=== PATIENT | male | born 1955 | race Caucasian/White ===

== ENCOUNTER 2023-07-15 10:56 | Outpatient (AMB) | payer MEDICARE, SELFPAY ==
--- NOTE | 2023-07-15 11:28 | MHC.OFFVIS ---
Intake Vital Signs 07/15/23 11:29 Height 5 ft 11 in Weight 215 lb BMI 30.0 Blood Pressure Location Lt brachial Position Sitting Respiration 14 Pulse 82 Pulse Source Pulse Oximeter Pulse Oximetry (%) 95 Oxygen Delivery Method Room Air Intake Visit Reasons: sacrococcygeal disorder Allergies lisinopril Adverse Reaction (Severe, Verified 07/15/23 11:31) Unknown NSAIDS (Non-Steroidal Anti-Inflamma Adverse Reaction (Severe, Verified 07/15/23 11:31) duodenal ulcer flu vaccine Adverse Reaction (Severe, Uncoded 07/15/23 11:31) david kidd Medication List - Last Reconciled 07/15/23 by Adia Deluna LPN amlodipine 10 mg PO DAILY cholecalciferol (vitamin D3) 50 mcg PO DAILY furosemide 20 mg PO DAILY gabapentin 300 mg PO BID magnesium 500 mg PO DAILY pantoprazole 40 mg PO DAILY ropinirole 2 mg PO BID tamsulosin 0.4 mg PO BEDTIME vitamin B complex (B Complex-Vitamin B12 tablet) 1 tab PO DAILY HPI sacrococcygeal disorder HPI Details 67-year-old male who presents today to the office for an evaluation of low back and leg pain. He had an L3?[address] Farooq and then spinal fusion by Dr. Mishra in 2020. He reports low back pain radiating down to bilateral legs and feet that started about 10 years ago. His history is notable for L3-L4 spinal stenosis. He states that his pain radiates down to his thighs. He denies any pain in his buttock region. He denies any pain in his neck. He reports pain with transitions such as getting up from sitting, getting in or out of the car, turning over in bed, and getting up out of bed. He had a bilateral sacroiliac joint injection on 03/21, which did not provide any relief. He has undergone lumbar medial branch blocks, facet injections at L4-5 and L5-S1, epidural steroid injections, and lumbar medial branch RFA at [facility], none of which provided any relief. He states that he has gained 50 lbs. since the surgery. He has tried morphine, tramadol, and gabapentin in the past with minimal benefits. He states that morphine makes him ?groggy? and has not provided much relief. He is currently on gabapentin 300 mg b.i.d. He is diagnosed with primary progressive MS for which he is not taking any treatment. He reports swelling in his ankles. He is ambulating with the help of a walker, or ?cruising the furniture? inside the house. He reports weakness in his bilateral leg (R>L), which worsened post-surgery. He reports pain with standing or walking for short distances, which improved with sitting. [facility] Medical History (Updated 07/23/23 @ 08:17 by Bandar Azevedo MD) Dyslipidemia Chronic pain syndrome Neurogenic bladder History of progressive weakness Bilateral leg weakness Primary hypertension SOB (shortness of breath) Review of Systems Const All systems reviewed & are unremarkable except as noted in HPI and below Physical Exam Vital Signs: Last Vital Signs Pulse 82 07/15/23 11:29 Resp 14 07/15/23 11:29 Pulse Ox 95 07/15/23 11:29 Oxygen Delivery Method Room Air 07/15/23 11:29 BMI result Body Mass Index 30.0 General: Appears afebrile. Alert and oriented. Mood and affect appropriate. Follows and participates in conversation appropriately. Respiratory effort is unlabored. Able to transition from sit to stand unassisted. Ambulates with bilaterally normal heel strike and toe off. 1+ pitting edema on exam up to the mid zavala. Results Reviewed Results Reviewed: 04/06/23: MR PELVIS WITHOUT CONTRAST. MRI scan : There is a schmorl's node with modic changes at the inferior end plate off the L2 vertebral body. Assessment & Plan Assessment & Plan (1) Post laminectomy syndrome: Code(s): M96.1 - Postlaminectomy syndrome, not elsewhere classified (2) Spinal stenosis, lumbar region with neurogenic claudication: Code(s): M48.062 - Spinal stenosis, lumbar region with neurogenic claudication Plan Discussed MILD procedure at L4-5 to decompress the L4-5 space followed by potentially spinal cord stimulation for post-laminectomy related pain. Will place a referral for psychology clearance for SCS trial. The patient will receive a call from [facility] for the psychology assessment. In the meanwhile we will plan on scheduling for minimally invasive lumbar decompression at L4-5. For the time being, a script of tramadol 50 mg was provided to the patient for pain management to last until the aforementioned therapies are instituted. It is advised to avoid taking tramadol with morphine. The patient can continue taking gabapentin 300 mg as directed. Scribed for Dr. Azevedo by Darwin Waters, medical transcription editor, on 07/15/2023. I, Dr. Azevedo, have personally reviewed and agree with the information entered by the scribe. Medications: New tramadol 50 mg PO BEDTIME 60 tabs 0RF Coding Level of Care Code New Pt Level 4 (60714) Diagnoses Post laminectomy syndrome M96.1 Spinal stenosis, lumbar region with neurogenic claudication M48.062
[2023-07-15 11:29] VITALS: PULSE 82; RESP 14; O2SAT 95
== END 2023-07-15 12:29 | disposition home or self-care (01) ==
PROVIDERS: PCP Pediatrics; Visit Provider Internal Medicine
DX: M96.1 Postlaminectomy syndrome, not elsewhere classified (principal); M48.062 Spinal stenosis, lumbar region with neurogenic claudication
CPT/HCPCS: 99204

== ENCOUNTER → 2023-07-15 10:56 | Outpatient (BNVA) | payer MEDICARE, SELFPAY | PROVIDERS: Visit Provider Internal Medicine ==

== ENCOUNTER → 2023-07-22 12:45 | Outpatient (REF) | payer MEDICARE, SELFPAY ==
--- NOTE | 2023-07-22 12:54 | CA_ITS ---
Transthoracic Echocardiogram Patient (Last, First, Middle): Junior Mathew, Gender: Male Date of : 1955 Age: 67 Procedure Date: 07/22/2023 Procedure Type: Transthoracic Echocardiogram Location: [place] Height: 180.34 cm Weight: 99.79 kg BSA: 2.20 m2 Heart Rate: 84 bpm BP: 144 / 84 mmHg Transit Manager: SB Referring MD: Tim Gipson MD Tongue And Quarter Stitcher: Lawson Fan MD Symptoms: I10 HTN SOB R06.02 Study Quality: Fair ECG Rhythm: Sinus Conclusions: - 1. Normal LV ejection fraction of 60-65% 2. Trivial aortic regurgitation 3. Mildly dilated ascending aorta at 4 cm 4. Normal RV systolic pressure 5. No gross pericardial effusion Findings Left Ventricle Normal left ventricular size, thickness, and systolic function. The visually estimated ejection fraction is between 60-65%. Spectral Doppler is indicative of a normal filling pattern. Right Ventricle Mildly increased right ventricular cavity size. There is normal right ventricular systolic function. Atria The left atrium is normal in size. Interatrial shunt cannot be excluded. The right atrium was not well visualized. Aortic Valve There is mild calcification of the aortic valve. There is no aortic valve stenosis. There is trace (trivial) aortic valve regurgitation. Mitral Valve There is mild anterior and posterior mitral leaflet thickening. There is mild mitral annular calcification. There is trace mitral valve regurgitation. There is no mitral valve stenosis. Pulmonic Valve The pulmonic valve was not well visualized. Tricuspid Valve Likely normal tricuspid valve structure and function. There is trace tricuspid valve regurgitation. The right ventricular systolic pressure is normal. The right ventricular systolic pressure is 24 mmHg. Normal right atrial pressure. There is no evidence of pulmonary hypertension. Great Vessels The pulmonary artery was not well visualized. There is mild dilatation of the ascending aorta measuring 4.00 cm. Venous The inferior vena cava is normal in size and collapses greater than 50% with inspiration. Pericardium/Pleural There is no evidence of pericardial effusion. Prior Study Comparison No prior study available for comparison. Measurements 2D Linear Measurements IVSd: 1.05 0.6-0.9/0.6-1.0 cm LVIDd: 5.10 3.9-5.3/4.2-5.9 cm LVIDd Index: 2.32 2.4-3.2/2.2-3.1 cm/m2 LVIDs: 3.09 2.0-3.6 cm LA Diam: 4.30 2.7-3.8/3.0-4.0 cm LAIDs Index: 1.95 1.5-2.3 cm/m2 LVOT Diam: 2.20 3.0+(-)1.3 cm Mitral Valve MV Pk E: 0.78 MV PK A: 0.72 MV Decel Time: 155.00 E/A: 1.10 E'Lateral: 10.10 E'Medial: 7.07 E/E' Med: 11.00 E/E' Lat: 7.70 PHT: 45.00 MVA PHT: 4.89 Decel [place]: 5.03 Aortic Valve AoV Pk Sandor: 1.35 AoV Pk Grad: 7.00 ISSA: 3.22 LVOT LVOT Pk Sandor: 1.08 LVOT Mn Sandor: 0.72 LVOT VTI: 0.22 LVOT Pk Grad: 5.00 LVOT Mn Grad: 2.00 LVOT Diam: 2.20 LVOT Area: 3.80 Diastolic Function MV Pk E: 0.78 MV Pk A: 0.72 E/A: 1.10 E'Medial: 7.07 E/E' Med: 11.00 E' Laterial: 10.10 E/E' Lat: 7.70 Right Ventricle TAPSE (mm): 18.30 TVS' Sandor: 16.70 Tricuspid Valve TR Pk Sandor: 2.30 TR Pk Grad: 21.00 RA Press: 3.00 RVSP: 24.00 Great Vessels Aorta Sinus of Valsalva: 4.20 2.0-3.5 cm Ao Asc: 4.00 2.1-3.4 cm Pulmonary Valve PV Pk Sandor: 1.11 Peak PV Grad: 5.00 Updated in Other Vendor System with Status of Final Lawson Fan MD electronically signed on 07/22/2023 2:47:00 PM with status of Final
== END ==
LOC: HO.CARD 12:45
PROVIDERS: PCP Pediatrics; Visit Provider Pediatrics
DX: R06.02 Shortness of breath (principal); I10 Essential (primary) hypertension
CPT/HCPCS: 93306

== ENCOUNTER → 2023-07-22 12:54 | Outpatient (BNV) | payer MEDICARE, SELFPAY | PROVIDERS: PCP Pediatrics; Visit Provider Internal Medicine Cardiovascular Disease | DX: I34.81 Nonrheumatic mitral (valve) annulus calcification (principal); I35.8 Other nonrheumatic aortic valve disorders | CPT/HCPCS: 93306 ==

== ENCOUNTER 2023-10-02 10:59 | Day surgery (SDC) | payer MEDICARE, SELFPAY ==
--- NOTE | ~2023-10-02 | FL_ITS ---
EXAMINATION: XR FLUOROSCOPY WITH IMAGES CLINICAL INFORMATION: L4-L5 minimally invasive lumbar decompression. COMPARISON: None available. TECHNIQUE: Fluoroscopy Supervised By: Dr. Bandar Azevedo. Fluoroscopy Time: 6.2 minutes. Cumulative Dose: 86.0 mGy. DAP: 3.48 Gycm2. Images: 5. FINDINGS: Images demonstrate surgical instruments projecting over the lower lumbar spine FL/FL guidance in OR IMPRESSION: Fluoroscopy guidance for lumbar spine surgery.
[2023-10-02 11:34] VITALS: BMI 30.7
[2023-10-02 11:45] VITALS: BP 139/78; PULSE 93; RESP 16; TEMP 36.3; O2SAT 94
--- NOTE | 2023-10-02 12:15 | HO.ANESPROP2 ---
Documented by User: Libia Kern NP 10/01/23 10:00 HPI - Anesthesia Eval Consult details Narrative: 67yo M for L4-L5 Minimally Invasive Lumbar Decompression (Mild) PMFSH Active Problems Active Problems: All Active Problems (Updated 09/27/23 @ 10:36 by Tanesha Stapleton RN) Spinal stenosis, lumbar region with neurogenic claudication (Acute) Post laminectomy syndrome (Acute) Past Medical History Medical History (Updated 09/27/23 @ 10:36 by Tanesha Stapleton RN) Multiple sclerosis Spinal stenosis GERD (gastroesophageal reflux disease) Dyslipidemia Chronic pain syndrome Neurogenic bladder History of progressive weakness Bilateral leg weakness Primary hypertension SOB (shortness of breath) Surgical History Surgical History (Updated 09/27/23 @ 10:36 by Tanesha Stapleton RN) Hx of lumbar discectomy Social History Social History Patient Tobacco Use Status: Former Tobacco user Quit Date: 15 years ago Use of substances other than those prescribed or required for medical reasons: No Are you DNR?: Yes Advance Directives: No Advance Directives Information Provided: Yes Meds Allergies Allergy/AdvReac Type Severity Reaction Status Date / Time lisinopril AdvReac Severe Unknown Verified 07/15/23 11:31 NSAIDS (Non-Steroidal AdvReac Severe duodenal Verified 07/15/23 11:31 Anti-Inflamma ulcer flu vaccine AdvReac Severe guillane Uncoded 07/15/23 11:31 barre Home Medications Medication Instructions Recorded Confirmed Last Taken Type amlodipine 10 mg tablet 10 mg PO DAILY 07/15/23 09/27/23 10/02/23 06:00 History cholecalciferol (vitamin D3) 50 50 mcg PO DAILY 07/15/23 09/27/23 Unknown History mcg (2,000 unit) capsule furosemide 20 mg tablet 20 mg PO DAILY 07/15/23 09/27/23 10/02/23 06:00 History gabapentin 300 mg capsule 300 mg PO BID 07/15/23 09/27/23 Unknown History magnesium 250 mg tablet 500 mg PO DAILY 07/15/23 09/27/23 Unknown History pantoprazole 40 mg tablet,delayed 40 mg PO QPM 07/15/23 09/27/23 Unknown History release ropinirole 2 mg tablet 2 mg PO BID 07/15/23 09/27/23 Unknown History tamsulosin 0.4 mg capsule 0.4 mg PO BEDTIME 07/15/23 09/27/23 Unknown History vitamin B complex (B 1 tab PO DAILY 07/15/23 09/27/23 Unknown History Complex-Vitamin B12 tablet) Exam Height,Weight and Vital Signs: Height 5 ft 11 in Weight 97.522 kg Narrative Narrative: ECHO 06/2023 Conclusions: - 1. Normal LV ejection fraction of 60-65% 2. Trivial aortic regurgitation 3. Mildly dilated ascending aorta at 4 cm 4. Normal RV systolic pressure 5. No gross pericardial effusion Assessment and Plan Assessment Anesthesia Assessment: Chart Reviewed Documented by User: Iraida Her DO 10/02/23 12:18 PMFSH Past Medical History Medical History (Updated 09/27/23 @ 10:36 by Tanesha Stapleton RN) Multiple sclerosis Spinal stenosis GERD (gastroesophageal reflux disease) Dyslipidemia Chronic pain syndrome Neurogenic bladder History of progressive weakness Bilateral leg weakness Primary hypertension SOB (shortness of breath) Functional capacity: uses cane/walker Family History Family history of problems with anesthesia: No Surgical History Surgical History (Updated 09/27/23 @ 10:36 by Tanesha Stapleton RN) Hx of lumbar discectomy History of Problems with Anesthesia: No Social History Social History Patient Tobacco Use Status: Former Tobacco user Quit Date: 15 years ago Use of substances other than those prescribed or required for medical reasons: No Are you DNR?: Yes Advance Directives: No Advance Directives Information Provided: Yes Meds Allergies Allergy/AdvReac Type Severity Reaction Status Date / Time lisinopril AdvReac Severe Unknown Verified 07/15/23 11:31 NSAIDS (Non-Steroidal AdvReac Severe duodenal Verified 07/15/23 11:31 Anti-Inflamma ulcer flu vaccine AdvReac Severe guillane Uncoded 07/15/23 11:31 barre Home Medications Medication Instructions Recorded Confirmed Last Taken Type amlodipine 10 mg tablet 10 mg PO DAILY 07/15/23 09/27/23 10/02/23 06:00 History cholecalciferol (vitamin D3) 50 50 mcg PO DAILY 07/15/23 09/27/23 Unknown History mcg (2,000 unit) capsule furosemide 20 mg tablet 20 mg PO DAILY 07/15/23 09/27/23 10/02/23 06:00 History gabapentin 300 mg capsule 300 mg PO BID 07/15/23 09/27/23 Unknown History magnesium 250 mg tablet 500 mg PO DAILY 07/15/23 09/27/23 Unknown History pantoprazole 40 mg tablet,delayed 40 mg PO QPM 07/15/23 09/27/23 Unknown History release ropinirole 2 mg tablet 2 mg PO BID 07/15/23 09/27/23 Unknown History tamsulosin 0.4 mg capsule 0.4 mg PO BEDTIME 07/15/23 09/27/23 Unknown History vitamin B complex (B 1 tab PO DAILY 07/15/23 09/27/23 Unknown History Complex-Vitamin B12 tablet) Exam Exam Date and Time: October 02, 2023 1210 Height,Weight and Vital Signs: Height 5 ft 11 in Weight 97.522 kg Height 5 ft 11 in Weight 99.972 kg Vital Signs Temperature 97.4 F 10/02/23 11:45 Pulse Rate 93 10/02/23 11:45 Respiratory Rate 16 10/02/23 11:45 Blood Pressure 139/78 10/02/23 11:45 Pulse Oximetry 94 10/02/23 11:45 Oxygen Delivery Method Room Air 10/02/23 11:45 Temperature 97.4 F 10/02/23 11:45 Pulse Rate 93 10/02/23 11:45 Respiratory Rate 16 10/02/23 11:45 Blood Pressure 139/78 10/02/23 11:45 Pulse Oximetry 94 10/02/23 11:45 Oxygen Delivery Method Room Air 10/02/23 11:45 Airway Mallampati Class: II TM Dist: >3cm Neck ROM: Full Loose/Missing/Broken Teeth: No Heart: S1S2 Lungs: CTAB Assessment and Plan Assessment Anesthesia Assessment: Anesthesia Plan Discussed and Chart Reviewed Final Anesthetic Review Family History of Problems with Anesthesia: No History of Problems with Anesthesia: No NPO: Yes ASA Class: III Final Preanesthetic Review: No Changes in Pt Med Stat, Meds/Allgs Chart Reviewed, Consent Obtained/Reviewed, Anes Risks/Benef Reviewed and DNR Form (If Appl.) (DNR reversed for case and in PACU. Reversal form signed) Patient Risk: Intermediate Procedure Risk: Low Anesthetic Plan Anesthetic Plan: MAC: and Agree w/ Assess. and Plan Disposition: Standard PACU
[2023-10-02 14:15] VITALS: BP 123/78; PULSE 96; RESP 18; TEMP 36.2; O2SAT 96
[2023-10-02 14:28] VITALS: BP 126/78; PULSE 88; RESP 18; TEMP 36.1; O2SAT 96
--- NOTE | 2023-10-02 15:15 | MHC.SHP ---
Pre-Procedural Eval Section A Date of Service: 10/02/23 The patient is an INPATIENT: No Changes since office visit: Yes Patient answered all questions The History & Physical has been completed within 30 days and I have reviewed it.: No Section B Chief Complaint: Spinal stenosis, lumbar region with neurogenic cla Relevant Family History (Specify if Yes): No Relevant Social History: None Present Medications: see Short Stay Collaborative assessment Medical History: No relevant PMH History of Previous Operations: No relevant previous surgery Allergies: Allergies Allergy/AdvReac Type Severity Reaction Status Date / Time lisinopril AdvReac Severe Unknown Verified 07/15/23 11:31 NSAIDS (Non-Steroidal AdvReac Severe duodenal Verified 07/15/23 11:31 Anti-Inflamma ulcer flu vaccine AdvReac Severe guillane Uncoded 07/15/23 11:31 barre Review of Systems Sugical H&P ROS: Negative: Constitution, Cardiovascular and Respiratory Exam Surgical H&P Exam: Normal: HEENT, Normal: Heart and Normal: Lungs Plan Diagnosis/Plan: Unchanged I have reviewed the history and physical and performed a pertinent physical examination on my patient. No changes have occurred unless specified. Time Spent With Patient Time: Total time managing care of this patient today ____ minutes.
--- NOTE | 2023-10-02 15:15 | PM.OP ---
Brief Operative Note Date of Service: 10/02/23 Pre-op diagnosis: Lumbar spinal stenosis with neurogenic claudication Post-op diagnosis: same Procedure: Minimally invasive percutaneous lumbar decompression, L4-5 Surgeon: Bandar Azevedo MD Anesthesia: MAC Was an Induction Coordination Engineer used for this Procedure?: No Estimated blood loss (mL): 3 Pathology: none sent Condition: stable Disposition: PACU
--- NOTE | 2023-10-02 15:16 | W.PM.OPN ---
Operative Note Operative Note Date of Service: 10/02/23 Narrative: Minimally Invasive Lumbar Decompression, Bilateral, L-4/5 After informed consent, patient was brought to the operating room. The patient was placed in the prone position in the fluoroscopy suite with blankets (bolster) under the hips to assist with reversing lordosis of the spine. Following IV sedation and antibiotic administration, the patient was prepped and draped in my usual standard fashion. Time-out was performed to confirm site and level of intervention. Ample amounts of local anesthetic were used to anesthetize the skin and deep facial planes after topographical landmarks were identified. Procedural safety barriers were established by utilizing a contralateral oblique (KEYLA) view to visualize the ventral interlaminar line (VILL). Instruments remained posterior to the VILL during the percutaneous lumbar decompression procedure. A small midline incision was made with a sharp scalpel blade, and a trocar with portal was inserted percutaneously under fluoroscopic guidance to contact the lamina indicated. The trocar and portal were tugged to the right side to approach the right interlaminar space first. A bone-sculpting rongeur was inserted to remove adequate amounts of lamina (laminotomy) from the superior surface of the inferior operative lamina site and from the inferior aspect of the lamina above it. The laminotomy created a passage for the tissue sculpting instrument used in debulking the ligamentum flavum. The ligamentum flavum was debulked until diminished returns. A similar procedure was performed on the contralateral side. There were no complications or difficulties noted with these procedures. Upon completion of the procedure, instruments were removed, hemostasis was achieved by direct pressure, and wound closure was performed with dermabond and steristrips. The patient tolerated the procedure well. Upon transferring the patient to the recovery room, the patient?s vital signs remained stable and without any neurologic deficits. The patient was discharged with instructions to rest, continue with ice, and to demonstrate progressive mobility. The patient was given a follow-up exam time and date along with instructions and contact information for any questions or concerns. The patient is to be followed up in the office for further evaluation and treatment, as deemed appropriate and necessary, and for any concerns regarding the procedure.
== END 2023-10-02 15:07 | disposition home or self-care (01) ==
PROVIDERS: PCP Pediatrics; Visit Provider Internal Medicine
PROC: (CPT 0275T; principal; 2023-10-02 12:30)
DX: M48.062 Spinal stenosis, lumbar region with neurogenic claudication (principal); Z00.6 Encounter for examination for normal comparison and control in clinical research program; M96.1 Postlaminectomy syndrome, not elsewhere classified; G89.4 Chronic pain syndrome; M51.46 Schmorl's nodes, lumbar region; G35 Multiple sclerosis; R53.1 Weakness; I10 Essential (primary) hypertension; E78.5 Hyperlipidemia, unspecified; N31.9 Neuromuscular dysfunction of bladder, unspecified; R06.02 Shortness of breath; R26.2 Difficulty in walking, not elsewhere classified; Z99.89 Dependence on other enabling machines and devices; Z79.899 Other long term (current) drug therapy; Z88.8 Allergy status to other drugs, medicaments and biological substances; Z88.7 Allergy status to serum and vaccine; Z98.890 Other specified postprocedural states; Z98.1 Arthrodesis status
CPT/HCPCS: 0275T; 87640; 87641; C1889; J0131; J0690; J1100; J2250; J2704; J2795; J3010

== ENCOUNTER → 2023-10-02 10:59 | Outpatient (BNV) | payer MEDICARE, SELFPAY | PROVIDERS: PCP Pediatrics; Visit Provider Internal Medicine | DX: M48.062 Spinal stenosis, lumbar region with neurogenic claudication (principal) | CPT/HCPCS: 0275T ==

== ENCOUNTER 2023-10-14 11:00 | Outpatient (AMB) | payer MEDICARE, SELFPAY ==
[2023-10-14 11:08] VITALS: BP 139/73; PULSE 96; RESP 12; O2SAT 95; BMI 30.7
--- NOTE | 2023-10-14 11:08 | A.OFFVIS_ITS ---
Intake Vital Signs 10/14/23 11:08 Height 5 ft 11 in Weight 220 lb BMI 30.7 BP 139/73 Blood Pressure Location Lt brachial Position Sitting Respiration 12 Pulse 96 Pulse Source Pulse Oximeter Pulse Oximetry (%) 95 Oxygen Delivery Method Room Air Intake Visit Reasons: S/p L4-L5 MILD 10/02/23 Allergies lisinopril Adverse Reaction (Severe, Verified 10/14/23 11:09) Unknown NSAIDS (Non-Steroidal Anti-Inflamma Adverse Reaction (Severe, Verified 10/14/23 11:09) duodenal ulcer flu vaccine Adverse Reaction (Severe, Uncoded 10/14/23 11:09) david kidd Medication List - Last Reconciled 10/14/23 by Adia Deluna LPN amlodipine 10 mg PO DAILY cholecalciferol (vitamin D3) 50 mcg PO DAILY furosemide 20 mg PO DAILY gabapentin 300 mg PO BID magnesium 500 mg PO DAILY pantoprazole 40 mg PO QPM ropinirole 2 mg PO BID tamsulosin 0.4 mg PO BEDTIME tramadol 50 mg PO BEDTIME vitamin B complex (B Complex-Vitamin B12 tablet) 1 tab PO DAILY HPI S/p L4-L5 MILD 10/02/23 HPI Details 67-year-old male who presents today to t he office for a status post L4- L5 MILD. The patient reports 80-90% relief following the procedure. He has very mild pain in his back. He has been doing gentle weight-lifting exercises. He reports swelling in his legs that has been increasing and progressively worsening. It has also been causing some discomfort in his legs.. He had a cardio workup with his PCP, which was reportedly normal. He is using compression stockings with minimal benefit. He had an echocardiogram in the past, which was also reportedly WNL. He wakes up 2-3 times at night for voiding. He is currently on amlodipine and Lasix. Past Procedure: 10/02/23: Minimally Invasive Lumbar Deco mpression, Bilateral, L-4/5: 80-90% relief. [facility] Medical History (Updated 10/14/23 @ 11:28 by Bandar Azevedo MD) Multiple sclerosis Spinal stenosis GERD (gastroesophageal reflux disease) Dyslipidemia Chronic pain syndrome Neurogenic bladder History of progressive weakness Bilateral leg weakness Primary hypertension SOB (shortness of breath) Surgical History (Updated 09/27/23 @ 10:36 by Tanesha Stapleton RN) Hx of lumbar discectomy Social History Patient Tobacco Use Status: Former Tobacco user Quit Date: 15 years ago Review of Systems Const All systems reviewed & are unremarkable except as noted in HPI and below Physical Exam Vital Signs: Last Vital Signs Pulse 96 10/14/23 11:08 Resp 12 10/14/23 11:08 BP 139/73 10/14/23 11:08 Pulse Ox 95 10/14/23 11:08 Oxygen Delivery Method Room Air 10/14/23 11:08 BMI result Body Mass Index 30.7 General: Appears afebrile. Alert and oriented. Mood and affect appropriate. Follows and participates in conversation appropriately. Respiratory effort is unlabored. Able to transition from sit to stand unassisted. Ambulates with bilaterally normal heel strike and toe off. 1+ pitting edema up to the shins bilaterally. Results Reviewed Results Reviewed: No imaging is available for review. Assessment & Plan Assessment & Plan (1) Lower extremity edema: Code(s): R60.0 - Localized edema Plan The patient has significant ongoing pain relief from the MILD procedure. The patient will continue to perform gentle weight lifting exercises; however, advised to avoid strenuous exercises and heavy weights above the head. I ordered an US of the bilateral lower extremities to assess for venous reflux to explain the edema in his leg. I provided contact details to schedule the US. I recommended following up with his primary care physician for further cardiac workup and optimization of antihypertensive and diuretic regimen to help decrease the lower extremity swelling. Patient would like to hold off on further interventions for his lower back at this time given the lack of pain. We will consider spinal cord stimulation in the future if and when his pain symptoms returned. Scribed for Dr. Azevedo by Darwin Waters, medical lab technologist, on 10/14/2023. I, Dr. Azevedo, have personally reviewed and agree with the information entered by the scribe. Orders: Orders US venous duplex LE BI 10/14/23 R60.0 - Localized edema Coding Level of Care Code Est Pt Level 4 (17206) Diagnoses Lower extremity edema R60.0
== END 2023-10-14 12:46 | disposition home or self-care (01) ==
PROVIDERS: PCP Pediatrics; Visit Provider Internal Medicine
DX: R60.0 Localized edema (principal)
CPT/HCPCS: 99024

== ENCOUNTER → 2023-10-14 11:00 | Outpatient (BNVA) | payer MEDICARE, SELFPAY | PROVIDERS: PCP Pediatrics; Visit Provider Internal Medicine | DX: R60.0 Localized edema (principal) | CPT/HCPCS: 99212 ==

== ENCOUNTER 2023-12-20 10:46 | Outpatient (AMB) | payer MEDICARE, SELFPAY ==
[2023-12-20 10:50] VITALS: BP 138/93; PULSE 94; RESP 12; O2SAT 95; BMI 30.7
--- NOTE | 2023-12-20 10:50 | A.OFFVIS_ITS ---
Intake Vital Signs 12/20/23 10:50 Height 5 ft 11 in Weight 220 lb BMI 30.7 BP 138/93 H Blood Pressure Location Lt brachial Position Sitting Respiration 12 Pulse 94 Pulse Source Pulse Oximeter Pulse Oximetry (%) 95 Oxygen Delivery Method Room Air Intake Visit Reasons: Consult Allergies lisinopril Adverse Reaction (Severe, Verified 12/20/23 10:52) Unknown NSAIDS (Non-Steroidal Anti-Inflamma Adverse Reaction (Severe, Verified 12/20/23 10:52) duodenal ulcer flu vaccine Adverse Reaction (Severe, Uncoded 12/20/23 10:52) [email or web address] Medication List - Last Reconciled 12/20/23 by Adia Deluna LPN amlodipine 10 mg PO DAILY cholecalciferol (vitamin D3) 50 mcg PO DAILY furosemide 20 mg PO DAILY gabapentin 300 mg PO BID magnesium 500 mg PO DAILY pantoprazole 40 mg PO QPM ropinirole 2 mg PO BID tamsulosin 0.4 mg PO BEDTIME tramadol 50 mg PO BEDTIME vitamin B complex (B Complex-Vitamin B12 tablet) 1 tab PO DAILY HPI Consult HPI Details 68-year-old male who presents today to t he office for a consult. The patient reports no significant relief following the procedure. He states that his pain did not improve and started worsening even more. He reports having an ?electrical sensation radiating down to his right leg, which is a new symptom. He reports a mild burning sensation and swelling in his feet. He states that his foot pain is stable. He reports weakness in his leg and being unable to lift his leg, which started 2-3 weeks ago. He was able to ride a bicycle at home but is not able to do so due to weakness. He visited a new MS specialist, who evaluated and recommended an MRI scan and a visit to Dr. Olea, a back surgeon, for further evaluation. His last MRI scan of the spine was on 10/31/22. He will follow up with Imelda on 12/24/23. Past Procedure: 10/02/23: Minimally Invasive Lumbar Deco mpression, Bilateral, L-4/5: 80-90% relief. [facility] Medical History (Updated 10/14/23 @ 11:28 by Bandar Azevedo MD) Multiple sclerosis Spinal stenosis GERD (gastroesophageal reflux disease) Dyslipidemia Chronic pain syndrome Neurogenic bladder History of progressive weakness Bilateral leg weakness Primary hypertension SOB (shortness of breath) Surgical History (Updated 09/27/23 @ 10:36 by Tanesha Stapleton RN) Hx of lumbar discectomy Social History Patient Tobacco Use Status: Former Tobacco user Quit Date: 15 years ago Review of Systems Const All systems reviewed & are unremarkable except as noted in HPI and below Physical Exam Vital Signs: Last Vital Signs Pulse 94 12/20/23 10:50 Resp 12 12/20/23 10:50 BP 138/93 H 12/20/23 10:50 Pulse Ox 95 12/20/23 10:50 Oxygen Delivery Method Room Air 12/20/23 10:50 BMI result Body Mass Index 30.7 General: Appears afebrile. Alert and oriented. Mood and affect appropriate. Follows and participates in conversation appropriately. Respiratory effort is unlabored. Able to transition from sit to stand unassisted. Ambulates with bilaterally normal heel strike and toe off. Subjective quadricep difficulty while trying to flex the hip in a sitting position. Able to flex hips without problems in a standing position. Results Reviewed Results Reviewed: No imaging is available for review. Assessment & Plan Assessment & Plan (1) Post laminectomy syndrome: Code(s): M96.1 - Postlaminectomy syndrome, not elsewhere classified (2) Spinal stenosis, lumbar region with neurogenic claudication: Code(s): M48.062 - Spinal stenosis, lumbar region with neurogenic claudication Plan Discussed cortisone injection vs. temporary nerve stimulator as possible treatment options for persistent back pain. I ordered an MRI scan of the lumbar spine without contrast for further evaluation of progressive weakness in lower extremities or the past about 3 weeks. It will be scheduled at [facility] since his last imaging was done there as well. Once we have reviewed the MRI, we can consider a L3-4 and L4-5 TFESI and see if that is helpful in relieving his right back pain symptoms. Scribed for Dr. Azevedo by Drawin Waters, medical review coordinator, on 12/20/2023. I, Dr. Azevedo, have personally reviewed and agree with the information entered by the scribe. Coding Level of Care Code Est Pt Level 4 (00573) Diagnoses Post laminectomy syndrome M96.1 Spinal stenosis, lumbar region with neurogenic claudication M48.062
== END 2023-12-20 11:40 | disposition home or self-care (01) ==
PROVIDERS: PCP Pediatrics; Visit Provider Internal Medicine
DX: M96.1 Postlaminectomy syndrome, not elsewhere classified (principal); M48.062 Spinal stenosis, lumbar region with neurogenic claudication
CPT/HCPCS: 99214

== ENCOUNTER → 2023-12-20 10:46 | Outpatient (BNVA) | payer MEDICARE, SELFPAY | PROVIDERS: PCP Pediatrics; Visit Provider Internal Medicine | DX: M96.1 Postlaminectomy syndrome, not elsewhere classified (principal); M48.062 Spinal stenosis, lumbar region with neurogenic claudication | CPT/HCPCS: 99212 ==

== ENCOUNTER 2024-02-05 10:53 | Outpatient (AMB) | payer MEDICARE, SELFPAY ==
[2024-02-05 11:00] VITALS: BP 158/77; PULSE 89; RESP 14; O2SAT 96; BMI 30.5
--- NOTE | 2024-02-05 11:00 | A.OFFVIS_ITS ---
Vital Signs 3 02/05/24 11:00 Height 5 ft 11 in Weight 219 lb BMI 30.5 BP 158/77 H Blood Pressure Location Lt brachial Position Sitting Respiration 14 Pulse 89 Pulse Source Pulse Oximeter Pulse Oximetry (%) 96 Oxygen Delivery Method Room Air Intake Visit Reasons: MRI FOLLOW UP Allergies lisinopril Adverse Reaction (Severe, Verified 02/05/24 11:01) Unknown NSAIDS (Non-Steroidal Anti-Inflamma Adverse Reaction (Severe, Verified 02/05/24 11:01) duodenal ulcer flu vaccine Adverse Reaction (Severe, Uncoded 02/05/24 11:01) guillane barre Medication List - Last Reconciled 02/05/24 by Adia Deluna LPN amlodipine 10 mg PO DAILY cholecalciferol (vitamin D3) 50 mcg PO DAILY furosemide 20 mg PO DAILY gabapentin 300 mg PO BID magnesium 500 mg PO DAILY pantoprazole 40 mg PO QPM ropinirole 2 mg PO BID tamsulosin 0.4 mg PO BEDTIME tramadol 50 mg PO BEDTIME vitamin B complex (B Complex-Vitamin B12 tablet) 1 tab PO DAILY HPI HPI MRI FOLLOW UP: Details: 68-year-old male who presents today for MRI follow up. His MRI is mostly unchanged compared to the prior. There is no evidence of any ongoing central or foraminal stenoses that might explain his lower extremity weakness; he has previously been seen by Neurology and worked up for multiple sclerosis and was cleared from that standpoint as well. He has had multiple EMG studies all of which were unremarkable. At this time we do not really have a good explanation for why he continues to have significant lower extremity tremors, weakness associated with paresthesias and pain. He is desperate for relief and is interested in proceeding with a spinal cord stimulation trial. He also requests a supply of pain medication until he can undergo the trial and implant for the SCS device. He has previously been cleared from a behavioral standpoint. Past Procedure: 10/02/23: Minimally Invasive Lumbar Decompression, Bilateral, L-4/5: 80-90% relief. [facility] Medical History (Updated 10/14/23 @ 11:28 by Bandar Azevedo MD) Multiple sclerosis Spinal stenosis GERD (gastroesophageal reflux disease) Dyslipidemia Chronic pain syndrome Neurogenic bladder History of progressive weakness Bilateral leg weakness Primary hypertension SOB (shortness of breath) Surgical History (Updated 09/27/23 @ 10:36 by Tanesha Stapleton RN) Hx of lumbar discectomy Social History Patient Tobacco Use Status: Former Tobacco user Quit Date: 15 years ago Review of Systems Const All systems reviewed & are unremarkable except as noted in HPI and below Physical Exam Vital Signs: Last Vital Signs Pulse 89 02/05/24 11:00 Resp 14 02/05/24 11:00 BP 158/77 H 02/05/24 11:00 Pulse Ox 96 02/05/24 11:00 Oxygen Delivery Method Room Air 02/05/24 11:00 BMI result Body Mass Index 30.5 General: Appears afebrile. Alert and oriented. Mood and affect appropriate. Follows and participates in conversation appropriately. Respiratory effort is unlabored. Able to transition from sit to stand unassisted. Ambulates with the help of a walker Results Reviewed Results Reviewed: Assessment & Plan Assessment & Plan (1) Post laminectomy syndrome: Code(s): M96.1 - Postlaminectomy syndrome, not elsewhere classified Category: Medical Plan I had a long discussion with the patient and his regarding his options including temporary medial branch nerve stimulation if he wanted to avoid a permanent implant. I also discussed intrathecal therapy as a potential option. At this time I think he would most benefit from spinal cord stimulation given the mostly neuropathic nature of his symptoms including tremors, paresthesia and pain in lower extremities. In the absence of other explanations I am inclined to think that his symptoms are secondary to post-laminectomy syndrome. Patient would like to proceed with spinal cord stimulation trial. He was tentative booked for February 18 for SCS trial with a Medtronic device. I provided him with a 1 time script of tramadol 50mg 60 tablets to be taken as needed until a more permanent solution is in place. Justification for interventional therapy: * Patient with average pain > 6/10 * Patient has exhausted conservative therapy including physical therapy, oral medications, multiple injections as well as lumbar fusion surgery. Scribed for Dr. Azevedo by Geoff Low, medical billing coordinator, on 02/05/2024. I, Dr. Azevedo, have personally reviewed and agree with the information entered by the scribe. Medications: Refilled 2 tramadol 50 mg PO BEDTIME 60 tabs 0RF Coding Level of Care Code Est Pt Level 4 (91702) Diagnoses Post laminectomy syndrome M96.1
== END 2024-02-05 12:58 | disposition home or self-care (01) ==
PROVIDERS: PCP Pediatrics; Visit Provider Internal Medicine
DX: M96.1 Postlaminectomy syndrome, not elsewhere classified (principal)
CPT/HCPCS: 99214

== ENCOUNTER → 2024-02-05 10:53 | Outpatient (BNVA) | payer MEDICARE, SELFPAY | PROVIDERS: PCP Pediatrics; Visit Provider Internal Medicine | DX: M96.1 Postlaminectomy syndrome, not elsewhere classified (principal) | CPT/HCPCS: 99212 ==

== ENCOUNTER 2024-02-19 10:50 | Day surgery (SDC) | payer MEDICARE, SELFPAY ==
--- NOTE | 2024-02-18 09:28 | P.CONAN_ITS ---
Documented by User: Libia Kern NP 02/18/24 11:50 HPI - Anesthesia Eval Consult details Narrative: 68yo M for Spinal Cord Stimulation Trial Request for labs, EKG, PCP office visit note sent 02/18/24 at [facility] Active Problems Active Problems: All Active Problems Lower extremity edema (Acute) Spinal stenosis, lumbar region with neurogenic claudication (Acute) Post laminectomy syndrome (Acute) Past Medical History Medical History Multiple sclerosis Spinal stenosis GERD (gastroesophageal reflux disease) Dyslipidemia Chronic pain syndrome Neurogenic bladder History of progressive weakness Bilateral leg weakness Primary hypertension SOB (shortness of breath) Family History Family history of problems with anesthesia: No Surgical History Surgical History Hx of lumbar discectomy History of Problems with Anesthesia: No Social History Social History Patient Tobacco Use Status: Former Tobacco user Quit Date: 15 years Meds Allergies Allergy/AdvReac Type Severity Reaction Status Date / Time lisinopril AdvReac Severe Unknown Verified 02/05/24 11:01 NSAIDS (Non-Steroidal AdvReac Severe duodenal Verified 02/05/24 11:01 Anti-Inflamma ulcer flu vaccine AdvReac Severe guillane Uncoded 02/05/24 11:01 barre Home Medications ?Medication ?Instructions ?Recorded ?Confirmed ?Last Taken ?Type amlodipine 10 mg tablet 10 mg PO DAILY 07/15/23 02/05/24 10/02/23 06:00 History cholecalciferol (vitamin D3) 50 50 mcg PO DAILY 07/15/23 02/05/24 Unknown History mcg (2,000 unit) capsule furosemide 20 mg tablet 20 mg PO DAILY 07/15/23 02/05/24 10/02/23 06:00 History gabapentin 300 mg capsule 300 mg PO BID 07/15/23 02/05/24 Unknown History magnesium 250 mg tablet 500 mg PO DAILY 07/15/23 02/05/24 Unknown History pantoprazole 40 mg tablet,delayed 40 mg PO QPM 07/15/23 02/05/24 Unknown History release ropinirole 2 mg tablet 2 mg PO BID 07/15/23 02/05/24 Unknown History tamsulosin 0.4 mg capsule 0.4 mg PO BEDTIME 07/15/23 02/05/24 Unknown History vitamin B complex (B 1 tab PO DAILY 07/15/23 02/05/24 Unknown History Complex-Vitamin B12 tablet) Exam Pertinent Lab Results Pertinent Lab Results: CBC and BMP 10/2023 from outside facility WNL Narrative Narrative: ECHO 2022 Conclusions: - 1. Normal LV ejection fraction of 60-65% 2. Trivial aortic regurgitation 3. Mildly dilated ascending aorta at 4 cm 4. Normal RV systolic pressure 5. No gross pericardial effusion Assessment and Plan Assessment Anesthesia Assessment: Chart Reviewed Final Anesthetic Review Family History of Problems with Anesthesia: No History of Problems with Anesthesia: No Documented by User: Hannah Ta MD 02/19/24 13:14 PMF Active Problems Active Problems: All Active Problems Lower extremity edema (Acute) Spinal stenosis, lumbar region with neurogenic claudication (Acute) Post laminectomy syndrome (Acute) H/o feet edema Multiple Sclerosis in remission Past Medical History Medical History Multiple sclerosis Spinal stenosis GERD (gastroesophageal reflux disease) Dyslipidemia Chronic pain syndrome Neurogenic bladder History of progressive weakness Bilateral leg weakness Primary hypertension SOB (shortness of breath) Family History Family history of problems with anesthesia: No Surgical History Surgical History Hx of lumbar discectomy History of Problems with Anesthesia: No Social History Social History Patient Tobacco Use Status: Former Tobacco user Quit Date: 15 years Meds Allergies Allergy/AdvReac Type Severity Reaction Status Date / Time lisinopril AdvReac Severe Unknown Verified 02/05/24 11:01 NSAIDS (Non-Steroidal AdvReac Severe duodenal Verified 02/05/24 11:01 Anti-Inflamma ulcer flu vaccine AdvReac Severe guillane Uncoded 02/05/24 11:01 barre Home Medications ?Medication ?Instructions ?Recorded ?Confirmed ?Last Taken ?Type amlodipine 10 mg tablet 10 mg PO DAILY 07/15/23 02/05/24 10/02/23 06:00 History cholecalciferol (vitamin D3) 50 50 mcg PO DAILY 07/15/23 02/05/24 Unknown History mcg (2,000 unit) capsule furosemide 20 mg tablet 20 mg PO DAILY 07/15/23 02/05/24 10/02/23 06:00 History gabapentin 300 mg capsule 300 mg PO BID 07/15/23 02/05/24 Unknown History magnesium 250 mg tablet 500 mg PO DAILY 07/15/23 02/05/24 Unknown History pantoprazole 40 mg tablet,delayed 40 mg PO QPM 07/15/23 02/05/24 Unknown History release ropinirole 2 mg tablet 2 mg PO BID 07/15/23 02/05/24 Unknown History tamsulosin 0.4 mg capsule 0.4 mg PO BEDTIME 07/15/23 02/05/24 Unknown History vitamin B complex (B 1 tab PO DAILY 07/15/23 02/05/24 Unknown History Complex-Vitamin B12 tablet) Exam Height,Weight and Vital Signs: Height 5 ft 11 in Weight 90.265 kg Vital Signs Temp Pulse Resp BP Pulse Ox O2 Del Method 02/19/24 11:50 97.6 F 96 18 167/99 H 98 Room Air Airway Mallampati Class: II TM Dist: >3cm Neck ROM: Full Loose/Missing/Broken Teeth: No (Denies broken, loose, missing teeth) Heart: RRR Lungs: CTAB Assessment and Plan Assessment Anesthesia Assessment: Anesthesia Plan Discussed and Chart Reviewed Final Anesthetic Review Family History of Problems with Anesthesia: No History of Problems with Anesthesia: No NPO: Yes ASA Class: III Final Preanesthetic Review: No Changes in Pt Med Stat, Meds/Allgs Chart Reviewed, Consent Obtained/Reviewed and Anes Risks/Benef Reviewed Patient Risk: Intermediate Procedure Risk: Low Assessment/Block/Sedation in SS: Assess/Block/Sedation-SS Anesthetic Plan Anesthetic Plan: MAC: Disposition: Standard PACU
--- NOTE | ~2024-02-19 | FL_ITS ---
EXAMINATION: XR FLUOROSCOPY WITH IMAGES CLINICAL INFORMATION: Spinal cord stimulator trial. COMPARISON: None available. TECHNIQUE: Fluoroscopy Supervised By: Dr. Bandar Azevedo. Fluoroscopy Time: 3 minutes 55 seconds. Cumulative Dose: 64.8 mGy. DAP: 6.495 Gy-cm2. Images: 2. FINDINGS: Intraoperative fluoroscopy and spot films were performed during a procedure in the OR. 2 spinal cord stimulator leads are seen in the mid thoracic spine likely at the T7 region although I cannot be absolutely certain of this because of coning. Please see Dr. Bandar Azevedo' report for complete details. FL/FL guidance in OR IMPRESSION: Intraoperative fluoroscopy and spot films were obtained. Please see Dr. Bandar Azevedo' report for complete details.
--- NOTE | ~2024-02-19 | XR_ITS ---
EXAMINATION: XR THORACIC SPINE CLINICAL INFORMATION: Postlaminectomy syndrome. COMPARISON: Fluoroscopy images of 02/19/2024 and 10/02/2023. TECHNIQUE: Single view of the thoracic spine. FINDINGS: Dextroscoliosis of the thoracic spine. Multilevel degenerative changes in the thoracic spine. Spinal cord stimulator wires overlie the [id number] lumbar spine with tips at the approximate level of T7-T8. XR/XR thoracic spine 1V IMPRESSION: Spinal cord stimulator wires overlie the [id number] lumbar spine with tips at the approximate level of T7-T8.
[2024-02-19 11:50] VITALS: BP 167/99; PULSE 96; RESP 18; TEMP 36.4; O2SAT 98; BMI 27.8
[2024-02-19] MEDS: Lactated Ringers 1,000 ML 100 ML IVCONT (12:12)
--- NOTE | 2024-02-19 12:51 | P.OP_ITS ---
Operative Note Operative Note Date of Service: 02/19/24 Narrative: Percutaneous Spinal Cord Stimulator Trial, Lumbar After obtaining written consent, pre-procedure blood pressure and heart rate were recorded and are in the nursing record for review. A peripheral IV was started. Antibiotics, cefazolin 2 gram, were given intraoperatively. The patient was placed in a prone position.? The patient was sedated by the anesthesiologist. The thoracolumbar area was widely prepped with ChloraPrep, allowed to dry and draped in sterile fashion. Fluoroscopy was used to identify the target interlaminar spaces and appropriate needle insertion sites. The skin and subcutaneous tissue was anesthetized with 0.5% lidocaine. Two separate 14 gauge Epimed epidural needles were then advanced from this point in a paramedian approach to the epidural space opening at T12/L1 interspace, where loss of resistance was found using air. No paresthesias were elicited with needle placement. No CSF or heme was present upon needle placement. A guide wire was then used to confirm placement into the epidural space at each level under live fluoroscopy. The 1x8 stimulator lead wire was then threaded to the mid T7 in the right parasagittal position and top of T8 in the left parasagittal position u nder live fluoroscopy. The leads advanced midline.? The needles were then completely removed under live fluoroscopy. The stimulator wires were then secured with 2-0 silk sutures securing the anchors, steristrips, gauze and tegaderm for skin dressing. The patient tolerated the procedure well and no complications were encountered. Following the procedure the patient's vital signs were stable. The patient was discharged home in good condition after being given discharge instructions. Time Out: Immediately prior to the procedure, the following was verbally confirmed that there is a signed consent form and that the correct patient, planned procedure, site and side are consistent with documentation and that necessary equipment and/or blood products are available prior to the start of the case. Complications: none EBL: <5 cc
--- NOTE | 2024-02-19 12:51 | P.BOP_ITS ---
Brief Operative Note Date of Service: 02/26/24 Pre-op diagnosis: Lumbar post-laminectomy syndrome Post-op diagnosis: same Procedure: Lumbar spinal cord stimulation trial Implants: Medtronic SCS trial leads Surgeon: Bandar Azevedo MD Anesthesia: MAC Was an Tool Profiling Machine Set Up Operator used for this Procedure?: No Estimated blood loss (mL): 5 Pathology: none sent Condition: stable Disposition: PACU
--- NOTE | 2024-02-19 12:51 | MHC.SHP ---
Pre-Procedural Eval Section A - 24 Hr Update-Section A only Date of Service: 02/19/24 The patient is an INPATIENT: No Changes since office visit: Yes Patient answered all questions The patient has been examined within 24 hours of the surgical procedure. The History & Physical has been completed within 30 days and I have reviewed it.: Yes Section B - Complete if H&P > 30 days Chief Complaint: Postlaminectomy syndrome, not elsewhere classified Relevant Family History (Specify if Yes): No Relevant Social History: None Present Medications: see Short Stay Collaborative assessment Medical History: No relevant PMH History of Previous Operations: No relevant previous surgery Allergies: Allergies Allergy/AdvReac Type Severity Reaction Status Date / Time lisinopril AdvReac Severe Unknown Verified 02/05/24 11:01 NSAIDS (Non-Steroidal AdvReac Severe duodenal Verified 02/05/24 11:01 Anti-Inflamma ulcer flu vaccine AdvReac Severe guillane Uncoded 02/05/24 11:01 barre Review of Systems Sugical H&P ROS: Negative: Constitution, Cardiovascular and Respiratory Exam Surgical H&P Exam: Normal: HEENT, Normal: Heart and Normal: Lungs Plan Diagnosis/Plan: Unchanged I have reviewed the history and physical and performed a pertinent physical examination on my patient. No changes have occurred unless specified. Time Spent With Patient Time: Total time managing care of this patient today ____ minutes.
[2024-02-19 13:47] LABS: MRSA Nasal PCR NEGATIVE (Negative); SA Nasal PCR NEGATIVE (Negative)
[2024-02-19 14:55] VITALS: BP 149/94; PULSE 83; RESP 18; TEMP 36.2; O2SAT 94
[2024-02-19 15:10] VITALS: BP 161/94; PULSE 87; RESP 14; O2SAT 95
[2024-02-19 15:25] VITALS: BP 159/89; PULSE 85; RESP 16; TEMP 36.4; O2SAT 96
== END 2024-02-19 15:56 | disposition home or self-care (01) ==
PROVIDERS: Registered Nurse Emergency; PCP Pediatrics; Visit Provider Internal Medicine
PROC: (CPT 63650; principal; 2024-02-19 13:00)
DX: M96.1 Postlaminectomy syndrome, not elsewhere classified (principal); M48.062 Spinal stenosis, lumbar region with neurogenic claudication; G35 Multiple sclerosis; G89.4 Chronic pain syndrome; K21.9 Gastro-esophageal reflux disease without esophagitis; I10 Essential (primary) hypertension; E78.5 Hyperlipidemia, unspecified; R06.02 Shortness of breath; Z87.891 Personal history of nicotine dependence; Z79.899 Other long term (current) drug therapy
CPT/HCPCS: 63650; 72020; 87640; 87641; C1889; C1897; J0690; J2250; J2704; J3010

== ENCOUNTER → 2024-02-19 10:50 | Outpatient (BNV) | payer MEDICARE, SELFPAY | PROVIDERS: PCP Pediatrics; Visit Provider Internal Medicine | DX: M96.1 Postlaminectomy syndrome, not elsewhere classified (principal) | CPT/HCPCS: 63650 ==

== ENCOUNTER 2024-02-20 10:49 | Outpatient (AMB) | payer MEDICARE, SELFPAY ==
[2024-02-20 11:07] VITALS: BP 164/98; PULSE 84; RESP 20; O2SAT 97; BMI 30.7
--- NOTE | 2024-02-20 11:07 | A.OFFVIS_ITS ---
Vital Signs 02/20/24 11:07 Height 5 ft 11 in Weight 220 lb BMI 30.7 BP 164/98 H Blood Pressure Location Lt brachial Position Sitting Respiration 20 Pulse 84 Pulse Source Pulse Oximeter Pulse Oximetry (%) 97 Oxygen Delivery Method Room Air Intake Visit Reasons: follow up Allergies lisinopril Adverse Reaction (Severe, Verified 02/05/24 11:01) Unknown NSAIDS (Non-Steroidal Anti-Inflamma Adverse Reaction (Severe, Verified 02/05/24 11:01) duodenal ulcer flu vaccine Adverse Reaction (Severe, Uncoded 02/05/24 11:01) guillane barre HPI HPI follow up: Details: Patient presenting on postoperative day 1 following trial lead placement for spinal cord stimulation. Overnight he experienced progressively worsening low back pain that peaked around midnight. The pain was described as axial low back pain, much worse than his usual baseline. At the time he placed a call to our answering service after which I spoke with the patient and his last night. At the time he had described lower extremity weakness, worse than his baseline, so I had counseled him regarding watching for red flag signs of cauda equina syndrome and had asked them to see us in the office this morning. Upon presentation today, he describes axial low back pain which is exacerbated by any kind of motion. It appears to be slightly worse than his usual baseline. However it has improved since what he experienced last night after taking 1 tablet of tramadol. He also complains of lower extremity weakness but is now able to stand which he was not yesterday. He still has difficulty walking on his feeling like his legs are shaky. He usually walks with the help of a walker. He states that his walking at this time is more unsteady than his baseline. Denies sensation changes in the lower extremity. Denies saddle anesthesia. Denies loss of bowel or bladder control. [facility] Medical History Multiple sclerosis Spinal stenosis GERD (gastroesophageal reflux disease) Dyslipidemia Chronic pain syndrome Neurogenic bladder History of progressive weakness Bilateral leg weakness Primary hypertension SOB (shortness of breath) Surgical History Hx of lumbar discectomy Social History Patient Tobacco Use Status: Former Tobacco user Quit Date: 15 years Physical Exam Vital Signs: Last Vital Signs Pulse 84 02/20/24 11:07 Resp 20 02/20/24 11:07 BP 164/98 H 02/20/24 11:07 Pulse Ox 97 02/20/24 11:07 Oxygen Delivery Method Room Air 02/20/24 11:07 BMI result Body Mass Index 30.7 On exam today: Appears afebrile. Alert and oriented. Mood and affect appropriate. Follows and participates in conversation appropriately. Respiratory effort is unlabored. Able to transition from sit to stand using arm rests to support himself. Hip flexors are subjectively weak, more than his usual baseline. Foot extension and flexion is preserved, 5/5, consistent with his baseline. Dressing overlying the lead insertion site was noted to be slightly bloody. The bloody dressing was removed and replaced. No evidence of ongoing oozing from the lead insertion sites, which are clean dry and intact. Results Reviewed Results Reviewed: Plain film of the thoracic spine shows the leads in place with slight caudad movement for both leads in the supine position compared to the prone position, as documented in the last plain film from yesterday's procedure. Assessment & Plan Assessment & Plan (1) Post laminectomy syndrome: Code(s): M96.1 - Postlaminectomy syndrome, not elsewhere classified Category: Medical Plan 68-year-old male with post-laminectomy syndrome with 1 day of worsening low back pain and question of lower extremity weakness after trial lead placement. I had counseled the patient and his regarding my concern for possible spinal epidural hematoma last night, and I reiterated my concerns today. I had initially planned to send him for urgent imaging of the thoracolumbar spine, however based on a relatively reassuring exam and stable lower extremity strength over the last 24 hours, we decided to defer this until tomorrow and further monitor his lower extremity strength status before proceeding with imaging studies. His spinal cord stimulation device was reprogrammed with the help of a construction sales representative from [employer]. We decided to proceed with a trial of HD programming at the T9-10 disc space. We will wait 24 hours to see if this program has a meaningful affect towards relief of his axial low back pain. X-rays and dressing site were reassuring. Once again I educated the patient regarding watching for red flag signs of cauda equina syndrome and to go to the ER and call me if he notices any change in his sensation, bowel or bladder control, worsening lower extremity weakness or saddle anesthesia. I provided them with my cell phone number. Patient expressed understanding. More than 40 minutes were spent in counseling, data collection and analysis, planning and documentation of this visit. Orders: Orders XR lumbar spine 1V Today M96.1 - Postlaminectomy syndrome, not elsewhere classified XR lumbar spine 1V Today M96.1 - Postlaminectomy syndrome, not elsewhere classified XR thoracic spine 1V Today M96.1 - Postlaminectomy syndrome, not elsewhere classified Coding Level of Care Code Est Pt Level 5 (01950) Diagnoses Post laminectomy syndrome M96.1
== END 2024-02-20 12:40 | disposition home or self-care (01) ==
LOC: HO.PMCPRC 10:49
PROVIDERS: PCP Pediatrics; Visit Provider Internal Medicine
DX: M96.1 Postlaminectomy syndrome, not elsewhere classified (principal)
CPT/HCPCS: 99024

== ENCOUNTER → 2024-02-20 10:49 | Outpatient (BNVA) | payer MEDICARE, SELFPAY | PROVIDERS: PCP Pediatrics; Visit Provider Internal Medicine | DX: M96.1 Postlaminectomy syndrome, not elsewhere classified (principal) | CPT/HCPCS: 99212 ==

== ENCOUNTER 2024-02-26 10:50 | Outpatient (AMB) | payer MEDICARE, SELFPAY ==
[2024-02-26 11:06] VITALS: BP 167/79; PULSE 81; RESP 18; O2SAT 96; BMI 30.7
--- NOTE | 2024-02-26 11:06 | MHC.OFFVIS ---
Vital Signs 02/26/24 11:06 Height 5 ft 11 in Weight 220 lb BMI 30.7 BP 167/79 H Blood Pressure Location Lt brachial Position Sitting Respiration 18 Pulse 81 Pulse Source Pulse Oximeter Pulse Oximetry (%) 96 Oxygen Delivery Method Room Air Intake Visit Reasons: S/p Medtronic SCS Trial 02/19/24 Allergies lisinopril Adverse Reaction (Severe, Verified 02/26/24 11:16) Unknown NSAIDS (Non-Steroidal Anti-Inflamma Adverse Reaction (Severe, Verified 02/26/24 11:16) duodenal ulcer flu vaccine Adverse Reaction (Severe, Uncoded 02/05/24 11:01) david CLAIRE Comments Details: Junior presents back to the office today, accompanied by his , for follow up 1 week s/p trial of medtronic SCS. Pain today is 5/10. He reports prior to placement pain averaged 9/10. He was evaluated the day after lead placement where he reported weakness in his legs. Device was reprogrammed; since then the weakness has improved and he reports increased mobility and function of BLE. He has not taken Tramadol since SCS lead placement, prior to the trial he had been taking 1-2 tabs daily. Prior: Patient presenting on postoperative day 1 following trial lead placement for spinal cord stimulation. Overnight he experienced progressively worsening low back pain that peaked around midnight. The pain was described as axial low back pain, much worse than his usual baseline. At the time he placed a call to our answering service after which I spoke with the patient and his last night. At the time he had described lower extremity weakness, worse than his baseline, so I had counseled him regarding watching for red flag signs of cauda equina syndrome and had asked them to see us in the office this morning. Upon presentation today, he describes axial low back pain which is exacerbated by any kind of motion. It appears to be slightly worse than his usual baseline. However it has improved since what he experienced last night after taking 1 tablet of tramadol. He also complains of lower extremity weakness but is now able to stand which he was not yesterday. He still has difficulty walking on his feeling like his legs are shaky. He usually walks with the help of a walker. He states that his walking at this time is more unsteady than his baseline. Denies sensation changes in the lower extremity. Denies saddle anesthesia. Denies loss of bowel or bladder control. [facility] Medical History Multiple sclerosis Spinal stenosis GERD (gastroesophageal reflux disease) Dyslipidemia Chronic pain syndrome Neurogenic bladder History of progressive weakness Bilateral leg weakness Primary hypertension SOB (shortness of breath) Surgical History Hx of lumbar discectomy Social History Patient Tobacco Use Status: Former Tobacco user Quit Date: 15 years Review of Systems Const All systems reviewed & are unremarkable except as noted in HPI and below Physical Exam Vital Signs: Last Vital Signs Pulse 81 02/26/24 11:06 Resp 18 02/26/24 11:06 BP 167/79 H 02/26/24 11:06 Pulse Ox 96 02/26/24 11:06 Oxygen Delivery Method Room Air 02/26/24 11:06 BMI result Body Mass Index 30.7 General: awake, alert, oriented. Answers questions appropriately. Fully engaged in examination. Skin: warm, dry, intact HEENT: Normocephalic. Hearing intact. Cardiac: External chest normal in appearance. Respiratory: No cough, audible wheezing or stridor. Abdomen: without gross distension. MS: No obvious swelling or deformities. Able to transition from sit to stand using chair arms for assistance. Neurological: Oriented to person, place, time and situation. Thought process intact. Ambulates with use of rollator walker Psychiatric: Appropriate mood and affect. Good judgment and insight. Medtronic SCS Trial lead removal: Dressing was taken down, area was cleansed with chloraprep, insertion site was visualized and without redness/irritation/drainage or bleeding. Sutures removed and both leads withdrawn without resistance; leads examined and noted to be without concern, tips intact. Area cleansed again, bacitracin dressing was applied, area covered with tegaderm. Assessment & Plan Assessment & Plan (1) Post laminectomy syndrome: Code(s): M96.1 - Postlaminectomy syndrome, not elsewhere classified Category: Medical Plan Junior is a very pleasant 68-year-old male who presented to the office today for follow-up, one-week status post Medtronic SCS trial Patient reports approximately 50% pain relief in the last 1 week. He does endorse improvement in function and mobility, he has improvement in his bilateral lower extremity strength during the trial. He has not taken any tramadol in the last one-week. Patient will call the office to update how he feels now that the leads have been removed. He feels that it was giving him more relief than he realized, so will up the the office if this is the case. SCS leads removed as per above He is not ready to proceed with SCS implant at this time. He would like to proceed with intrathecal drug delivery trial with Dilaudid. We discussed at length intrathecal pain pump trial and implant. Pre and post op restrictions and expectations. As well as the refill process and timeline. We will schedule for fluoroscopy guided intrathecal drug delivery device trial with Dilaudid under local anesthesia. All questions and concerns were answered, patient and agree with the plan. Coding Level of Care Code Est Pt Level 3 (41851) Diagnoses Post laminectomy syndrome M96.1
== END 2024-02-26 11:51 | disposition home or self-care (01) ==
PROVIDERS: PCP Pediatrics; Visit Provider Registered Nurse Emergency
DX: M96.1 Postlaminectomy syndrome, not elsewhere classified (principal)
CPT/HCPCS: 99024

== ENCOUNTER → 2024-02-26 10:50 | Outpatient (BNVA) | payer MEDICARE, SELFPAY | PROVIDERS: PCP Pediatrics; Visit Provider Registered Nurse Emergency | DX: M96.1 Postlaminectomy syndrome, not elsewhere classified (principal) | CPT/HCPCS: 99212 ==

== ENCOUNTER 2024-03-12 06:14 | Outpatient (REF) | payer MEDICARE, SELFPAY ==
--- NOTE | ~2024-03-12 | FL_ITS ---
EXAMINATION: XR FLUOROSCOPY WITH IMAGES CLINICAL INFORMATION: Postlaminectomy syndrome. COMPARISON: None available. TECHNIQUE: Fluoroscopy Supervised By: Dr. Azevedo. Fluoroscopy Time: 0.0 min. Cumulative Dose: 1.19 mGy. DAP: 0.0128 Gycm2. Images: 1. FINDINGS: Intraoperative fluoroscopy and spot films were performed during a procedure in the OR. A single needle is seen projecting over the lower lumbar spine at the level just above the posterior fixation hardware. Precise levels can not be ascertained secondary to marked coning of the images with lack of appropriate landmarks. Please correlate with Dr. Azevedo' report for complete details. FL/FL guidance in treatment room IMPRESSION: Intraoperative fluoroscopy and spot films were obtained. Please see Dr. Azevedo' report for complete details.
== END 2024-03-12 06:15 | disposition home or self-care (01) ==
LOC: CF 06:14
PROVIDERS: Visit Provider Internal Medicine
DX: M96.1 Postlaminectomy syndrome, not elsewhere classified (principal)
CPT/HCPCS: 62323; J3010

== ENCOUNTER 2024-03-12 10:41 | Outpatient (AMB) | payer MEDICARE, SELFPAY ==
--- NOTE | 2024-03-12 11:08 | A.OFFVIS_ITS ---
Vital Signs 03/12/24 13:01 03/12/24 13:01 Height 5 ft 11 in Weight 220 lb BMI 30.7 BP 150/80 H 134/78 Blood Pressure Location Lt brachial Lt brachial Position Sitting Sitting Respiration 18 16 Pulse 90 79 Pulse Source Pulse Oximeter Pulse Oximeter Pulse Oximetry (%) 97 98 Oxygen Delivery Method Room Air Room Air Comment Pre-Op Post-Op Intake Visit Reasons: ITDD trial w/ fentanyl Allergies lisinopril Adverse Reaction (Severe, Verified 02/26/24 11:16) Unknown NSAIDS (Non-Steroidal Anti-Inflamma Adverse Reaction (Severe, Verified 02/26/24 11:16) duodenal ulcer flu vaccine Adverse Reaction (Severe, Uncoded 02/05/24 11:01) guillane barre HPI HPI ITDD trial w/ fentanyl: Details: Patient presents for scheduled procedure. Denies any recent cough, cold, infection, fever or other significant changes in medical history since last office visit. [facility] Medical History Multiple sclerosis Spinal stenosis GERD (gastroesophageal reflux disease) Dyslipidemia Chronic pain syndrome Neurogenic bladder History of progressive weakness Bilateral leg weakness Primary hypertension SOB (shortness of breath) Surgical History Hx of lumbar discectomy Social History Patient Tobacco Use Status: Former Tobacco user Office Procedures Details: Intrathecal Drug Delivery Trial - L-12/01 After obtaining written consent, pre-procedure blood pressure and heart rate were stable and recorded in the nursing record. The patient was placed in the prone position. The lumbar area was widely prepped with chloraprep and draped in sterile fashion. Fluoroscopic guidance was used to identify the desired interlaminar space and for needle placement. Subcutaneous 0.5% lidocaine was used to anesthetize the skin overlying the target. A 22-gauge Maureen needle was advanced to the intrathecal space under fluoroscopic AP and contralateral oblique views. CSF flow was confirmed with positive clear aspiration. Next 1.4 ml containing 70 mcg fentanyl was administered intrathecally with no pain elicited on injection. The needle was removed, skin cleansed and a sterile bandage was applied. The patient tolerated the procedure well and no complications were encountered. Following the procedure the patient's vital signs were stable. He was monitored in recovery for 1 hour. The patient was discharged home in good condition with post-procedural instructions. Time Out: Immediately prior to the procedure, the following was verbally confirmed that there is a signed consent form and that the correct patient, planned procedure, site and side are consistent with documentation and that necessary equipment and/or blood products are available prior to the start of the case. Complications: none EBL: <1 cc 01346 - Trial Procedure code (CPT) selection complete Assessment & Plan Assessment & Plan (1) Post laminectomy syndrome: Code(s): M96.1 - Postlaminectomy syndrome, not elsewhere classified Category: Medical Plan Patient is status post ITDD trial with fentanyl. Patient tolerated procedure well and was discharged home in stable condition with discharge instructions. All questions were answered. We will follow-up via telephone or in clinic to assess response to therapy. A follow-up appointment was made during today's visit. Orders: Orders FL guidance in treatment room Today M96.1 - Postlaminectomy syndrome, not elsewhere classified Coding Level of Care Code Procedure Only Diagnoses Post laminectomy syndrome M96.1 CPT Codes Intraethecal Drug Delivery System - CPT: 73066 - Trial ([id number])
[2024-03-12 13:01] VITALS: BP 134/78; BP 150/80; PULSE 79; PULSE 90; RESP 16; RESP 18; O2SAT 97; O2SAT 98; BMI 30.7
== END 2024-03-12 12:43 | disposition home or self-care (01) ==
LOC: HO.PMCPRC 10:41
PROVIDERS: PCP Pediatrics; Visit Provider Internal Medicine
DX: M96.1 Postlaminectomy syndrome, not elsewhere classified (principal)
CPT/HCPCS: 62323

== ENCOUNTER 2024-03-18 11:19 | Outpatient (AMB) | payer MEDICARE, SELFPAY ==
--- NOTE | 2024-03-18 11:18 | MHC.OFFVIS ---
Intake Visit Reasons: s/p ITDD trial Allergies lisinopril Adverse Reaction (Severe, Verified 02/26/24 11:16) Unknown NSAIDS (Non-Steroidal Anti-Inflamma Adverse Reaction (Severe, Verified 02/26/24 11:16) duodenal ulcer flu vaccine Adverse Reaction (Severe, Uncoded 02/05/24 11:01) guillane barre HPI HPI s/p ITDD trial: Details: 68-year-old male who presents for the telehealth visit for status post intrathecal drug delivery trial. The patient reports 50% relief following the procedure for 24 hours. He had weakness in his leg. He has difficulty lifting or moving his legs. The pain symptoms were worse during the trial of the pain pump compared to the trial of the spinal cord stimulator. He is interested in proceeding with the spinal cord stimulator instead of the pain pump. He discussed the risks, benefits, and side effects of spinal cord stimulators and pain pumps. Past Procedures: 03/12/24: Intrathecal Drug Delivery Trial - L-3/4: % relief. 02/19/24:Percutaneous Spinal Cord Stimulator Trial, Lumbar: % relief. 10/02/23: Minimally Invasive Lumbar Decompression, Bilateral, L-4/5: 80-90% relief. PFSH Medical History Multiple sclerosis Spinal stenosis GERD (gastroesophageal reflux disease) Dyslipidemia Chronic pain syndrome Neurogenic bladder History of progressive weakness Bilateral leg weakness Primary hypertension SOB (shortness of breath) Surgical History Hx of lumbar discectomy Social History Patient Tobacco Use Status: Former Tobacco user Review of Systems Const All systems reviewed & are unremarkable except as noted in HPI and below Telehealth Telehealth Telehealth Platform: [facility] Location of provider rendering services: practice address Location of patient: address on file Patient Identification confirmed using: Name, : Yes Telehealth method: video Patient verbally consented to treatment: Yes Patient verbally consented to billing insurance company: Yes Patient informed of any privacy concerns related to visit: Yes Minutes spent on Phone/Video with Pt.: 13 Results Reviewed Results Reviewed: No imaging is available for review Assessment & Plan Assessment & Plan (1) Post laminectomy syndrome: Code(s): M96.1 - Postlaminectomy syndrome, not elsewhere classified Category: Medical Plan 1. Given the patient's superior response to the SCS trial, he is interested in implant of SCS Medtronic system 2. Answered all questions about post surgery care and he is on board with the plan We will schedule for an implant of SCS Medtronic system. Discussed the risks and benefits of the procedure with the patient in detail. All questions were answered. The patient is on board with the plan. Justification for interventional therapy: ? Patient with average pain > 6/10 ? Patient has exhausted conservative therapy ? Patient unable to tolerate physical therapy due to pain Scribed for Dr. Azevedo by Geoff Low, neuropsychology medical consultant, on 03/18/2024. I, Dr. Azeevdo, have personally reviewed and agree with the information entered by the scribe. Coding Level of Care Code Tele Est Pt Level 3 (23502) Diagnoses Post laminectomy syndrome M96.1
== END 2024-03-18 11:20 | disposition home or self-care (01) ==
LOC: HO.PMC 11:19
PROVIDERS: PCP Pediatrics; Visit Provider Internal Medicine
DX: M96.1 Postlaminectomy syndrome, not elsewhere classified (principal)
CPT/HCPCS: 99213

== ENCOUNTER → 2024-03-18 11:19 | Outpatient (BNVA) | payer MEDICARE, SELFPAY | PROVIDERS: PCP Pediatrics; Visit Provider Internal Medicine ==

== ENCOUNTER 2024-06-17 09:41 | Outpatient (AMB) | payer MEDICARE, SELFPAY ==
--- NOTE | 2024-06-17 09:49 | MHC.OFFVIS ---
Vital Signs 06/17/24 09:50 Height 5 ft 11 in BP 177/82 H Blood Pressure Location Rt brachial Position Sitting Respiration 15 Pulse 71 Pulse Source Pulse Oximeter Pulse Oximetry (%) 95 Oxygen Delivery Method Room Air Intake Visit Reasons: Discuss SCS Implant Procedure Allergies lisinopril Adverse Reaction (Severe, Verified 07/06/24 09:59) Anaphylaxis NSAIDS (Non-Steroidal Anti-Inflamma Adverse Reaction (Severe, Verified 07/06/24 09:59) perforated duodenal ulcer flu vaccine Adverse Reaction (Severe, Uncoded 07/06/24 09:59) temporary guillane barre symptoms Medication List - Last Reconciled 06/17/24 by Adia Deluna LPN amlodipine 10 mg PO DAILY cholecalciferol (vitamin D3) 50 mcg PO DAILY furosemide 20 mg PO DAILY gabapentin 300 mg PO BID magnesium 500 mg PO DAILY naloxone 4 mg/actuation 4 mg intranasal Q3M PRN pantoprazole 40 mg PO QPM ropinirole 2 mg PO BID ropinirole ER mg PO tamsulosin 0.4 mg PO BEDTIME tramadol 50 mg PO DAILY tramadol 50 mg PO BID vitamin B complex (B Complex-Vitamin B12 tablet) 1 tab PO DAILY HPI HPI Discuss SCS Implant Procedure: Details: 68-year-old male who presents today to discuss SCS implant procedure. He continues to have weakness in his leg associated with difficulty lifting or moving his legs. He noticed that his pain was worse during the trial of the pain pump compared to the trial of the spinal cord stimulator. He is staying away from strenuous physical activities. He has been doing instructed exercise at home everyday. He is taking Tramadol for pain. Patient's requested a new pain medication. Past Procedures: 03/12/24: Intrathecal Drug Delivery Trial - L-3/4: No relief. 02/19/24: Percutaneous Spinal Cord Stimulator Trial, Lumbar: >50% relief. 10/02/23: Minimally Invasive Lumbar Decompression, Bilateral, L-4/5: 80-90% relief. COUNTS INCLUDE 234 BEDS AT THE [facility] Medical History (Updated 06/23/24 @ 08:23 by Ivonne Sarah RN) Spinal stenosis Multiple sclerosis Spinal stenosis GERD (gastroesophageal reflux disease) Dyslipidemia Chronic pain syndrome Neurogenic bladder History of progressive weakness Bilateral leg weakness Primary hypertension SOB (shortness of breath) Surgical History (Updated 06/23/24 @ 08:27 by Ivonne Sarah RN) Hx of colonoscopy History of lumbar surgery (10/02/23) History of surgery (02/19/24) Hx of lumbar discectomy Social History (Updated 06/23/24 @ 08:19 by Ivonne Sarah RN) Household Members: Spouse Housing: House Are you a primary child care associate teacher to a significant other at home: No Do you presently have visiting nurse or other home services: No 75 years or older and lives alone: No Patient Tobacco Use Status: Former Tobacco user Tobacco use type: Cigarette Physical Exam Vital Signs: Last Vital Signs Pulse 71 06/17/24 09:50 Resp 15 06/17/24 09:50 BP 177/82 H 06/17/24 09:50 Pulse Ox 95 06/17/24 09:50 Oxygen Delivery Method Room Air 06/17/24 09:50 General: Appears afebrile. Alert and oriented. Mood and affect appropriate. Follows and participates in conversation appropriately. Respiratory effort is unlabored. Able to transition from sit to stand unassisted. Ambulates with bilaterally normal heel strike and toe off. Assessment & Plan Assessment & Plan (1) Spinal stenosis, lumbar region with neurogenic claudication: Code(s): M48.062 - Spinal stenosis, lumbar region with neurogenic claudication Category: Medical (2) Post laminectomy syndrome: Code(s): M96.1 - Postlaminectomy syndrome, not elsewhere classified Category: Medical Plan Discussed risks and benefits and details of post operative care following SCS implant procedure scheduled for next week. Patient will follow up for the scheduled procedure as per planned. Advised to avoid lifting anything more than 20 lbs for next 3 months. Avoid bending or stretching. Recommended to do PT after 3 months. Discussed the risks and benefits of the procedure with the patient in detail. All questions were answered. The patient is on board with the plan. Scribed for Dr. Azevedo by [place] medical coding auditor, on 06/17/2024. I, Dr. Azevedo, have personally reviewed and agree with the information entered by the scribe. Coding Level of Care Code Est Pt Level 3 (39951) Diagnoses Spinal stenosis, lumbar region with neurogenic claudication M48.062 Post laminectomy syndrome M96.1
[2024-06-17 09:50] VITALS: BP 177/82; PULSE 71; RESP 15; O2SAT 95
== END 2024-06-17 10:23 | disposition home or self-care (01) ==
PROVIDERS: PCP Pediatrics; Visit Provider Internal Medicine
DX: M48.062 Spinal stenosis, lumbar region with neurogenic claudication (principal); M96.1 Postlaminectomy syndrome, not elsewhere classified
CPT/HCPCS: 99213

== ENCOUNTER → 2024-06-17 09:41 | Outpatient (BNVA) | payer MEDICARE, SELFPAY | PROVIDERS: PCP Pediatrics; Visit Provider Internal Medicine | DX: M48.062 Spinal stenosis, lumbar region with neurogenic claudication (principal); M96.1 Postlaminectomy syndrome, not elsewhere classified; Z79.891 Long term (current) use of opiate analgesic | CPT/HCPCS: 99212 ==

== ENCOUNTER 2024-06-24 10:50 | Day surgery (SDC) | payer MEDICARE, SELFPAY ==
[2024-06-23 08:23] VITALS: BMI 29.3
[2024-06-24] VITALS (7 sets, daily range): BP systolic 124–167; BP diastolic 72–99; PULSE 81–90; RESP 16–19; TEMP 36.2–36.7; O2SAT 94–98; BMI 29.7
--- OUTSIDE RECORDS SUMMARY | 2024-06-24 10:53 | XMS_ITS | Continuity of Care Document ---
Author Organization [facility] Address [address] [place] [address] [address], [address] [place] [address]- Care Team Providers Care Perforator Name Role Phone Julian FRANCO, Shemar Tadeo Primary Care Physician [phone] [place] [facility] [place] 05/19/21 [facility] [address] [place] [address] Drive, [address] [place], [place] [address] Allergies, Adverse Reactions, Alerts Substance Reaction Severity Status lisinopril 1 possible anaphylaxis episode Active flu vaccines 2 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 Refills 0, Maintenance, BILATERALCUSTOM AFO FOR BILATERAL LOWER EXTREMITY WEAKNESS, 04/26/21 16:43:00 EDT, Supply Start Date: 04/26/21 Status: Ordered Controlled Substance Agreement Controlled Substance Agreement, See Instructions, # 1 units, Refills 0, Tot. 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 Start Date: 03/07/21 Status: Ordered Gabapentin = 300 mg, By Mouth, 3 times a day, 0 Refills, Maintenance, 03/06/21 11:06:00 EDT, Partial fill uponpatient request if the prescription is for a schedule II opioid drug. Start Date: 03/06/21 Status: Ordered Glucosamine = 750 mg, By Mouth, 2 times a day, 0 Refills, Maintenance, 03/06/21 11:06:00 EDT, Partial fill uponpatient request if the prescription is for a schedule II opioid drug. Start Date: 03/06/21 Status: Ordered magnesium oxide 400 mg oral tablet 1 tablet = 400 mg, By Mouth, Daily in AM, 0 Refills, Maintenance, 04/13/16 10:22:57 EDT Start Date: 04/13/16 Status: Ordered Medrol Dosepak 4 mg oral tablet 1 pack/packet, By Mouth, Once, # 21 tablet, 0 Refills, Soft Stop, 03/28/21 16:37:00 EDT, Tablet, [facility] #[id number], Partial fill upon patient request if the prescription is for a schedule II opioid drug., 180.3, cm, 03/10/21 4:25:00 EDT, Hei... Start Date: 03/28/21 Status: Ordered Pantoprazole = 40 mg, By Mouth, 2 times a day, 0 Refills, Maintenance, 03/06/21 11:06:00 EDT Start Date: 03/06/21 Status: Ordered Ropinirole = 2 mg, By Mouth, 2 times a day, 0 Refills, Maintenance, 03/06/21 11:06:00 EDT, Partial fill upon patient request if the prescription is for a schedule II opioid drug. Start Date: 03/06/21 Status: Ordered Tamsulosin 0.4 mg, By Mouth, Daily at bedtime, Refills 0, Maintenance, 03/06/21 11:06:00 EDT, Partial fill upon patient request if the prescription is for a schedule II opioid drug. Start Date: 03/06/21 Status: Ordered tiZANidine 4 mg oral tablet 2 mg, 0.5, tablet, By Mouth, 3 times a day, # 45 tablet, Refills 0, Tot. Refills 0, Maintenance, 03/10/21 9:47:00 EDT, Print Requisition, Partial fill upon patient request if the prescription is for a schedule II opioid drug. Start Date: 03/10/21 Status: Ordered Vitamin B12 = 2,500 mcg, Daily in AM, 0 Refills, Maintenance, 03/07/21 15:39:00 EDT, Partial fill upon patient request if the prescription is for a schedule II opioid drug. Start Date: 03/07/21 Status: Ordered Vitamin D3 2000 intl units oral capsule 1 capsule = 2,000 International_Units, By Mouth, Daily in AM, # 60 capsule, 0 Refills, Maintenance,03/07/21 15:40:00 EDT, Capsule, Partial fill upon patient request if the prescription is for a schedule II opioid drug. Start Date: 03/07/21 Status: Ordered Problem List Condition Effective Dates Status Health Status Inform ant Cervical spondylosis(Confirmed) Active Limitation due to disability(Confirmed) 1, 2 Active Electronic cigarette use(Confirmed) Active History of arthritis(Confirmed) 3 Active History of surgery(Confirmed) 4 Active Use of opiates for therapeut ic purposes(Confirmed) Active HTN (hypertension)(Confirmed) Active Low back pain(Confirmed) Active Multiple sclerosis(Confirmed) 5 Active Neck pain(Confirmed) Active Lack of adequate sleep(Confirmed) Active Mid back pain(Confirmed) Active 1updated Oswestry Disability Index: 46% ( severe disability ) on 07/23/17; updated [place] Back Pain Scale: 50 on 07/23/17 2initial Oswestry Disability Index: 40% ( moderate disability ) on 07/19/16; initial [place] Back Pain Scale:48 on ; initial [place]: 3 on 07/19/16 3By patient report, involving left knee 4Tonsillectomy age 4 years 5Multifocal cervical and thoracic cord signal abnormalities by MR imaging 2013 Social History Social History Type Response Smoking Status Former smoker; Type: Cigarettes; Other: quit 2011; entered on: 04/13/16 Sex
--- OUTSIDE RECORDS SUMMARY | 2024-06-24 10:53 | XMS_ITS | Continuity of Care Document ---
Author Organization [facility] Address [address] [place] [address] [address], [address] [place] [address]- Care Team Providers Care Copper Miner Name Role Phone Shemar Jordan MD Primary Care Physician Encounter [facility] [place] [id number] Date(s): 04/05/21 - 04/12/21 [facility] [address] [place] [address] Drive, [address] [place], [place] [address] Attending Physician: Maulik Sánchez MD Referring Physician: Shemar Jordan MD Allergies, Adverse Reactions, Alerts Substance Reaction Severity Status lisinopril 1 possible anaphylaxis episode Active flu vaccines 2 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), 07/19/16 13:03:58, [...] Refills, Soft Stop, 03/28/21 16:37:00 EDT, Tablet, [facility] #[id number], Partial fill upon patient request if the [...] ( severe disability ) on 07/23/17; updated [place] Back Pain Scale: 50 on 07/23/17 2initial Oswestry Disability Index: 40% ( moderate disability ) on 07/19/16; initial [place] Back Pain Scale:48 on ; initial [place]: 3 on 07/19/16 3By patient report, involving left knee 4Tonsillectomy age 4 years 5Multifocal cervical and thoracic cord signal abnormalities by MR imaging 2013 Vital Signs Most recent to oldest [Reference Range]: 1 Height 180.3 cm (04/05/21 2:35 PM) Weight 79.5 kg (04/05/21 2:35 PM) Body Mass Index [18.5-24.99] 24.46 (04/05/21 2:35 PM) Social History Social History Type Response Smoking Status Former smoker; Type: Cigarettes; Other: quit 2011; entered on: 04/13/16 Sex
--- OUTSIDE RECORDS SUMMARY | 2024-06-24 10:53 | XMS_ITS | Continuity of Care Document ---
Author Organization [facility] Address [address] [place] [address] [address], [address] [place] [address]- Care Team Providers Care Medicine Teacher Name Role Phone Julian FRANCO, Shemar Tadeo Primary Care Physician [place] [facility] [place]21 - 05/05/21 [facility] [address] [place] [address] Drive, [address] [place], [place] [address] Attending Physician: Admtr, Ar8 Admitting Physician: Admtr, Preston8 Referring Physician: Admtr, Ar8 Allergies, Adverse Reactions, Alerts Substance Reaction Severity Status lisinopril 1 possible anaphylaxis episode Active NSAIDs Bleeding duodenal ulcer Acti ve flu vaccines 2 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 1 question Lisinopril or a food allergy [...] 0, Maintenance, Signed On: 07/19/2016 Pharmacy I: franky Santiago 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), 07/19/16 13:03:58, [...] Refills, Soft Stop, 03/28/21 16:37:00 EDT, Tablet, [facility] #[id number], Partial fill upon patient request if the [...] ( severe disability ) on 07/23/17; updated [place] Back Pain Scale: 50 on 07/23/17 2initial Oswestry Disability Index: 40% ( moderate disability ) on 07/19/16; initial [place] Back Pain Scale:48 on ; initial [place]: 3 on 07/19/16 3By patient report, involving left knee 4Tonsillectomy age 4 years 5Multifocal cervical and thoracic cord signal abnormalities by MR imaging 2013 Social History Social History Type Response Smoking Status Former smoker; Type: Cigarettes; Other: quit 2011; entered on: 04/13/16 Sex
--- OUTSIDE RECORDS SUMMARY | 2024-06-24 10:53 | XMS_ITS | Continuity of Care Document ---
Author Organization [facility] Address [address] [place] [address]- Care Team Providers Care Capper Machine Operator Name Role Phone Tim Gipson MD Primary Care Physician [id number] Date(s): 03/02/21 - 03/02/[address] [address]- Discharge Disposition: A-D/C Home Attending Physician: Etta Colorado MD Admitting Physician: Etta Colorado MD Referring Physician: Not on Staff, Referring MD Allergies, Adverse Reactions, Alerts Substance Reaction Severity Status flu vaccines Paralysis of lower limb Persistent Modera te Active NSAIDs Bleeding duodenal ulcer Acti ve Medications Advil 200 mg oral tablet 1 tablet = 200 mg, By Mouth, Every 6 hours, 0 Refills, Maintenance, 10/23/17 8:44:31 Start Date: 10/23/17 Status: Ordered chlorthalidone 25 mg oral tablet 25 mg, 1, tablet, By Mouth, Daily, Refills 0, Maintenance, 04/13/16 10:20:16 Start Date: 04/13/16 Status: Ordered Controlled Substance Agreement Controlled Substance Agreement, See Instructions, # 1 units, Refills 0, Tot. 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), 07/19/16 13:03:58, Compound Start Date: 07/19/16 Status: Ordered doxazosin 2 mg oral tablet 2 mg, 1, tablet, By Mouth, Daily, Refills 0, Maintenance, 04/13/16 10:20:55 Start Date: 7/15/16 Status: Ordered Fish Oil 1000 mg oral capsule 1 capsule = 1,000 mg, By Mouth, 3 times a day, 0 Refills, Maintenance, 04/13/16 10:21:52 Start Date: 04/13/16 Status: Ordered lisinopril 20 mg oral tablet 20 mg, 1, tablet, By Mouth, Daily, Refills 0, Maintenance, 04/13/16 10:20:37 Start Date: 04/13/16 Status: Ordered magnesium oxide 400 mg oral tablet 1 tablet = 400 mg, By Mouth, Daily, 0 Refills, Maintenance, 04/13/16 10:22:57 Start Date: 04/13/16 Status: Ordered morphine 15 mg oral tablet, immediate release 0.5 to 1 tablet, By Mouth, Every 4 hours, PRN pain, max of 6 tabs/daypartial fill alllowed on request, # 168 tablet, 0 Refills, Maintenance, 12/16/17 7:46:40 Start Date: 12/16/17 Status: Ordered Oxybutynin PRN as needed for urinary discomfort, 0 Refills, Maintenance, 04/13/16 10:21:08 Start Date: 04/13/16 Status: Ordered turmeric By Mouth, Daily, 0 Refills, Maintenance, 08/28/17 7:37:43 Start Date: 08/28/17 Status: Ordered Vitamin D3 5000 intl units oral capsule 1 capsule = 5,000 International_Units, By Mouth, Daily, 0 Refills, Maintenance, 04/13/16 10:22:40 Start Date: 04/13/16 Status: Ordered Problem List Condition Effective Dates [...] initial [place] Back Pain Scale:48 on 07/19.; initial [place]: 3 on 07/19/16 3By patient report, involving left knee 4Tonsillectomy age 4 years 5Multifocal cervical and thoracic cord signal abnormalities by MR imaging 2013 Vital Signs Most recent to oldest [Reference Range]: 1 2 3 Height 170 cm (03/02/21 4:57 PM) 170 cm (03/02/21 3:20 PM) 170 cm (03/02/21 12:50 PM) Weight 88.0 kg (03/02/21 4:57 PM) 88.0 kg (03/02/21 3:20 PM) 88.0 kg (03/02/21 12:50 PM) Oxygen Saturation [94-100 %] 98 % (03/02/21 4:57 PM) 97 % (03/02/21 3:20 PM) 100 % (03/02/21 12:50 PM) Pulse Rate [55-90 bpm] 84 bpm (03/02/21 4:57 PM) 77 bpm (03/02/21 3:20 PM) 73 bpm (03/02/21 12:50 PM) Body Mass Index [18.5-24.99] 30.45 *>HHI* (03/02/21 4:57 PM) 30.45 *>HHI* (03/02/21 3:20 PM) 30.45 *>HHI* (03/02/21 12:50 PM) Blood Pressure [90-138/55-84 mm Hg] 159/82mm Hg *H* (03/02/21 4:57 PM) 159/82mm Hg *H* (03/02/21 3:20 PM) 163/79mm Hg *H* (03/02/21 12:50 PM) Respiratory Rate [16-30 br/min] 16 br/min (03/02/21 4:57 PM) 15 br/min *L* (03/02/21 3:20 PM) 18 br/min (03/02/21 12:50 PM) Temperature [96.8-100.4 DegF] 98.4 DegF (03/02/21 4:57 PM) 97.7 DegF (03/02/21 3:20 PM) 98.1 DegF (03/02/21 12:50 PM) Liters per Minute 0 L/min (03/02/21 11:51 AM) Mode of Delivery (Oxygen) Room air (03/02/21 4:57 PM) Room air (03/02/21 3:20 PM) Room air (03/02/21 12:50 PM) Blood pressure sites Arm, left (03/02/21 4:57 PM) Arm, left (03/02/21 3:20 PM) Arm, left (03/02/21 12:50 PM) Temperature Route Oral (03/02/21 4:57 PM) Oral (03/02/21 3:20 PM) Oral (03/02/21 12:50 PM) Dry Weight 88.0 kg (03/02/21 4:57 PM) 88.0 kg (03/02/21 3:20 PM) 88.0 kg (03/02/21 12:50 PM) Weight Obtained Via Standing scale (03/02/21 11:53 AM) Social History Social History Type Response Smoking Status Former smoker; Type: Cigarettes; Other: quit 2011; entered on: 04/13/16 Sex
--- OUTSIDE RECORDS SUMMARY | 2024-06-24 10:53 | XMS_ITS | Continuity of Care Document ---
Author Organization [facility] Address [address] [place] [address] [address], [address] [place] [address]- Care Team Providers Care Sr Account Executive Name Role Phone Julian FRANCO, Shemar W Primary Care Physician Encounter [facility] [place] Date(s): 05/17/21 - 06/21/21 [facility] [address] [place] [address] Drive, [address] [place], [place] [address] Attending Physician: Maulik Sánchez MD Allergies, Adverse Reactions, Alerts Substance Reaction [...] 0, Maintenance, Signed On: 07/19/2016 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), 07/19/16 13:03:58, [...] Refills, Soft Stop, 03/28/21 16:37:00 EDT, Tablet, [facility] #[id number], Partial fill upon patient request if the [...] ( severe disability ) on 07/23/17; updated [place] Back Pain Scale: 50 on 07/23/17 2initial Oswestry Disability Index: 40% ( moderate disability ) on 07/19/16; initial [place] Back Pain Scale:48 on 07/19.; initial [place]: 3 on 07/19/16 3By patient report, involving left knee 4Tonsillectomy age 4 years 5Multifocal cervical and thoracic cord signal abnormalities by MR imaging 2013 Social History Social History Type Response Smoking Status Former smoker; Type: Cigarettes; Other: quit 2011; entered on: 04/13/16 Sex
--- OUTSIDE RECORDS SUMMARY | 2024-06-24 10:53 | XMS_ITS | Continuity of Care Document ---
Author Organization [facility] Address [address] [place] [address] [address], [address] [place] [address]- Care Team Providers Care Hand Buffer Name Role Phone Julian FRANCO, Shemar Tadeo Primary Care Physician [phone] [place] [facility] [place](s): 05/22/21 - 06/21/21 [facility] [address] [place] [address] Drive, [address] [place], [place] [address] Attending Physician: Admtr, Ar8 Admitting Physician: Admtr, Ar8 Referring Physician: Admtr, Ar8 Allergies, Adverse Reactions, [...] Refills, Soft Stop, 03/28/21 16:37:00 EDT, Tablet, [facility][id number], Partial fill upon patient request if the [...] 07/19/16; initial [place] Back Pain Scale:48 on ; initial [place]: 3 on 07/19/16 3By patient report, involving left knee 4Tonsillectomy age 4 years 5Multifocal cervical and thoracic cord signal abnormalities by MR imaging 2013 Social History Social History Type Response Smoking Status Former smoker; Type: Cigarettes; Other: quit 2011; entered on: 04/13/16 Sex
--- OUTSIDE RECORDS SUMMARY | 2024-06-24 10:53 | XMS_ITS | Continuity of Care Document ---
Author Organization [facility] Address [address] [place] [address] [address], [address] [place] [address]- Care Team Providers Care Tooling Engineering Tech Name Role Phone Julian FRANCO, Shemar Tadeo Primary Care Physician [place] [facility] [place](s): 04/25/21 - 05/25/21 [facility] [address] [place] [address] Drive, [address] [place], [place] [address] Allergies, Adverse Reactions, Alerts Substance [...] Signed On: 07/19/2016 Pharmacy I: Deidra Chowdhury [place] 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 Start Date: 03/28/21 Status: Ordered Medrol Dosepak 4 mg oral tablet 1 pack/packet, By Mouth, Daily, for 6 days, as directed on package labeling, # 21 tablet, 0 Refills, Acute 05/28/21 9:50:00 EDT, 05/22/21 9:50:00 EDT, Tablet, [facility] #[id number], Partial fill upon patient request if the prescription is for a... Start Date: 05/22/21 Stop Date: 05/28/21 Status: Ordered Pantoprazole = 40 mg, By [...] ( severe disability ) on 07/23/17; updated [place] Back Pain Scale: 50 on 07/23/17 2initial Oswestry Disability Index: 40% ( moderate disability ) on 07/19/16; initial [place] Back Pain Scale:48 on ; initial [place]: 3 on 07/19/16 3By patient report, involving left knee 4Tonsillectomy age 4 years 5Multifocal cervical and thoracic cord signal abnormalities by MR imaging 2013 Social History Social History Type Response Smoking Status Former smoker; Type: Cigarettes; Other: quit 2011; entered on: 04/13/16 Sex
--- OUTSIDE RECORDS SUMMARY | 2024-06-24 10:53 | XMS_ITS | Continuity of Care Document ---
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
--- OUTSIDE RECORDS SUMMARY | 2024-06-24 10:53 | XMS_ITS | Continuity of Care Document ---
Author Organization [facility] Address [address] [place] [address] [address], [address] [place] [address]- Care Team Providers Care Color Control Operator Name Role Phone Julian FRANCO, Shemar W Primary Care Physician [place] [facility] [place](s): 04/10/24 - 06/05/24 [facility] [address] [place] [address] Drive [address] [place], [place] [address] Attending Physician: Maulik Sánchez MD Referring Physician: Tim Gipson MD Allergies, Adverse Reactions, Alerts Substance Reaction [...] Refills, Soft Stop, 03/28/21 16:37:00 EDT, Tablet, [facility] #[id number], Partial fill upon patient request if the [...] Date: 03/07/21 Status: Ordered Problem List Condition Confirmation Course Effective Dates Status Health St atus Informant Cervical spondylosis Confirmed Active Limitation due to disability 1, 2 Confirmed Active Electronic cigarette use Confirmed Active History of arthritis 3 Confirmed Active History of surgery 4 Confirmed Active Use of opiates for therapeutic purposes Confirmed Active HTN (hypertension) Confirmed Active Low back pain Confirmed Active Multiple sclerosis 5 Confirmed Active Neck pain Confirmed Active Lack of adequate sleep Confirmed Active Mid back pain Confirmed Active 1updated Oswestry Disability Index: 46% ( severe disability ) on 07/23/17; updated [place] Back Pain Scale: 50 on 07/23/17 2initial Oswestry Disability Index: 40% ( moderate disability ) on 07/19/16; initial [place] Back Pain Scale:48 on ; initial [place]: 3 on 07/19/16 3By patient report, involving left knee 4Tonsillectomy age 4 years 5Multifocal cervical and thoracic cord signal abnormalities by MR imaging 2013 Social History Social History Type Response Smoking Status Former smoker; Type: Cigarettes; Other: quit 2011; entered on: 04/13/16 Sex Patient Care team information Care Team Personnel Name: Veronica Wiseman Position: S Outreach Member Role: Lifetime Consulting Physician Name: Taras Mariano MD Position: Reference Physician Member Role: Lifetime Consulting Physician Address: Address: [address] [place] [address] Name: Niecy Solis RN Position: [facility] RN Member Role: Primary Care Nurse Name: Shemar Jordan MD Position: Reference Physician Member Role: PCP Address: Address: [address] [place], [place] [address] [address]- Care Team Related Persons Name: KAMINI LINARES Address: home [address] [place] [address]
--- OUTSIDE RECORDS SUMMARY | 2024-06-24 10:53 | XMS_ITS | Continuity of Care Document ---
Author Organization [facility] Address [address] [place] [address] [address], [address] [place] [address]- Care Team Providers Care Combustion Engineer Name Role Phone Julian FRANCO, Shemar Taedo Primary Care Physician [place] [facility] [place]s): 05/06/24 - 06/05/24 [facility] [address] [place] [address] Drive [address] [place], [place] [address] Attending Physician: Admtr, Preston8 Admitting Physician: Admtr, Ar8 Referring Physician: Admtr, [...] Refills, Soft Stop, 03/28/21 16:37:00 EDT, Tablet, [facility] #[id number], Partial fill upon patient request if the [...] ( severe disability ) on 07/23/17; updated [place] Back Pain Scale: 50 on 07/23/17 2initial Oswestry Disability Index: 40% ( moderate disability ) on 07/19/16; initial [place] Back Pain Scale:48 on 07/19.; initial [place]: 3 on 07/19/16 3By patient report, involving left knee 4Tonsillectomy age 4 years 5Multifocal cervical and thoracic cord signal abnormalities by MR imaging 2013 Social History Social History Type Response Smoking Status Former smoker; Type: Cigarettes; Other: quit 2011; entered on: 04/13/16 Sex Patient Care team information Care Team Personnel Name: Veronica Wiseman Position: [facility] Outreach Member Role: Lifetime Consulting Physician Name: Taras Mariano MD Position: Reference Physician Member Role: Lifetime Consulting Physician Address: Address: [address] [place] [address] Name: Will STONE, Niecy Position: [facility] RN Member Role: Primary Care Nurse Name: Julian FRANCO , Shemar Tadeo Position: Reference Physician Member Role: PCP Address: Address: [address] [place] [address]- Care Team Related Persons Name: KAMINI LINARES Address: home [address] [place] [address]
--- OUTSIDE RECORDS SUMMARY | 2024-06-24 10:53 | XMS_ITS | Continuity of Care Document ---
Author Organization [facility] Address [address] [place] [address] [address], [address] [place] [address]- Care Team Providers Care Car Seat Maker Name Role Phone Jluian FRANCO, Shemar Tadeo Primary Care Physician [phone] [place] [facility]): [place]24 [facility] [address] [place] [address] Drive [address] [place], [place] [address] Allergies, Adverse Reactions, Alerts Substance Reaction [...] Signed On: 07/19/2016 Pharmacy I: Deidra Chowdhury [place] 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), 07/19/16 13:03:58, [...] Refills, Soft Stop, 03/28/21 16:37:00 EDT, Tablet, [facility][id number], Partial fill upon patient request if the [...] ( severe disability ) on 07/23/17; updated [place] Back Pain Scale: 50 on 07/23/17 2initial Oswestry Disability Index: 40% ( moderate disability ) on 07/19/16; initial [place] Back Pain Scale:48 on ; initial [place]: 3 on 07/19/16 3By patient report, involving [...] Member Role: Lifetime Consulting Physician Address: Address: [address] [place] [address]- Name: Niecy Solis RN Position: [facility] RN Member Role: Primary Care Nurse Name: Shemar Jordan MD Position: Reference Physician Member Role: PCP Address: Address: [address] [place] [id number] Care Team Related Persons Name: KAMINI LINARES Address: home [address] [place] [address]
--- OUTSIDE RECORDS SUMMARY | 2024-06-24 10:53 | XMS_ITS | Continuity of Care Document ---
Author Organization [facility] Address [address] [place] [address] Phone Care Team Providers Care Industrial Safety Engineer Name Role Phone MD Rayray Lockett Attending Provider [phone] MD Tim Gipson Primary Care Provider Chief Complaint and Reason for Visit Chief Complaint SPINAL STENOSIS Social History Smoking Status Unknown if ever smoked Additional Data Assigned Sex Male Insurance Providers Guarantor MAULIK LINARES Address [address] [facility] [address] Contact Info. Home Phone: Payer Policy Id Coverage Id Subscriber's Name Subscriber Id Effective Date Expiration Date BCBS Out of State Medicare [id number] MAULIK VIJAY [id number] Encounters Encounter Location(s) Arrival/Admit Date Discharge/Depart Date Provider(s) Departed Clinical [facility] [place] May 08, 2023 2:39pm May 08, 2023 2:40pm Rayray Lockett MD
--- OUTSIDE RECORDS SUMMARY | 2024-06-24 10:53 | XMS_ITS | Continuity of Care Document ---
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 Refills 0,Acute 03/17/21 9:47:00 EDT, Pain , Moderate, 03/10/21 9:47:00 EDT, Print Requisition, Partial fill upon patient request if the prescription is for a sc... Start Date: 03/10/21 Stop Date: 03/17/21 Status: Ordered Pantoprazole = 40 mg, By [...] ( severe disability ) on 07/23/17; updated [place] Back Pain Scale: 50 on 07/23/17 2initial Oswestry Disability Index: 40% ( moderate disability ) on 07/19/16; initial [place] Back Pain Scale:48 on ; initial [place]: 3 on 07/19/16 3By patient report, involving left knee 4Tonsillectomy age 4 years 5Multifocal cervical and thoracic cord signal abnormalities by MR imaging 2013 Vital Signs Most recent to oldest [Reference Range]: 1 Height 180.3 cm (03/06/21 11:02 AM) Weight 81.7 kg (03/06/21 11:02 AM) Body Mass Index [18.5-24.99] 25.13 *H* (03/06/21 11:02 AM) Social History Social History Type Response Smoking Status Former smoker; Type: Cigarettes; Other: quit 2011; entered on: 04/13/16 Sex
--- OUTSIDE RECORDS SUMMARY | 2024-06-24 10:53 | XMS_ITS | Continuity of Care Document ---
Author Organization [facility] Address [address] [place] [address] [address], [address] [place] [address]- Care Team Providers Care Tool Dresser Name Role Phone Julian FRANCO, Shemar Tdaeo Primary Care Physician [place] [facility] [place] [place]): [place] 04/19/21 [facility] [address] [place] [address] Drive, [address] [place], [place] [address] Allergies, Adverse Reactions, Alerts Substance Reaction Severity [...] Signed On: 07/19/2016 Pharmacy I: Deidra Chowdhury [place] 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), 07/19/16 13:03:58, [...] Refills, Soft Stop, 03/28/21 16:37:00 EDT, Tablet, [facility] #[id number], Partial fill upon patient request if the [...] ( severe disability ) on 07/23/17; updated [place] Back Pain Scale: 50 on 07/23/17 2initial Oswestry Disability Index: 40% ( moderate disability ) on 07/19/16; initial [place] Back Pain Scale:48 on ; initial [place]: 3 on 07/19/16 3By patient report, involving left knee 4Tonsillectomy age 4 years 5Multifocal cervical and thoracic cord signal abnormalities by MR imaging 2013 Social History Social History Type Response Smoking Status Former smoker; Type: Cigarettes; Other: quit 2011; entered on: 04/13/16 Sex
--- OUTSIDE RECORDS SUMMARY | 2024-06-24 10:53 | XMS_ITS | Continuity of Care Document ---
Author Organization [facility] Address [address] [place] [address]- Care Team Providers Care Chucking Machine Set Up Operator Name Role Phone Julian FRANCO, Shemar Tadeo Primary Care Physician [phone] Encounter [facility] [place] Date(s): 03/06/21 - 04/05/21 [facility] [address] [place] [address] Allergies, Adverse Reactions, Alerts Substance Reaction Severity [...] Signed On: 07/19/2016 Pharmacy I: Deidra Chowdhury [place] 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
--- OUTSIDE RECORDS SUMMARY | 2024-06-24 10:53 | XMS_ITS | Continuity of Care Document ---
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
--- OUTSIDE RECORDS SUMMARY | 2024-06-24 10:53 | XMS_ITS | Continuity of Care Document ---
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 Refills 0,Acute 03/17/21 9:47:00 EDT, Pain , Moderate, 03/10/21 9:47:00 EDT, Print Requisition, Partial fill upon patient request if the prescription is for a sc... Start Date: 03/10/21 Stop Date: 03/17/21 Status: Ordered oxyCODONE 5 mg oral tablet 10 mg, Tablet, By Mouth, Every 6 hours, PRN for Pain , Moderate, Routine, 03/09/21 13:32:00 EDT Start Date: 03/09/21 Stop Date: 03/10/21 Status: Discontinued Pantoprazole = 40 mg, By Mouth, 2 [...] Territories Back Pain Scale:48 on ; initial [place]: 3 on 07/19/16 3By patient report, involving left knee 4Tonsillectomy age 4 years 5Multifocal cervical and thoracic cord signal abnormalities by MR imaging 2014 Results Radiology Reports * Exam Date Time Procedure Performing Provider Status 03/09/21 1:56 PM C-Arm < 1 Hour Paul Rojas; Auth (Verified) Notes: (C-Arm < 1 Hour) Reason For Exam: Lumbar Matrix RESULT: C-Arm < 1 Hour Lumbar Spine 2 or 3 Views, C-Arm < 1 Hour INDICATION: Reason: Lumbar matrix; Special Instructions: TT-18 mins, FT-11secs COMPARISONS: None TECHNIQUE: Fluoroscopy support was provided. There was no radiologist in attendance. Fluoroscopy time: 11.1 seconds Technologist time: 18 minutes Exposure: 7.31 mGy FINDINGS: Fluoroscopy support was provided. There was no radiologist in attendance. IMPRESSION: See above. WSN: [id number] Ordering Physician: Maulik Sánchez Dictated By: You Rangel MD Dictated Date/Time: 03/09/21 2:40 pm Reviewed By: You Rangel MD Signed By: You Rangel MD Signed Date/Time: 03/09/21 2:40 pm Transcribed By: ALEJANDRA Transcribed Date/Time: 03/09/21 2:39 pm * Exam Date Time Procedure Performing Provider Status 03/09/21 1:56 PM Lumbar Spine 2 or 3 Views Tomi Rojas tthew; Auth (Verified) Notes: (Lumbar Spine 2 or 3 Views) Reason For Exam: Lumbar matrix RESULT: Lumbar Spine 2 or 3 Views Lumbar Spine 2 or 3 Views, C-Arm < 1 Hour INDICATION: Reason: Lumbar matrix; Special Instructions: TT-18 mins, FT-11secs COMPARISONS: None TECHNIQUE: Fluoroscopy support was provided. There was no radiologist in attendance. Fluoroscopy time: 11.1 seconds Technologist time: 18 minutes Exposure: 7.31 mGy FINDINGS: Fluoroscopy support was provided. There was no radiologist in attendance. IMPRESSION: See above. WSN: [id number] Ordering Physician: Maulik Sánchez Dictated By: You Rangel MD Dictated Date/Time: 03/09/21 2:40 pm Reviewed By: You Rangel MD Signed By: You Rangel MD Signed Date/Time: 03/09/21 2:40 pm Transcribed By: ALEJANDRA Transcribed Date/Time: 03/09/21 2:39 pm Vital Signs Most recent to oldest [Reference Range]: 1 2 3 Height 180.3 cm (03/10/21 4:25 AM) 180.3 cm (03/09/21 11:18 PM) 180.3 cm (03/09/21 8:10 PM) Weight 80.0 kg (03/09/21 11:14 AM) 81.8 kg (03/07/21 3:33 PM) Oxygen Saturation [94-100 %] 99 % (03/10/21 6:00 AM) 98 % (03/10/21 4:25 AM) 97 % (03/09/21 11:18 PM) Pulse Rate [55-90 bpm] 84 bpm (03/10/21 6:00 AM) 98 bpm *H* (03/10/21 4:25 AM) 76 bpm (03/09/21 11:18 PM) Body Mass Index [18.5-24.99] 24.61 (03/09/21 11:14 AM) 25.16 *H* (03/07/21 3:33 PM) Blood Pressure [90-138/55-84 mm Hg] 147/82mm Hg *H* (03/10/21 6:00 AM) 165/91mm Hg *H* (03/10/21 4:25 AM) 149/85mm Hg *H* (03/09/21 11:18 PM) Respiratory Rate [16-30 br/min] 16 br/min (03/10/21 8:31 AM) 16 br/min (03/10/21 8:31 AM) 17 br/min (03/10/21 6:00 AM) Temperature [96.8-100.4 DegF] 98.0 DegF (03/10/21 6:00 AM) 98.2 DegF (03/10/21 4:25 AM) 98.1 DegF (03/09/21 11:18 PM) Liters per Minute 6 L/min (03/09/21 1:30 PM) Mode of Delivery (Oxygen) Room air (03/10/21 6:00 AM) Room air (03/10/21 4:25 AM) Room air (03/09/21 11:18 PM) Blood pressure sites Arm, right (03/10/21 6:00 AM) Arm, right (03/10/21 4:25 AM) Arm, right (03/09/21 11:18 PM) Temperature Route Oral (03/10/21 6:00 AM) Oral (03/10/21 4:25 AM) Oral (03/09/21 11:18 PM) Dry Weight 80.0 kg (03/09/21 11:14 AM) 81.8 kg (03/07/21 3:33 PM) Weight Obtained Via Standing scale (03/09/21 11:14 AM) Patient/family stated (03/07/21 3:33 PM) Dry Weight Obtained Via Standing scale (03/09/21 11:14 AM) Patient/family stated (03/07/21 3:33 PM) Social History Social History Type Response Smoking Status Former smoker; Type: Cigarettes; Other: quit 2011; entered on: 04/13/16 Sex
--- OUTSIDE RECORDS SUMMARY | 2024-06-24 10:53 | XMS_ITS | Continuity of Care Document ---
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), 07/19/16 13:03:58, [...] Refills, Soft Stop, 03/28/21 16:37:00 EDT, Tablet, [facility] #[id number], Partial fill upon patient request if the [...] ( severe disability ) on 07/23/17; updated [place] Back Pain Scale: 50 on 07/23/17 2initial Oswestry Disability Index: 40% ( moderate disability ) on 07/19/16; initial [place] Back Pain Scale:48 on ; initial [place]: 3 on 07/19/16 3By patient report, involving [...] Member Role: Lifetime Consulting Physician Address: Address: [address] [place] [address] Name: Niecy Solis RN Position: [facility] RN Member Role: Primary Care Nurse Name: Shemar Jordan MD Position: Reference Physician Member Role: PCP Address: Address: [address] [place] [id number] Care Team Related Persons Name: KAMINI LINARES Address: home [address] [place] [address]
[2024-06-24] MEDS: Lactated Ringers 1,000 ML 100 ML IVCONT (12:37)
--- NOTE | 2024-06-24 12:42 | MHC.SHP ---
Pre-Procedural Eval Section A - 24 Hr Update-Section A only Date of Service: 06/24/24 The patient is an INPATIENT: No Changes since office visit: Yes Patient answered all questions The patient has been examined within 24 hours of the surgical procedure. The History & Physical has been completed within 30 days and I have reviewed it.: No Section B - Complete if H&P > 30 days Chief Complaint: Postlaminectomy syndrome, not elsewhere classified Relevant Family History (Specify if Yes): No Relevant Social History: None Present Medications: see Short Stay Collaborative assessment Medical History: No relevant PMH History of Previous Operations: Relevant previous surgery/procedure and date(s) (spine surgery) Allergies: Allergies Allergy/AdvReac Type Severity Reaction Status Date / Time lisinopril AdvReac Severe Anaphylaxis Verified 06/22/24 16:26 NSAIDS (Non-Steroidal AdvReac Severe perforated Verified 06/22/24 16:26 Anti-Inflamma duodenal ulcer flu vaccine AdvReac Severe temporary Uncoded 06/23/24 08:18 guillane barre symptoms Review of Systems Sugical H&P ROS: Negative: Constitution, Cardiovascular and Respiratory Exam Surgical H&P Exam: Normal: HEENT, Normal: Heart and Normal: Lungs Plan Diagnosis/Plan: Unchanged I have reviewed the history and physical and performed a pertinent physical examination on my patient. No changes have occurred unless specified. Time Spent With Patient Time: Total time managing care of this patient today ____ minutes.
[2024-06-24 13:05] LABS: MRSA Nasal PCR NEGATIVE (Negative); SA Nasal PCR NEGATIVE (Negative)
--- NOTE | 2024-06-24 14:00 | HO.ANESPROP2 ---
Documented by User: Libia Kern NP 06/23/24 11:55 HPI - Anesthesia Eval Consult details Narrative: 68yo M for Spinal Cord Stimulation Implant s/p trial 01/2024 with [employer] [facility] Active Problems Active Problems: All Active Problems Lower extremity edema (Acute) Spinal stenosis, lumbar region with neurogenic claudication (Acute) Post laminectomy syndrome (Acute) Past Medical History Medical History (Updated 06/23/24 @ 08:23 by Ivonne Sarah RN) Spinal stenosis Multiple sclerosis Spinal stenosis GERD (gastroesophageal reflux disease) Dyslipidemia Chronic pain syndrome Neurogenic bladder History of progressive weakness Bilateral leg weakness Primary hypertension SOB (shortness of breath) Family History Family history of problems with anesthesia: No Surgical History Surgical History (Updated 06/23/24 @ 08:27 by Ivonne Sarah RN) Hx of colonoscopy History of lumbar surgery (10/02/23) History of surgery (02/19/24) Hx of lumbar discectomy History of Problems with Anesthesia: No Social History Social History (Updated 06/23/24 @ 08:19 by Ivonne Sarah RN) Household Members: Spouse Housing: House Are you a primary child care associate to a significant other at home: No Do you presently have visiting nurse or other home services: No Patient Tobacco Use Status: Former Tobacco user Tobacco use type: Cigarette Smoked in Last 30 Days: No Use of substances other than those prescribed or required for medical reasons: No Have you been hit, kicked, punched, or otherwise hurt by someone within the past year? If so, by whom?: No Are you DNR?: No Advance Directives: No Advance Directives Information Provided: Yes Advance Directives on File: No (will bring dos) Recently lost weight without trying: No Nutrition Risks: No Nutritional Risk Poor oral hygiene: No Meds Allergies Allergy/AdvReac Type Severity Reaction Status Date / Time lisinopril AdvReac Severe Anaphylaxis Verified 06/22/24 16:26 NSAIDS (Non-Steroidal AdvReac Severe perforated Verified 06/22/24 16:26 Anti-Inflamma duodenal ulcer flu vaccine AdvReac Severe temporary Uncoded 06/23/24 08:18 guillane barre symptoms Home Medications ?Medication ?Instructions ?Recorded ?Confirmed ?Last Taken ?Type furosemide 20 mg tablet 20 mg PO DAILY 07/15/23 06/23/24 10/02/23 06:00 History gabapentin 300 mg capsule 300 mg PO BID 07/15/23 06/23/24 Unknown History magnesium 250 mg tablet 500 mg PO DAILY 07/15/23 06/23/24 Unknown History pantoprazole 40 mg tablet,delayed 40 mg PO QPM 07/15/23 06/23/24 Unknown History release ropinirole 2 mg tablet 2 mg PO BID 07/15/23 06/23/24 Unknown History cyanocobalamin (vitamin B-12) 2,500 mcg sublingual DAILY 06/23/24 06/23/24 Unknown History 2,500 mcg sublingual tablet (Vitamin B-12) ergocalciferol (vitamin D2) 1,250 1,250 mcg PO QWEEK 06/23/24 06/23/24 Unknown History mcg (50,000 unit) capsule (Vitamin D2) thiamine HCl (vitamin B1) 250 mg 250 mg PO DAILY 06/23/24 06/23/24 Unknown History tablet (Vitamin B-1) Exam Height,Weight and Vital Signs: Height 5 ft 11 in Weight 95.254 kg Pertinent Lab Results Pertinent Lab Results: CBC and BMP 10/2023 from outside facility WNL Narrative Narrative: ECHO 2022 Conclusions: - 1. Normal LV ejection fraction of 60-65% 2. Trivial aortic regurgitation 3. Mildly dilated ascending aorta at 4 cm 4. Normal RV systolic pressure 5. No gross pericardial effusion Assessment and Plan Assessment Anesthesia Assessment: Chart Reviewed Final Anesthetic Review Family History of Problems with Anesthesia: No History of Problems with Anesthesia: No Documented by User: Iraida Her DO 06/24/24 14:45 [facility] Past Medical History Medical History (Updated 06/23/24 @ 08:23 by Ivonne Sarah, CHASE) Spinal stenosis Multiple sclerosis Spinal stenosis GERD (gastroesophageal reflux disease) Dyslipidemia Chronic pain syndrome Neurogenic bladder History of progressive weakness Bilateral leg weakness Primary hypertension SOB (shortness of breath) Family History Family history of problems with anesthesia: No Surgical History Surgical History (Updated 06/23/24 @ 08:27 by Ivonne Sarah RN) Hx of colonoscopy History of lumbar surgery (10/02/23) History of surgery (02/19/24) Hx of lumbar discectomy History of Problems with Anesthesia: No Social History Social History (Updated 06/23/24 @ 08:19 by Ivonne Sarah RN) Household Members: Spouse Housing: House Are you a primary child care associate to a significant other at home: No Do you presently have visiting nurse or other home services: No Patient Tobacco Use Status: Former Tobacco user Tobacco use type: Cigarette Smoked in Last 30 Days: No Use of substances other than those prescribed or required for medical reasons: No Have you been hit, kicked, punched, or otherwise hurt by someone within the past year? If so, by whom?: No Are you DNR?: No Advance Directives: No Advance Directives Information Provided: Yes Advance Directives on File: No (will bring dos) Recently lost weight without trying: No Nutrition Risks: No Nutritional Risk Poor oral hygiene: No Meds Allergies Allergy/AdvReac Type Severity Reaction Status Date / Time lisinopril AdvReac Severe Anaphylaxis Verified 06/22/24 16:26 NSAIDS (Non-Steroidal AdvReac Severe perforated Verified 06/22/24 16:26 Anti-Inflamma duodenal ulcer flu vaccine AdvReac Severe temporary Uncoded 06/23/24 08:18 guillane barre symptoms Home Medications ?Medication ?Instructions ?Recorded ?Confirmed ?Last Taken ?Type furosemide 20 mg tablet 20 mg PO DAILY 07/15/23 06/23/24 10/02/23 06:00 History gabapentin 300 mg capsule 300 mg PO BID 07/15/23 06/23/24 Unknown History magnesium 250 mg tablet 500 mg PO DAILY 07/15/23 06/23/24 Unknown History pantoprazole 40 mg tablet,delayed 40 mg PO QPM 07/15/23 06/23/24 Unknown History release ropinirole 2 mg tablet 2 mg PO BID 07/15/23 06/23/24 Unknown History cyanocobalamin (vitamin B-12) 2,500 mcg sublingual DAILY 06/23/24 06/23/24 Unknown History 2,500 mcg sublingual tablet (Vitamin B-12) ergocalciferol (vitamin D2) 1,250 1,250 mcg PO QWEEK 06/23/24 06/23/24 Unknown History mcg (50,000 unit) capsule (Vitamin D2) thiamine HCl (vitamin B1) 250 mg 250 mg PO DAILY 06/23/24 06/23/24 Unknown History tablet (Vitamin B-1) Exam Exam Date and Time: 06/24/24 1400 Height,Weight and Vital Signs: Height 5 ft 11 in Weight 95.254 kg Vital Signs Temperature 98.1 F 06/24/24 11:46 Pulse Rate 84 06/24/24 11:46 Respiratory Rate 16 06/24/24 11:46 Blood Pressure 167/99 H 06/24/24 11:46 Pulse Oximetry 96 06/24/24 11:46 Oxygen Delivery Method Room Air 06/24/24 11:46 Temperature 98.1 F 06/24/24 11:46 Pulse Rate 84 06/24/24 11:46 Respiratory Rate 16 06/24/24 11:46 Blood Pressure 167/99 H 06/24/24 11:46 Pulse Oximetry 96 06/24/24 11:46 Oxygen Delivery Method Room Air 06/24/24 11:46 Airway Mallampati Class: II TM Dist: >3cm Neck ROM: Limited Loose/Missing/Broken Teeth: No (patient denies any loose or broken teeth) Heart: S1S2 Lungs: CTAB Assessment and Plan Assessment Anesthesia Assessment: Anesthesia Plan Discussed and Chart Reviewed Final Anesthetic Review Family History of Problems with Anesthesia: No History of Problems with Anesthesia: No NPO: Yes ASA Class: III Final Preanesthetic Review: No Changes in Pt Med Stat, Meds/Allgs Chart Reviewed, Consent Obtained/Reviewed and Anes Risks/Benef Reviewed Patient Risk: Intermediate Procedure Risk: Low Anesthetic Plan Anesthetic Plan: GA and Agree w/ Assess. and Plan Disposition: Standard PACU
--- NOTE | 2024-06-24 17:08 | PM.OP ---
Brief Operative Note Date of Service: 06/24/24 Pre-op diagnosis: Lumbar post-laminectomy syndrome Post-op diagnosis: same Procedure: Lumbar spinal cord stimulation implant Implants: [employer] Intellis SCS system Surgeon: Bandar Azevedo MD Anesthesia: MAC Was an Screw Supervisor used for this Procedure?: No Estimated blood loss (mL): 25 Pathology: none sent Condition: stable Disposition: PACU
--- NOTE | 2024-07-09 13:02 | P.OP_ITS ---
Operative Note Operative Note Date of Service: 06/24/24 Narrative: Lumbar SCS Implant After proper identification, the patient was brought to the operating room. After prone positioning, patient was induced with anesthesia. Care was taken during positioning to protect and pad all pressure points. Cefazolin 2gm was given as preoperative antibiotic prophylaxis. The back was prepped and draped in the usual sterile fashion using Chloroprep. The fluoroscope unit was sterilely draped and brought into field, the vertebral target was localized with fluoroscopy after the skin was anesthetized with 0.25% bupivicaine with 1:200,000 epinephrine and 1% lidocaine using a 25-gauge needle. A 6 cm incision was then made in the midline back with a 15 blade between the L1 and L2 spinous processes. Electrocautery was used to dissect down to the prevertebral fascia. Two 14-gauge introducer Tuohy needles were advanced using AP and contralateral oblique fluoroscopy views to the target interspace on either side of the inferior spinous process. Upon loss of resistance, a flexible stylet was advanced and verified to be in the epidural space.? The left electrode was then threaded up to the middle of T8 vertebral body. The right electrode was threaded to the middle of T8 vertebral body. With the needles covering the leads, we placed 2 sets of Tycron sutures per electrode for the anchor stitches. We then backed out the needle under live fluoroscopy, verifying that the electrodes were in the correct position and we then used the locking anchors to secure the electrodes down to the prevertebral fascia, tying them down with the Tycron sutures. At this point, a pocket for the generator was made in the right iliac fossa. With the skin and subcutaneous tissues anesthetized with 0.25% bupivicaine with 1:200,000 epinephrine and 1% lidocaine, a horizontal 2-inch incision was made using a 15 blade and combination of sharp dissection, blunt dissection and electrocautery was used. A pocket was created about half an inch below the skin. The pocket was then irrigated with normal saline containing vancomycin. Hemostasis was attained with electrocautery. We then tunneled the electrodes from the back into the pocket using the tunneling device. The electrodes were then connected to the generator. A single Tycron suture was thrown across the floor of the pocket and through the medial anchor hold of the generator. After interrogation with impedance check the generator was placed into the subcutaneous pocket and the anchoring suture tied. Care was taken not to get fluid in the generator connector block. The excess lead was closed beneath the generator creating a loop of strain relief as well. The neurostimulator generator was placed parallel to the skin at a depth of half an inch along for successful telemetry and impedence. The pocket was reirrigated and closed with t he generator name facing out. Final electronic analysis was performed to ensure proper functioning. Positioning of the leads were rechecked and confirmed with fluoroscopy and images saved. Both incisions were closed with a deep layer of 2-0 Vicryl sutures, the deep dermal layer with 3-0 Vicryl sutures, simple interrupted. We then secured the incision with Dermabond, steristrips, telfa and tegaderm over both incisions. The patient tolerated the procedure well. The patient was then flipped back into the supine position, woken up and brought to the PACU in stable condition. Complications: None EBL: 25 mL
== END 2024-06-24 18:28 | disposition home or self-care (01) ==
PROVIDERS: Registered Nurse Emergency; PCP Pediatrics; Visit Provider Internal Medicine
PROC: (CPT 63685; principal; 2024-06-24 12:30)
DX: M96.1 Postlaminectomy syndrome, not elsewhere classified (principal); M48.062 Spinal stenosis, lumbar region with neurogenic claudication; R60.0 Localized edema; G35 Multiple sclerosis; G89.4 Chronic pain syndrome; I10 Essential (primary) hypertension; N31.9 Neuromuscular dysfunction of bladder, unspecified; R53.1 Weakness; Z79.899 Other long term (current) drug therapy; Z99.89 Dependence on other enabling machines and devices; Z88.6 Allergy status to analgesic agent; Z88.7 Allergy status to serum and vaccine; Z88.8 Allergy status to other drugs, medicaments and biological substances; Z98.890 Other specified postprocedural states; Z87.891 Personal history of nicotine dependence
CPT/HCPCS: 63685; 63650 ×2; 87640; 87641; C1778; C1820; J0690; J1100; J2371; J2405; J2704; J3010; J3370

== ENCOUNTER → 2024-06-24 10:50 | Outpatient (BNV) | payer MEDICARE, SELFPAY | PROVIDERS: PCP Pediatrics; Visit Provider Internal Medicine | DX: M96.1 Postlaminectomy syndrome, not elsewhere classified (principal) | CPT/HCPCS: 63650; 63685 ==

== ENCOUNTER 2024-07-01 09:45 | Outpatient (AMB) | payer MEDICARE, SELFPAY ==
--- NOTE | 2024-07-01 09:54 | MHC.OFFVIS ---
Vital Signs 07/01/24 09:55 Height 5 ft 11 in Weight 210 lb BMI 29.3 BP 164/83 H Blood Pressure Location Lt brachial Position Sitting Respiration 15 Pulse 88 Pulse Source Pulse Oximeter Pulse Oximetry (%) 94 Oxygen Delivery Method Room Air Intake Visit Reasons: S/p [employer] SCS Implant 06/24/24 Allergies lisinopril Adverse Reaction (Severe, Verified 07/06/24 09:59) Anaphylaxis NSAIDS (Non-Steroidal Anti-Inflamma Adverse Reaction (Severe, Verified 07/06/24 09:59) perforated duodenal ulcer flu vaccine Adverse Reaction (Severe, Uncoded 07/06/24 09:59) temporary guillane barre symptoms Medication List - Last Reconciled 07/01/24 by Adia Deluna LPN cyanocobalamin (vitamin B-12) (Vitamin B-12) 2,500 mcg sublingual DAILY ergocalciferol (vitamin D2) (Vitamin D2) 1,250 mcg PO QWEEK furosemide 20 mg PO DAILY gabapentin 300 mg PO BID magnesium 500 mg PO DAILY oxycodone-acetaminophen 5-325 mg 1 tab PO TID PRN pantoprazole 40 mg PO QPM ropinirole 2 mg PO BID thiamine HCl (vitamin B1) (Vitamin B-1) 250 mg PO DAILY tramadol 50 mg PO BID HPI HPI S/p [employer] SCS Implant 06/24/24: Details: 68-year-old male who presents today for evaluation of s/p [employer]tr[employer] SCS implant. The patient reports 70% relief following the procedure. He reports [employer] people is seeing him on Saturday. He was started on paresthesia based program for his legs and they did not do anything for his back. He reports he still continues to have back pain. He states he has not been sleeping in his bed as he has hard time getting out of the bed. He has been sleeping in the recliner. He does walk around a bit, but he is not exercising currently. He states he does not feel his legs at times until he moves his legs. He feels sensation while lifting his legs. He reports pain is mostly in the left leg but improving. Past Procedures: 06/24/24: [employer] SCS implant: Good initial paresthesia based relief 03/12/24: Intrathecal Drug Delivery Trial - L-3/4: % relief. 02/19/24:Percutaneous Spinal Cord Stimulator Trial, Lumbar: % relief. 10/02/23: Minimally Invasive Lumbar Decompression, Bilateral, L-4/5: 80-90% relief. [facility] Medical History (Updated 06/23/24 @ 08:23 by Ivonne Sarah RN) Spinal stenosis Multiple sclerosis Spinal stenosis GERD (gastroesophageal reflux disease) Dyslipidemia Chronic pain syndrome Neurogenic bladder History of progressive weakness Bilateral leg weakness Primary hypertension SOB (shortness of breath) Surgical History (Updated 06/23/24 @ 08:27 by Ivonne Sarah RN) Hx of colonoscopy History of lumbar surgery (10/02/23) History of surgery (02/19/24) Hx of lumbar discectomy Social History (Updated 06/23/24 @ 08:19 by Ivonne Sarah RN) Household Members: Spouse Housing: House Are you a primary healthcare insurance sales agent to a significant other at home: No Do you presently have visiting nurse or other home services: No 75 years or older and lives alone: No Patient Tobacco Use Status: Former Tobacco user Tobacco use type: Cigarette Physical Exam Vital Signs: Last Vital Signs Pulse 88 07/01/24 09:55 Resp 15 07/01/24 09:55 BP 164/83 H 07/01/24 09:55 Pulse Ox 94 07/01/24 09:55 Oxygen Delivery Method Room Air 07/01/24 09:55 BMI result Body Mass Index 29.3 General: Appears afebrile. Alert and oriented. Mood and affect appropriate. Follows and participates in conversation appropriately. Respiratory effort is unlabored. Able to transition from sit to stand unassisted. Ambulates with bilaterally normal heel strike and toe off. On exam incision sites were clean, dry, and intact. The dressings were removed. There is no tenderness to palpation around the incision. Mild bruising in the sacral region noted. Non tender on palpation. Assessment & Plan Assessment & Plan (1) Post laminectomy syndrome: Code(s): M96.1 - Postlaminectomy syndrome, not elsewhere classified Category: Medical Plan Dressings were removed in the office today. Patient is cleared to shower starting tomorrow. The device was reprogrammed today along with the risk control field representative from [employer]. Turned on DTM Program to see if he might get more coverage for his axial low back pain. He has good coverage for his lower extremity symptoms with tonic stimulation. He will return to clinic on [place] for final wound check and further reprogramming as needed. Scribed for Dr. Azevedo by Paola, medical transcription supervisor, on 07/01/2024. I, Dr. Azevedo, have personally reviewed and agree with the information entered by the scribe. Coding Level of Care Code Est Pt Level 3 (31316) Diagnoses Post laminectomy syndrome M96.1
[2024-07-01 09:55] VITALS: BP 164/83; PULSE 88; RESP 15; O2SAT 94; BMI 29.3
== END 2024-07-01 10:32 | disposition home or self-care (01) ==
PROVIDERS: PCP Pediatrics; Visit Provider Internal Medicine
DX: M96.1 Postlaminectomy syndrome, not elsewhere classified (principal)
CPT/HCPCS: 99024

== ENCOUNTER → 2024-07-01 09:45 | Outpatient (BNVA) | payer MEDICARE, SELFPAY | PROVIDERS: PCP Pediatrics; Visit Provider Internal Medicine | DX: M96.1 Postlaminectomy syndrome, not elsewhere classified (principal); Z96.82 Presence of neurostimulator | CPT/HCPCS: 99212 ==

== ENCOUNTER 2024-07-06 09:43 | Outpatient (AMB) | payer MEDICARE, SELFPAY ==
[2024-07-06 09:57] VITALS: BP 130/72; PULSE 80; RESP 15; O2SAT 95; BMI 29.3
--- NOTE | 2024-07-06 09:57 | A.OFFVIS_ITS ---
Vital Signs 07/06/24 09:57 Height 5 ft 11 in Weight 210 lb BMI 29.3 BP 130/72 Blood Pressure Location Lt brachial Position Sitting Respiration 15 Pulse 80 Pulse Source Pulse Oximeter Pulse Oximetry (%) 95 Oxygen Delivery Method Room Air Intake Visit Reasons: S/p [employer] SCS Implant 06/24/24 (2nd Visit) Allergies lisinopril Adverse Reaction (Severe, Verified 07/06/24 09:59) Anaphylaxis NSAIDS (Non-Steroidal Anti-Inflamma Adverse Reaction (Severe, Verified 07/06/24 09:59) perforated duodenal ulcer flu vaccine Adverse Reaction (Severe, Uncoded 07/06/24 09:59) temporary guillane barre symptoms Medication List - Last Reconciled 07/06/24 by Adia Deluna LPN cyanocobalamin (vitamin B-12) (Vitamin B-12) 2,500 mcg sublingual DAILY ergocalciferol (vitamin D2) (Vitamin D2) 1,250 mcg PO QWEEK furosemide 20 mg PO DAILY gabapentin 300 mg PO BID magnesium 500 mg PO DAILY oxycodone-acetaminophen 5-325 mg 1 tab PO TID PRN pantoprazole 40 mg PO QPM ropinirole 2 mg PO BID thiamine HCl (vitamin B1) (Vitamin B-1) 250 mg PO DAILY tramadol 50 mg PO BID HPI HPI S/p [employer] SCS Implant 06/24/24 (2nd Visit): Details: 68-year-old male who presents today to the office for status post [employer] spinal cord stimulator implant. The patient reports >60% relief following the procedure. He reports significant relief after reprogramming. He states that the device automatically adjusts the frequency. He has some difficulty sleeping with the device on. He noticed increased paresthesia sensations in his lower back at night from the device. He is currently on a 60% device setting with appropriate paresthesia sensations. He started showering and driving. Past Procedures: 06/24/24: [employer] SCS implant: 03/12/24: Intrathecal Drug Delivery Trial - L-3/4: % relief. 02/19/24: Percutaneous Spinal Cord Stimulator Trial, Lumbar: % relief. 10/02/23: Minimally Invasive Lumbar Decompression, Bilateral, L-4/5: 80-90% relief. [facility] Medical History (Updated 06/23/24 @ 08:23 by Ivonne Sarah RN) Spinal stenosis Multiple sclerosis Spinal stenosis GERD (gastroesophageal reflux disease) Dyslipidemia Chronic pain syndrome Neurogenic bladder History of progressive weakness Bilateral leg weakness Primary hypertension SOB (shortness of breath) Surgical History (Updated 06/23/24 @ 08:27 by Ivonne Sarah, [facility]) Hx of colonoscopy History of lumbar surgery (10/02/23) History of surgery (02/19/24) Hx of lumbar discectomy Social History (Updated 06/23/24 @ 08:19 by Ivonne Sarah RN) Household Members: Spouse Housing: House Are you a primary respiratory care practitioner to a significant other at home: No Do you presently have visiting nurse or other home services: No 75 years or older and lives alone: No Patient Tobacco Use Status: Former Tobacco user Tobacco use type: Cigarette Review of Systems Const All systems reviewed & are unremarkable except as noted in HPI and below Physical Exam Vital Signs: Last Vital Signs Pulse 80 07/06/24 09:57 Resp 15 07/06/24 09:57 BP 130/72 07/06/24 09:57 Pulse Ox 95 07/06/24 09:57 Oxygen Delivery Method Room Air 07/06/24 09:57 BMI result Body Mass Index 29.3 General: Appears afebrile. Alert and oriented. Mood and affect appropriate. Follows and participates in conversation appropriately. Respiratory effort is unlabored. Able to transition from sit to stand unassisted. Ambulates with bilaterally normal heel strike and toe off. Incision sites are clean dry and intact. Results Reviewed Results Reviewed: No imaging is available for review. Assessment & Plan Assessment & Plan (1) Post laminectomy syndrome: Code(s): M96.1 - Postlaminectomy syndrome, not elsewhere classified Category: Medical Plan Discussed different potential programming options available, including low-dose, HD and DTM. He has 2 to early postop to turn on adaptive stimulation at this time. He will come back in four to six weeks for consideration of potential reprogramming and optimization with adaptive stimulation. Scribed for Dr. Azevedo by Darwin Waters, medical staff credentialing coordinator, on 07/06/2024. I, Dr. Azevedo, have personally reviewed and agree with the information entered by the scribe. Coding Level of Care Code Est Pt Level 3 (72623) Diagnoses Post laminectomy syndrome M96.1
== END 2024-07-06 10:52 | disposition home or self-care (01) ==
PROVIDERS: PCP Pediatrics; Visit Provider Internal Medicine
DX: M96.1 Postlaminectomy syndrome, not elsewhere classified (principal)
CPT/HCPCS: 99213

== ENCOUNTER → 2024-07-06 09:43 | Outpatient (BNVA) | payer MEDICARE, SELFPAY | PROVIDERS: PCP Pediatrics; Visit Provider Internal Medicine | DX: M96.1 Postlaminectomy syndrome, not elsewhere classified (principal); Z96.82 Presence of neurostimulator | CPT/HCPCS: 99212 ==

== ENCOUNTER 2024-08-03 11:24 | Outpatient (AMB) | payer MEDICARE, SELFPAY ==
--- NOTE | 2024-08-03 11:25 | MHC.OFFVIS ---
Vital Signs 08/03/24 11:29 Height 5 ft 11 in Weight 210 lb BMI 29.3 BP 160/90 H Blood Pressure Location Rt brachial Position Sitting Respiration 15 Pulse 86 Pulse Source Pulse Oximeter Pulse Oximetry (%) 96 Oxygen Delivery Method Room Air Intake Visit Reasons: f/u with [employer] rep Allergies lisinopril Adverse Reaction (Severe, Verified 08/03/24 11:30) Anaphylaxis NSAIDS (Non-Steroidal Anti-Inflamma Adverse Reaction (Severe, Verified 08/03/24 11:30) perforated duodenal ulcer flu vaccine Adverse Reaction (Severe, Uncoded 08/03/24 11:30) temporary guillane barre symptoms Medication List - Last Reconciled 08/03/24 by Adia Deluna LPN cyanocobalamin (vitamin B-12) (Vitamin B-12) 2,500 mcg sublingual DAILY ergocalciferol (vitamin D2) (Vitamin D2) 1,250 mcg PO QWEEK furosemide 20 mg PO DAILY gabapentin 300 mg PO BID magnesium 500 mg PO DAILY oxycodone-acetaminophen 5-325 mg 1 tab PO TID PRN pantoprazole 40 mg PO QPM ropinirole 2 mg PO BID thiamine HCl (vitamin B1) (Vitamin B-1) 250 mg PO DAILY tramadol 50 mg PO BID HPI HPI f/u with [employer] rep: Details: 68-year-old male who presents today to the office for a follow up with [employer] delivery representative. He has been using the device overnight but continues to report pain in the morning when he wakes up. He still has some pain around the battery pocket region. He is not turning off the device at night. He has difficulty walking due to device so he sometimes turns it off. He states that his pain in the back starts worsening once his device is turned off. He has been doing gentle exercises at home. He denies any strenuous activities. He states that he has to charge the device twice a day. He is not wearing the support belt at home. He inquired about lifting weights, moving big tree upstairs, and doing sit ups exercises. He is concerned about gaining weight and wants to lose some weight with home exercises. He has no history of DM. Past Procedures: 06/24/24: [employer] SCS implant: 40-50% relief. 03/12/24: Intrathecal Drug Delivery Trial - L-3/: % relief. 02/19/24: Percutaneous Spinal Cord Stimulator Trial, Lumbar: % relief. 10/02/23: Minimally Invasive Lumbar Decompression, Bilateral, L-4/5: 80-90% relief. [facility] Medical History (Updated 08/18/24 @ 14:22 by Bandar Azevedo MD) Spinal stenosis Multiple sclerosis Spinal stenosis GERD (gastroesophageal reflux disease) Dyslipidemia Chronic pain syndrome Neurogenic bladder History of progressive weakness Bilateral leg weakness Primary hypertension SOB (shortness of breath) Surgical History (Updated 06/23/24 @ 08:27 by Ivonne Sarah RN) Hx of colonoscopy History of lumbar surgery (10/02/23) History of surgery (02/19/24) Hx of lumbar discectomy Social History (Updated 06/23/24 @ 08:19 by Ivonne Sarah, [facility]) Household Members: Spouse Housing: House Are you a primary career services coordinator to a significant other at home: No Do you presently have visiting nurse or other home services: No 75 years or older and lives alone: No Patient Tobacco Use Status: Former Tobacco user Tobacco use type: Cigarette Review of Systems Const All systems reviewed & are unremarkable except as noted in HPI and below Physical Exam Vital Signs: Last Vital Signs Pulse 86 08/03/24 11:29 Resp 15 08/03/24 11:29 BP 160/90 H 08/03/24 11:29 Pulse Ox 96 08/03/24 11:29 Oxygen Delivery Method Room Air 08/03/24 11:29 BMI result Body Mass Index 29.3 General: Appears afebrile. Alert and oriented. Mood and affect appropriate. Follows and participates in conversation appropriately. Respiratory effort is unlabored. Able to transition from sit to stand unassisted. Ambulates with bilaterally normal heel strike and toe off. Results Reviewed Results Reviewed: No imaging is available for review. Assessment & Plan Assessment & Plan (1) Spinal stenosis, lumbar region with neurogenic claudication: Code(s): M48.062 - Spinal stenosis, lumbar region with neurogenic claudication Category: Medical (2) Post laminectomy syndrome: Comment: Status post [employer] SCS implant Code(s): M96.1 - Postlaminectomy syndrome, not elsewhere classified Category: Medical Plan The device was reprogrammed with a focus on reducing his charge burden, as he was requiring to charge up to twice a day. He will try all the new programs and will follow up as needed for further reprogramming. Scribed for Dr. Azevedo by Darwin Waters, medical laboratory technical officer, on 08/03/2024. I, Dr. Azevedo, have personally reviewed and agree with the information entered by the scribe. Coding Level of Care Code Est Pt Level 3 (81807) Diagnoses Spinal stenosis, lumbar region with neurogenic claudication M48.062 Post laminectomy syndrome M96.1
[2024-08-03 11:29] VITALS: BP 160/90; PULSE 86; RESP 15; O2SAT 96; BMI 29.3
== END 2024-08-03 11:47 | disposition home or self-care (01) ==
LOC: HO.PMC 11:24
PROVIDERS: PCP Pediatrics; Visit Provider Internal Medicine
DX: M48.062 Spinal stenosis, lumbar region with neurogenic claudication (principal); M96.1 Postlaminectomy syndrome, not elsewhere classified
CPT/HCPCS: 99213

== ENCOUNTER → 2024-08-03 11:24 | Outpatient (BNVA) | payer MEDICARE, SELFPAY | PROVIDERS: PCP Pediatrics; Visit Provider Internal Medicine | DX: M48.062 Spinal stenosis, lumbar region with neurogenic claudication (principal); M96.1 Postlaminectomy syndrome, not elsewhere classified | CPT/HCPCS: 99212 ==

== ENCOUNTER → 2025-01-06 12:53 | Outpatient (BNVA) | payer MEDICARE, SELFPAY | PROVIDERS: PCP Pediatrics; Visit Provider Internal Medicine ==

== ENCOUNTER 2025-04-23 11:19 | Outpatient (AMB) | payer MEDICARE, SELFPAY ==
[2025-04-23 11:22] VITALS: BP 140/77; PULSE 88; RESP 16; O2SAT 93; BMI 29.3
--- NOTE | 2025-04-23 11:22 | A.OFFVIS_ITS ---
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 The ankle pain began approximately one month ago and has progressively worsened, leading to an inability to bear weight and frequent falls. The pain is described as severe and burning, exacerbated by standing and relieved by lying down. Previous evaluations, including x-rays, have not identified any structural abnormalities. The patient has a history of flat feet, which may contribute to the pain, and has been advised to pursue physical therapy. Orthotic inserts have been used without significant relief. The patient also has a history of Multiple Sclerosis, which is currently considered dormant, and chronic back pain managed with a spinal cord stimulator. The spinal cord stimulator has provided partial relief for back pain but has not alleviated the ankle pain. The patient has tried various medications, including duloxetine and gabapentin, with limited success. Pain Description - Onset: Approximately one month ago - Quality: Severe, burning pain - Location: Bilateral ankles - Exacerbating factors: Standing, weight-bearing - Relieving factors: Lying down - Interference: Inability to bear weight, frequent falls Physical Exam - Appears afebrile. - Alert and oriented. - Mood and affect appropriate. - Follows and participates in conversation appropriately. - Respiratory effort is unlabored. - Antalgic gait; using walker. Results - X-rays: No structural abnormalities in the feet Pain Management - Affect: Pain significantly impacts daily activities and mobility - Analgesia: Current medications include gabapentin and oxycodone, with limited relief - Adverse Effects: No significant side effects reported from current medications - Activities of Daily Living: Pain limits ability to stand and walk, leading to frequent falls - Aberrant Drug Related Behaviors: No evidence of medication misuse PFSH Medical History (Updated 08/18/24 @ 14:22 by Bandar Azevedo MD) Spinal stenosis Multiple sclerosis Spinal stenosis GERD (gastroesophageal reflux disease) Dyslipidemia Chronic pain syndrome Neurogenic bladder History of progressive weakness Bilateral leg weakness Primary hypertension SOB (shortness of breath) Surgical History (Updated 06/23/24 @ 08:27 by Ivonne Sarah, [facility]) Hx of colonoscopy History of lumbar surgery (10/02/23) History of surgery (02/19/24) Hx of lumbar discectomy Social History (Updated 06/23/24 @ 08:19 by Ivonne Sarah RN) Household Members: Spouse Housing: House Are you a primary foster care case manager to a significant other at home: No Do you presently have visiting nurse or other home services: No 75 years or older and lives alone: No Patient Tobacco Use Status: Former Tobacco user Tobacco use type: Cigarette Physical Exam Vital Signs: Last Vital Signs Pulse 88 04/23/25 11:22 Resp 16 04/23/25 11:22 BP 140/77 H 04/23/25 11:22 Pulse Ox 93 04/23/25 11:22 Oxygen Delivery Method Room Air 04/23/25 11:22 BMI result Body Mass Index 29.3 Assessment & Plan Assessment & Plan (1) Post laminectomy syndrome: Comment: Status post [employer] SCS implant Code(s): M96.1 - Postlaminectomy syndrome, not elsewhere classified Category: Medical Plan Plan - Schedule a meeting with [employer] to adjust the spinal cord stimulator settings to potentially cover the ankle pain. - Continue physical therapy for flat feet to improve stability and potentially reduce pain. - Prescribe gabapentin 600 mg three times daily to manage neuropathic pain. - Obtain an x-ray of the back to check for any lead migration or displacement of the spinal cord stimulator. - Consider alternative pain management strategies if current interventions do not provide adequate relief. Patient was informed and verbally consented to the use of an ambient scribe for clinic note documentation during this visit. Discussion Notes During the visit, I discussed with the patient the potential causes of his bilateral ankle pain, including the possibility of neuropathy and the role of flat feet. We reviewed the current pain management strategies, including the use of gabapentin and oxycodone, and the limitations of these medications. I recommended a meeting with [employer] to explore adjustments to the spinal cord stimulator settings and suggested obtaining an x-ray to rule out lead migration. Patient Instructions - Continue taking gabapentin as prescribed, three times daily. - Attend scheduled physical therapy sessions to address flat feet. - Follow up with [employer] for spinal cord stimulator adjustments. - Obtain an x-ray of the back as ordered to check for any issues with the spinal cord stimulator. - Contact the clinic if pain worsens or if there are any new symptoms. Medications: New gabapentin 600 mg (2 x 300 mg) PO TID 180 caps 2RF Coding Level of Care Code Est Pt Level 4 (98323) Diagnoses Post laminectomy syndrome M96.1
--- OUTSIDE RECORDS SUMMARY | 2025-04-23 11:22 | XMS_ITS | Encounter Summary ---
Author Organization [facility] Address [address] [place] [address] Care Team Providers Care Nutrition Helper Name Role Phone Tim Gipson Primary Care Provider Encounter Details Date Type Department Care Team (Late st Contact Info) Description 05/31/2022 Orders Only [facility] [address] [place] [id number] Provider, MD [place] [address] [place] [id number] Social History Tobacco Use Types Packs/Day Years Used Date Smoking Tobacco: Former Smokeless Tobacco: Never Comments:: Alcohol Use Standard Drinks/Week Comments Not Currently 0 (1 standard drink = 0.6 oz pur e alcohol) Sex and Gender Information Value Date Recorded Sex Assigned at Male 11/07/2021 1:57 PM EST Legal Sex Male 11:26 AM EDT Gender Identity Male 04/15/2018 9:49 AM EDT Sexual Orientation Straight 11/07/2021 1: 57 PM EST documented as of this encounter Plan of Treatment Not on file documented as of this encounter Procedures * Due to [place] [employer] law, this organization might not be sharing negative HIV tests. Procedure Name Priority Date/Time Associated Diagnosis Comments AMB EXTERNAL MRI BRAIN, OUTS LAW RESULT Routine 05/31/2022 AMB EXTERNAL MRI C-SPINE, OU TSIDE RESULT Routine 05/31/2022 AMB EXTERNAL MRI L-SPINE, OU TSIDE RESULT Routine 05/31/2022 NEURODIAGNOSTIC - SCANNED Routine 05/31/2022 documented in this encounter Results * Due to [place] [employer] law, this organization might not be sharing negative HIV tests. * NEURODIAGNOSTIC - SCANNED (05/31/2022) us Unknown Provider MD SCANNED PROCEDURES Final Res ult * MRI C-Spine, Outside Result (05/31/2022) Anatomical Region Laterality Modality Other us Unknown Provider MD AMB EXTERNAL RESULT PROCEDUR ES Final Result * MRI Brain, Outside Result (05/31/2022) Anatomical Region Laterality Modality Other us Unknown Provider MD AMB EXTERNAL RESULT PROCEDUR ES Final Result * MRI L-Spine, Outside Result (05/31/2022) Anatomical Region Laterality Modality Other us Unknown Provider AMB EXTERNAL RESULT PROCEDUR ES Final Result documented in this encounter Visit Diagnoses Not on filedocumented in this encounter Care Teams Nutrition Helper Relationship Specialty Start Date End Date Tim Gipson [address] [address] PCP - General Family Medicine 10/14/18 documented as of this encounter
--- OUTSIDE RECORDS SUMMARY | 2025-04-23 11:22 | XMS_ITS | Clinical Summary ---
Author Organization [facility] Address [address] [place] [address] Care Team Providers Care Nut Roaster Helper Name Role Phone Tim Gipson MD Primary Care Provider [phone] Allergies Active Allergy Reactions Criticality Noted Date Comments Lisinopril Anaphylaxis High 04/15/2018 Possible reaction to lisinopril per patient Possible reaction to lisinopril per patient Possible reaction to lisinopril per patient Nsaids 03/05/2022 Other reaction(s): Peptic Ulcer Disease Medications Medication Sig Dispensed Refills Start Date End Date Status cyanocobalamin 500 MCG tablet Take 5 tablets (2,500 mcg total) by mouth. 0 Active Cholecalciferol 50 MCG (2000 UT) TABS Take 2,000 Units by mouth. 0 01/18/2020 Active furosemide (LASIX) 40 MG tablet 0 11/15/2023 Active gabapentin (NEURONTIN) 300 MG capsule Take 1 capsule (300 mg total) by mouth. 0 04/23/2022 Active rOPINIRole (REQUIP) 2 MG tablet Take 1 tablet (2 mg total) by mouth. 0 Active pantoprazole (PROTONIX) 40 MG tablet Take 1 tablet (40 mg total) by mouth daily. 0 09/22/2021 Active MAGNESIUM PO 400 mg. 0 Active thiamine (VITAMIN B-1) 100 MG tablet Take 1 tablet (100 mg total) by mouth. 0 Active traMADol (ULTRAM) 50 MG tablet Take 50 mg by mouth 2 (two) times a day. 0 04/01/2024 Active ergocalciferol (VITAMIN D2) capsule 98296 units Take 1 capsule (50,000 Units total) by mouth once a week. 12 capsule 0 05/05/2024 Active DULoxetine (CYMBALTA) DR capsule 20 mg 0 06/03/2024 Active losartan (COZAAR) tablet 25 mg 0 06/03/2024 Active Active Problems Problem Noted Date Diagnosed Date MS (multiple sclerosis) 04/29/2024 Social History Tobacco Use Types Packs/Day Years Used Date Smoking Tobacco: Never Assessed Sex and Gender Information Value Date Recorded Sex Assigned at Male 12/12/2023 10:19 AM EDT Gender Identity Not on file Sexual Orientation Not on file Job Start Date Occupation Industry Not on file Not on file Not on file Last Filed Vital Signs Vital Sign Reading Time Taken Comments Blood Pressure 177/94 06/15/2024 11:40 AM EDT Pulse 82 06/15/2024 11:40 AM EDT Temperature 36.1 C (97 F) 06/15/2024 11:40 AM EDT Respiratory Rate 18 05/11/2024 1:40 PM EDT Oxygen Saturation 95% 06/15/2024 11: 40 AM EDT Inhaled Oxygen Concentration - - Weight 95.6 kg (210 lb 12.8 oz) 024 11:40 AM EDT Height 180.3 cm (5' 11 ) 06/15/2024 11: 40 AM EDT Body Mass Index 29.4 06/15/2024 11:40 AM EDT Plan of Treatment Health Maintenance Due Date Last Done Comments Depression Screening 1966 BMI Counseling 1972 Preventative Health Evaluation 1972 Colon Cancer Screening (Colonoscopy) 12/20/1999 Shingrix-Zoster Vaccine (1 o f 2) 2004 Fall Risk Assessment 12/20/2019 Pneumococcal Vaccine (2 of 2 - PCV) 05/18/2021 05/18/2020 DTap / Tdap / Td (2 - Td or Tdap) 10/16/2023 10/16/2013 COVID-19 Vaccine (4 - 2023-2 5 season) 2024 08/01/2021, 01/11/2021, 12/15/2020 Influenza Vaccine (#1) 2025 RSV Adult > 60+ Yrs or (1 - 1-dose 75+ series) 2029 Hepatitis C Screening Completed 04/10/2021 Hepatitis B Vaccines Aged Out No long er eligible based on patient's age to complete this topic RSV Ped < 20 months Aged Out No longe r eligible based on patient's age to complete this topic Care Teams Nut Roaster Helper Relationship Specialty Start Date End Date Tim Gipson MD [address] [place] [address] PCP - General Certified Personal Finance Counselor 05/29/21
--- OUTSIDE RECORDS SUMMARY | 2025-04-23 11:22 | XMS_ITS ---
Author Name [facility] Organization Unknown History of Medication Use Medication Directions Dispensed Refills Start Date End Date Stat us ergocalciferol (VITAMIN D2) capsule 30269 units Take 1 capsule (50,000 Units total) by mouth once a week. 05/05/2024 active furosemide (LASIX) 40 MG tablet 11/15/2023 active Cholecalciferol 50 MCG (2000 UT) TABS Take 2,000 Units by mouth. 01/18/2020 active cyanocobalamin 500 MCG tablet Take 5 tablets (2,500 mcg total) by mouth. active thiamine (VITAMIN B-1) 100 MG tablet Take 1 tablet (100 mg total) by mouth. active Allergies Allergen Reaction Severity Comment Documented Date Source Statu s NSAIDS Other reaction( s): Peptic Ulcer Disease 03/05/2022 [facility] active LISINOPRIL ANAPHYLAXIS Possible reacti on to lisinopril per patient 04/15/2018 [facility] active Problems Problem Status Onset Date Problem Type Date of Resoluti on Source MS (multiple sclerosis) active 2024-04-29 [facility]Act [facility]
--- OUTSIDE RECORDS SUMMARY | 2025-04-23 11:23 | XMS_ITS | Clinical Summary ---
Author Organization 175 [facility] Address [address] [place] [address] Phone Care Team Providers Care Furnace Tender Name Role Phone Tim Gipson MD Primary Care Provider [phone] Allergies Active Allergy Reactions Criticality Noted Date Comments Flu Virus Vaccine Tv 2014- (18 Yr And Up),Recomb 12/24/2023 Lisinopril Anaphylaxis High 04/15/2018 Possible reaction to lisinopril per patient Possible reaction to lisinopril per patient Possible reaction to lisinopril per patient Nsaids (Non-Steroidal Anti-Inflammatory Drug) 03/05/2022 Other reaction(s): Peptic Ulcer Disease Medications cholecalciferol (VITAMIN D-3) 50 mcg (2,000 unit) tablet Take 2,000 Units by mouth. 01/18/2020 Active cyanocobalamin (VITAMIN B-12) 500 mcg tablet Take 5 tablets (2,500 mcg total) by mouth. Active rOPINIRole (REQUIP) 2 mg tablet Take 1 tablet (2 mg total) by mouth. Active gabapentin (NEURONTIN) 300 mg capsule Take 1 capsule (300 mg total) by mouth. 04/23/2022 Active furosemide (LASIX) 40 mg tablet 11/15/2023 Active MAGNESIUM ORAL 400 mg. Activ e losartan (COZAAR) 25 mg tablet Active pantoprazole (PROTONIX) 40 mg EC tablet Take 1 tablet (40 mg total) by mouth 1 (one) time each day. Do not crush, chew, or split. Active DULoxetine (CYMBALTA) [address] capsule Take 2 capsules (40 mg total) by mouth 1 (one) time each day for 7 days, THEN 3 capsules (60 mg total) 1 (one) time each day. Do not crush or chew.. 194 each 02/10/2025 Active Active Problems Problem Noted Date Diagnosed Date Multiple sclerosis ([facility] V24, [facility] V28) Encounters Date Type Department Care Team Description 03/17/2025 12:41 PM EDT - 03/17/2025 11:59 PM EDT Hospital Encounter [facility] Ultrasound [address] [place] [address] Pre-syncope Discharge Disposition: Home or Self Care 03/09/2025 Telephone [facility] [address] [address] Xenia Guillaume [place] 03/05/2025 Lab [facility] Neurodiagnostic [address] [place] [phone] Joesph Garcia MD Syncope and collapse 03/04/2025 Lab [facility] Neurodiagnostic [address] [place] [phone] Joesph Garcia MD Syncope and collapse 03/03/2025 Telephone [facility] [address] [phone] Xenia Guillaume [place] 03/03/2025 Lab [facility] Neurodiagnostic [address] [place] [phone] Joesph Garcia MD Syncope and collapse 03/02/2025 Lab [facility] Neurodiagnostic [address] [place] [phone] Joesph Garcia MD Syncope and collapse 02/10/2025 10:30 AM EDT Office Visit [address] [address] Joesph Garcia MD Pre-syncope (Primary Dx); Multiple sclerosis ([facility] V24, [facility] V28); Gait abnormality from Last 3 Months Immunizations Name Administration Dates Next Due Pfizer SARS-CoV-2 COVID-19, mRNA, LNP-S, preservative free 08/01/2021,01/11/2021,12/15/2020 Pneumococcal polysaccharide 23 valent (Pneumovax 23) 2yo and older 05/18/2020 Tdap Tetanus diptheria acell ular pertussis (Boostrix; Adacel) 7yo and older 10/16/2013 Surgical History Surgery Date Site/Laterality Comments BACK SURGERY PROCEDURE:BACK SURGERY OTHER SURGICAL HISTORY PROCEDURE:ulcer drain Medical History Medical History Date Comments Hypertension DX:Hypertension Social History Tobacco Use Types Packs/Day Years Used Date Smoking Tobacco: Never Assessed Sex and Gender Information Value Date Recorded Sex Assigned at Not on file Legal Sex Male 10:31 PM EST Gender Identity Not on file Sexual Orientation Not on file Obstetrics History Last Filed Vital Signs Vital Sign Reading Time Taken Comments Blood Pressure 144/74 02/10/2025 10:36 AM EDT Pulse 79 02/10/2025 10:36 AM EDT Temperature 36.4 C (97.5 F) 11/02/2024 2:06 PM EST Respiratory Rate - - Oxygen Saturation 95% 02/10/2025 10:36 AM EDT Inhaled Oxygen Concentration - - Weight 99.8 kg (220 lb) 02/10/2025 10:36 AM EDT Height 180.3 cm (5' 11 ) 02/10/2025 10:36 AM EDT Body Mass Index 30.68 02/10/2025 10:36 AM EDT Plan of Treatment Upcoming Encounters Date Type Department Care Team (Late st Contact Info) Description 05/12/2025 1:30 PM EDT Office Visit [facility] [address] [phone] Joesph Garcia MD [address] [phone] 05/24/2025 10:00 AM EDT Appointment [facility] Neurodiagnostic [address] [place] [address] 05/25/2025 10:00 AM EDT Appointment [facility] Neurodiagnostic [address] [place] [address] 05/26/2025 11:00 AM EDT Appointment [facility] Neurodiagnostic [address] [place] [address] 05/27/2025 11:00 AM EDT Appointment [facility] Neurodiagnostic [address] [place] [address] Health Maintenance Due Date Last Done Comments Zoster Vaccines (1 of 2) 2004 Pneumococcal Vaccine: 50+ Years (2 of 2 - PCV) 05/18/2021 05/18/2020 Abdominal Aortic Aneurysm (AAA) Screen 09/02/2022 Colorectal Cancer Screening: Colonoscopy 09/02/2022 Falls Risk Assessment 09/02/2022 Medicare Annual Wellness Visit 09/02/2022 Social Influencers of Health Screening 09/02/2022 DTaP,Tdap,and Td Vaccines (2 - Td or Tdap) 10/16/2023 10/16/2013 COVID-19 Vaccine ( season) 2024 08/01/2021, 01/11/2021, 12/15/2020 Depression Screening 09/30/2024 Influenza Vaccine (#1) 2025 Hypertension/CHF/CAD Annual BMP Blood Test 11/23/2025 11/23/2024, 04/03/2024, 08/08/2023, Additional history exists Cholesterol Screening (Lipid Panel) 05/27/2028 05/27/2023, 05/27/2023 RSV Immunization Adult Patients (1 - 1-dose 75+ series) 2029 Hepatitis C Screening Completed 04/10/2021 , 04/10/2021, 04/10/2017 HIB Vaccines Aged Out No longer eligi ble based on patient's age to complete this topic HPV Vaccines Aged Out No longer eligi ble based on patient's age to complete this topic Hepatitis A Vaccines Aged Out No long er eligible based on patient's age to complete this topic Hepatitis B Vaccines Aged Out No long er eligible based on patient's age to complete this topic IPV Vaccines Aged Out No longer eligi ble based on patient's age to complete this topic MMR Vaccines Aged Out No longer eligi ble based on patient's age to complete this topic Meningococcal ACWY Vaccine Aged Out N o longer eligible based on patient's age to complete this topic Meningococcal B Vaccine Aged Out No l onger eligible based on patient's age to complete this topic RSV Immunization Patients Under 20 months Aged Out No longer eligible based on patient's age to complete this topic Varicella Vaccines Aged Out No longer eligible based on patient's age to complete this topic Procedures Procedure Name Priority Date/Time Associated Diagnosis Comments VAS US DUPLEX CAROTID BILATERAL Routine 03/17/2025 1:24 PM EDT Pre-syncope ANNUAL BMP BLOOD TEST Routine 04/03/2024 LIPID PANEL Routine 05/27/2023 HEPATITIS C SCREENING Routine 04/10/2021 from Last 3 Months or Most Recently Relevant to Health Maintenance Results * Vascular US duplex carotid bilateral (03/17/2025 1:24 PM EDT) Anatomical Region Laterality Modality Vascular, Abdomen Ultrasound 03/17/2025 4:04 PM EDT Impressions 03/17/2025 4:07 PM EDT No stenosis in the proximal internal carotid arteries. Mildly elevated velocity in the left mid internal carotid artery. -------- FINAL REPORT -------- Dictated By: Rosy Mckeon Dictated Date: 03/17/2025 16:04 ET Assigned Physician: Rosy Mckeon Reviewed and Electronically Signed By: Rosy Mckeon Signed Date: 03/17/2025 16:07 ET Workstation ID: [id number] Transcribed By: Self Edit Transcribed Date: 03/17/2025 16:04 ET Narrative 03/17/2025 4:07 PM EDT PROCEDURE: Carotid ultrasound. HISTORY: Syncope/fainting. TECHNIQUE: Grayscale, color Doppler, and spectral Doppler ultrasound evaluation of the carotid and vertebral arteries in the neck. COMPARISON: FINDINGS: Grayscale ultrasound evaluation of the carotid arteries demonstrates no significant atherosclerotic plaque. Spectral Doppler evaluation demonstrates mildly elevated velocity in the left mid internal carotid artery measuring 162.4 cm/s. Antegrade flow with normal spectral Doppler tracings in both vertebral arteries. Procedure Note Rosy Mckeon MD - 03/17/2025 PROCEDURE: Carotid ultrasound. HISTORY: Syncope/fainting. TECHNIQUE: Grayscale, color Doppler, and spectral Doppler ultrasoundevaluation of the carotid and vertebral arteries in the neck. COMPARISON: FINDINGS: Grayscale ultrasound evaluation of the carotid arteries demonstrates nosignificant atherosclerotic plaque. Spectral Doppler evaluationdemonstrates mildly elevated velocity in the left mid internal carotidartery measuring 162.4 cm/s. Antegrade flow with normal spectral Doppler tracings in both vertebralarteries. IMPRESSION: No stenosis in the proximal internal carotid arteries. Mildly elevatedvelocity in the left mid internal carotid artery. -------- FINAL REPORT -------- Dictated By: Rosy Mckeon Dictated Date: 03/17/2025 16:04 ET Assigned Physician: Rosy Mckeon Reviewed and Electronically Signed By: Rosy Mckeon Signed Date: 03/17/2025 16:07 ET Workstation ID: [id number] Transcribed By: Self Edit Transcribed Date: 03/17/2025 16:04 ET Joesph Garcia MD CV VASCULAR PROCEDURES F inal Result * Annual BMP Blood Test (04/03/2024) [facility] Annual BMP Blood Test abstracted [facility] Provider HEALTH MAINTENANCE Final Result * Lipid panel (05/27/2023) [facility] Triglycerides 0 mg/dL Comment:no interpretation, a bstracted Cholesterol 0 mg/dL Comment:no interpretation, a bstracted HDL 0 mg/dL Comment:no interpretation, a bstracted LDL Cholesterol 0 mg/dL Comment:no interpretation, a bstracted Blood Venous blood specimen / Unknown Historical Provider LAB BLOOD ORDERABLES Christa l Result * Hepatitis C Screening (04/10/2021) [facility] Hepatitis C Screening abstracted us Historical Provider HEALTH MAINTENANCE Final Result from Last 3 Months or Most Recently Relevant to Health Maintenance Insurance BLUE [employer]OSS - [place] MEDICARE ADVANTAGE Advance Directives Documents on File Type Date Recorded 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 Health Care Decision (hx) 06/17/2021 AD HANNAH DIRECTIVE Health Care Decision (hx) 06/17/2021 AD HANNAH DIRECTIVE Health Care Decision (hx) 06/17/2021 AD HANNAH DIRECTIVE Health Care Decision (hx) 06/17/2021 AD HANNAH DIRECTIVE Health Care Decision (hx) 06/17/2021 AD HANNAH DIRECTIVE Health Care Decision (hx) 06/17/2021 AD HANNAH DIRECTIVE Health Care Decision (hx) 06/17/2021 AD HANNAH DIRECTIVE Health Care Decision (hx) 06/17/2021 AD HANNAH DIRECTIVE Health Care Decision (hx) 06/17/2021 AD HANNAH DIRECTIVE Health Care Decision (hx) 06/17/2021 AD HANNAH DIRECTIVE Health Care Decision (hx) 06/17/2021 AD HANNAH DIRECTIVE Health Care Decision (hx) 06/17/2021 AD HANNAH DIRECTIVE Health Care Decision (hx) 06/17/2021 AD HANNAH DIRECTIVE Health Care Decision (hx) 06/15/2021 AD HANNAH DIRECTIVE Health Care Decision (hx) 06/15/2021 AD HANNAH DIRECTIVE Health Care Decision (hx) 06/15/2021 AD HANNAH DIRECTIVE Health Care Decision (hx) 06/15/2021 AD HANNAH DIRECTIVE Health Care Decision (hx) 06/15/2021 AD HANNAH DIRECTIVE Health Care Decision (hx) 06/15/2021 AD HANNAH DIRECTIVE Health Care Decision (hx) 06/15/2021 AD HANNAH DIRECTIVE Health Care Decision (hx) 06/15/2021 AD HANNAH DIRECTIVE Health Care Decision (hx) 06/15/2021 AD HANNAH DIRECTIVE Health Care Decision (hx) 06/15/2021 AD HANNAH DIRECTIVE Health Care Decision (hx) 06/15/2021 AD HANNAH DIRECTIVE Health Care Decision (hx) 06/15/2021 AD HANNAH DIRECTIVE Health Care Decision (hx) 06/15/2021 AD HANNAH DIRECTIVE Care Teams Furnace Tender Relationship Specialty Start Date End Date Tim Gipson MD [address] [place] [address] PCP - General Internal Medicine 07/16/22
== END 2025-04-23 12:32 | disposition home or self-care (01) ==
LOC: HO.PMC 11:19
PROVIDERS: PCP Pediatrics; Visit Provider Internal Medicine
DX: M96.1 Postlaminectomy syndrome, not elsewhere classified (principal)
CPT/HCPCS: 99214

== ENCOUNTER 2025-04-23 11:19 | Outpatient (REF) | payer MEDICARE, SELFPAY ==
--- NOTE | ~2025-04-23 | XR_ITS ---
EXAMINATION: XR THORACIC SPINE CLINICAL INFORMATION: M96.1 - Postlaminectomy syndrome, not elsewhere classified COMPARISON: February 20, 2024. TECHNIQUE: AP lateral and swimmer's projection. FINDINGS: Mild multilevel endplate sclerosis and small marginal osteophyte formation. S-shaped curvature of the thoracic spine with a levoconvex morphology pattern. 2 Electrode nerve stimulator in the posterior central spinal canal and in at T7-8 level. XR/XR thoracic spine 3V IMPRESSION: Multilevel spondylosis and levoconvex scoliosis. Electronically signed by: Papito Thao MD 04/23/2025 12:48 PM EDT
== END 2025-04-23 11:20 | disposition home or self-care (01) ==
LOC: HO.XRAY 11:19
PROVIDERS: PCP Pediatrics; Visit Provider Internal Medicine
DX: M96.1 Postlaminectomy syndrome, not elsewhere classified (principal); G89.29 Other chronic pain; M54.9 Dorsalgia, unspecified; M25.571 Pain in right ankle and joints of right foot; M25.572 Pain in left ankle and joints of left foot
CPT/HCPCS: 72072; 99212

== ENCOUNTER → 2025-04-23 12:29 | Outpatient (BNV) | payer MEDICARE, SELFPAY | PROVIDERS: PCP Pediatrics; Visit Provider Radiology Diagnostic Radiology | DX: M47.814 Spondylosis without myelopathy or radiculopathy, thoracic region (principal) | CPT/HCPCS: 72072 ==

== ENCOUNTER 2025-05-24 11:09 | Outpatient (AMB) | payer MEDICARE, SELFPAY ==
--- NOTE | 2025-05-24 11:10 | A.OFFVIS_ITS ---
Intake Visit Reasons: Follow up/ Increased pain Allergies lisinopril Adverse Reaction (Severe, Verified 04/30/25 11:03) Anaphylaxis NSAIDS (Non-Steroidal Anti-Inflamma Adverse Reaction (Severe, Verified 04/30/25 11:03) perforated duodenal ulcer flu vaccine Adverse Reaction (Severe, Uncoded 08/03/24 11:30) temporary guillane barre symptoms HPI HPI Follow up/ Increased pain: Details: History of Present Illness The patient is a 69-year-old male presenting with bilateral lower extremity weakness and ankle pain. The patient reports experiencing heaviness in his feet, described as dragging them along, which has been a new symptom. He has a history of lumbar spine surgery and currently uses a spinal cord stimulator, which continues to provide good pain relief for his back pain. Despite the relief from the spinal cord stimulator, the patient finds the ankle weakness and pain to be quite bothersome. The stimulator is in good position, as confirmed by a recent x-ray, and there is no significant change in its function. Pain Description - Onset: New symptom of heaviness in feet, described as dragging them along - Quality: Heaviness and weakness in the ankles - Location: Bilateral lower extremities, primarily ankles - Exacerbating factors: Not explicitly discussed - Relieving factors: Spinal cord stimulator provides relief for back pain but not for ankle symptoms Results - MRI from December 2023 reviewed, but specific findings not detailed - X-ray confirms spinal cord stimulator is in good position Pain Management - Affect: Ankle weakness and pain are bothersome despite spinal cord stimulator relief for back pain - Analgesia: Spinal cord stimulator provides good pain relief for back pain - Adverse Effects: None reported - Activities of Daily Living: Ankle weakness and pain interfere with mobility - Aberrant Drug Related Behaviors: None reported [facility] Medical History (Updated 05/24/25 @ 11:17 by Bandar Azevedo MD) Spinal stenosis Multiple sclerosis Spinal stenosis GERD (gastroesophageal reflux disease) Dyslipidemia Chronic pain syndrome Neurogenic bladder History of progressive weakness Bilateral leg weakness Primary hypertension SOB (shortness of breath) Surgical History (Updated 06/23/24 @ 08:27 by Ivonne Sarah RN) Hx of colonoscopy History of lumbar surgery (10/02/23) History of surgery (02/19/24) Hx of lumbar discectomy Social History (Updated 06/23/24 @ 08:19 by Ivonne Sarah RN) Household Members: Spouse Housing: House Are you a primary healthcare social worker to a significant other at home: No Do you presently have visiting nurse or other home services: No 75 years or older and lives alone: No Patient Tobacco Use Status: Former Tobacco user Tobacco use type: Cigarette Telehealth Telehealth Telehealth Platform: Doximity Location of provider rendering services: practice address Location of patient: address on file Patient Identification confirmed using: Name, : Yes Telehealth method: video Patient verbally consented to treatment: Yes Patient verbally consented to billing insurance company: Yes Patient informed of any privacy concerns related to visit: Yes Minutes spent on Phone/Video with Pt.: 20 Assessment & Plan Assessment & Plan (1) Post laminectomy syndrome: Comment: Status post [employer]tr[employer] SCS implant Code(s): M96.1 - Postlaminectomy syndrome, not elsewhere classified Category: Medical (2) Bilateral leg weakness: Code(s): R29.898 - Other symptoms and signs involving the musculoskeletal system Category: Medical Plan Plan - Order MRI of the lumbar spine with and without contrast to evaluate new symptoms of LE weakness/pain - Consider referral to spine surgery if MRI reveals new surgical targets - Continue monitoring spinal cord stimulator function Patient was informed and verbally consented to the use of an ambient scribe for clinic note documentation during this visit. Discussion Notes I discussed with the patient the plan to obtain an MRI of the lumbar spine with and without contrast to investigate the new onset of bilateral lower extremity weakness and ankle pain. If the MRI reveals any surgical targets, a referral to spine surgery will be considered. We also reviewed the function of the spinal cord stimulator, which continues to provide good pain relief for back pain. Patient Instructions - Schedule and complete the MRI of the lumbar spine as ordered. - Follow up with the clinic to discuss MRI results and potential next steps. - Continue using the spinal cord stimulator as directed. Orders: Orders MR lumbar spine wo/w con 05/24/25 M96.1 - Postlaminectomy syndrome, not elsewhere classified, R29.898 - Other symptoms and signs involving the musculoskeletal system Medications: Refilled oxycodone Partial Fill upon patient request. 5 mg PO DAILY PRN 30 tabs 0RF pain Coding Level of Care Code Tele Est Pt Level 4 (95560) Diagnoses Post laminectomy syndrome M96.1 Bilateral leg weakness R29.898
--- OUTSIDE RECORDS SUMMARY | 2025-05-24 12:31 | XMS_ITS | Clinical Summary ---
Author Organization [facility] Address [address] [place] [address] Care Team Providers Care Felt Hooker Name Role Phone Tim Gipson Primary Care Provider [phone] Allergies Active Allergy Reactions Criticality Noted Date Comments Flu Vac 2020 [id number](Pf) Paralysis 03/05/2022 Flu Vacc Qs 2015- (18 Yr Up) Movement, abnormal High 08/06/2022 Influenza Virus Vaccine Ts 8224-4267 (5 Yr And Up) Other (see comments) High 11/06/2018 Temporary paralysis Lisinopril Anaphylaxis High 04/15/2018 Possible reaction to lisinopril per patient Nsaids (Non-Steroidal Anti-Inflammatory Drug) Peptic Ulcer Disease 03/05/2022 Medications cholecalciferol , vitamin D3, 5,000 unit capsule Vitamin D3 5000 UNIT Oral Capsule Refills: 0 Active Active cyanocobalamin (VITAMIN B12) 500 mcg tablet Take 500 mcg by mouth. Active magnesium 200 mg tablet 400 mg. Active EPINEPHrine (EPIPEN) 0.3 mg/0.3 mL injection syringe INJECT 0.3ML INTO THE MUSCLE ONCE IF NEEDED FOR ANAPHYLAXIS [address] (PROTONIX) 40 mg tablet 1 Active amLODIPine (NORVASC) 2.5 mg tablet Take 5 mg by mouth once a day. Active rOPINIRole (REQUIP) 2 mg tablet Take 2 mg by mouth nightly. Active furosemide (LASIX) 20 mg tablet Take 20 mg by mouth. 2 Active baclofen (LIORESAL) 10 mg tablet TAKE 1 TABLET THREE TIMES A DAY 270 tablet 3 2 Active gabapentin (NEURONTIN) 300 mg capsuleIndicati ons:Multiple sclerosis (HCC) Take 1-2 capsules (300-600 mg total) by mouth 3 times a day as needed (nerve pain). 180 capsule 3 Active tamsulosin (FLOMAX) 0.4 mg capsule Take 0.4 mg by mouth daily. 3 Active Active Problems Problem Noted Date Diagnosed Date Lumbosacral radiculopathy 06/23/2022 Cramps, muscle, general 11/29/2020 Spasticity 11/29/2020 Restless legs 11/29/2020 Gait difficulty 02/09/2020 Chronic pain 10/14/2018 Neurogenic bladder 10/09/2017 Chronic fatigue 10/09/2017 Current non-smoker 03/28/2016 Multiple sclerosis 07/07/2014 Social History Tobacco Use Types Packs/Day Years Used Date Smoking Tobacco: Former Smokeless Tobacco: Never Tobacco Cessation:Counseling Given: Not Answered Comments:: Alcohol Use Standard Drinks/Week Comments Not Currently 0 (1 standard drink = 0.6 oz pur e alcohol) Sex and Gender Information Value Date Recorded Sex Assigned at Male 11/07/2021 1:57 PM EST Legal Sex Male 11:26 AM EDT Gender Identity Male 04/15/2018 9:49 AM EDT Sexual Orientation Straight 11/07/2021 1: 57 PM EST Last Filed Vital Signs Vital Sign Reading Time Taken Comments Blood Pressure 156/86 04/23/2023 10:50 AM EDT Pulse 96 04/23/2023 10:50 AM EDT Temperature 36.3 C (97.4 F) 04/23/2023 10:12 AM EDT Respiratory Rate 19 03/27/2023 2:23 PM EDT Oxygen Saturation 96% 04/23/2023 10:50 AM EDT Inhaled Oxygen Concentration - - Weight 91.6 kg (202 lb) 05/31/2022 7:51 AM EDT Height 180.3 cm (5' 11 ) 10/14/2018 10:05 AM EST Body Mass Index 28.17 10/14/2018 10:05 AM EST Plan of Treatment Health Maintenance Due Date Last Done Comments Cologuard 1954 Colon Cancer Screening 1955 Colonoscopy 1954 FOBT / Fit Test 1954 Sigmoidoscopy 1954 Zoster Vaccines (1 of 2) 2004 Pneumococcal Vaccine: 50+ Years (2 of 2 - PCV) 05/18/2021 05/18/2020 DTaP,Tdap,and Td Vaccines (2 - Td or Tdap) 10/16/2023 10/16/2013 COVID-19 Vaccine (4 - 2023-2 5 season) 2024 08/01/2021, 01/11/2021, 12/15/2020 CT Lung Cancer Screening (Baseline) 08/08/2024 08/08/2023 Alcohol/Substance Use Screening 09/30/2024 Depression Screening and Follow-Up 09/30/2024 Health Care Proxy Review 09/30/2024 Social Drivers of Health Annual Screening 09/30/2024 Influenza Vaccine (#1) 2025 RSV Vaccine (60+ years old and patients) (1 - 1-dose 75+ series) 2029 Hepatitis C Screening Completed 04/10/2017 CT Lung Cancer Screening (12 months, previous LungRADS 1 or 2) Discontinued 08/08/2023 Hepatitis B Vaccines Aged Out No long er eligible based on patient's age to complete this topic Procedures * Due to [employer] law, this organization might not be sharing negative HIV tests. Procedure Name Priority Date/Time Associated Diagnosis Comments HEPATITIS PANEL, ACUTE Routine 04/10/2017 11:10 AM EDT from Last 3 Months or Most Recently Relevant to Health Maintenance Results * Due to [facility] law, this organization might not be sharing negative HIV tests. * Hepatitis Panel, Acute (04/10/2017 11:10 AM EDT) Hepatitis A IgM NON-REACTI VE NON-REACT [facility] Hepatitis B Surface Antigen NON-REACTI VE NON-REACT [facility] Hepatitis B Core Antibody NON-REACTI VE NON-REACT [facility] Hepatitis C Antibody NON-REACTI VE NON-REACT [facility] Signal To Cut-Off 0.01 <1.00 [facility] 04/10/2017 11:1 0 AM EDT 04/10/2017 12:20 PM EDT us Lucrecia Thomas MD LAB BLOOD ORDERABLES Final Re sult SHERLY MCCARTY [address] [facility] [address], [place] [address], [place] [phone] from Last 3 Months or Most Recently Relevant to Health Maintenance Insurance [employer] M[employer] REPL[employer] PPO Care Teams Felt Hooker Relationship Specialty Start Date End Date Tim Gipson [address] [facility] [facility] [address] [place], [place] [id number] PCP - General Family Medicine 10/14/18
--- OUTSIDE RECORDS SUMMARY | 2025-05-24 12:31 | XMS_ITS | Encounter Summary ---
Author Organization [facility] Address [address] [facility] [address] [place] [id number] Phone Care Team Providers Care Warehouse Driver Name Role Phone Jeromy Crowley MD Unavailable Yasmin Cardenas MD Unavailable [phone] Tim Gipson MD Primary Care Provider Encounter Details Date Type Department Care Team (Late st Contact Info) Description 09/01/2021 Procedure Pass [facility], [address] [address] Social History Tobacco Use Types Packs/Day Years Used Date Smoking Tobacco: Former Cigarettes 979 2008 Smokeless Tobacco: Current Alcohol Use Standard Drinks/Week Comments No 0 (1 standard drink = 0.6 oz pur e alcohol) Child or Family Care Answer Date Record ed Do you have problems with on e of the following making it difficult for you to work, study, or receive health care? No 03/17/2021 Education Answer Date Recorded Are you interested in help w ith more adult education (for example, completing high school, GED, job training, learning the Samoan language, technical skills, or developing parenting skills)? No 03/17/2021 Food Answer Date Recorded Within the past 6 months we worried whether our food would run out before we got money to buy more. Never True 03/17/2021 Within the past 6 months the food we bought just didn't last and we didn't have enough money to get more. Never True Residential Stability Answer Date Recor ded What is your housing situation today? I have mariaelena matias 03/17/2021 How many times have you move d in the past 12 months? Zero (I did not move) 03/17/2021 Paying for Meds Answer Date Recorded Do you have trouble paying for medicines? No 03/17/2021 Paying Utility Bills Answer Date Record ed Do you have trouble paying your heating or elect ricity bill? No 03/17/2021 Transportation Answer Date Recorded Has the lack of transportati on kept you from medical appointments or from getting medications? No 03/17/2021 Unemployment Answer Date Recorded Are you currently unemployed or working on a part-time or temporary basis, and looking for work? No 03/17/2021 Sex and Gender Information Value Date Recorded Sex Assigned at Male 11/16/2017 11:38 AM EST Legal Sex Male 7:15 PM EST Gender Identity Male 11/16/2017 11:38 AM EST Sexual Orientation Straight 11/16/2017 11 :38 AM EST documented as of this encounter Last Filed Vital Signs Vital Sign Reading Time Taken Comments Blood Pressure - - Pulse - - Temperature - - Respiratory Rate - - Oxygen Saturation - - Inhaled Oxygen Concentration - - Weight 81.6 kg (180 lb) 09/04/2021 11:08 AM EST Height 180.3 cm (5' 11 ) 09/04/2021 11:08 AM EST Body Mass Index 25.1 09/04/2021 11:08 AM EST documented in this encounter Plan of Treatment Upcoming Encounters Date Type Department Care Team (Late st Contact Info) Description 06/02/2025 11:15 AM EDT Office Visit [address] [address] Yasmin Cardenas MD [address] [place] [address] [facility] [place] [address] [email or web address], PT [address] [place] [address] 06/09/2025 10:30 AM EDT Office Visit [address] [address] Yasmin Cardenas MD [address] [facility] [place], [place] [id number] [email or web address] Rivera, PT [address] [place] [address] 06/09/2025 1:00 PM EDT Office Visit [address] [address] Tim Gipson MD [address] [place] [address], [address] [place] [address] 06/16/2025 11:15 AM EDT Office Visit [address] [address] Yasmin Cardenas MD 4 [facility] [place], [place] [id number] [email or web address] Rivera, PT [address] [place] [address] 06/23/2025 10:30 AM EDT Office Visit [address] [address] Yasmin Cardenas MD [address] [facility] [place], [place] [id number] [email or web address] Alexandria Rivera, PT [address] [place] [address] 06/30/2025 11:15 AM EDT Office Visit [address] [id number] Yasmin Cardenas MD [address] [facility], [place], [place] [id number] [email or web address], PT [address] [place], [place] [id number] 07/07/2025 10:30 AM EDT Office Visit [address] [id number] Yasmin Cardenas MD 4 [facility], [place], [place] [id number] [email or web address] Alexandria Rivera, PT [address] [place], [place] [id number] [email or web address] 07/14/2025 11:15 AM EDT Office Visit [address] [phone] Yasmin Cardenas MD 4 [facility], [place], [place] [id number] [email or web address] Alexandria Rivera, PT [address] [place], [place] [phone] documented as of this encounter Visit Diagnoses Not on filedocumented in this encounter Additional Health Concerns Assessment Noted Time PHQ-2 Depression Total Score: 1 05/16/20 21 8:45 AM EDT documented as of this encounter Care Teams Warehouse Driver Relationship Specialty Start Date End Date Tim Gipson MD [address] [place] [address], [address] [place] [address] PCP - General Internal Medicine 09/30/18 Jeromy Crowley MD [address] [place] [address] Historical LMR Provider 07/20/17 Yasmin Cardenas MD [address] [place] [address] [facility], [place] [address] [email or web address] Historical LMR Provider 07/20/17 documented as of this encounter Additional Source Comments The information contained in this document represents components of the legal health record. It is not the complete legal health record.[facility]
--- OUTSIDE RECORDS SUMMARY | 2025-05-24 12:31 | XMS_ITS | Clinical Summary ---
Author Organization [address] [facility] Address [address] [place] [address] Phone Care Team Providers Care Modeling Manager Name Role Phone Tim Gipson MD Primary Care Provider [phone] Allergies Active Allergy Reactions Criticality Noted Date [...] unit) tablet Take 2,000 Units by mouth. 0 Active cyanocobalamin (VITAMIN B-12) 500 mcg tablet Take 5 tablets (2,500 mcg total) by mouth. Active rOPINIRole (REQUIP) 2 mg tablet Take 1 tablet (2 mg total) by mouth. Active gabapentin (NEURONTIN) 300 mg capsule Take 1 capsule (300 mg total) by mouth if needed. 2 Active furosemide (LASIX) 40 mg tablet 4 Active MAGNESIUM ORAL 400 mg. Activ e losartan (COZAAR) 25 mg tablet Active pantoprazole (PROTONIX) 40 mg EC tablet Take 1 tablet (40 mg total) by mouth 1 (one) time each day. Do not crush, chew, or split. Active lamoTRIgine (LaMICtal) 25 mg tablet Take 1 tablet (25 mg total) by mouth at bedtime for 7 days, THEN 1 tablet (25 mg total) 2 (two) times a day for 7 days, THEN 2 tablets (50 mg total) 2 (two) times a day. 288.4 each 5 06/25/20 25 Active dalfampridine 10 mg tablet extended release 12 hrIndications:M ultiple sclerosis ([facility] V24, [facility] V28),Gait abnormality Take 10 mg by mouth 2 (two) times a day. 60 tablet 3 Active capsaicin (ZOSTRIX) 0.025 % cream Apply topically 2 (two) times a day. 60 g 5 05/12/20 Active DULoxetine (CYMBALTA) [address] capsule Take 2 capsules (40 mg total) by mouth 1 (one) time each day for 7 days, THEN 3 capsules (60 mg total) 1 (one) time each day. Do not crush or chew.. 194 each 5 05/12/20 25 Discontinu ed(Therapy completed) Active Problems Problem Noted Date Diagnosed Date Multiple sclerosis ([facility] V24, [facility] V28) Encounters Date Type Department Care Team Description 05/12/2025 1:30 PM EDT Office Visit [facility] [address] [phone] Joesph Garcia MD Multiple sclerosis ([facility] V24, [facility] V28) (Primary Dx); Gait abnormality; Pain in joint involving ankle and foot, unspecified laterality 03/17/2025 12:41 PM EDT - 03/17/2025 11:59 PM EDT Hospital Encounter [facility] Ultrasound [address] [place] [phone] Pre-syncope Discharge Disposition: Home or Self Care 03/09/2025 Telephone [facility] [address] [phone] Xenia Guillaume [place] 03/05/2025 Lab [facility] Neurodiagnostic [address] [place] [phone] Joesph Garcia MD Syncope and collapse 03/04/2025 [facility] Neurodiagnostic [address] [place] [phone] Joesph Garcia MD Syncope and collapse 03/03/2025 [facility] [address] [phone] Xenia Guillaume [place] 03/03/2025 Lab [facility] Neurodiagnostic [address] [place] [phone] Joesph Garcia MD Syncope and collapse 03/02/2025 [facility] Neurodiagnostic [address] [place] [phone] Joesph Garcia MD Syncope and collapse from Last 3 Months Immunizations Name Administration [...] Sign Reading Time Taken Comments Blood Pressure 142/71 05/12/2025 1:26 PM EDT Pulse 76 05/12/2025 1:26 PM EDT Temperature 36.4 C (97.5 F) 11/02/2024 2:06 PM EST Respiratory Rate - - Oxygen Saturation 97% 05/12/2025 1:26 PM EDT Inhaled Oxygen Concentration - - Weight 99.8 kg (220 lb) 05/12/2025 1:26 PM EDT Height 180.3 cm (5' 11 ) 05/12/2025 1:26 PM EDT Body Mass Index 30.68 05/12/2025 1:26 PM EDT Plan of Treatment Upcoming Encounters Date Type Department Care Team (Late st Contact Info) Description 09/01/2025 1:00 PM EST Office Visit [facility] [address] [place] [phone] Claudia Nelson PA [address] [place] [address] Health Maintenance Due Date Last Done Comments Zoster Vaccines (1 of 2) 2004 Pneumococcal Vaccine: 50+ Years (2 of 2 - PCV) 05/18/2021 05/18/2020 Abdominal Aortic Aneurysm (AAA) Screen 09/02/2022 Colorectal Cancer Screening: Colonoscopy 09/02/2022 Falls Risk Assessment 09/02/2022 Medicare Annual Wellness Visit 09/02/2022 Social Influencers of Health Screening 09/02/2022 DTaP,Tdap,and Td Vaccines (2 - Td or Tdap) 10/16/2023 10/16/2013 COVID-19 Vaccine ( - season) 2024 08/01/2021, 01/11/2021, 12/15/2020 Depression Screening [...] Signed Date: 03/17/2025 16:07 ET Workstation ID: [id number] Transcribed By: Self Edit Transcribed Date: 03/17/2025 [...] Signed Date: 03/17/2025 16:07 ET Workstation ID: [id number] Transcribed By: Self Edit Transcribed Date: 03/17/2025 16:04 ET Joesph Garcia MD CV VASCULAR PROCEDURES F inal Result * Annual BMP Blood Test (04/03/2024) Pathologist [facility] Annual [facility] Blood Test abstracted Historical Provider HEALTH MAINTENANCE Final Result * Lipid panel (05/27/2023) Pathologist [facility] Triglycerides 0 mg/dL Comment:no interpretation, a bstracted Cholesterol 0 mg/dL Comment:no interpretation, a bstracted HDL 0 mg/dL Comment:no interpretation, a bstracted LDL Cholesterol 0 mg/dL Comment:no interpretation, a bstracted Blood Venous blood specimen / Unknown Historical Provider LAB BLOOD ORDERABLES Christa l Result * Hepatitis C Screening (04/10/2021) Hepatitis C Screening abstracted us Historical Provider HEALTH MAINTENANCE Final Result from Last 3 Months or Most Recently Relevant to Health Maintenance Insurance BLUE [employer]OSS - [place] MEDICARE ADVANTAGE Advance Directives Documents on File Type Date Recorded Patient Hammer Adjuster Expl anation Health Care Decision (hx) 06/17/2021 [...] (hx) 06/15/2021 AD HANNAH DIRECTIVE Care Teams Modeling Manager Relationship Specialty Start Date End Date Tim Gipson MD [address] [place] [address] PCP - General Internal Medicine 07/16/22
--- OUTSIDE RECORDS SUMMARY | 2025-05-24 12:31 | XMS_ITS | Clinical Summary ---
Author Organization [facility] Address [address] [place] [address] Care Team Providers Care [employer] Manager Name Role Phone Tim Gipson MD Primary Care Provider [phone] Allergies Active Allergy Reactions Criticality Noted Date [...] 0 04/01/2024 Active ergocalciferol (VITAMIN D2) capsule 04599 units Take 1 capsule (50,000 Units total) [...] age to complete this topic Care Teams [employer] Manager Relationship Specialty Start Date End Date Tim Gipson MD [address] [place] [address] PCP - General Sports Information Director 05/29/21
== END 2025-05-24 11:10 | disposition home or self-care (01) ==
LOC: HO.PMC 11:09
PROVIDERS: PCP Pediatrics; Visit Provider Internal Medicine
DX: M96.1 Postlaminectomy syndrome, not elsewhere classified (principal); R29.898 Other symptoms and signs involving the musculoskeletal system
CPT/HCPCS: 99214

== ENCOUNTER → 2025-06-17 10:59 | Outpatient (BNV) | payer MEDICARE, SELFPAY | PROVIDERS: Visit Provider Radiology Diagnostic Radiology | DX: M48.061 Spinal stenosis, lumbar region without neurogenic claudication (principal); Z98.1 Arthrodesis status | CPT/HCPCS: 72158 ==

== ENCOUNTER 2025-06-17 11:03 | Outpatient (REF) | payer MEDICARE, SELFPAY ==
--- OUTSIDE RECORDS SUMMARY | 2025-06-16 11:15 | XMS_ITS | Encounter Summary ---
Author Organization [facility] Address [address] [place] [address] Phone Care Team Providers Care Search Lead Name Role Phone Tim Gipson MD Primary Care Provider [phone] Reason for Visit * Physical Therapy (Elective) - Authorized Specialty Diagnoses / Procedures Referred By Delaney jmaes Referred To Contact Physical Therapy Diagnoses Right ankle pain Yasmin Cardenas MD 4 [facility] [place], [place] [address] Phone: tel: fax: [email or web address] [address] [address] Phone: tel: fax: Referral ID Status Reason Start Date Expiration Date V isits Requested Visits Authorized [id number] Authorized 05/11/2025 05/11/2026 12 12 Encounter Details Date Type Department Care Team (Latest Contact Info) Description 06/16/2025 11:15 AM EDT Office Visit [address] [address] Yasmin Cardenas MD 4 [facility], [place] [address] [email or web address] Alexandria Gracia, PT [address] [place] [address] [email or web address] Bilateral ankle joint pain (Primary [...] of this encounter Progress Notes * Amara Graciaecca, PT - 06/16/2025 11:15 AM EDT Physical [...] Objective Measures: updated Pt wearing slip on [employer] boat sneaker style which has more cushioning [...] - 5 hold HEP updated: Access Code: [email or web address] URL: [email or web address] Date: 06/16/2025 Prepared by: Alexandria ROJAS RE-ED: deferred THERAPEUTIC ACTIVITIES: Trials with FWW (not rollator) 20 ft x8 With bilat thigh compression short adjustable: pelvic belt with hip straps to facilitate hip abd and IR to neutral tension to produce a toe forward talocrural DF/PF gait (vs medial arch in extreme hip ER) each trial with his Paste Up Worker slide ons 1 trial of 20 ftx2 [...] ankle shelfing Pt provided information to arrange electronics production supervisor / shake backboard notcher to come to PT session Plan: Taping pronation control with hip facilitate abd/IR Therapeutic Exercise 56464 Strength Stability pelvis/core/hip control knee hyperext and ankle medial shelfing Manual Therapy 61545 Taping methods facilitate pronation control trial, Soft tissue mobilization Joint mobilization - talocrural Neuromuscular re-education 29807 Therapeutic Activities 88798 [x ] Bed mobility [x ] Transfers Self-care /home management / ADLs [address] Gait Training 94631 MHP / CP [non-billed] Orthotic evaluation 1st encounter Orthotic subsequent 03238 fit / training Alexandria Gracia, [place] [id number] documented in this encounter Plan of Treatment Upcoming Encounters Date Type Department Care Team (Late st Contact Info) Description 11/11/2024 Procedure Pass [facility], Ct Scan - [facility] [address] [place] [address] 06/23/2025 10:30 AM EDT Office Visit [facility] [address] [place] [address] Yasmin Cardenas MD 4 [facility] [place] [address] [email or web address] Alexandria Rivera, PT [address] [place], [place] [phone] 06/30/2025 11:15 AM EDT Office Visit [address] [phone] Yasmin Cardenas MD 4 [facility], [place], [place] [phone] [email or web address] Alexandria Rivera, PT [address] [place] [address] 07/07/2025 10:30 AM EDT Office Visit [address] [phone] Yasmin Cardenas MD 4 [facility], [place], [place] [phone] [email or web address] Alexandria Rivera, PT [address] [place], [place] [phone] 07/14/2025 11:15 AM EDT Office Visit [address] [phone] Yasmin Cardenas MD [address] [place] [address] [facility], [place], [place] [phone] [email or web address] Alexandria Rivera, PT [address] [place], [place] [phone] 10/13/2025 12:45 PM EST Appointment [facility], Ct Scan - [address] [address] Gerardo Tan MD [address] [place] [address] [phone] 06/15/2026 1:00 PM EDT Office Visit [facility] [address] [address] Tim Gipson MD 22 [facility], [address] [place] [address] [email or web address] documented as of this encounter Visit Diagnoses Diagnosis Bilateral ankle joint pain- Primary Gait instability Abnormality of gait documented in this encounter Additional Health Concerns Assessment Noted Time PHQ-9 Depression Total Score: 5 06/07/20 25 11:24 AM EDT PHQ-2 Depression Total Score: 2 06/07/20 25 11:24 AM EDT documented as of this encounter Care Teams Search Lead Relationship Specialty Start Date End Date Tim Gipson MD [address] [place] [address], [address] [place] [address] [email or web address] PCP - General Internal Medicine 09/30/18 documented as of this encounter Additional Source Comments The information contained in this document represents components of the legal health record. It is not the complete legal health record.[facility]
--- NOTE | ~2025-06-17 | MR_ITS ---
CLINICAL HISTORY: R29.898 - Other symptoms and signs involving the musculoskeletal system MR lumbar spine with and without gadolinium Comparison: None Findings: No spondylolisthesis. Mild dextrocurvature. Status post posterior metallic fusion at L3-L4. No evidence of hardware failure. No acute fracture or pathologic bone lesion. Cauda equina and conus medullaris within normal limits. L1-L2: Very mild posterior disc bulge. Mild facet osteoarthritis, lbozj-irdcmpn-ejrv-left. No significant central canal or neural foraminal narrowing. L2-L3: Moderate disc osteophyte complex. Moderate osteoarthritis of the left facet joint. Mild osteoarthritis of the right facet joint. Mild central canal narrowing. Moderate narrowing of the left neural foramen. No significant narrowing of the right neural foramen. L3-L4: Small disc osteophyte complex. Mild osteoarthritis of the left facet joint. No significant narrowing of the central canal or right neural foramen. Rvng-lc-vonhvgke narrowing of the left neural foramen. Evaluation of the left neural foramen mildly limited by artifact. L4-L5: Small right paracentral annular tear. Moderate broad-based disc bulge. Moderate facet osteoarthritis and ligamentum flavum hypertrophy. Moderate central canal stenosis. Mild stenosis of the left neural foramen. No significant stenosis of the right neural foramen. L5-S1: There is a tiny left paracentral annular tear and small posterior disc bulge. Mild thecal sac effacement. Moderate facet osteoarthritis. Moderate narrowing of the right neural foramen. Mild narrowing of the left neural foramen. Paraspinous musculature intact. There is a thoracic spine electrode, incompletely visualized, entering the central canal at T12-L1 and extending superiorly into the thoracic spine. IMPRESSION: 1. Status post L3-L4 posterior fusion without evidence of hardware failure. 2. Moderate central canal stenosis at L4-L5. 3. Moderate neural foraminal narrowing: right at L5-S1, left at L2-L3. 4. Thoracic spine electrode entering central canal at T12-L1, extending superiorly. This document has been electronically signed by: Karen Campuzano MD on 06/18/2025 13:07:27
--- OUTSIDE RECORDS SUMMARY | 2025-06-17 13:13 | XMS_ITS | Encounter Summary ---
Author Organization [facility] Address [facility] [address] [address] Phone Care Team Providers Care Direct Support Staff Member Name Role Phone Tim Gipson MD Primary Care Provider [phone] Reason for Referral * Outpatient Procedure - Closed Specialty Diagnoses / Procedures Referred By Contac t Referred To Contact Radiology Diagnoses Localized edema Procedures US Lower Extremity Veins Reflux Evaluation Duplex Complete (Bilateral) US Lower Extremity Veins Duplex Complete (Bilateral) Bandar Azevedo MD Phone: tel: Referral ID Status Reason Start Date Expiration Date Visits Re quested Visits Authorized [id number] Closed 10/18/2023 1 1 Encounter Details Date Type Department Care Team (Late st Contact Info) Description 10/22/2023 Ancillary Orders Virtual Department 30 [place] [address] Bandar Azevedo MD [address] [place] [address] Localized edema (Primary Dx) Social History Tobacco Use Types Packs/Day Years Used Date Smoking Tobacco: Former Cigarettes 30 979 - 2008 Smokeless Tobacco: Current Alcohol Use Standard [...] with a working camera? Not on file Sex and Gender Information Value Date Recorded Sex Assigned at Male 11/16/2017 11:38 AM EST Legal Sex Male 7:15 PM EST Gender Identity Male 11/16/2017 11:38 AM EST Sexual Orientation Straight 11/16/2017 11 :38 AM EST documented as of this encounter Plan of Treatment Upcoming Encounters Date Type Department Care Team (Late st Contact Info) Description 11/11/2024 Procedure Pass [facility], Ct Scan - [address] [address] 06/23/2025 10:30 AM EDT Office Visit [facility] [address] [place] [address] Yasmin Cardenas MD [address] [place] [address] [facility] [place], [place] [phone] [email or web address], PT [address] [place], [place] [phone] 06/30/2025 11:15 AM EDT Office Visit [address] [phone] Yasmin Cardenas MD 4 [facility], [place], [place] [phone] [email or web address], PT 10 [place] [address] 07/07/2025 10:30 AM EDT Office Visit [address] [address] Yasmin Cardenas MD 4 [facility], [place], [place] [id number] [email or web address] Rivera, PT [address] [place], [place] [id number] 07/14/2025 11:15 AM EDT Office Visit [address] [phone] Yasmin Cardenas MD 4 [facility], [place], [place] [phone] [email or web address], PT [address] [place], [place] [id number] 10/13/2025 12:45 PM EST Appointment [facility], Ct Scan - [facility] [address] [place] [address] Gerardo Tan MD [address] [place] [address] [email or web address] 06/15/2026 1:00 PM EDT Office Visit [facility] [address] [place] [address] Tim Gipson MD 22 [facility], [address] [place] [address] [email or web address] documented as of this encounter Results * US Lower Extremity Veins Reflux Evaluation Duplex Complete (Bilateral) (10/22/2023 11:55 AM EST) Anatomical Region Laterality Modality Ultrasound 10/22/2023 4:39 PM EST Impressions 10/22/2023 4:46 PM EST Patent and competent deep venous system bilaterally. Greater saphenous reflux at the level of the ankle and the right and from the mid thigh through the ankle on the left. Narrative 10/22/2023 4:46 PM EST History: Lower extremity pain and swelling. TECHNIQUE: Bilateral lower extremity venous duplex ultrasound performed assessing superficial and deep venous system with aim of confirming patency and competency of deep system and assessing superficial venous system. Comparison study: None. FINDINGS: Deep venous system: common femoral vein through popliteal vein is patent and competent. Normal color-flow signal, compressibility and augmentation. Visualized deep calf veins are patent and normally compressible. Right superficial venous system: Greater saphenous vein is patent and competent throughout the thigh and majority of the calf. Localized reflux identified at the level of the ankle. No superficial varicosities identified. Depth and diameter of greater saphenous vein on the right within the proximal mid and distal thigh, at the knee and within the proximal and mid calf are as follows: 10/5 mm, 11/4 mm, 4/4 mm, 3/4 mm, 3/5 mm and 3/4 mm. Left superficial venous system: Greater saphenous vein is patent at saphenofemoral junction and within the proximal thigh. Reflux identified from the level of the mid thigh through the knee in through the calf down to level of the ankle. Despite extensive reflux no varicosities demonstrated. Depth and diameter of greater saphenous vein on the left within the proximal mid and distal thigh, at the knee and within the proximal and mid calf are as follows: 10/4 mm, 4/4 mm, 4/4 mm, 3/4 mm, 4/3 mm and 5/4 mm. Procedure Note Rubén Wang MD - 10/22/2023 History: Lower extremity pain and swelling. TECHNIQUE: Bilateral lower extremity venous duplex ultrasound performedassessing superficial and deep venous system with aim of confirmingpatency and competency of deep system and assessing superficial venoussystem. Comparison study: None. FINDINGS: Deep venous system: common femoral vein through popliteal vein is patentand competent. Normal color-flow signal, compressibility and augmentation.Visualized deep calf veins are patent and normally compressible. Right superficial venous system: Greater saphenous vein is patent andcompetent throughout the thigh and majority of the calf. Localized refluxidentified at the level of the ankle. No superficial varicositiesidentified. Depth and diameter of greater saphenous vein on the rightwithin the proximal mid and distal thigh, at the knee and within theproximal and mid calf are as follows: 10/5 mm, 11/4 mm, 4/4 mm, 3/4 mm,3/5 mm and 3/4 mm. Left superficial venous system: Greater saphenous vein is patent atsaphenofemoral junction and within the proximal thigh. Reflux identifiedfrom the level of the mid thigh through the knee in through the calf downto level of the ankle. Despite extensive reflux no varicositiesdemonstrated. Depth and diameter of greater saphenous vein on the leftwithin the proximal mid and distal thigh, at the knee and within theproximal and mid calf are as follows: 10/4 mm, 4/4 mm, 4/4 mm, 3/4 mm, 4/3mm and 5/4 mm. IMPRESSION: Patent and competent deep venous system bilaterally. Greater saphenousreflux at the level of the ankle and the right and from the mid thighthrough the ankle on the left. us Bandar M Mohamud Azevedo MD CV US VASCULAR Final Re sult documented in this encounter Visit Diagnoses Diagnosis Localized edema Edema Localized edema- Primary Edema documented in this encounter Additional Health Concerns Assessment Noted Time PHQ-9 Depression Total Score: 9 05/23/20 8:58 AM EDT PHQ-2 Depression Total Score: 4 05/23/20 8:58 AM EDT documented as of this encounter Care Teams Direct Support Staff Member Relationship Specialty Start Date End Date Tim Gipson MD [address] [place] [address], [address] [place] [address] [email or web address] PCP - General Internal Medicine 09/30/18 documented as of this encounter Additional Source Comments The information contained in this document represents components of the legal health record. It is not the complete legal health record.[facility]
--- OUTSIDE RECORDS SUMMARY | 2025-06-17 13:13 | XMS_ITS | Encounter Summary ---
Author Organization [facility] Address [address] [place] [address] Phone Care Team Providers Care Sumo Wrestler Name Role Phone Jeromy Crowley MD Unavailable [phone] Yasimn Cardenas MD Unavailable [phone] Tim Gipson MD Primary Care Provider [phone] Reason for Referral * MRI/CAT Scan - Closed Specialty Diagnoses / Procedures Referred By Contac t Referred To Contact Radiology Diagnoses Spinal stenosis of lumbar region, unspecified whether neurogenic claudication present Procedures MRI Lumbar Spine CHG MRI, LUMBAR SPINE CHG MRI, LUMBAR SPINE CONTRAST CHG MRI, LUMBAR SPINE COMBO Danica Roman MD Phone: tel: fax: Referral ID Status Reason Start Date Expiration Date Visits Re quested Visits Authorized [id number] Closed 09/01/2021 10/30/2021 1 1 Encounter Details Date Type Department Care Team (Latest Contact Info) Description 09/01/2021 Transcribe Orders Virtual Department 30 [place] [address] Danica Roman MD 175 [place] [address] Spinal stenosis of lumbar region, unspecified whether neurogenic claudication present (Primary Dx) Social History Tobacco Use Types Packs/Day Years Used Date Smoking Tobacco: Former Cigarettes 1 30 1 9 - 2008 Smokeless Tobacco: Current Alcohol Use [...] high school, GED, job training, learning the Kazakh language, technical skills, or developing parenting skills)? [...] st Contact Info) Description 11/11/2024 Procedure Pass [facility], Ct Scan - [address] [address] 06/23/2025 10:30 AM EDT Office Visit [address] [address] Yasmin Cardenas MD 4 [facility], [place], [place] [phone] [email or web address], PT [address] [place], [place] [phone] 06/30/2025 11:15 AM EDT Office Visit [address] [address] Yasmin Cardenas MD 4 [facility], [place], [place] [phone] [email or web address], PT [address] [place] [address] 07/07/2025 10:30 AM EDT Office Visit [address] [phone] Yasmin Cardenas MD 4 [facility], [place], [place] [phone] [email or web address], PT [address] [place], [place] [phone] 07/14/2025 11:15 AM EDT Office Visit [address] [phone] Yasmin Cardenas MD 4 [facility], [place], [place] [phone] [email or web address], PT [address] [place] [address] 10/13/2025 12:45 PM EST Appointment [facility], Ct Scan - [facility] [address] [place] [address] Gerardo Tan MD [address] [place] [address] [email or web address] 06/15/2026 1:00 PM EDT Office Visit [facility] [address] [place] [address] Tim Gipson MD 22 [facility], [address] [place] [address] [email or web address] documented as of this encounter Results * MRI LUMBAR SPINE (NEURO) WITH AND WITHOUT CONTRAST (09/07/2021 3:14 PM EST) Anatomical Region Laterality Modality L-spine Magnetic Resonan ce 09/07/2021 4:10 PM EST Impressions 09/07/2021 4:23 PM EST 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 Interval post-operative changes at L3-4 with presumed post-operative enhancement. No new or progressive canal or foraminal stenosis or other source of the weakness identified. POS - [id number] Narrative 09/07/2021 4:23 PM EST HISTORY: Microdiscectomy February 2021. Fusion May 2021. Some relief of back pain. Bilateral leg weakness. COMPARISON: February 22 and May 16. January 29, 2012. TECHNIQUE: Exam performed on a 1.5 Norah high-field MRI scanner. Sagittal T1, T2 and STIR, axial T1 and T2 sequences were obtained, followed by post-gadolinium sagittal T1 and axial T1 sequences. FINDINGS: T11-12: Small area of abnormal cord signal centrally at T11 is better seen on sagittal sequences then axial sequences from thoracic spine of the same day and appears to be present on the prior study from 2013. It demonstrates no enhancement. No disc abnormalities of concern. No canal or foraminal stenosis. T12-L1: No findings of concern. L1-2: No findings of concern. L2-3: Degenerative disc disease with disc height loss similar to prior. Broad- based disc bulging and some right-sided uncovertebral prominence again noted but no significant canal or foraminal stenosis. L3-4: Intercurrent posterior interbody fusion. Some residual edema type signal within the posterior and left paraspinous musculature. Enhancement also present near the level of the intervertebral device. No fluid collections or bony destruction. No canal or foraminal stenosis. L4-5: Degenerative disc disease with disc bulging and central radial annular tear and. There is some prominence of the right-sided facet and ligamenta flava. This leads to some mild mass effect on the right L4 nerve root but this is unchanged in appearance. More minor narrowing on the left. No high-grade canal or foraminal stenosis. L5-S1: Trace disc bulging. No canal or foraminal stenosis. Small spur radial annular tear suggested centrally. No compression deformity or highly worrisome marrow signal changes. Studies not tailored for evaluation of regional soft tissues but no soft tissue findings of clear concern are detected in the [id number]. Procedure Note Ryan Gaines MD - 09/07/2021 HISTORY: Microdiscectomy February 2021. Fusion May 2021. Some relief ofback pain. Bilateral leg weakness. COMPARISON: February 22 and May 16. January 29, 2012. TECHNIQUE: Exam performed on a 1.5 Norah high-field MRI scanner. SagittalT1, T2 and STIR, axial T1 and T2 sequences were obtained, followed bypost-gadolinium sagittal T1 and axial T1 sequences. FINDINGS: T11-12: Small area of abnormal cord signal centrally at T11 is better seenon sagittal sequences then axial sequences from thoracic spine of the sameday and appears to be present on the prior study from 2013. Itdemonstrates no enhancement. No disc abnormalities of concern. No canal orforaminal stenosis. T12-L1: No findings of concern. L1-2: No findings of concern. L2-3: Degenerative disc disease with disc height loss similar to prior.Broad- based disc bulging and some right-sided uncovertebral prominenceagain noted but no significant canal or foraminal stenosis. L3-4: Intercurrent posterior interbody fusion. Some residual edema typesignal within the posterior and left paraspinous musculature. Enhancementalso present near the level of the intervertebral device. No fluidcollections or bony destruction. No canal or foraminal stenosis. L4-5: Degenerative disc disease with disc bulging and central radialannular tear and. There is some prominence of the right-sided facet andligamenta flava. This leads to some mild mass effect on the right L4 nerveroot but this is unchanged in appearance. More minor narrowing on theleft. No high-grade canal or foraminal stenosis. L5-S1: Trace disc bulging. No canal or foraminal stenosis. Small spurradial annular tear suggested centrally. No compression deformity or highly worrisome marrow signal changes. Studies not tailored for evaluation of regional soft tissues but no softtissue findings of clear concern are detected in the [id number]-qc-tipp. 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 Intervalpost-operative changes at L3-4 with presumed post-operative enhancement.No new or progressive canal or foraminal stenosis or other source of theweakness identified. POS - [id number] us Danica Roman MD IMG MR XSPECIALTY Final Resul t documented in this encounter Visit Diagnoses Diagnosis Spinal stenosis of lumbar region, unspecified whether neurogenic claudication present- Primary Spinal stenosis of lumbar region, unspecified whether neurogenic claudication present documented in this encounter Additional Health Concerns Assessment Noted Time PHQ-2 Depression Total Score: 1 05/16/20 21 8:45 AM EDT documented as of this encounter Care Teams Sumo Wrestler Relationship Specialty Start Date End Date Tim Gipson MD [address] [place] [address], [address] [place] [address] [email or web address] PCP - General Internal Medicine 09/30/18 Jeromy Crowley MD [address] [place] [address] Historical LMR Provider 07/20/17 Yasmin Cardenas MD [address] [place] [address] [facility], [facility] [address] [email or web address] Historical LMR Provider 07/20/17 documented as of this encounter Additional Source Comments The information contained in this document represents components of the legal health record. It is not the complete legal health record.[facility]
--- OUTSIDE RECORDS SUMMARY | 2025-06-17 13:13 | XMS_ITS | Encounter Summary ---
Author Organization [facility] Address [address] [employer] [facility] [address] [place] [address] Phone Care Team Providers Care Nut Grader Name Role Phone Tim Gipson MD Primary Care Provider [phone] Encounter Details Date Type Department Care Team ([facility] st Contact Info) Description 07/29/2023 Procedure Pass [facility], Ct Scan - [address] [address] Social History Tobacco Use Types Packs/Day Years [...] st Contact Info) Description 11/11/2024 Procedure Pass [facility], Ct Scan - [address] [address] 06/23/2025 10:30 AM EDT Office Visit [facility] [address] [place] [address] Yasmin Cardenas MD 4 [facility] [place] [place] [address] [email or web address], PT 10 [place] [address] 06/30/2025 11:15 AM EDT Office Visit [facility] [address] [place] [address] Yasmin Cardenas MD 4 [facility] [place] [address] [email or web address], PT 10 [place], [place] [phone] 07/07/2025 10:30 AM EDT Office Visit [address] [address] Yasmin Cardenas MD 4 [facility], [place] [address] [email or web address], PT 10 [place] [address] 07/14/2025 11:15 AM EDT Office Visit [address] [address] Yasmin Cardenas MD 4 [facility], [place] [address] [email or web address], PT 10 [place] [address] 10/13/2025 12:45 PM EST Appointment [facility], Ct Scan - [address] [address] Gerardo Tan MD [address] [place] [address] 06/15/2026 1:00 PM EDT Office Visit [facility] Medicine [address] [place] [address] Tim Gipson MD [address] [place] [address], [address] [place] [address] [email or web address] documented as of this encounter Visit Diagnoses Not on filedocumented in this encounter Additional Health Concerns Assessment Noted Time PHQ-9 Depression Total Score: 9 05/23/20 23 8:58 AM EDT PHQ-2 Depression Total Score: 4 05/23/20 23 8:58 AM EDT documented as of this encounter Care Teams Nut Grader Relationship Specialty Start Date End Date Tim Gipson MD [address] [place] [address], [address] [place] [address] [email or web address] PCP - General Internal Medicine 09/30/18 documented as of this encounter Additional Source Comments The information contained in this document represents components of the legal health record. It is not the complete legal health record.[facility]
--- OUTSIDE RECORDS SUMMARY | 2025-06-17 13:13 | XMS_ITS | Encounter Summary ---
Author Organization [facility] Address [address] [facility] [address] [place] [address] Phone Care Team Providers Care Customer Service Administrator Name Role Phone Jeromy Crowley MD Unavailable Yasmin Cardenas MD Unavailable [phone] Tim Gipson MD Primary Care Provider [phone] Encounter Details Date Type Department Care Team (Late st Contact Info) Description 09/01/2021 Procedure Pass [facility], [address] [address] Social History Tobacco Use Types Packs/Day Years [...] high school, GED, job training, learning the Malagasy language, technical skills, or developing parenting skills)? [...] st Contact Info) Description 11/11/2024 Procedure Pass [facility], Ct Scan - [address] [address] 06/23/2025 10:30 AM EDT Office Visit [facility] [address] [place] [address] Yasmin Cardenas MD [address] [place] [address] [facility] [place] [address] [email or web address] Rivera, PT 10 [place] [address] 06/30/2025 11:15 AM EDT Office Visit [address] [address] Yasmin Cardenas MD 4 [facility], [place], [place] [phone] [email or web address] Rivera, PT 10 [place] [address] 07/07/2025 10:30 AM EDT Office Visit [address] [address] Yasmin Cardenas MD 4 [facility] Orthoped[facility] Sports [facility], [place], [place] [phone] [email or web address] Rivera, PT 10 [place] [address] 07/14/2025 11:15 AM EDT Office Visit [address] [address] Yasmin Cardenas MD [address] [place] [address] Orthopedics & Sports [facility], [place], [place] [phone] [email or web address], PT 10 [place] [address] 10/13/2025 12:45 PM EST Appointment [facility], Ct Scan - [address] [address] Gerardo Tan MD [address] [place] [address] 06/15/2026 1:00 PM EDT Office Visit [facility] [address] [place] [address] Tim Gipson MD 22 [facility], [address] [place] [address] [email or web address] documented as of this encounter Visit Diagnoses Not on filedocumented in this encounter Additional Health Concerns Assessment Noted Time PHQ-2 Depression Total Score: 1 05/16/20 21 8:45 AM EDT documented as of this encounter Care Teams Customer Service Administrator Relationship Specialty Start Date End Date Tim Gipson MD [address] [place] [address], [address] [place] [address] [email or web address] PCP - General Internal Medicine 09/30/18 Jeromy Crowley MD [address] [place] [address] Historical LMR Provider 07/20/17 Yasmin Cardenas MD [address] [place] [address] [facility], [place] [address] [email or web address] Historical LMR Provider 07/20/17 documented as of this encounter Additional Source Comments The information contained in this document represents components of the legal health record. It is not the complete legal health record.[facility]
--- OUTSIDE RECORDS SUMMARY | 2025-06-17 13:13 | XMS_ITS | Encounter Summary ---
Author Organization [facility] Address [address] [place] [address] [address] [place] [address] Phone Care Team Providers Care Company Marker Name Role Phone Jeromy Crowley MD Unavailable Yasmin Cardenas MD Unavailable [phone] Tim Gipson MD Primary Care Provider [phone] Encounter Details Date Type Department Care Team (Late st Contact Info) Description 05/20/2021 Transcribe Orders [facility] Specimen Processing 30 [place] [address] Tim Gipson MD 22 [facility], [address] [place] [address] Social History Tobacco Use Types Packs/Day Years Used Date Smoking Tobacco: Former Cigarettes 979 - 2008 Smokeless Tobacco: Current Alcohol [...] high school, GED, job training, learning the Swedish language, technical skills, or developing parenting skills)? [...] st Contact Info) Description 11/11/2024 Procedure Pass [facility], Ct Scan - [address] [address] 06/23/2025 10:30 AM EDT Office Visit [facility] Rehabilitation Services [address] [place] [address] Yasmin Cardenas MD [address] [place] [address] [facility] [place] [place] [address] [email or web address], PT 10 [place] [address] 06/30/2025 11:15 AM EDT Office Visit [facility] Services [address] [place] [address] Yasmin Cardenas MD 4 [facility] [place], [place] [phone] [email or web address], PT 10 [place] [address] 07/07/2025 10:30 AM EDT Office Visit [address] [address] Yasmin Cardenas MD 4 [facility] [place], [place] [id number] [email or web address] Alexandria Rivera, PT 10 [place] [address] 07/14/2025 11:15 AM EDT Office Visit [address] [address] Yasmin Cardenas MD 4 [facility], [place], [place] [phone] [email or web address] Rivera, PT 10 [place] [address] 10/13/2025 12:45 PM EST Appointment [facility], Ct Scan - [address] [address] Gerardo Tan MD [address] [place] [address] 06/15/2026 1:00 PM EDT Office Visit [facility] Medical [facility] Hospital Medicine [address] [place] [address] [place] [address] Tim Gipson MD 22 [facility], [address] [place] [address] documented as of this encounter Visit Diagnoses Not on filedocumented in this encounter Additional Health Concerns Assessment Noted Time PHQ-2 Depression Total Score: 1 05/16/20 21 8:45 AM EDT documented as of this encounter Care Teams Company Marker Relationship Specialty Start Date End Date Tim Gipson MD [address] [place] [address], [address] [place] [address] PCP - General Internal Medicine 09/30/18 Jeromy Crowley MD [address] [place] [address] Historical LMR Provider 07/20/17 Yasmin Cardenas MD [address] [place] [address] [facility], [place] [address] Historical LMR Provider 07/20/17 documented as of this encounter Additional Source Comments The information contained in this document represents components of the legal health record. It is not the complete legal health record.[facility]
--- OUTSIDE RECORDS SUMMARY | 2025-06-17 13:14 | XMS_ITS | Encounter Summary ---
Author Organization [facility] Address [address] [place] [address] [address] [place] [address] Phone Care Team Providers Care Alpaca Farmer Name Role Phone Tim Gipson MD Primary Care Provider [phone] Encounter Details Date Type Department Care Team (Late st Contact Info) Description 08/06/2023 Transcribe Orders Virtual Department 30 [place] [address] Tim Gipson MD 22 [facility], [address] [place] [address] [email or web address] Social History Tobacco Use Types Packs/Day Years [...] st Contact Info) Description 11/11/2024 Procedure Pass [facility], Ct Scan - [address] [address] 06/23/2025 10:30 AM EDT Office Visit [facility] Rehabilitation Services [address] [place] [address] Yasmin Cardenas MD [address] [place] [address] [facility] [place] [address] [email or web address], PT 10 [place] [address] 06/30/2025 11:15 AM EDT Office Visit [facility] Rehabilitation Services [address] [place] [address] Yasmin Cardenas MD 4 [facility] [place], [place] [phone] [email or web address], PT 10 [place] [address] 07/07/2025 10:30 AM EDT Office Visit [address] [address] Yasmin Cardenas MD 4 [facility] [place], [place] [id number] [email or web address] Alexandria Rivera, PT 10 [place] [address] 07/14/2025 11:15 AM EDT Office Visit [address] [address] Yasmin Cardenas MD 4 [facility], [place], [place] [id number] [email or web address] Alexandria Rivera, PT 10 [place] [address] 10/13/2025 12:45 PM EST Appointment [facility], Ct Scan - [address] [address] Gerardo Tan MD [address] [place] [address] 06/15/2026 1:00 PM EDT Office Visit [facility] Medical [place] [address] [place] [address] Tim Gipson MD [address] [place] [address], [address] [place] [address] [email or web address] documented as of this encounter Visit Diagnoses Not on filedocumented in this encounter Additional Health Concerns Assessment Noted Time PHQ-9 Depression Total Score: 9 05/23/20 23 8:58 AM EDT PHQ-2 Depression Total Score: 4 05/23/20 23 8:58 AM EDT documented as of this encounter Care Teams Alpaca Farmer Relationship Specialty Start Date End Date Tim Gipson MD [address] [place] [address], [address] [place] [address] [email or web address] PCP - General Internal Medicine 09/30/18 documented as of this encounter Additional Source Comments The information contained in this document represents components of the legal health record. It is not the complete legal health record.[facility]
--- OUTSIDE RECORDS SUMMARY | 2025-06-17 13:14 | XMS_ITS | Encounter Summary ---
Author Organization [facility] Address [facility] [address] [address] Phone Care Team Providers Care Denitrator Name Role Phone Tim Gipson MD Primary Care Provider Encounter Details Date Type Department Care Team (Late st Contact Info) Description 12/05/2021 Transcribe Orders [facility] [address] [place] [address] Shlomo Ferguson MD [address] [place] [address] Social History Tobacco Use Types Packs/Day Years [...] high school, GED, job training, learning the Salvadorean language, technical skills, or developing parenting skills)? No 03/17/2021 Food Answer Date Recorded Within the past 6 months we worried whether our food would run out before we got money to buy more. Never True 03/17/2021 Within the past 6 months the food we bought just didn't last and we didn't have enough money to get more. Never True 06/18/202 1 Residential Stability Answer Date Recor ded What [...] st Contact Info) Description 11/11/2024 Procedure Pass [facility], Ct Scan - [address] [address] 06/23/2025 10:30 AM EDT Office Visit [facility] Rehabilitation Services [address] [place] [address] Yasmin Cardenas MD 4 [facility] [place] [address] [email or web address], PT 10 [place] [address] 06/30/2025 11:15 AM EDT Office Visit [facility] Services [address] [place] [address] Yasmin Cardenas MD 4 [facility], [place], [place] [phone] [email or web address] Alexandria Rivera, PT 10 [place], [place] [phone] 07/07/2025 10:30 AM EDT Office Visit [address] [address] Yasmin Cardenas MD 4 [facility] Orth[facility]ics & Sports [facility] [place], [place] [phone] [email or web address] Rivera, PT 10 [place], [place] [phone] 07/14/2025 11:15 AM EDT Office Visit [address] [address] Yasmin Cardenas MD 4 [facility] Sports [facility], [place], [place] [phone] [email or web address], PT 10 [place], [place] [phone] 10/13/2025 12:45 PM EST Appointment [facility], Ct Scan - [address] [address] Gerardo Tan MD [address] [place] [address] 06/15/2026 1:00 PM EDT Office Visit [facility] Group [facility] Medicine [address] [place] [address] [place] [address] Tim Gipson MD [address] [place] [address], [address] [place] [address] documented as of this encounter Visit Diagnoses Not on filedocumented in this encounter Additional Health Concerns Assessment Noted Time PHQ-2 Depression Total Score: 1 05/16/20 21 8:45 AM EDT documented as of this encounter Care Teams Denitrator Relationship Specialty Start Date End Date Tim Gipson MD [address] [place] [address], [address] [place] [phone] PCP - General Internal Medicine 09/30/18 documented as of this encounter Additional Source Comments The information contained in this document represents components of the legal health record. It is not the complete legal health record.[facility]
--- OUTSIDE RECORDS SUMMARY | 2025-06-17 13:15 | XMS_ITS | Encounter Summary ---
Author Organization [facility] Address [facility] [address] [address] Phone Care Team Providers Care Vice President Of Operations Name Role Phone Tim Gipson MD Primary Care Provider [phone] Encounter Details Date Type Department Care Team (Late st Contact Info) Description 12/05/2021 Transcribe Orders [facility] [address] [place] [address] Shlomo Ferguson MD [address] [place] [address] Social History Tobacco Use Types Packs/Day [...] high school, GED, job training, learning the Thai language, technical skills, or developing parenting skills)? [...] st Contact Info) Description 11/11/2024 Procedure Pass [facility], Ct Scan - [address] [address] 06/23/2025 10:30 AM EDT Office Visit [facility] Rehabilitation Services [address] [place] [address] Yasmin Cardenas MD 4 [facility] [place] [address] [email or web address], PT 10 [place] [address] 06/30/2025 11:15 AM EDT Office Visit [facility] Services [address] [place] [address] Yasmin Cardenas MD 4 [facility], [place], [place] [id number] [email or web address] Alexandria Rivera, PT 10 [place], [place] [phone] [email or web address] 07/07/2025 10:30 AM EDT Office Visit [address] [address] Yasmin Cardenas MD 4 [facility] Orthopedics & Sports [facility] [place], [place] [phone] [email or web address] Alexandria Rivera, PT 10 [place], [place] [phone] [email or web address] 07/14/2025 11:15 AM EDT Office Visit [address] [address] Yasmin Cardenas MD 4 [facility], [place], [place] [phone] [email or web address], PT 10 [place], [place] 1962[address] [email or web address] 10/13/2025 12:45 PM EST Appointment [facility], Ct Scan - [address] [address] Gerardo Tan MD [address] [place] [address] 06/15/2026 1:00 PM EDT Office Visit [facility] Medicine [address] [place] [address] [place] [address] Tim Gipson MD [address] [place] [address], [address] [place] [address] documented as of this encounter Visit Diagnoses Not on filedocumented in this encounter Additional Health Concerns Assessment Noted Time PHQ-2 Depression Total Score: 1 05/16/20 21 8:45 AM EDT documented as of this encounter Care Teams Vice President Of Operations Relationship Specialty Start Date End Date Tim Gipson MD [address] [place] [address], [address] [place] [phone] PCP - General Internal Medicine 09/30/18 documented as of this encounter Additional Source Comments The information contained in this document represents components of the legal health record. It is not the complete legal health record.[facility]
--- OUTSIDE RECORDS SUMMARY | 2025-06-17 13:15 | XMS_ITS | Clinical Summary ---
Author Organization [facility] Address [address] [place] [address] Care Team Providers Care Guard Lieutenant Name Role Phone Tim Gipson Primary Care Provider [phone] Allergies Active Allergy Reactions Criticality Noted Date Comments Flu Vac 2020 [id number](Pf) Paralysis 03/05/2022 Flu Vacc Qs 2015- (18 Yr Up) Movement, abnormal High 08/06/2022 Influenza Virus Vaccine Ts 6480-6145 (5 Yr And Up) Other (see comments) [...] (2 - Td or Tdap) 10/16/2023 10/16/2013 CT Lung Cancer Screening (Baseline) 08/08/2024 08/08/2023 Alcohol/Substance Use Screening 09/30/2024 Depression Screening and Follow-Up 09/30/2024 Health Care Proxy Review 09/30/2024 Social Drivers of Health Annual Screening 09/30/2024 COVID-19 Vaccine (4 - 2024-2 6 season) 2025 08/01/2021, 01/11/2021, 12/15/2020 Influenza Vaccine (#1) 2025 RSV Vaccine (60+ years old and patients) (1 - 1-dose 75+ series) 2029 Hepatitis C Screening Completed 04/10/2017 CT Lung Cancer Screening (12 months, previous LungRADS 1 or 2) Discontinued 08/08/2023 Hepatitis B Vaccines Aged Out No long er eligible based on patient's age to complete this topic Procedures * Due to [place] law, this organization might not be sharing negative HIV tests. Procedure Name Priority Date/Time Associated Diagnosis Comments HEPATITIS PANEL, ACUTE Routine 04/10/2017 11:10 AM EDT from Last 3 Months or Most Recently Relevant to Health Maintenance Results * Due to [facility] law, this organization might not be sharing negative HIV tests. * Hepatitis Panel, Acute (04/10/2017 11:10 AM EDT) Hepatitis A IgM NON-REACTI VE NON-REACT [facility] Hepatitis B Surface Antigen NON-REACTI VE NON-REACT [facility] Hepatitis B Core Antibody NON-REACTI VE NON-REACT [facility] Hepatitis C Antibody NON-REACTI VE NON-REACT [facility] Signal To Cut-Off 0.01 <1.00 [facility] 04/10/2017 11:1 0 AM EDT 04/10/2017 12:20 PM EDT us Lucrecia Thomas MD LAB BLOOD ORDERABLES Final Re sult SHERLY MCCARTY [address] [facility] 3rd Floor, [place] [address], [place] [phone] from Last 3 Months or Most Recently Relevant to Health Maintenance Insurance [employer] MCR REPLACE PPO Care Teams Guard Lieutenant Relationship Specialty Start Date End Date Tim Gipson 22 [facility] [address] [place], [place] [phone] PCP - General Family Medicine 10/14/18
--- OUTSIDE RECORDS SUMMARY | 2025-06-17 13:17 | XMS_ITS | Encounter Summary ---
Author Organization [facility] Address [facility] [address] [address] Phone Care Team Providers Care Business Objects Consultant Name Role Phone Jeromy Crowley MD Unavailable [phone] Yasmin Cardenas MD Unavailable [phone] Tim Gipson MD Primary Care Provider [phone] Encounter Details Date Type Department Care Team (Latest Contact Info) Description 05/16/2021 Transcribe Orders Virtual Department 30 [place] [address] Bowen Blake MD [address] [place] [address] [email or web address] Encounter for laboratory testing for COVID-19 virus (Primary Dx) Social History Tobacco Use Types Packs/Day Years Used Date Smoking Tobacco: Former Cigarettes 30 1 979 - 2008 Smokeless Tobacco: Current Alcohol [...] high school, GED, job training, learning the Swiss language, technical skills, or developing parenting skills)? [...] st Contact Info) Description 11/11/2024 Procedure Pass [facility], Ct Scan - [address] [address] 06/23/2025 10:30 AM EDT Office Visit [facility] Rehabilitation Services [address] [place] [address] Yasmin Cardenas MD [address] [place] [address] [facility] [place] [address] [email or web address], PT 10 [place] [address] 06/30/2025 11:15 AM EDT Office Visit [facility] Services [address] [place] [address] Yasmin Cardenas MD 4 [facility] [place], [place] [phone] [email or web address] Alexandria Rivera, PT 10 [place] [address] 07/07/2025 10:30 AM EDT Office Visit [address] [address] Yasmin Cardenas MD 4 [facility] [place], [place] [phone] [email or web address] Alexandria Rivera, PT 10 [place] [address] 07/14/2025 11:15 AM EDT Office Visit [address] [address] Yasmin Cardenas MD 4 [facility] [place], [place] [phone] [email or web address], PT 10 [place], [place] [phone] 10/13/2025 12:45 PM EST Appointment [facility], Ct Scan - [address] [address] Gerardo Tan MD [address] [place] [address] 06/15/2026 1:00 PM EDT Office Visit [facility] Medical [address] [address] Tim Gipson MD 22 [facility], [address] [place] [address] [email or web address] documented as of this encounter Results * COVID-19 PCR Order (05/16/2021 5:21 PM EDT) COVID-19 Comment [id number] [facility] COVID Testing Status Sent to [facility] Other 05/16/2021 5:21 PM EDT 05/16/2021 5:26 PM EDT us Bowen Blake MD BODY FLUIDS AND STOOLS ORDER JEAN-PAUL Edited Result - Final [facility] [address] [place] [address] documented in this encounter Visit Diagnoses Diagnosis Encounter for laboratory testing for COVID-19 virus- Primary documented in this encounter Additional Health Concerns Assessment Noted Time PHQ-2 Depression Total Score: 1 05/16/20 21 8:45 AM EDT documented as of this encounter Care Teams Business Objects Consultant Relationship Specialty Start Date End Date Tim Gipson MD [address] [place] [address], [address] [place] [address] [email or web address] PCP - General Internal Medicine 09/30/18 Jeromy Crowley MD [address] [place] [address] Historical LMR Provider 07/20/17 Yasmin Cardenas MD [address] [place] [address] [facility], [facility] [place] [address] [email or web address] Historical LMR Provider 07/20/17 documented as of this encounter Additional Source Comments The information contained in this document represents components of the legal health record. It is not the complete legal health record.[facility]
--- OUTSIDE RECORDS SUMMARY | 2025-06-17 13:17 | XMS_ITS | Clinical Summary ---
Author Organization [facility] Address [facility] [address] [address] Phone Care Team Providers Care Jowl Trimmer Name Role Phone Tim Gipson MD Primary Care Provider [phone] Allergies Active Allergy Reactions Criticality Noted Date Comments Influenza Virus Vaccine Ts [id number] (5 Yr And Up) Other (See Comments) High 11/06/2018 Temporary paralysis Influenza Virus Vaccines Other (See Comments) 10/14/2022 Other Reaction(s): Lower body paralysis Lisinopril Anaphylaxis High 04/15/2018 Possible reaction to lisinopril per patient Possible reaction to lisinopril per patient Possible reaction to lisinopril per patient Possible reaction to lisinopril per patient Nsaids (Non-Steroidal Anti-Inflammatory Drug) Ulcer,Unknown Medium 01/02/2021 Duodenal ulcer Medications magnesium 200 mg Tab 400 mg. Active cyanocobalamin, vitamin B-12, 500 MCG tablet Take 2,500 mcg by mouth daily. Active cholecalciferol (VITAMIN D3) 2,000 unit tablet Take 1 tablet (2,000 Units total) by mouth daily. 30 tablet 2 0 Active thiamine (VITAMIN B-1) 100 MG tablet Take 100 mg by mouth daily. Active pantoprazole (PROTONIX) 40 MG tablet Take 1 tablet (40 mg total) by mouth daily. 90 tablet 3 4 Active furosemide (LASIX) 20 MG tabletIndications :Primary hypertension,Depe ndent edema Take 1 tablet (20 mg total) by mouth daily. 4 Active losartan (COZAAR) 50 MG tabletIndications :Primary hypertension Take 1 tablet (50 mg total) by mouth daily. 90 tablet 1 5 Active sildenafiL (VIAGRA) 50 mg tablet Take 1 tablet (50 mg total) by mouth daily as needed (erectile dysfunction ). 30 tablet 1 5 Active gabapentin (NEURONTIN) 300 MG capsule Take 1 capsule (300 mg total) by mouth 2 (two) times a day as needed (pain). 180 capsule 5 Active rOPINIRole (REQUIP XL) 2 MG 24 hr tabletIndications :Restless legs syndrome Take 2 tablets (4 mg total) by mouth nightly at bedtime. 180 tablet 3 5 Active lamoTRIgine (LAMICTAL) 25 MG IMMEDIATE release tablet Take 25 mg by mouth daily. 5 06/25/20 25 Active rOPINIRole (REQUIP) 4 MG tablet Take 1 tablet (4 mg total) by mouth nightly at bedtime. 5 Active DULoxetine (CYMBALTA) 30 MG capsuleIndication s:Chronic pain syndrome,Depresse d mood Take 1 capsule (30 mg total) by mouth daily. 90 capsule 5 06/09/20 25 Discontinu ed(No longer taking) rOPINIRole (REQUIP) 2 MG tablet Take 2 tablets (4 mg total) by mouth nightly at bedtime. 180 tablet 3 5 06/09/20 25 Discontinu ed(Dose adjustment ) Hospital, Clinic, or Other Facility Administered Medication Ordered Dose Route Frequency Start Date End Date Status lidocaine (XYLOCAINE) 1% injection 0.5 mL 0.5 mL See Adm Inst See admin instructions 11/13/2022 Active Active Problems Problem Noted Date Diagnosed Date Encounter for screening for lung cancer 11/11/19 Assessment & Plan (11/11/2024 8:58 AM EST): Patient qualifies for LD Lung Cancer Screening - based on age (55-80), absence of active signs and symptoms of lung cancer, smoking pack year history (>30) and if a former smoker - number of years since quitting (<15) Shared decision making was completed which included - benefits and harms of screening, follow-up diagnostic testing, over-diagnosis, false positive rate, and total radiation exposure. Counseling on the importance of adherence to annual lung cancer LDCT screening, impact of co-morbidities and ability or willingness to undergo diagnosis and treatment was reviewed. Counseling on the importance of maintaining cigarette smoking abstinence if former smoker; or the importance of smoking cessation if current smoker and, if appropriate, furnishing of information about tobacco cessation interventions was done. S/P insertion of spinal cord stimulator 07/01/20 Overview (07/01/2024): [facility] [place] pain management 05/2024 Assessment & Plan (07/01/2024 11:45 AM EDT): One week post procedure, doing well. Dependent edema 07/01/2024 Depressed mood 04/16/2024 Assessment & Plan (11/24/2024 8:53 PM EST): Will titrate duloxetine to 30mg daily, reassess at follow up. Orders: DULoxetine (CYMBALTA) 30 MG capsule; Take 1 capsule (30 mg total) by mouth daily. Assessment & Plan (07/01/2024 5:15 PM EDT): Tolerating duloxetine, continue current dose. Reassess at follow-up in a month. May titrate the dose at that time if he has an adequate improvement. History of duodenal ulcer 04/15/2024 Assessment & Plan (11/24/2024 8:53 PM EST): History of ulcers, resolved off PPI. Last dietary clerk consultation ~3 years ago. - Continue pantoprazole as per dietary clerk's recommendation Assessment & Plan (04/16/2024 8:04 AM EDT): Continue PPI indefinitely. Avoid NSAIDs indefinitely. Avoid other triggers. Abnormal chest CT 09/17/2023 Overview (09/17/2023): 5 mm lingular nodule, 3 cm soft tissue density in the subcarinal space Assessment & Plan (10/30/2023 9:36 AM EST): Awaiting reschedule of his chest MRI to evaluate subcarinal soft tissue density. If felt to be adenopathy, would consider repeat surveillance with CT, PET/CT, or biopsy via EBUS, particularly if evidence of growth since it would be approximately 3 months since his initial study. Assessment & Plan (09/17/2023 3:50 PM EST): Elongated 2 x 3 cm soft tissue density in the subcarinal space of unclear etiology. Does not have the usual confirmation suggestive of lymphadenopathy. Radiologist raises the possibility of a loculated pericardial effusion as well. No priors for comparison. I suggested we start with a chest MRI to help delineate what type of tissue were dealing with. If it does appear to be significant adenopathy, would consider PET/CT. Solitary pulmonary nodule on lung CT 09/17/2023 Assessment & Plan (11/11/2024 8:57 AM EST): Tiny small pulmonary nodules of no concern. Subcarinal fullness likely lymphadenopathy that is decreased in size. No specific monitoring required though patient is interested in pursuing lung cancer screening program with low-dose CT scans as outlined below. Assessment & Plan (10/30/2023 9:37 AM EST): [id number] smoker, stopping 15 years ago with a 5 mm nodule. Given his increased risk, following for 2 years feels warranted. Await neck study May 2024. Assessment & Plan (09/17/2023 3:50 PM EST): 5 mm lingular nodule will need 1 year follow-up given patient's significant tobacco exposure history. Daytime somnolence 09/17/2023 Assessment & Plan (11/11/2024 8:57 AM EST): Ongoing daytime fatigue and excessive somnolence. Given 50 pound weight gain, multiple sclerosis, and symptoms, high risk for sleep disordered breathing. Due to comorbidities, states unable to do an in-lab sleep study at this time but we would be willing for home study. Will check with Dr. Garcia if he requires reevaluation and/or can be scheduled for home study first. Assessment & Plan (10/30/2023 9:37 AM EST): High suspicion for significant sleep apnea, awaiting in lab study. As I explained, if indeed he has moderate or severe sleep apnea, many of his symptoms could improve with treatment, including eating and weight loss. They plan on discussing with PCP more about other weight loss options. Assessment & Plan (09/17/2023 3:50 PM EST): Patient with 50 pound weight gain over the last 2 years with witnessed apneas and excess daytime somnolence. High risk for obstructive sleep apnea. Will consult Dr. Garcia for likely home sleep study. Shortness of breath 05/28/2023 Assessment & Plan (10/30/2023 9:36 AM EST): Exertional dyspnea of unclear etiology. No benefit with bronchodilators despite mild airflow obstruction on PFTs, likely related to his [id number] smoking history and mild COPD. I believe that his dyspnea is multifactorial but primarily likely due to deconditioning from weight gain and lower extremity/back discomfort. He is able to exercise on a stationary bike and lift weights for 30 minutes each without limitation nor dyspnea. At this point, I suggested a 6-month follow-up while further workup and management ensues. Assessment & Plan (09/17/2023 3:48 PM EST): Atypical shortness of breath for the last 6 to 12 months of unclear etiology. Interestingly he is able to exercise in the evening while sitting, where he finds most of his difficulty either standing or with walking. When bracing himself with a walker he is able to ambulate with minimal dyspnea. He does have mild to moderate airflow obstruction on PFTs suggestive of COPD but is unclear whether this is contributing. I believe his dyspnea is multifactorial and primarily based on difficulty due to his back pain, lower extremity weakness and possible neuropathy rather than primary cardiopulmonary process. Nevertheless, have given him a 2-week sample of Trelegy Ellipta and if he does find it to be beneficial he can call me and I would send a prescription for Anoro Ellipta. Assessment & Plan (05/28/2023 8:39 PM EDT): May be related to weight gain, elevated bp, rule out neuromuscular process. Recommend echo, nt-probnp, PFTs. Cervical spondylosis 08/22/2022 Lower leg edema 05/22/2022 Assessment & Plan (06/04/2024 12:55 PM EDT): No edema on diuretic. Continue current regimen. Assessment & Plan (09/17/2023 3:47 PM EST): Bilateral lower extremity brawny edema of unclear etiology. States does not resolve at night does not appear dependent and did not respond to Lasix. Could be due to somewhat awaking as he carries his weight in the middle. No signs of lymphedema. Will check repeat TSH with reflex and cortisol level. Recommended he contact his PCP to consider compression stockings. Neurological dysfunction 04/06/2022 Assessment & Plan (04/23/2022 8:10 AM EDT): recommend follow up with Dr. De La Torre on further evaluation. He has had extensive work-up until now, not clear if he would benefit from a muscle biopsy to determine if he may have myositis. It is apparent that from his scans and neurology consults that he does not have findings consistent with multiple sclerosis causing his symptoms. Defer further work-up to neurology. 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 I recommended switching to morphine IR 15 mg every 6 hours for pain instead. Bowel regimen advised. Trochanteric bursitis of left hip 02/13/2021 Iliotibial band syndrome of left side 02/13/2021 Hip abductor tendonitis, left 02/13/2021 Impairment of balance 02/13/2021 Bilateral leg weakness 02/13/2021 Assessment & Plan (06/04/2024 12:54 PM EDT): Weakness is primarily defined at the hip flexors. His quadriceps, biceps femoris, gastrocs and tib ant strong. He did not have the EMG findings suggestive of myopathy. Clinical picture is not consistent with radiculopathy or lumbar spinal stenosis. Assessment & Plan (05/28/2023 8:34 PM EDT): Unclear cause, prior workup did not reveal impingement, no post surgical complications, findings not consistent with MS. He was given a diagnosis of FND-functional neurologic disorder. The patient has a second another opinion planned with neurology at [facility]-which I encouraged him to keep, after completing labs requested. EMG was completed. He might do well to request a virtual visit for test result review with neurology. Assessment & Plan (01/23/2023 6:23 PM EDT): Junior is having difficulty with progressive lower extremity weakness, which is affecting his quality of life, gait. He is struggling along with a walker. He is resistant to the idea of a wheelchair. His thinks that it would be a good idea just for safety purposes in case he gets tired and goes down. Thus far, he has received medical advice from his MS neurologist Dr. Bateman, that his symptoms are not consistent with MS. There was mention made of a cord lesion at T9 on his most recent MRI that could be associated with a neurodegenerative disorder affecting his lower extremities. Junior is open to seeing Dr. eD La Torre again from the functional neurologic disorder clinic at [facility] [place]. He would also consider a second opinion at [facility] for further work-up. His concern is that his weakness is progressing and he has not responded to physical therapy. Assessment & Plan (05/22/2022 9:19 PM EDT): Progressive weakness in the lower extremities. 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 He has findings of MS on MRI of the spine at thoracic and cervical levels, though these do not appear changed, thus MS not thought to be cause of progressive weakness. He has seemingly lower motor signs in the lower extremities, which may be progressive in nature. It is not clear that these clinical findings have any correlation with lumbar spine surgeries. I advised patient to consult with neuromuscular specialist for consideration of degeneratve muscle disorder, which may be rare such as inclusion body myositis. Assessment & Plan (04/06/2022 3:38 PM EDT): History of left foot drop in 2008 and subsequent progression with difficulty walking and weakness as well as decreased muscle mass diagnosed with MS in 2007. An MRI in 2019 one of the lumbar spine demonstrated significant disc disease and he underwent L3-4 lumbar surgery in February 2021 which was unsuccessful and repeat surgery in May 2021 with dramatic improvement in weakness and pain. He did have a course of steroids in October of this year for worsening weakness, high-dose IV which was unsuccessful and the patient felt he became weaker at a faster rate after this. Has had endorsed a history of urinary and bowel incontinence since that time as well as retention and erectile dysfunction. 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 These findings were felt highly suggestive of functional neurologic disorder and he did not have myelopathic signs or imaging findings to suggest spinal vascular malformation. Presents today after abrupt several day worsening of leg weakness and symptoms of inner forearms tingling. He has also had recent falls. Patient denies diplopia, saddle anesthesia, numbness of the face, vision changes, difficulty swallowing or speaking, ptosis or dyspnea. Was on vacation last week and missed several PT sessions. [facility] [place] neurology was called and recommended MRI C-spine and T-spine, recommending we consulting them post scans. PT and OT. [facility] [place] did not recommend transfer He has had symptoms of a pulling sensation in the left calf, I will check an ultrasound to rule out DVT, also had cold-like symptoms last week and mild residual cough, check chest x-ray. TSH, cortisol, ESR Restless legs syndrome 11/29/2020 Assessment & Plan (01/03/2021 11:03 PM EDT): Recommend trial of ropinirole for management of restless legs. Reassess if not improving. Side effects discussed. We will need to monitor his blood pressure Assessment & Plan (12/28/2020 1:40 PM EDT): Patient with severe restless leg syndrome, - Ropinirole 2 mg twice daily, The patient also uses an additional as needed dose at around 10 PM if he has ongoing symptoms. -Continue gabapentin for symptom relief. -Recommend SSRI on discharge, will defer to his PCP for further management. Assessment & Plan (12/20/2020 8:55 AM EDT): Unfortunately not many parenteral options. --OOB -- to bring once of his topical medications from home --Ativan prn. Assessment & Plan (12/07/2020 10:17 AM EST): Ropinirole tolerated. Cramps, muscle, general 11/29/2020 Gait instability 02/09/2020 Assessment & Plan (06/10/2025 7:52 AM EDT): Significant pain and numbness in calves and feet, worsened over the past few months. - Continue using assistive devices like AFOs to maintain mobility - MRI of the lumbar spine scheduled for next week to investigate potential issues at L4-L5 - Physical therapist suggested a brace for stability Assessment & Plan (06/04/2024 12:56 PM EDT): Primary issue affecting his quality of life and his mobility. He states the pain is manageable. He did not have relief with tramadol at pain management. They discussed neurostimulator device implanted. Not sure this would improve his condition. Consider second opinion. Assessment & Plan (01/31/2021 9:25 PM EDT): Deconditioning from recent hospitalization in the setting of background history of MS. Recommend PT to help with his gait, in hopes that it may improve his tone. Family hx of colon cancer 11/06/2018 Assessment & Plan (11/06/2018 8:35 AM EST): Repeat due in 2020 Chronic pain 10/14/2018 Overview (08/26/2022): Multifactorial pain Assessment & Plan (06/10/2025 7:52 AM EDT): Chronic. Severe pain persisting for a couple of months. Tried spinal stimulator without success. - Set an alarm to take 2 pills of lamotrigine in the morning as prescribed - Discussed buprenorphine as a potential pain management option Assessment & Plan (12/21/2024 5:29 PM EDT): Continue duloxetine for pain. Assessment & Plan (11/24/2024 8:53 PM EST): Severe pain in feet, ankles, and back, likely arthritis. Hx of NSAID induced GIB with ulcer. - Advise Tylenol for pain - Follow-up with pain clinic for spinal cord stimulator adjustments - Increase Cymbalta from 20 mg to 30 mg for pain, gradually increase if tolerated Orders: DULoxetine (CYMBALTA) 30 MG capsule; Take 1 capsule (30 mg total) by mouth daily. Assessment & Plan (07/01/2024 11:49 AM EDT): Tolerating duloxetine, recently had spinal cord stimulator placed. Continue current dose of duloxetine, reassess in 4 weeks. Assessment & Plan (06/04/2024 12:57 PM EDT): Has not responded to opioids in the past. Recommend trial of duloxetine again. I do not think he has had an actual trial of the medication for a long enough period of time to determine it was ineffective. There is a significant mood component as well, this will hopefully help with his depression. Assessment & Plan (08/26/2022 12:01 PM EST): Patient has follow-up regarding his injection at [facility] for his back pain. If effective, the neck step would be to consider nerve ablation and went without this. He has does not want to be on opioids. He has taken them in the past chronically, with limited results. Assessment & Plan (04/23/2022 8:09 AM EDT): No longer taking opioids for pain, did not find them helpful. Recommend adding gabapentin in the morning, continue afternoon and evening doses. Assessment & Plan (01/31/2021 9:26 PM EDT): Doing well with MSIR 15 mg every 6 hours at this juncture. He states his pain is well controlled. Appreciate Dr. Mariano's input with regards to pain management for this patient. Mood seems to be brighter today compared to when I saw him in the immediate postop period after discharge. Assessment & Plan (01/03/2021 10:54 PM EDT): Discuss further with Dr. Mariano. Assessment & Plan (05/18/2020 8:40 AM EDT): Decreasing morphine dose, now only on short acting 45 mg per day Assessment & Plan (01/18/2020 10:08 AM EDT): Stable on current regimen, he had run out of his extended release morphine. He will resume his previous regimen. Assessment & Plan (12/04/2018 12:57 PM EST): Did well with long acting morphine overnight. He has been cutting back on MSIR, but still at 4 pills during day. [employer] reviewed. Recommended transitioning to MS Contin 50 mg at 9 AM and 9 PM, continuing MSIR as needed only for breakthrough pain during the day. Side effects discussed. Proper use discussed. He will make the change with his next prescription due. Refill is sent electronically to his pharmacy postdated for the . He will call the office with a status update after 2 weeks of starting on the new regimen. Assessment & Plan (11/09/2018 3:38 PM EST): Previously on tramadol which was effective but stopped for some reason. He has responded ot morphine but has breakthrough pain at night. I recommend trial of MS contin at night, continue short acting MS IR during day. Bowel regimen advised. [employer] reviewed. New patient prescriber agreement signed. New rx given. reasssess response to pain regimen in 4 weeks. HTN (hypertension) 11/20/2017 Assessment & Plan (06/10/2025 7:52 AM EDT): Blood pressure management: Stable. - Currently taking Lasix, monitored for taking it every other day Assessment & Plan (11/24/2024 8:53 PM EST): Inconsistent blood pressure readings: 132/70 today, 150 systolic at MS doctor's office, 140/80 this morning. Did not take furosemide 20 mg today but took other medications. On losartan 50 mg daily. - Continue losartan 50 mg - Continue furosemide. - Order lab tests to monitor kidney function Orders: losartan (COZAAR) 50 MG tablet; Take 1 tablet (50 mg total) by mouth daily. CBC and differential; Future Urinalysis with sediment; Future Comprehensive metabolic panel; Future Assessment & Plan (07/01/2024 11:45 AM EDT): Not at target, increase losartan to 50mg daily. Continue HCTZ. Assessment & Plan (06/04/2024 12:55 PM EDT): Elevated BP today, encouraged proper med adherence. Assessment & Plan (08/26/2022 12:02 PM EST): Blood pressures not quite at target, increase amlodipine. Follow-up with home readings in about a month. He has a wrist cuff at home, I have encouraged him to get a arm cuff that is automated for home use. Assessment & Plan (04/06/2022 3:36 PM EDT): Patient taking amlodipine Of note, patient states he has had lower extremity edema and is taking high-dose steroids in October,looking back at his [facility] chart, this has been chronic. I will check an echocardiogram, encourage elevation and compression Will start HCTZ in lieu of amlodipine to see if this helps Albumin and protein are within normal limits Assessment & Plan (03/19/2021 7:17 PM EDT): Blood pressures elevated postoperatively. Recommend starting amlodipine 5 mg daily. No significant peripheral edema. He will watch for the symptoms. He will also call the office should he develop acute onset of shortness of breath following start of amlodipine. Assessment & Plan (01/03/2021 10:55 PM EDT): Slightly elevated, will monitor. Assessment & Plan (12/26/2020 4:54 PM EDT): - chlorthalidone on hold -blood pressures acceptable, normotensive Assessment & Plan (12/20/2020 8:59 AM EDT): Blood pressure stable. Normally takes chlorthalidone, presently on hold. --IV hydralazine as needed Assessment & Plan (12/07/2020 10:18 AM EST): Previously elevated, recheck. Assessment & Plan (01/18/2020 10:09 AM EDT): Stable blood pressure on chlorthalidone. Continue current regimen. Assessment & Plan (12/04/2018 12:56 PM EST): Stable, continue current medication. Recheck labs in 3-6 months. Pure hypercholesterolemia 11/20/2017 Assessment & Plan (12/04/2018 12:56 PM EST): Check lipids with next blood draw. Neurogenic bladder 10/09/2017 Assessment & Plan (05/28/2023 8:32 PM EDT): He was taking tamsulosin, stopped, would like to retry it. If ineffective, will consider alternatives. Assessment & Plan (04/06/2022 3:34 PM EDT): Some symptoms of dysuria prior to arrival, urinalysis shows no pyuria. Denies abdominal pain. We will ensure that he is completely emptying, bladder scan and straight cath as needed, he does not straight cath at home Chronic fatigue 10/09/2017 Current non-smoker 03/28/2016 Assessment & Plan (11/11/2024 8:57 AM EST): Congratulated on avoiding tobacco and nicotine. Recommended avoid all vaping products however given potential carcinogens and lung toxicity. Assessment & Plan (12/07/2020 10:15 AM EST): advised to call and schedule CT lung cancer screening. Assessment & Plan (11/09/2018 4:21 PM EST): Hx of smoking, remotely. MS (multiple sclerosis) 07/07/2014 Assessment & Plan (12/21/2024 5:29 PM EDT): Off Ampyra, did not tolerate due to lightheadedness. Assessment & Plan (06/04/2024 12:52 PM EDT): Previously diagnosed as primary progressive MS. He has had several opinions regarding his condition, not recommending treatment thus far. Assessment & Plan (04/06/2022 3:04 PM EDT): Repeat MRIs as above, baclofen and gabapentin as per outpatient regimen Assessment & Plan (12/26/2020 4:55 PM EDT): - ambulatory up at baseline, walks with a cane - not on any disease modifying medications prior to admission. - Patient unsteady and will benefit from VNA with nursing, PT and OT on discharge Assessment & Plan (05/18/2020 9:18 AM EDT): Recent flareup of MS symptoms, weakness of the left lower extremity which has resulted in a fall. It was speculated that the flareup of the MS may have been on the basis of a viral illness earlier in the spring. Is not clear whether he may have been exposed to coronavirus. Further evaluation is underway for question of myasthenia. Assessment & Plan (01/18/2020 10:09 AM EDT): Chronic MS associated with pain. He is not currently taking any medications specifically for MS. Perforated ulcer Assessment & Plan (01/03/2021 10:51 PM EDT): Treated nonoperatively. Likley due to NSAIDs. Resolved Problems Problem Noted Date Diagnosed Date Resolved Date Lumbar radiculopathy 02/13/2021 024 Hypomagnesemia 12/23/2020 12/25/2020 Duodenal perforation 12/20/2020 024 Assessment & Plan (01/31/2021 9:28 PM EDT): Doing well postoperatively, tolerating PPI. Recommend following up with surgery with regards to when he may resume usual activities. I advised him to avoid any weight lifting exercises until he is cleared by surgery. EGD in April as planned. Assessment & Plan (12/28/2020 1:40 PM EDT): Patient presented with acute abdominal pain, Dark brown emesis, CT scan done and concern for duodenal perforation. -Continue PPI twice daily -Advance to low fiber and low fat diet today, keep drains and monitor output, monitor for recurrence of pain. -Decrease TPN volume to half today -With the introduction of solid food, I will move to discontinue the patient's Zosyn today. -No change in drain output with the start of an oral diet -For symptom management, continue morphine 15 mg 3 times daily, discontinue IV morphine and hydromorphone and make additional morphine PO as needed available for breakthrough symptoms. -Continue with oral Ativan as scheduled -Again we will need to monitor closely for sedation Assessment & Plan (12/20/2020 8:55 AM EDT): POD #1 s/p ex lap with wash out. [address]. Not surgically repaired. NGT in place. Trial of conservative management. Surgery following. --GI consult --C/w NGT drainage. [address] --Dilaudid prn. --Place PICC for TPN. MNT consult. --Protonix IV BID --C/w Zosyn, day 2. Encounters Date Type Department Care Team Description 06/16/2025 11:15 AM EDT Office Visit [facility] [address] [place] [address] [id number] Yasmin Cardenas MD Robbins, Rebecca, PT Bilateral ankle joint pain (Primary Dx); Gait instability 06/09/2025 1:00 PM EDT Office Visit [address] [place] [id number] Tim Gipson MD Medicare annual wellness visit, subsequent (Primary Dx); Primary hypertension; Gait instability; Chronic pain syndrome; Need for pneumococcal vaccination 06/09/2025 10:30 AM EDT Office Visit [address] [address] Yasmin Cardenas MD Robbins, Rebecca, PT Bilateral ankle joint pain (Primary Dx); Gait instability 06/02/2025 11:15 AM EDT Office Visit [address] [address] Yasmin Cardenas MD Robbins, Rebecca, PT Bilateral ankle joint pain (Primary Dx); Gait instability 06/02/2025 Plan of Care Documentation [address] [address] 05/20/2025 11:15 AM EDT Office Visit [address] [address] Yasmin Cardenas MD Robbins, Rebecca, PT Bilateral ankle joint pain (Primary Dx); Gait instability 05/20/2025 11:02 AM EDT - 05/20/2025 11:59 PM EDT Hospital Encounter [facility] [address] [place] [id number] Joesph Garcia MD Discharge Disposition: Home or Self Care 05/20/2025 Transcribe Orders [facility] [address] [place] [id number] Joesph Garcia MD Muscle weakness (generalized) (Primary Dx); Localized edema; Dyslipidemia; Dependent edema; Lower leg edema; Primary hypertension; Shortness of breath 04/26/2025 Orders Only [address] [place] [phone] Provider, Historical, MD 03/31/2025 1:37 PM EDT - 03/31/2025 11:59 PM EDT Hospital Encounter [address] [address] Yasmin Cardenas MD Discharge Disposition: Home or Self Care 03/31/2025 1:37 PM EDT - 03/31/2025 11:59 PM EDT Hospital Encounter [address] [address] Yasmin Cardenas MD Discharge Disposition: Home or Self Care 03/31/2025 1:30 PM EDT Office Visit [facility] [address] [place] [id number] Yasmin Cardenas MD Tibialis posterior tendinopathy (Primary Dx); Right ankle pain; Left ankle pain; Planovalgus deformity of foot, acquired, unspecified laterality; Spinal stenosis, lumbar region, without neurogenic claudication; Peripheral polyneuropathy; Acquired bilateral foot drop; Multiple sclerosis from Last 3 Months Immunizations Immunization Administration Dates Next Due COVID-19 (Pre-07/22) Pfizer Vaccine, mRNA, PF ,12/15/2020 Pneumococcal conjugate PCV20 06/09/2025 Pneumococcal polysaccharide PPSV23 05/18/2020 Tdap 10/16/2013 Family History Medical History Relation Comments Colon cancer Father Cancer Mother female cancer Relation Status Comments Daughter Alive Father (Age 80) Mother (Age 85) Social History Tobacco Use Types Packs/Day Years Used Date Smoking Tobacco: Former Cigarettes 1 30 1 979 - 2008 Smokeless Tobacco: Current Tobacco Cessation:Ready to Q uit: Not Asked; Counseling Given: Not Answered Alcohol Use Standard Drinks/Week Comments No 0 [...] Orientation Straight 11/16/2017 11 :38 AM EST Last Filed Vital Signs Vital Sign Reading Time Taken Comments Blood Pressure 124/60 06/09/2025 12:56 PM EDT Pulse 90 06/09/2025 12:56 PM EDT Temperature 35.8 C (96.5 F) 06/09/2025 12:56 PM EDT Respiratory Rate 18 04/07/2022 8:27 AM EDT Oxygen Saturation 96% 06/09/2025 12:56 PM EDT Inhaled Oxygen Concentration - - Weight 92 kg (202 lb 12.8 oz) 06/09/2025 12:56 P M EDT Height 180.3 cm (5' 10.98 ) 11/23/2024 2:[address] Body Mass Index 28.3 11/23/2024 2:03 PM EST Plan of Treatment Upcoming Encounters Date Type Department Care Team (Late st Contact Info) Description 11/11/2024 Procedure Pass [facility] Scan - [address] [place] [address] 06/23/2025 10:30 AM EDT Office Visit [facility] [address] [place] [address] Yasmin Cardenas MD [facility] [place] [address] [email or web address] Alexandria Rivera, PT [address] [place] [address] 06/30/2025 11:15 AM EDT Office Visit [address] [address] Yasmin Cardenas MD [facility] [place] [address] [email or web address] Alexandria Rivera, PT [address] [place] [address] 07/07/2025 10:30 AM EDT Office Visit [address] [address] Yasmin Cardenas MD 4 [facility] [place] [address] [email or web address] Alexandria Rivera, PT [address] [place] [address] 07/14/2025 11:15 AM EDT Office Visit [facility] [address] [place] [address] Yasmin Cardenas MD 4 [facility] [place] [address] [email or web address] Alexandria Rivera, PT [address] [place] [address] 10/13/2025 12:45 PM EST Appointment [facility] Scan - [address] [address] Gerardo Tan MD [address] [place] [address] 06/15/2026 1:00 PM EDT Office Visit [facility] [address] [place] [address] [place] [address] Tim Gipson MD [address] [place] [address], [address] [place] [address] Health Maintenance Due Date Last Done Comments COLOGUARD 12/20/1999 FIT TEST 12/20/1999 FOBT 12/20/1999 SIGMOIDOSCOPY 12/20/1999 VIRTUAL COLONOSCOPY 12/20/1999 ZOSTER VACCINES (1 of 2) 2004 Adult Td,Tdap Booster 10/16/2023 10/16/2013 COVID-19 VACCINE ( season) 2025 08/01/2021, 01/11/2021, 12/15/2020 CREATININE LEVEL 11/23/2025 11/23/2024, 01/2024, 11/20/2023, Additional history exists POTASSIUM LEVEL 11/23/2025 11/23/2024, 07/0 01/2024, 11/20/2023, Additional history exists BLOOD PRESSURE 12/07/2025 06/09/2025 DEPRESSION SCREENING 06/07/2026 06/07/2025, 06/07/20 25 COLONOSCOPY 08/20/2026 08/20/2016 COLORECTAL CANCER SCREENING 08/20/2026 LIPID PANEL 05/27/2028 05/27/2023, 05/01, 04/10/2021 RSV VACCINE (1 - 1-dose 75+ series) 2029 ABDOMINAL AORTIC ANEURYSM (AAA) SCREENING Completed 2020 HEPATITIS C SCREENING Completed 04/10/2021 PNEUMOCOCCAL VACCINES (50+ years) Completed 06/09/2025, 05/18/2020 SMOKING STATUS SCREENING (Once After 26 Yrs) Completed 06/09/2025 HEPATITIS A VACCINES Aged Out No long er eligible based on patient's age to complete this topic HIB VACCINES Aged Out No longer eligi ble based on patient's age to complete this topic MENINGOCOCCAL VACCINES (ACWY) Aged Out No longer eligible based on patient's age to complete this topic MENINGOCOCCAL VACCINES (B) Aged Out N o longer eligible based on patient's age to complete this topic Medical Devices Not on file Procedures Procedure Name Priority Date/Time Associated Diagnosis Comments CBC AND DIFFERENTIAL Routine 05/20/2025 11:10 AM EDT Muscle weakness (generalized) Localized edema Dyslipidemia Dependent edema Lower leg edema Primary hypertension Shortness of breath SEDIMENTATION RATE (ESR) Routine 05/20/2025 11:10 AM EDT Muscle weakness (generalized) Localized edema Dyslipidemia Dependent edema Lower leg edema Primary hypertension Shortness of breath URIC ACID Routine 05/20/2025 11:10 AM EDT Muscle weakness (generalized) Localized edema Dyslipidemia Dependent edema Lower leg edema Primary hypertension Shortness of breath LYME SCREEN WITH REFLEX TO WESTERN BLOT, BLOOD Routine 05/20/2025 11:10 AM EDT Muscle weakness (generalized) Localized edema Dyslipidemia Dependent edema Lower leg edema Primary hypertension Shortness of breath OUTSIDE IMAGING Routine 04/23/2025 9:08 AM EDT XR ANKLE 3 OR MORE VIEWS (LEFT) Routine 03/31/2025 1:48 PM EDT Left ankle pain XR ANKLE 3 OR MORE VIEWS (RIGHT) Routine 03/31/2025 1:48 PM EDT Right ankle pain COMPREHENSIVE METABOLIC PANEL Routine 11/23/2024 3:11 PM EST Primary hypertension LIPID PANEL Routine 05/27/2023 4:03 PM EDT Dyslipidemia HEPATITIS C ANTIBODY, QUALITATIVE Routine 04/10/2021 12:11 PM EDT Encounter for hepatitis C screening test for low risk patient CT ABDOMEN/PELVIS WITH CONTRAST Routine 2020 4:44 PM EDT HM COLONOSCOPY FOR RESULT ENTRY ONLY Routine 08/20/2016 from Last 3 Months or Most Recently Relevant to Health Maintenance Results * Lyme Screen with Reflex to Immunoblot, Blood (05/20/2025 11:10 AM EDT) Lyme AB IgG Negative Negative [facility] Lyme AB IgM Negative Negative [facility] Blood 05/20/2025 11:1 0 AM EDT 05/20/2025 11:15 AM EDT us Joesph Garcia MD LAB BLO OD ORDERABLES Final Result [facility] [address] [place] [address] * Sedimentation rate (ESR) (05/20/2025 11:10 AM EDT) ESR 9 0 - 20 mm/h [facility] Blood 05/20/2025 11:1 0 AM EDT 05/20/2025 11:15 AM EDT Joesph Garcia MD LAB BLO OD ORDERABLES Final Result [facility] [address] [place] [address] * (ABNORMAL) CBC and differential (05/20/2025 11:10 AM EDT) WBC 6.22 4.00 - 11.00 K/uL [facility] RBC 5.68 4.50 - 5.90 M/uL [facility] HGB 16.4 13.5 - 17.5 g/dL [facility] HCT 50.3 41.0 - 53.0 % [facility] PLT 257 150 - 450 K/uL [facility] MCV 88.6 80.0 - 100.0 fL [facility] MCH 28.9 27.0 - 31.0 pg [facility] MCHC 32.6 32.0 - 36.0 g/dL [facility] RDW 13.7 11.5 - 14.5 % [facility] MPV 9.8 8.4 - 12.0 fL [facility] NRBC 0.00 0.00 /100 WBCs [facility] ABSOLUTE NRBC 0.00 0.00 K/uL [facility] DIFF METHOD Auto [facility] NEUTS 62.9 48.0 - 76.0 % [facility] LYMPHS 23.3 18.0 - 41.0 % [facility] MONOS 11.1(H) 4.0 - 11.0 % [facility] EOS 1.9 0.0 - 5.0 % [facility] BASOS 0.6 0.0 - 1.5 % [facility] Granulocytes, immature (%) 0.2 0.0 - 0.9 % [facility] ABSOLUTE NEUTS 3.91 1.92 - 7.60 K/uL [facility] ABSOLUTE LYMPHS 1.45 0.72 - 4.10 K/uL [facility] ABSOLUTE MONOS 0.69 0.16 - 1.10 K/uL [facility] ABSOLUTE EOS 0.12 0.00 - 0.50 K/uL [facility] ABSOLUTE BASOS 0.04 0.00 - 0.15 K/uL [facility] Granulocytes, immature 0.01 0.00 - 0.09 K/uL [facility] Blood 05/20/2025 11:1 0 AM EDT 05/20/2025 11:15 AM EDT Joesph Garcia MD LAB BLO OD ORDERABLES Final Result Performing Organization Address City/[facility]/ZIP Co de Phone Number [address] [address] * Uric acid (05/20/2025 11:10 AM EDT) URIC ACID 6.0 2.4 - 7.0 mg/dL [facility] Blood 05/20/2025 11:1 0 AM EDT 05/20/2025 11:15 AM EDT Joesph Garcia MD LAB BLO OD ORDERABLES Final Result Performing Organization Address [facility]/ZIP Co de Phone Number [address] [address] * Outside Imaging Report Only (04/23/2025 9:08 AM EDT) Historical Provider IMG XR CHEST Final Res ult * XR ANKLE 3 OR MORE VIEWS (LEFT) (03/31/2025 1:48 PM EDT) Narrative SYSTEMGENERATED, DOCUMENTATION - 03/31/2025 1:49 PM EDT This image report has been auto-finalized and has not been read by a Radiologist. Interpretation has been included in the provider encounter note for this date of service. Yasmin Cardenas MD IMG XR LOWER EXTREMITY Fi nal Result * XR ANKLE 3 OR MORE VIEWS (RIGHT) (03/31/2025 1:48 PM EDT) Narrative SYSTEMGENERATED, DOCUMENTATION - 03/31/2025 1:48 PM EDT This image report has been auto-finalized and has not been read by a Radiologist. Interpretation has been included in the provider encounter note for this date of service. us Yasmin Cardenas MD IMG XR LOWER EXTREMITY Fi nal Result * Comprehensive metabolic panel (11/23/2024 3:11 PM EST) SODIUM 140 133 - 146 mmol/L [facility] POTASSIUM 4.7 3.3 - 5.1 mmol/L [facility] CHLORIDE 103 96 - 108 mmol/L [facility] CO2 27 21 - 35 mmol/L [facility] BUN 19 6 - 19 mg/dL [facility] CREATININE 1.10 0.5 - 1.5 mg/dL [facility] GLUCOSE 80 70 - 99 mg/dL [facility] ALBUMIN 3.9 3.9 - 4.8 g/dL [facility] TOTAL PROTEIN 7.0 6.5 - 8.0 g/dL [facility] CALCIUM 9.1 8.4 - 10.3 mg/dL [facility] ALKALINE PHOSPHATASE 95 39 - 117 U/L [facility] TOTAL BILIRUBIN 0.6 0.0 - 1.2 mg/dL [facility] AST 20 0 - 37 U/L [facility] ALT 12 0 - 40 U/L [facility] GLOBULIN 3.1 1 - 4.8 g/dL [facility] EGFR 73 >59 mL/min/1.7 3m2 [facility] Comment:Estimated glomerular filtration rate calculated using the CKD-EPI refit equation. ANION GAP 15 10 - 20 mmol/L [facility] Blood 11/23/2024 3:11 PM EST 11/23/2024 3:14 PM EST us Tim Gipson MD LAB BLOOD ORDERABLES Final Res ult [address] [address] * (ABNORMAL) Lipid panel (05/27/2023 4:03 PM EDT) HDL 47 mg/dL [facility] Comment: Interpretation <40 mg/dL: Low HDL cholesterol (major risk factor for CHD) Greater than or equal to 60 mg/dL: High HDL cholesterol ( negative risk factor for CHD) HDL - cholesterol is affected by a number of factors, e.g. smoking, excerise, hormones, sex and age. CHOLESTEROL 192 0 - 240 mg/dL [facility] TRIGLYCERIDES 202(H) 30 - 160 mg/dL [facility] LDL 105 50 - 129 mg/dL [facility] Comment: LDL levels in terms of risk for coronary heart disease: <100 mg/dL: Optimal 100-129 mg/dL: Near or above optimal 130-159 mg/dL: Borderline high 160-189 mg/dL: High >190 mg/dL: Very High CARDIAC RISK RATIO 4.1 3.4 - 5.0 C [facility] Blood 05/27/2023 4:03 PM EDT 05/27/2023 4:11 PM EDT us Tim Gipson MD LAB BLOOD ORDERABLES Final Res ult Performing Organization Address City/[facility]/ZIP Co de Phone Number [address] [address] * Hepatitis C antibody, qualitative (04/10/2021 12:11 PM EDT) HCV NON-REACTIV E NON-REACTI VE [facility] Blood 04/10/2021 12:1 1 PM EDT 04/10/2021 12:24 PM EDT us Tim Gipson MD LAB BLOOD ORDERABLES Final Res ult Performing Organization Address [facility]/ZIP Co de Phone Number [address] [address] * CT ABDOMEN/PELVIS WITH CONTRAST (2020 4:44 PM EDT) Anatomical Region Laterality Modality Abdomen, Pelvis Computed Tomogra phy 2020 5:25 PM EDT Impressions 2020 5:29 PM EDT Probable duodenal perforation with small volume pneumoperitoneum and trace loculated ascites. Critical results were communicated and documented using the Alert Notification of Critical Radiology Results (ANCR) system. ATTESTATION: I, Karma Molina as teaching physician, have reviewed the images for this case and if necessary edited the report originally created by Marycarmen Burden. Narrative 2020 5:29 PM EDT Reason for exam (per EHR order): * Abdominal pain, acute, nonlocalized Additional clinical information obtained from the EHR: 65-year-old man with 4 days of severe right sided abdominal pain. TECHNIQUE: Abdomen and pelvis CT, including multiplanar reformations. Intravenous contrast: Omnipaque. Oral contrast: None. COMPARISON: CT abdomen/pelvis 03/26/2014 FINDINGS: Lower Chest: No mass or consolidation. No pleural effusion. No pericardial effusion. Coronary artery calcifications. Liver: No focal lesion. Biliary System: No biliary ductal dilatation. Pancreas: Normal contour. No ductal dilatation. Spleen: Not enlarged. No focal lesion. Adrenal Glands: No nodule. Kidneys: No hydronephrosis or nephrolithiasis. Bowel: Wall thickening of the first segment and proximal second segment of the duodenum with mucosal enhancement. Locules of intraperitoneal free air adjacent to the proximal duodenum, likely representing duodenal perforation presumably from an ulcer. There are mild inflammatory changes of the adjacent ascending colon. Normal appendix. Mesentery, Omentum, and Peritoneum: Small volume pneumoperitoneum, best seen in the right upper quadrant, immediately adjacent to the perforated segment of duodenum. Soft tissue stranding of the adjacent mesentery, reactive. Small 2.5 x 1.9 x 1.7 cm loculated fluid collection superior to the duodenal bulb (5:26), without rim enhancement or thick wall to suggest abscess. No bowel obstruction. Pelvic Organs: No masses. Prostatomegaly. Lymph Nodes: No lymphadenopathy. Vasculature: No abdominal aortic aneurysm. Atherosclerotic calcifications of the abdominal aorta and branches. The SMV, splenic vein, and portal vein are patent. Bones and Soft Tissues: No destructive osseous lesions. Mild degenerative changes of the lumbosacral spine. Bilateral fat-containing inguinal hernias. Procedure Note Karma Molina MD - 2020 Reason for exam (per EHR order): * Abdominal pain, acute, nonlocalized Additional clinical information obtained from the EHR: 65-year-old manwith 4 days of severe right sided abdominal pain. TECHNIQUE: Abdomen and pelvis CT, including multiplanar reformations. Intravenous contrast: Omnipaque. Oral contrast: None. COMPARISON: CT abdomen/pelvis 03/26/2014 FINDINGS: Lower Chest: No mass or consolidation. No pleural effusion. No pericardialeffusion. Coronary artery calcifications. Liver: No focal lesion. Biliary System: No biliary ductal dilatation. Pancreas: Normal contour. No ductal dilatation. Spleen: Not enlarged. No focal lesion. Adrenal Glands: No nodule. Kidneys: No hydronephrosis or nephrolithiasis. Bowel: Wall thickening of the first segment and proximal second segment ofthe duodenum with mucosal enhancement. Locules of intraperitoneal free airadjacent to the proximal duodenum, likely representing duodenalperforation presumably from an ulcer. There are mild inflammatory changesof the adjacent ascending colon. Normal appendix. Mesentery, Omentum, and Peritoneum: Small volume pneumoperitoneum, bestseen in the right upper quadrant, immediately adjacent to the perforatedsegment of duodenum. Soft tissue stranding of the adjacent mesentery,reactive. Small 2.5 x 1.9 x 1.7 cm loculated fluid collection superior tothe duodenal bulb (5:26), without rim enhancement or thick wall to suggestabscess. No bowel obstruction. Pelvic Organs: No masses. Prostatomegaly. Lymph Nodes: No lymphadenopathy. Vasculature: No abdominal aortic aneurysm. Atherosclerotic calcificationsof the abdominal aorta and branches. The SMV, splenic vein, and portalvein are patent. Bones and Soft Tissues: No destructive osseous lesions. Mild degenerativechanges of the lumbosacral spine. Bilateral fat-containing inguinalhernias. IMPRESSION: Probable duodenal perforation with small volume pneumoperitoneum and traceloculated ascites. Critical results were communicated and documented using the AlertNotification of Critical Radiology Results (ANCR) system. ATTESTATION: I, Karma Molina as teaching physician, have reviewed the imagesfor this case and if necessary edited the report originally created byMarycarmen Burden. Junior Charlton MD IMG CT ABD/PELVIS Final Result * COLONOSCOPY FOR RESULT ENTRY ONLY (08/20/2016) Colonoscopy 5yr repeat Historical Provider HEALTH MAINTENANCE Final Result from Last 3 Months or Most Recently Relevant to Health Maintenance [place] BL[place] RE[place]EMENT [facility] MEDICARE PPO BLUE REPLACEMENT [facility] MEDICARE PPO BLUE REPLACEMENT [facility] MEDICARE PPO BLUE REPLACEMENT [facility] MEDICARE PPO BLUE REPLACEMENT [facility] MEDICARE PPO BLUE [place] [address] [place] [address] MEDICARE PPO BLUE REPLACEMENT [place] MEDICARE P[place] BLUE REPLACEMENT Advance Directives For more information, please contact: [phone] (9AM - 5PM [facility], Saturday-Saturday) Documents on File Type Date Recorded 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 Power of Senior Billing Consultant MOLST 12/30/2020 9:51 AM Healthcare Proxy 12/30/2020 9:51 AM * Full Code (Latest Code Status on File) Date Activated Date Inactivated Comments 04/06/2022 4:14 PM Question Answer Comments Code Status Confirmed With: Other (specify below ) * DNR/DNI (No CPR/No Intubation) Date Activated Date Inactivated Comments 01/23/2022 6:18 PM 04/06/2022 4:14 PM Question Answer Comments Code Status Confirmed With: Patient Code Status Communicated To: Other (specify belo w) Code 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 * DNR/DNI (No CPR/No Intubation) Date Activated Date Inactivated Comments 12/20/2020 10:13 AM 01/23/2022 6:18 PM Question Answer Comments Code Status Confirmed With: PatientFamily * Full Code Date Activated Date Inactivated Comments 12/20/2020 12:15 AM 12/20/2020 10:13 AM Question Answer Comments Code Status Confirmed With: Other (specify below ) Code Discussion Comments: presumed full code, miguel ott abdominal surgery Care Teams Jowl Trimmer Relationship Specialty Start Date End Date Tim Gipson MD [address] [place] [address], [address] [place] [address] PCP - General Internal Medicine 09/30/18 Additional Source Comments The information contained in this document represents components of the legal health record. It is not the complete legal health record.[facility]
--- OUTSIDE RECORDS SUMMARY | 2025-06-17 13:18 | XMS_ITS | Encounter Summary ---
Author Organization [facility] Address [facility] [address] [address] Phone Care Team Providers Care Associate Product Manager Name Role Phone Jeromy Crowley MD Unavailable [phone] Yasmin Cardenas MD Unavailable [phone] Tim Gipson MD Primary Care Provider [phone] Encounter Details Date Type Department Care Team (Latest Contact Info) Description 05/08/2021 Transcribe Orders Virtual Department 30 [place] [address] Bowen Blake MD [address] [place] [address] [email or web address] Encounter for laboratory testing for COVID-19 virus [...] high school, GED, job training, learning the Guamanian language, technical skills, or developing parenting skills)? [...] st Contact Info) Description 11/11/2024 Procedure Pass [facility], Ct Scan - [address] [address] 06/23/2025 10:30 AM EDT Office Visit [facility] Rehabilitation Services [address] [place] [address] Yasmin Cardenas MD [address] [place] [address] [facility] [place] [address] [email or web address], PT [address] [place] [address] 06/30/2025 11:15 AM EDT Office Visit [facility] Services [address] [place] [address] Yasmin Cardenas MD 4 [facility] [place], [place] [id number] [email or web address], PT 10 [place] [address] 07/07/2025 10:30 AM EDT Office Visit [address] [address] Yasmin Cardenas MD 4 [facility] [place], [place] [phone] [email or web address], PT 10 [place] [address] 07/14/2025 11:15 AM EDT Office Visit [address] [address] Yasmin Cardenas MD 4 [facility] [place], [place] [id number] [email or web address], PT 10 [place], [place] [id number] 10/13/2025 12:45 PM EST Appointment [facility], Ct Scan - [address] [address] Gerardo Tan MD [address] [place] [address] 06/15/2026 1:00 PM EDT Office Visit [facility] [address] [address] Tim iGpson MD [address] [place] [address], [address] [place] [address] [email or web address] documented as of this encounter Visit Diagnoses Diagnosis Encounter for laboratory testing for COVID-19 virus- Primary documented in this encounter Additional Health Concerns Assessment Noted Time PHQ-2 Depression Total Score: 2 05/16/20 20 9:36 AM EDT documented as of this encounter Care Teams Associate Product Manager Relationship Specialty Start Date End Date Tim Gipson MD [address] [place] [address], [address] [place] [address] [email or web address] PCP - General Internal Medicine 09/30/18 Jeromy Crowley MD [address] [place] [address] Historical LMR Provider 07/20/17 Yasmin Cardenas MD [address] [place] [address] [facility], [place] [address] [email or web address] Historical LMR Provider 07/20/17 documented as of this encounter Additional Source Comments The information contained in this document represents components of the legal health record. It is not the complete legal health record.[facility]
--- OUTSIDE RECORDS SUMMARY | 2025-06-17 13:18 | XMS_ITS | Encounter Summary ---
Author Organization [facility] Address [address] [employer] [facility] [address] [place] [address] Phone Care Team Providers Care Ball Fringe Machine Operator Name Role Phone Jeromy Crowley MD Unavailable [phone] Yasmin Cardenas MD Unavailable [phone] Tim Gipson MD Primary Care Provider [phone] Encounter Details Date Type Department Care Team (Late st Contact Info) Description 05/12/2021 Procedure Pass [facility], [address] [place] [address] Social History Tobacco Use Types Packs/Day Years [...] high school, GED, job training, learning the Palauan language, technical skills, or developing parenting skills)? [...] st Contact Info) Description 11/11/2024 Procedure Pass [facility], Ct Scan - [address] [address] 06/23/2025 10:30 AM EDT Office Visit [facility] Rehabilitation Services [address] [place] [address] Yasmin Cardenas MD 4 [facility] [place] [address] [email or web address], PT 10 [place] [address] 06/30/2025 11:15 AM EDT Office Visit [facility] Services [address] [place] [address] Yasmin Cardenas MD 4 [facility], [place] [phone] [email or web address] [place] Rivera, PT 10 [place], [place] [phone] 07/07/2025 10:30 AM EDT Office Visit [address] [address] Yasmin Cardenas MD 4 [facility] Orth[facility] Sports [facility] [place], [place] [phone] [email or web address] [place] Rivera, PT 10 [place], [place] [phone] 07/14/2025 11:15 AM EDT Office Visit [address] [address] Yasmin Cardenas MD 4 [facility] [place], [place] [phone] [email or web address], PT 10 [place], [place] [phone] 10/13/2025 12:45 PM EST Appointment [facility], Ct Scan - [address] [address] Gerardo Tan MD [address] [place] [address] 06/15/2026 1:00 PM EDT Office Visit [facility] Medicine [address] [place] [address] [place] [address] Tim Gipson MD [address] [place] [address], [address] [place] [address] documented as of this encounter Visit Diagnoses Not on filedocumented in this encounter Additional Health Concerns Assessment Noted Time PHQ-2 Depression Total Score: 1 05/16/20 21 8:45 AM EDT documented as of this encounter Care Teams Ball Fringe Machine Operator Relationship Specialty Start Date End Date Tim Gipson MD [address] [place] [address], [address] [place] [address] PCP - General Internal Medicine 09/30/18 Jeromy Crowley MD [address] [place] [address] Historical LMR Provider 07/20/17 Yasmin Cardenas MD [address] [place] [address] [facility] Medicine, [place] [address] Historical LMR Provider 07/20/17 documented as of this encounter Additional Source Comments The information contained in this document represents components of the legal health record. It is not the complete legal health record.[facility]
--- OUTSIDE RECORDS SUMMARY | 2025-06-17 13:18 | XMS_ITS | Encounter Summary ---
Author Organization [facility] Address [address] [place] [address] Phone Care Team Providers Care Jailer Chief Name Role Phone Jeromy Crowley MD Unavailable [phone] Yasmin Cardenas MD Unavailable [phone] Tim Gipson MD Primary Care Provider [phone] Reason for Referral * MRI/CAT Scan - Closed Specialty Diagnoses / Procedures Referred By Contac t Referred To Contact Radiology Diagnoses Back pain, unspecified back location, unspecified back pain laterality, unspecified chronicity Lumbar foraminal stenosis Procedures MRI Lumbar Spine CHG MRI, LUMBAR SPINE CHG MRI, LUMBAR SPINE CONTRAST CHG MRI, LUMBAR SPINE COMBO Junior Sánchez MD [address] [place] [address] Dr [facility] [place] [address] Phone: tel: fax: Referral ID Status Reason Start Date Expiration Date Visits Re quested Visits Authorized [id number] Closed 05/03/2021 07/01/2021 1 1 Encounter Details Date Type Department Care Team (Latest Contact Info) Description 05/12/2021 Transcribe Orders Virtual Department 30 [place] [address] Junior Sánchez MD [address] [place] [address] Dr [facility] [place] [address] Back pain, unspecified back location, unspecified back pain laterality, unspecified chronicity (Primary Dx); Lumbar foraminal stenosis Social History Tobacco Use Types Packs/Day Years [...] high school, GED, job training, learning the Italian language, technical skills, or developing parenting skills)? [...] Contact Info) Description 11/11/2024 Procedure Pass [facility], Ct Scan - [facility] [address] [place] [address] 06/23/2025 10:30 AM EDT Office Visit [address] [address] Yasmin Cardenas MD 4 [facility] Sports [facility], [place], [place] [phone] [email or web address], PT 10 [place] [address] 06/30/2025 11:15 AM EDT Office Visit [address] [address] Yasmin Cardenas MD 4 [facility], [place] [address] [email or web address] [place] Rivera, PT [address] [place], [place] [phone] 07/07/2025 10:30 AM EDT Office Visit [address] [address] Yasmin Cardenas MD 4 [facility], [place], [place] [phone] [email or web address] [place] [email or web address], PT [address] [place], [place] [phone] 07/14/2025 11:15 AM EDT Office Visit [address] [address] Yasmin Cardenas MD 4 [facility], [place], [place] [phone] [email or web address], PT [address] [place] [address] 10/13/2025 12:45 PM EST Appointment [facility], Ct Scan - [facility] 30 [place] [address] Gerardo Tan MD [address] [place] [address] [email or web address] 06/15/2026 1:00 PM EDT Office Visit [address] [address] Tim Gipson MD 22 [facility], [address] [place], [place] [id number] [email or web address] documented as of this encounter Results * MRI LUMBAR SPINE (NEURO) WITH AND WITHOUT CONTRAST (05/16/2021 3:58 PM EDT) Anatomical Region Laterality Modality L-spine Magnetic Resonan ce 05/16/2021 4:14 PM EDT Impressions 05/16/2021 4:47 PM EDT 1. Little change in the edema involving the left side of the L3 and L4 vertebral bodies which extends out into the left pedicles and the soft tissues adjacent to the left side of the vertebral body and posterior elements. Although there is moderate enhancement in all these areas, the lack of change from preoperative edema in the lack of involvement of the disc itself makes infection unlikely. No evidence of locally recurrent disc herniation. 2. Stable mild broad disc bulge and tiny midline radial annular tear at L4-5. 3. No new focal disc protrusion or stenosis at any level. POS [id number] Narrative 05/16/2021 4:47 PM EDT TECHNIQUE: 1.5 Norah scanner. Imaging without and with IV contrast. Compare 02/22/2021 FINDINGS: Chronic lumbar dextroscoliosis seems slightly more prominent. Otherwise the vertebral bodies remain well-aligned; no subluxation has developed. Normal conus position and appearance. T11-L2 disc levels remain normal in appearance. L2-3: Chronic mild broad, concentric disc bulge unchanged. No focal protrusion or stenosis. L3-4: Since the last exam the patient has undergone a left hemilaminotomy and reportedly microdiscectomy. There continues to be edema in the left side of the L3 and L4 endplates as well as in the left anterolateral paraspinous soft tissues similar to previous. There is now also edema in the left exit foramen surrounding the nerve root and extending posteriorly out the laminotomy into the left paraspinous muscles. All these areas do demonstrate mild to moderate enhancement post gadolinium but there is no focal fluid collection to suggest abscess or hematoma. There does NOT appear to be increased signal nor enhancement in the disc itself. Chronic broad disc bulge is grossly unchanged though the left exit foramen does seem slightly more patent than it was in January. No right-sided focal disc protrusion or root compression. L4-5: Stable mild broad disc bulge and tiny midline radial annular tear. No focal protrusion. No significant stenosis. L5-S1: Stable minimal broad disc bulge without focal protrusion. Chronic ridgelike endplate spurs but no significant stenosis. Procedure Note Taras Bowles MD - 05/16/2021 TECHNIQUE: 1.5 Norah scanner. Imaging without and with IV contrast. Compare 02/22/2021 FINDINGS: Chronic lumbar dextroscoliosis seems slightly more prominent. Otherwisethe vertebral bodies remain well-aligned; no subluxation has developed. Normal conus position and appearance. T11-L2 disc levels remain normal in appearance. L2-3: Chronic mild broad, concentric disc bulge unchanged. No focalprotrusion or stenosis. L3-4: Since the last exam the patient has undergone a left hemilaminotomyand reportedly microdiscectomy. There continues to be edema in the leftside of the L3 and L4 endplates as well as in the left anterolateralparaspinous soft tissues similar to previous. There is now also edema in the left exit foramen surrounding the nerveroot and extending posteriorly out the laminotomy into the leftparaspinous muscles. All these areas do demonstrate mild to moderateenhancement post gadolinium but there is no focal fluid collection tosuggest abscess or hematoma. There does NOT appear to be increased signal nor enhancement in the discitself. Chronic broad disc bulge is grossly unchanged though the left exit foramendoes seem slightly more patent than it was in January. No right-sided focaldisc protrusion or root compression. L4-5: Stable mild broad disc bulge and tiny midline radial annular tear.No focal protrusion. No significant stenosis. L5-S1: Stable minimal broad disc bulge without focal protrusion. Chronicridgelike endplate spurs but no significant stenosis. IMPRESSION: 1. Little change in the edema involving the left side of the L3 and R5sihesqasu bodies which extends out into the left pedicles and the softtissues adjacent to the left side of the vertebral body and posteriorelements. Although there is moderate enhancement in all these areas, thelack of change from preoperative edema in the lack of involvement of thedisc itself makes infection unlikely. No evidence of locally recurrentdisc herniation. 2. Stable mild broad disc bulge and tiny midline radial annular tear atL4-5. 3. No new focal disc protrusion or stenosis at any level. POS [id number] Junior Sánchez MD IMG MR XSPECIALTY Final Result documented in this encounter Visit Diagnoses Diagnosis Back pain, unspecified back location, unspecified back pain laterality, unspecified chronicity- Primary Lumbar foraminal stenosis Back pain, unspecified back location, unspecified back pain laterality, unspecified chronicity Lumbar foraminal stenosis documented in this encounter Additional Health Concerns Assessment Noted Time PHQ-2 Depression Total Score: 2 05/16/20 20 9:36 AM EDT documented as of this encounter Care Teams Jailer Chief Relationship Specialty Start Date End Date Tim Gipson MD [address] [place] [address], [address] [place], [place] [phone] [email or web address] PCP - General Internal Medicine 09/30/18 Jeromy Crowley MD [address] [place] [address] Historical LMR Provider 07/20/17 Yasmin Cardenas MD [address] [place] [address] [facility], [place] [address] [email or web address] Historical LMR Provider 07/20/17 documented as of this encounter Additional Source Comments The information contained in this document represents components of the legal health record. It is not the complete legal health record.[facility]
--- OUTSIDE RECORDS SUMMARY | 2025-06-17 13:19 | XMS_ITS | Clinical Summary ---
Author Organization [facility] Address [address] [place] [address] Phone Care Team Providers Care Dye Colorist Dyer Name Role Phone Tim Gipson MD Primary Care Provider [phone] Allergies Active Allergy Reactions Criticality Noted Date [...] dalfampridine 10 mg tablet extended release 12 hrIndications:Mu ltiple sclerosis ([facility] V24, [facility] V28),Gait abnormality Take 10 mg by mouth 2 (two) times a day. 60 tablet 3 5 Active capsaicin (ZOSTRIX) 0.025 % cream Apply topically 2 (two) times a day. 60 g 5 05/12/20 26 Active Active Problems Problem Noted Date Diagnosed Date Multiple sclerosis ([facility] V24, [facility] V28) Encounters Date Type Department Care Team Description 05/12/2025 1:30 PM EDT Office Visit [facility] [address] [facility] [address] [place] [address] Joesph Garcai MD Multiple sclerosis ([facility] V24, [facility] V28) (Primary Dx); Gait abnormality; Pain in joint involving ankle and foot, unspecified laterality 03/17/2025 12:41 PM EDT - 03/17/2025 11:59 PM EDT Hospital Encounter [facility] Ultrasound [address] [place] [address] Pre-syncope Discharge Disposition: Home or Self Care from Last 3 Months Immunizations Name Administration [...] Description 09/01/2025 1:00 PM EST Office Visit [facility] [address] [place] [address] Claudia Nelson PA [address] [place] [address] Health Maintenance Due Date Last Done Comments Zoster Vaccines (1 of 2) 2004 Pneumococcal Vaccine: 50+ Years (2 of 2 - PCV) 05/18/2021 05/18/2020 Abdominal Aortic Aneurysm (AAA) Screen 09/02/2022 Colorectal Cancer Screening: Colonoscopy 09/02/2022 Falls Risk Assessment 09/02/2022 Medicare Annual Wellness Visit 09/02/2022 Social Influencers of Health Screening 09/02/2022 DTaP,Tdap,and Td Vaccines (2 - Td or Tdap) 10/16/2023 10/16/2013 Depression Screening 09/30/2024 COVID-19 Vaccine (4 - season) 2025 08/01/2021, 01/11/2021, 12/15/2020 Influenza Vaccine (#1) 2025 Hypertension/CHF/CAD Annual BMP [...] Signed Date: 03/17/2025 16:07 ET Workstation ID: [id number] Transcribed By: Self Edit Transcribed Date: 03/17/2025 [...] Signed Date: 03/17/2025 16:07 ET Workstation ID: [id number] Transcribed By: Self Edit Transcribed Date: 03/17/2025 16:04 ET Joesph Garcia MD CV VASCULAR PROCEDURES F inal Result * Annual BMP Blood Test (04/03/2024) Annual BMP Blood Test abstracted Historical Provider HEALTH MAINTENANCE Final Result * Lipid panel (05/27/2023) Triglycerides 0 mg/dL Comment:no interpretation, a bstracted Cholesterol 0 mg/dL Comment:no interpretation, a bstracted HDL 0 mg/dL Comment:no interpretation, a bstracted LDL Cholesterol 0 mg/dL Comment:no interpretation, a bstracted Blood Venous blood specimen / Unknown Historical Provider LAB BLOOD ORDERABLES Christa l Result * Hepatitis C Screening (04/10/2021) Pathologist [facility] Hepatitis C Screening abstracted Historical Provider HEALTH MAINTENANCE Final Result from Last 3 Months or Most Recently Relevant to Health Maintenance Insurance [employer] - [place] MEDICARE ADVANTAGE Advance Directives Documents on File Type Date Recorded Patient Outer Diameter Grinder Expl anation Health Care Decision (hx) 06/17/2021 [...] (hx) 06/15/2021 AD HANNAH DIRECTIVE Care Teams Dye Colorist Dyer Relationship Specialty Start Date End Date Tim Gipson MD [address] [place] [address] PCP - General Internal Medicine 07/16/22
--- OUTSIDE RECORDS SUMMARY | 2025-06-17 13:19 | XMS_ITS | Encounter Summary ---
Author Organization [facility] Address [address] [facility] [address] [place] [address] Phone Care Team Providers Care Software Technical Lead Name Role Phone Tim Gipson MD Primary Care Provider [phone] Encounter Details Date Type Department Care Team (Late st Contact Info) Description 04/05/2023 Procedure Pass [facility], [address] [place] [address] Social History Tobacco Use Types Packs/Day Years [...] st Contact Info) Description 11/11/2024 Procedure Pass [facility], Ct Scan - [address] [address] 06/23/2025 10:30 AM EDT Office Visit [facility] Services [address] [place] [address] Yasmin Cardenas MD 4 [facility] [place] [address] [email or web address] Rivera, PT 10 [place] [address] 06/30/2025 11:15 AM EDT Office Visit [facility] Services [address] [place] [address] Yasmin Cardenas MD 4 [facility] [place] [address] [email or web address] Rivera, PT 10 [place], [place] [phone] 07/07/2025 10:30 AM EDT Office Visit [address] [address] Yasmin Cardenas MD 4 [facility] Orthopedics [facility] Sports [facility] [place], [place] [id number] [email or web address] Rivera, PT 10 [place], [place] [phone] 07/14/2025 11:15 AM EDT Office Visit [address] [address] Yasmin Cardenas MD 4 [facility] Orthopedics Sports [facility], [place], [place] [id number] [email or web address] Rivera, PT 10 [place] [address] 10/13/2025 12:45 PM EST Appointment [facility], Ct Scan - [address] [address] Gerardo Tan MD [address] [place] [address] 06/15/2026 1:00 PM EDT Office Visit [facility] Medicine [address] [place] [address] Tim Gipson MD [address] [place] [address], [address] [place] [address] [email or web address] documented as of this encounter Visit Diagnoses Not on filedocumented in this encounter Additional Health Concerns Assessment Noted Time PHQ-9 Depression Total Score: 6 01/19/20 23 2:46 PM EDT PHQ-2 Depression Total Score: 2 01/19/20 23 2:46 PM EDT documented as of this encounter Care Teams Software Technical Lead Relationship Specialty Start Date End Date Tim Gipson MD [address] [place] [address], [address] [place] [address] [email or web address] PCP - General Internal Medicine 09/30/18 documented as of this encounter Additional Source Comments The information contained in this document represents components of the legal health record. It is not the complete legal health record.[facility]
--- OUTSIDE RECORDS SUMMARY | 2025-06-17 13:19 | XMS_ITS | Encounter Summary ---
Author Organization [facility] Address [address] [place] [address] [address] [place] [address] Phone Care Team Providers Care Instructional Designer Name Role Phone Tim Gipson MD Primary Care Provider [phone] Encounter Details Date Type Department Care Team (Late st Contact Info) Description 05/28/2023 Transcribe Orders [facility] Specimen Processing 30 [place] [address] Tim Gipson MD 22 [facility], [address] [place] [address] Social History Tobacco Use Types Packs/Day Years [...] st Contact Info) Description 11/11/2024 Procedure Pass [facility], Ct Scan - [address] [address] 06/23/2025 10:30 AM EDT Office Visit [facility] Rehabilitation Services [address] [place] [address] Yasmin Cardenas MD 4 [facility] [place] [address] [email or web address], PT 10 [place] [address] 06/30/2025 11:15 AM EDT Office Visit [facility] Services [address] [place] [address] Yasmin Cardenas MD 4 [facility] [place], [place] 1767288 [email or web address] Alexandria Rivera, PT 10 [place] [address] 07/07/2025 10:30 AM EDT Office Visit [address] [address] Yasmin Cardenas MD 4 [facility] [place], [place] [id number] [email or web address] Alexandria [email or web address], PT 10 [place] [address] 07/14/2025 11:15 AM EDT Office Visit [address] [address] Yasmin Cardenas MD 4 [facility] [place], [place] [id number] [email or web address] Alexandria Rivera, PT 10 [place], [place] [phone] 10/13/2025 12:45 PM EST Appointment [facility], Ct Scan - [address] [address] Gerardo Tan MD [address] [place] [address] 06/15/2026 1:00 PM EDT Office Visit [facility] Medical [address] [address] Tim Gipson MD [address] [place] [address], [address] [place] [address] [email or web address] documented as of this encounter Visit Diagnoses Not on filedocumented in this encounter Additional Health Concerns Assessment Noted Time PHQ-9 Depression Total Score: 9 05/23/20 23 8:58 AM EDT PHQ-2 Depression Total Score: 4 05/23/20 23 8:58 AM EDT documented as of this encounter Care Teams Instructional Designer Relationship Specialty Start Date End Date Tim Gipson MD [address] [place] [address], [address] [place] [address] [email or web address] PCP - General Internal Medicine 09/30/18 documented as of this encounter Additional Source Comments The information contained in this document represents components of the legal health record. It is not the complete legal health record.[facility]
--- OUTSIDE RECORDS SUMMARY | 2025-06-17 13:20 | XMS_ITS | Encounter Summary ---
Author Organization [facility] Address [address] [employer] [address] [place] [address] Phone Care Team Providers Care Professional Soccer Player Name Role Phone Tim Gipson MD Primary Care Provider [phone] Encounter Details Date Type Department Care Team (Late st Contact Info) Description 04/06/2022 Procedure Pass [facility], [address] [address] Social History Tobacco Use Types Packs/Day Years [...] high school, GED, job training, learning the [place] language, technical skills, or developing parenting skills)? [...] AM EST documented as of this encounter Functional Status * Calculated C-SSRS Risk Score (Lifetime/Recent) Answer Date of Assessment Author No Risk Indicated 04/06/2022 10:28 AM EDT Annie Hauser, CHASE * [place] Suicide Severity Rating Scale (Screener/Recent Self-Report) Question Answer Date of Assessment Author 1. Wish to be (Past 1 Month) No 022 10:28 AM EDT Annie Hauser, CHASE 2. Non-Specific Active Suici roz Thoughts (Past 1 Month) No 04/06/2022 10:28 AM EDT Joyce Hauser RN 6. Suicidal Behavior (Lifetime) No 10:28 AM EDT Annie Hauser, CHASE documented as of this encounter Plan of Treatment Upcoming Encounters Date Type Department Care Team (Late st Contact Info) Description 11/11/2024 Procedure Pass [facility], Ct Scan - [facility] 30 [place] [address] 06/23/2025 10:30 AM EDT Office Visit [facility] Rehabilitation Services [address] [place] [address] Yasmin Cardenas MD [address] [place] [address] [facility] [place] [address] [email or web address], PT 10 [place], [place] [id number] 06/30/2025 11:15 AM EDT Office Visit [address] [address] Yasmin Cardenas MD 4 [facility] Orth[facility]ics & Sports [facility], [place], [place] [phone] [email or web address], PT 10 [place], [place] [phone] 07/07/2025 10:30 AM EDT Office Visit [address] [address] Yasmin Cardenas MD 4 [facility], [place], [place] [id number] [email or web address] Alexandria [email or web address], PT 10 [place], [place] [phone] 07/14/2025 11:15 AM EDT Office Visit [address] [phone] Yasmin Cardenas MD 4 [facility] [place], [place] [phone] [email or web address] Alexandria Rivera, PT 10 [place], [place] [phone] 10/13/2025 12:45 PM EST Appointment [facility], Ct Scan - [address] [address] Gerardo Tan MD [address] [place] [address] [email or web address] 06/15/2026 1:00 PM EDT Office Visit [facility] Medicine [address] [place] [address] [place] [address] Tim Gipson MD [address] [place] [address], [address] [place] [address] [email or web address] documented as of this encounter Visit Diagnoses Not on filedocumented in this encounter Additional Health Concerns Assessment Noted Time PHQ-2 Depression Total Score: 1 05/16/20 21 8:45 AM EDT documented as of this encounter Care Teams Professional Soccer Player Relationship Specialty Start Date End Date Tim Gipson MD [address] [place] [address], [address] [place] [address] [email or web address] PCP - General Internal Medicine 09/30/18 documented as of this encounter Additional Source Comments The information contained in this document represents components of the legal health record. It is not the complete legal health record.[facility]
--- OUTSIDE RECORDS SUMMARY | 2025-06-17 13:20 | XMS_ITS | Encounter Summary ---
Author Organization [facility] Address [facility] [address] [address] Phone Care Team Providers Care Precast Worker Name Role Phone Jeromy Crowley MD Unavailable [phone] Yasmin Cardenas MD Unavailable [phone] Tim Gipson MD Primary Care Provider [phone] Encounter Details Date Type Department Care Team (Late st Contact Info) Description 2020 Procedure Pass [place] Admitting Dept - Virtual Department 30 [place] [address] Social History Tobacco Use Types Packs/Day Years Used Date Smoking Tobacco: Former Cigarettes 30 979 2008 Smokeless Tobacco: Current Alcohol Use [...] Score (Lifetime/Recent) Answer Date of Assessment Author Low Risk 2020 12:40 PM Satnam Short CNP * [place] Suicide Severity Rating Scale (Screener/Recent Self-Report) Question Answer Date of Assessment Author 1. Wish to be (Past 1 Month) Yes 2020 12:40 PM Martha Short COMMERCIAL LITIGATION ATTORNEY 2. Non-Specific Active Suicidal Thoughts (Past 1 Month) Yes 2020 12:40 PM EDT Martha Cheatham CNP 3. Active Suicidal Ideation with any Methods (Not Plan) Without Intent to Act (Past 1 Month) No 2020 12:40 PM EDT Martha Cheatham CNP 4. Active Suicidal Ideation with Some Intent to Act, Without Specific Plan (Past 1 Month) No 2020 12:40 PM EDT Martha Cheatham COMMERCIAL LITIGATION ATTORNEY 5. Active Suicidal Ideation with Specific Plan and Intent (Past 1 Month) No 2020 12:40 PM EDT Martha Cheatham CNP 6. Suicidal Behavior (Lifetime) No 2020 12:40 PM EDT Martha Cheatham CNP documented as of this encounter Plan of Treatment Upcoming Encounters Date Type Department Care Team (Late st Contact Info) Description 11/11/2024 Procedure Pass [facility], Ct Scan - [address] [address] 06/23/2025 10:30 AM EDT Office Visit [facility] Services [address] [place] [address] Yasmin Cardenas MD [address] [place] [address] [facility] [place] [address] [email or web address] Alexandria Rivera, PT [address] [place] [address] 06/30/2025 11:15 AM EDT Office Visit [address] [address] Yasmin Cardenas MD [address] [place] [address] [facility] [place] [address] [email or web address], PT 10 [place] [address] [email or web address] 07/07/2025 10:30 AM EDT Office Visit [address] [address] Yasmin Cardenas MD 4 [facility] Sports [facility], [place], [place] [phone] [email or web address], PT 10 [place] [address] [email or web address] 07/14/2025 11:15 AM EDT Office Visit [address] [address] Yasmin Cardenas MD 4 [facility], [place] [address] [email or web address] Alexandria [email or web address], PT 10 [place] [address] 10/13/2025 12:45 PM EST Appointment [facility], Ct Scan - [address] [address] Gerardo Tan MD [address] [place] [address] 06/15/2026 1:00 PM EDT Office Visit [facility] Medical [facility] Medicine [address] [place] [address] [place] [address] Tim Gipson MD [address] [place] [address], [address] [place] [address] documented as of this encounter Visit Diagnoses Not on filedocumented in this encounter Additional Health Concerns Assessment Noted Time PHQ-2 Depression Total Score: 2 05/16/20 20 9:36 AM EDT documented as of this encounter Care Teams Precast Worker Relationship Specialty Start Date End Date Tim Gipson MD [address] [place] [address], [address] [place] [address] [email or web address] PCP - General Internal Medicine 09/30/18 Jeromy Crowley MD [address] [place] [address] Historical LMR Provider 07/20/17 Yasmin Cardenas MD [address] [place] [address] [facility], [place] [address] [email or web address] Historical LMR Provider 07/20/17 documented as of this encounter Additional Source Comments The information contained in this document represents components of the legal health record. It is not the complete legal health record.[facility]
--- OUTSIDE RECORDS SUMMARY | 2025-06-17 13:20 | XMS_ITS | Encounter Summary ---
Author Organization [facility] Address [facility] [address] [address] Phone Care Team Providers Care Forming Operator Name Role Phone Jeromy Crowley MD Unavailable [phone] Yasmin Cardenas MD Unavailable [phone] Tim Gipson MD Primary Care Provider [phone] Encounter Details Date Type Department Care Team (Late st Contact Info) Description 2020 Procedure Pass [facility], Ct Scan - [address] [address] Social History Tobacco Use Types Packs/Day Years [...] 2020 12:40 PM Satnam Short CNP * [place] Suicide Severity Rating Scale (Screener/Recent Self-Report) Question Answer Date of Assessment Author 1. Wish to be (Past 1 Month) Yes 2020 12:40 PM EDT Martha Cheatham CNP 2. Non-Specific Active Suicidal Thoughts (Past 1 Month) Yes 2020 12:40 PM EDT Martha Cheatham CNP 3. Active Suicidal Ideation with any Methods (Not Plan) Without Intent to Act (Past 1 Month) No 2020 12:40 PM EDT Martha Cheatham BUSINESS OPERATIONS ANALYST 4. Active Suicidal Ideation with Some Intent to Act, Without Specific Plan (Past 1 Month) No 2020 12:40 PM EDT Martha Cheatham BUSINESS OPERATIONS ANALYST 5. Active Suicidal Ideation with Specific Plan and Intent (Past 1 Month) No 2020 12:40 PM EDT Martha Cheatham CNP 6. Suicidal Behavior (Lifetime) No 2020 12:40 PM EDT Martha Cheatham CNP documented as of this encounter Plan of Treatment Upcoming Encounters Date Type Department Care Team (Late st Contact Info) Description 11/11/2024 Procedure Pass [facility], Ct Scan - [address] [address] 06/23/2025 10:30 AM EDT Office Visit [facility] Services [address] [place] [address] Yasmin Cardenas MD [address] [place] [address] [facility] [place] [address] [email or web address] Alexandria [email or web address], PT 10 [place] [address] 06/30/2025 11:15 AM EDT Office Visit [address] [address] Yasmin Cardenas MD 4 [facility] [place] [address] [email or web address], PT 10 [place] [address] 07/07/2025 10:30 AM EDT Office Visit [address] [address] Yasmin Cardenas MD 4 [facility], [place], [place] [phone] [email or web address], PT 10 [place], [place] [phone] 07/14/2025 11:15 AM EDT Office Visit [address] [address] Yasmin Cardenas MD 4 [facility], [place], [place] [phone] [email or web address], PT 10 [place], [place] [phone] 10/13/2025 12:45 PM EST Appointment [facility], Ct Scan - [address] [address] Gerardo Tan MD [address] [place] [address] 06/15/2026 1:00 PM EDT Office Visit [facility] [address] [place] [address] [place] [address] Tim Gipson MD [address] [place] [address], [address] [place] [address] documented as of this encounter Visit Diagnoses Not on filedocumented in this encounter Additional Health Concerns Assessment Noted Time PHQ-2 Depression Total Score: 2 05/16/20 20 9:36 AM EDT documented as of this encounter Care Teams Forming Operator Relationship Specialty Start Date End Date Tim Gipson MD [address] [place] [address], [address] [place] [address] [email or web address] PCP - General Internal Medicine 09/30/18 Jeromy Crowley MD [address] [place] [address] Historical LMR Provider 07/20/17 Yasmin Cardenas MD [address] [place] [address] [facility], [place] [address] [email or web address] Historical LMR Provider 07/20/17 documented as of this encounter Additional Source Comments The information contained in this document represents components of the legal health record. It is not the complete legal health record.[facility]
--- OUTSIDE RECORDS SUMMARY | 2025-06-17 13:20 | XMS_ITS | Encounter Summary ---
Author Organization [facility] Address [facility] [employer] [address] [address] Phone Care Team Providers Care Blade Worker Name Role Phone Jeromy Crowley MD Unavailable [phone] Yasmin Cardenas MD Unavailable [phone] Tim Gipson MD Primary Care Provider [phone] Encounter Details Date Type Department Care Team (Late st Contact Info) Description 02/13/2021 Procedure Pass [address] [place] [address] Social History Tobacco Use Types Packs/Day Years Used Date Smoking Tobacco: Former Cigarettes 30 2008 Smokeless Tobacco: Current Alcohol Use Standard [...] st Contact Info) Description 11/11/2024 Procedure Pass [facility], Ct Scan - [facility] 30 [place] [address] 06/23/2025 10:30 AM EDT Office Visit [facility] Rehabilitation Services [address] [place] [address] Yasmin Cardenas MD 4 [facility] [place], [place] [phone] [email or web address], PT 10 [place] [address] 06/30/2025 11:15 AM EDT Office Visit [address] [phone] Yasmin Cardenas MD 4 [facility], [place], [place] [phone] [email or web address] Alexandria [email or web address], PT 10 [place], [place] [phone] 07/07/2025 10:30 AM EDT Office Visit [address] [phone] Yasmin Cardenas MD 4 [facility], [place], [place] [id number] [email or web address] Alexandria Rivera, PT 10 [place], [place] [phone] 07/14/2025 11:15 AM EDT Office Visit [address] [phone] Yasmin Cardenas MD 4 [facility], [place], [place] [phone] [email or web address] Alexandria Rivera, PT 10 [place], [place] [phone] 10/13/2025 12:45 PM EST Appointment [facility], Ct Scan - [facility] [address] [place] [address] Gerardo Tan MD [address] [place] [address] 06/15/2026 1:00 PM EDT Office Visit [facility] Medicine [address] [place] [address] Tim Gipson MD [address] [place] [address], [address] [place] [address] documented as of this encounter Visit Diagnoses Not on filedocumented in this encounter Additional Health Concerns Assessment Noted Time PHQ-2 Depression Total Score: 2 05/16/20 20 9:36 AM EDT documented as of this encounter Care Teams Blade Worker Relationship Specialty Start Date End Date Tim Gipson MD [address] [place] [address], [address] [place] [address] PCP - General Internal Medicine 09/30/18 Jeromy Crowley MD 115 [place] [address] Historical LMR Provider 07/20/17 Yasmin Cardenas MD [address] [place] [address] [facility] [place] [address] Historical LMR Provider 07/20/17 documented as of this encounter Additional Source Comments The information contained in this document represents components of the legal health record. It is not the complete legal health record.[facility]
--- OUTSIDE RECORDS SUMMARY | 2025-06-17 13:21 | XMS_ITS | Encounter Summary ---
Author Organization [facility] Address [address] [facility] [address] [place] [address] Phone Care Team Providers Care Microsoft Solutions Architect Name Role Phone Tim Gipson MD Primary Care Provider Encounter Details Date Type Department Care Team (Late st Contact Info) Description 03/23/2022 Transcribe Orders Virtual Department 30 [place] [address] System, Provider Not In, [facility] [address] [address] Social History Tobacco Use Types Packs/Day Years Used Date Smoking Tobacco: Former Cigarettes [address] Smokeless Tobacco: Current Alcohol Use Standard Drinks/Week [...] high school, GED, job training, learning the Vincentian language, technical skills, or developing parenting skills)? [...] st Contact Info) Description 11/11/2024 Procedure Pass [facility], Ct Scan - [address] [address] 06/23/2025 10:30 AM EDT Office Visit [facility] Services [address] [place] [address] Yasmin Cardenas MD 4 [facility] [place] [address] [email or web address], PT 10 [place] [address] 06/30/2025 11:15 AM EDT Office Visit [address] [address] Yasmin Cardenas MD 4 [facility] [place] [address] [email or web address], PT 10 [place] [address] [email or web address] 07/07/2025 10:30 AM EDT Office Visit [address] [address] Yasmin Cardenas MD 4 [facility] Sports [facility] Inc[facility] [place], [place] [id number] [email or web address] Rivera, PT 10 [place] [address] [email or web address] 07/14/2025 11:15 AM EDT Office Visit [address] [address] Yasmin Cardenas MD 4 [facility] Sports [facility], [place], [place] [phone] [email or web address] Rivera, PT 10 [place] [address] [email or web address] 10/13/2025 12:45 PM EST Appointment [facility], Ct Scan - [address] [address] Gerardo Tan MD [address] [place] [address] 06/15/2026 1:00 PM EDT Office Visit [facility] Medicine [address] [place] [address] [place] [address] Tim Gipson MD [address] [place] [address], [address] [place] [address] documented as of this encounter Visit Diagnoses Not on filedocumented in this encounter Additional Health Concerns Assessment Noted Time PHQ-2 Depression Total Score: 1 05/16/20 21 8:45 AM EDT documented as of this encounter Care Teams Microsoft Solutions Architect Relationship Specialty Start Date End Date Tim Gipson MD [address] [place] [address], [address] [place] [id number] [email or web address] PCP - General Internal Medicine 09/30/18 documented as of this encounter Additional Source Comments The information contained in this document represents components of the legal health record. It is not the complete legal health record.[facility]
--- OUTSIDE RECORDS SUMMARY | 2025-06-17 13:21 | XMS_ITS | Encounter Summary ---
Author Organization [facility] Address [address] [place] [address] Care Team Providers Care Electronic Imaging System Operator Name Role Phone Tim Gipson Primary Care Provider [phone] Encounter Details Date Type Department Care Team (Late st Contact Info) Description 03/21/2022 [place] & [place] Message [facility] [address] [address] Mychart, Generic Provider [address] [place] [address] new medication Social History Tobacco Use Types Packs/Day Years [...] on file documented as of this encounter Visit Diagnoses Not on filedocumented in this encounter Care Teams Electronic Imaging System Operator Relationship Specialty Start Date End Date Tim Gipson 22 [facility] 201 [place] [address] PCP - General Family Medicine 10/14/18 documented as of this encounter
--- OUTSIDE RECORDS SUMMARY | 2025-06-17 13:21 | XMS_ITS | Encounter Summary ---
Author Organization [facility] Address [address] [place] [address] Care Team Providers Care Coordinator Of Online Programs Name Role Phone HeshamTim tao Primary Care Provider [phone] Encounter Details Date Type Department Care Team (Late st Contact Info) Description 03/09/[address] [facility] [address] [place] [address] Shlomo Ferguson MD PhD [address] [place] [address] Social History Tobacco Use Types Packs/Day Years [...] of this encounter Procedures * Due to [place] [employer] law, this organization might not be sharing negative HIV tests. Procedure Name Priority Date/Time Associated Diagnosis Comments AMB EXTERNAL MRI BRAIN, OUTS LAW RESULT Routine 02/23/2022 AMB EXTERNAL MRI C-SPINE, OU TSIDE RESULT Routine 02/23/2022 documented in this encounter Results * Due to [place] [employer] law, this organization might not be sharing negative HIV tests. * MRI C-Spine, Outside Result (02/23/2022) Anatomical Region Laterality Modality Other Shlomo Ferguson MD PhD AMB EXTERNAL RESULT PRO CEDURES Final Result * MRI Brain, Outside Result (02/23/2022) Anatomical Region Laterality Modality Other Shlomo Ferguson MD PhD AMB EXTERNAL RESULT PRO CEDURES Final Result documented in this encounter Visit Diagnoses Not on filedocumented in this encounter Care Teams Coordinator Of Online Programs Relationship Specialty Start Date End Date Tim Gipson [address] [address] PCP - General Family Medicine 10/14/18 documented as of this encounter
--- OUTSIDE RECORDS SUMMARY | 2025-06-17 13:21 | XMS_ITS | Encounter Summary ---
Author Organization [facility] Address [address] [place] [address] Care Team Providers Care Rug Renovator Name Role Phone Tim Gipson Primary Care Provider [phone] Encounter Details Date Type Department Care Team (Late st Contact Info) Description 06/26/2021 Orders Only [facility] [address] [place] [address] Lucrecia Thomas MD 55 [place] [address] Social History Tobacco Use Types Packs/Day Years [...] on filedocumented in this encounter Care Teams Rug Renovator Relationship Specialty Start Date End Date Tim Gipson [address] [address] PCP - General Family Medicine 10/14/18 documented as of this encounter
--- OUTSIDE RECORDS SUMMARY | 2025-06-17 13:21 | XMS_ITS | Encounter Summary ---
Author Organization [facility] Address [address] [employer] [facility] [address] [place] [address] Phone Care Team Providers Care Fruit Sprayer Name Role Phone Tim Gipson MD Primary Care Provider [phone] Encounter Details Date Type Department Care Team (Late st Contact Info) Description 03/20/2022 Transcribe Orders Virtual Department [address] [place] [address] System, Provider Not In, [facility] [address] [address] Social History Tobacco Use Types Packs/Day Years [...] Pass [facility], Ct Scan - [address] [address] 06/23/2025 10:30 AM EDT Office Visit [facility] [address] [place] [address] Yasmin Cardenas MD 4 [facility] [place] [address] [email or web address], PT 10 [place] [address] 06/30/2025 11:15 AM EDT Office Visit [address] [address] Yasmin Cardenas MD 4 [facility] [place] [address] [email or web address], PT 10 [place] [address] [email or web address] 07/07/2025 10:30 AM EDT Office Visit [address] [address] Yasmin Cardenas MD 4 [facility] Orthopedics & Sports [facility] [place], [place] [phone] [email or web address], PT 10 [place] [address] [email or web address] 07/14/2025 11:15 AM EDT Office Visit [address] [address] Yasmin Cardenas MD 4 [facility] Orth[facility] Sports [facility], [place], [place] [phone] [email or web address], PT 10 [place] [address] [email or web address] 10/13/2025 12:45 PM EST Appointment [facility], Ct Scan - [address] [address] Gerardo Tan MD [address] [place] [address] 06/15/2026 1:00 PM EDT Office Visit [facility] [address] [place] [address] [place] [address] Tim Gipson MD [address] [place] [address], [address] [place] [address] documented as of this encounter Visit Diagnoses Not on filedocumented in this encounter Additional Health Concerns Assessment Noted Time PHQ-2 Depression Total Score: 1 05/16/20 21 8:45 AM EDT documented as of this encounter Care Teams Fruit Sprayer Relationship Specialty Start Date End Date Tim Gipson MD [address] [place] [address], [address] [id number] [email or web address] PCP - General Internal Medicine 09/30/18 documented as of this encounter Additional Source Comments The information contained in this document represents components of the legal health record. It is not the complete legal health record.[facility]
--- OUTSIDE RECORDS SUMMARY | 2025-06-17 13:21 | XMS_ITS | Encounter Summary ---
Author Organization [facility] Address [address] [place] [address] Care Team Providers Care Editor Dictionary Name Role Phone Tim Gipson Primary Care Provider [phone] Reason for Visit * Reason Onset Date Comments PAC General Info_Emily 10/05/2022 Encounter Details Date Type Department Care Team (Late st Contact Info) Description 10/05/2022 Telephone [facility] Patient Access [facility] [address] [place] [address] Telephone Intake, Staff PAC General Info_Emily Social History Tobacco Use Types Packs/Day Years [...] PM EST documented as of this encounter Miscellaneous Notes * Telephone Encounter - Lakeshia Saldivar - 10/08/2022 12:41 PM EST Appt converted * Telephone Encounter - Vanessa Joiner - 10/08/2022 11:25 AM EST Patient of Dr. Diaz called to determine if his appointment could be scheduled as a telehealth appointment. Patient would like to know as it is a distance and if he is not being evaluated and is coming in for a discussion would prefer it be scheduled as telehealth. Please contact patient or patient's spouse to discuss. Can leave message on VM. Thank you! * Telephone Encounter - Candi Richy - 10/05/2022 4:23 PM EST Received phone call from patient's asking whether patient's upcoming appointment with Dr. Diaz could be a virtual visit. Please advise. documented in this encounter Plan of Treatment Not on file documented as of this encounter Visit Diagnoses Not on filedocumented in this encounter Care Teams Editor Dictionary Relationship Specialty Start Date End Date Tim Gipson [address] [address] PCP - General Family Medicine 10/14/18 documented as of this encounter
--- OUTSIDE RECORDS SUMMARY | 2025-06-17 13:21 | XMS_ITS | Encounter Summary ---
Author Organization [facility] Address 399 [facility] [address] [place] [address] Phone Care Team Providers Care Electric Lineman Name Role Phone Tim Gipson MD Primary Care Provider [phone] Encounter Details Date Type Department Care Team ([facility] st Contact Info) Description 01/24/2022 Procedure Pass [facility], [place] 2 [address] [facility], 2nd [place] [address] Social History Tobacco Use Types Packs/Day Years [...] high school, GED, job training, learning the Malay language, technical skills, or developing parenting skills)? [...] st Contact Info) Description 11/11/2024 Procedure Pass [facility], Ct Scan - [address] [address] 06/23/2025 10:30 AM EDT Office Visit [facility] Services [address] [place] [address] Yasmin Cardenas MD 4 [facility] Orthopedics & [place], [place] [address] [email or web address] Alexandria Rivera, PT 10 [place] [address] 06/30/2025 11:15 AM EDT Office Visit [facility] [address] [place] [address] Yasmin Cardenas MD 4 [facility] [place] [address] [email or web address] Alexandria Rivera, PT 10 [place] [address] 07/07/2025 10:30 AM EDT Office Visit [address] [address] Yasmin Cardenas MD 4 [facility] Orthopedics & Sports [facility], [place], [place] [phone] [email or web address], PT 10 [place] [address] 07/14/2025 11:15 AM EDT Office Visit [address] [address] Yasmin Cardenas MD 4 [facility] Orthopedics Sports [facility], [place], [place] [phone] [email or web address], PT 10 [place] [address] 10/13/2025 12:45 PM EST Appointment [facility], Ct Scan - [address] [address] Gerardo Tan MD [address] [place] [address] 06/15/2026 1:00 PM EDT Office Visit [facility] [address] [place] [address] Tim Gipson MD 22 [facility], [address] [place], [place] [phone] documented as of this encounter Visit Diagnoses Not on filedocumented in this encounter Additional Health Concerns Assessment Noted Time PHQ-2 Depression Total Score: 1 05/16/20 21 8:45 AM EDT documented as of this encounter Care Teams Electric Lineman Relationship Specialty Start Date End Date Tim Gipson MD 22 [facility], [address] [place] [address] [email or web address] PCP - General Internal Medicine 09/30/18 documented as of this encounter Additional Source Comments The information contained in this document represents components of the legal health record. It is not the complete legal health record.[facility]
--- OUTSIDE RECORDS SUMMARY | 2025-06-17 13:21 | XMS_ITS | Encounter Summary ---
Author Organization [facility] Address [address] [employer] [address] [place] [address] Phone Care Team Providers Care Machine Folder Name Role Phone Tim Gipson MD Primary Care Provider [phone] Encounter Details Date Type Department Care Team (Late st Contact Info) Description 04/06/2022 Procedure Pass [facility], [address] [address] Social History Tobacco Use Types Packs/Day Years [...] high school, GED, job training, learning the Malawian language, technical skills, or developing parenting skills)? [...] 10:28 AM EDT Annie Hauser, CHASE * [place] Suicide Severity Rating Scale (Screener/Recent Self-Report) Question [...] Procedure Pass [facility], Ct Scan - [facility] 30 [place] [address] 06/23/2025 10:30 AM EDT Office Visit [facility] [address] [place] [address] Yasmin Cardenas MD [address] [place] [address] [facility] [place] [address] [email or web address], PT 10 [place], [place] [phone] 06/30/2025 11:15 AM EDT Office Visit [address] [address] Yasmin Cardenas MD 4 [facility], [place], [place] [phone] [email or web address] Alexandria [email or web address], PT 10 [place], [place] [phone] 07/07/2025 10:30 AM EDT Office Visit [address] [address] Yasmin Cardenas MD 4 [facility], [place], [place] [phone] [email or web address] Alexandria [email or web address], PT 10 [place], [place] [phone] 07/14/2025 11:15 AM EDT Office Visit [address] [phone] Yasmin Cardenas MD 4 [facility] [place], [place] [phone] [email or web address], PT 10 [place], [place] [phone] 10/13/2025 12:45 PM EST Appointment [facility], Ct Scan - [address] [address] Gerardo Tan MD [address] [place] [address] [email or web address] 06/15/2026 1:00 PM EDT Office Visit [facility] [address] [place] [address] [place] [address] Tim Gipson MD [address] [place] [address], [address] [place] [address] [email or web address] documented as of this encounter Visit Diagnoses Not on filedocumented in this encounter Additional Health Concerns Assessment Noted Time PHQ-2 Depression Total Score: 1 05/16/20 21 8:45 AM EDT documented as of this encounter Care Teams Machine Folder Relationship Specialty Start Date End Date Tim Gipson MD [address] [place] [address], [address] [place] [address] [email or web address] PCP - General Internal Medicine 09/30/18 documented as of this encounter Additional Source Comments The information contained in this document represents components of the legal health record. It is not the complete legal health record.[facility]
--- OUTSIDE RECORDS SUMMARY | 2025-06-17 13:21 | XMS_ITS | Encounter Summary ---
Author Organization [facility] Address [address] [place] [address] Care Team Providers Care Roof Panel Hanger Name Role Phone Tim Gipson Primary Care Provider [phone] Encounter Details Date Type Department Care Team (Late st Contact Info) Description 05/31/2022 Orders Only [facility] [address] [place] [address] Provider, MD [place] [address] [place] [address] Social History Tobacco Use Types Packs/Day [...] of this encounter Procedures * Due to [place] [employer] law, this organization might not be sharing negative HIV tests. Procedure Name Priority Date/Time Associated Diagnosis Comments AMB EXTERNAL MRI BRAIN, OUTS LAW RESULT Routine 05/31/2022 AMB EXTERNAL MRI C-SPINE, OU TSIDE RESULT Routine 05/31/2022 AMB EXTERNAL MRI L-SPINE, OU TSIDE RESULT Routine 05/31/2022 NEURODIAGNOSTIC - SCANNED Routine 05/31/2022 documented in this encounter Results * Due to [place] [employer]able [employer] law, this organization might not be sharing [...] on filedocumented in this encounter Care Teams Roof Panel Hanger Relationship Specialty Start Date End Date Tim Gipson [address] [address] PCP - General Family Medicine 10/14/18 documented as of this encounter
--- OUTSIDE RECORDS SUMMARY | 2025-06-17 13:21 | XMS_ITS | Encounter Summary ---
Author Organization [facility] Address [address] [employer] [facility] [address] [place] [address] Phone Care Team Providers Care Litigation Secretary Name Role Phone Tim Gipson MD Primary Care Provider [phone] Encounter Details Date Type Department Care Team (Late st Contact Info) Description 09/21/2024 Procedure Pass [facility], Ct Scan - [address] [address] Social History Tobacco Use Types Packs/Day Years [...] ecorded Denied Basic Needs Not on file 05/28/2024 In the past 12 months have y ou been in a relationship with a person who hurts, threatens, or tries to control you? No 05/28/2024 Worried food would run out Not on file 05/28 In the past 12 months have y ou been in a relationship with a person who hurts, threatens, or tries to control you? No 05/28/2024 Sex and Gender Information Value Date Recorded Sex Assigned at Male 11/16/2017 11:38 AM EST Legal Sex Male 7:15 PM EST Gender Identity Male 11/16/2017 11:38 AM EST Sexual Orientation Straight 11/16/2017 11 :38 AM EST documented as of this encounter Plan of Treatment Upcoming Encounters Date Type Department Care Team (Late st Contact Info) Description 11/11/2024 Procedure Pass [facility], Ct Scan - [address] [address] 06/23/2025 10:30 AM EDT Office Visit [facility] Services [address] [place] [address] Yasmin Cardenas MD [address] [place] [address] [facility] [place] [place] [address] [email or web address], PT 10 [place] [address] 06/30/2025 11:15 AM EDT Office Visit [address] [address] Yasmin Cardenas MD 4 [facility] Orthopedics & Sports [facility], [place], [place] [phone] [email or web address], PT 10 [place] [address] 07/07/2025 10:30 AM EDT Office Visit [address] [address] Yasmin Cardenas MD 4 [facility] Orthopedics Sports [facility], [place], [place] [phone] [email or web address] Alexandria [email or web address], PT 10 [place] [address] 07/14/2025 11:15 AM EDT Office Visit [address] [address] Yasmin Cardenas MD 4 [facility] Orthopedics & Sports [facility], [place], [place] [phone] [email or web address] Alexandria Rivera, PT 10 [place], [place] [phone] 10/13/2025 12:45 PM EST Appointment [facility], Ct Scan - [address] [address] Gerardo Tan MD [address] [place] [address] [email or web address] 06/15/2026 1:00 PM EDT Office Visit [facility] [address] [place] [address] Tim Gipson MD [address] [place] [address], [address] [place] [address] [email or web address] documented as of this encounter Visit Diagnoses Not on filedocumented in this encounter Additional Health Concerns Assessment Noted Time PHQ-9 Depression Total Score: 18 024 10:50 AM EDT PHQ-2 Depression Total Score: 3 05/28/20 24 10:50 AM EDT documented as of this encounter Care Teams Litigation Secretary Relationship Specialty Start Date End Date Tim Gipson MD [address] [place] [address], [address] [place] [address] [email or web address] PCP - General Internal Medicine 09/30/18 documented as of this encounter Additional Source Comments The information contained in this document represents components of the legal health record. It is not the complete legal health record.[facility]
--- OUTSIDE RECORDS SUMMARY | 2025-06-17 13:21 | XMS_ITS | Encounter Summary ---
Author Organization [facility] Address [address] [place] [address] Phone Care Team Providers Care Lunchroom Mother Name Role Phone Jeromy Crowley MD Unavailable Yasmin Cardenas MD Unavailable [phone] Tim Gipson MD Primary Care Provider [phone] Encounter Details Date Type Department Care Team (Late st Contact Info) Description 12/20/2020 Procedure Pass [facility] Cardiovascular And Interventional Radiology [address] [place] [address] Social History Tobacco Use Types Packs/Day Years [...] Encounters Date Type Department Care Team (Late Contact Info) Description 11/11/2024 Procedure Pass [facility], Ct Scan - [facility] 30 [place] [address] 06/23/2025 10:30 AM EDT Office Visit [facility] Rehabilitation Services [address] [place] [address] Yasmin Cardenas MD [address] [place] [address] [facility] [place], [place] [phone] [email or web address] Alexandria Rivera, PT 10 [place] [address] 06/30/2025 11:15 AM EDT Office Visit [address] [phone] Yasmin Cardenas MD 4 [facility], [place], [place] [phone] [email or web address] Alexandria [email or web address], PT 10 [place] [address] 07/07/2025 10:30 AM EDT Office Visit [address] [phone] Yasmin Cardenas MD 4 [facility] Sports [facility], [place], [place] [phone] [email or web address] Alexandria Rivera, PT 10 [place], [place] [phone] 07/14/2025 11:15 AM EDT Office Visit [address] [phone] Yasmin Cardenas MD 4 [facility], [place], [place] 6229388 [email or web address], PT 10 [place], [place] [phone] 10/13/2025 12:45 PM EST Appointment [facility], Ct Scan - [facility] 30 [place] [address] Gerardo Tan MD [address] [place] [address] 06/15/2026 1:00 PM EDT Office Visit [facility] [address] [place] [address] Tim Gipson MD 22 [facility], [address] [place] [address] documented as of this encounter Visit Diagnoses Not on filedocumented in this encounter Additional Health Concerns Assessment Noted Time PHQ-2 Depression Total Score: 2 05/16/20 20 9:36 AM EDT documented as of this encounter Care Teams Lunchroom Mother Relationship Specialty Start Date End Date Tim Gipson MD [address] [place] [address], [address] [place] [address] PCP - General Internal Medicine 09/30/18 Jeromy Crowley MD [address] [place] [address] Historical LMR Provider 07/20/17 Yasmin Cardenas MD [address] [place] [address] [facility] [place] [address] Historical LMR Provider 07/20/17 documented as of this encounter Additional Source Comments The information contained in this document represents components of the legal health record. It is not the complete legal health record.[facility]
--- OUTSIDE RECORDS SUMMARY | 2025-06-17 13:21 | XMS_ITS | Encounter Summary ---
Author Organization [facility] Address [address] [place] [address] Care Team Providers Care Cotton Agent Name Role Phone Tim Gipson Primary Care Provider Encounter Details Date Type Department Care Team (Late st Contact Info) Description 12/11/2021 Alitalia Message [facility]rology Clinic [address] [place], [place] [phone] Lucrecia Thomas MD 55 [place] [address] Copy of message sent to Dr. Ferguson Social History Tobacco Use Types Packs/Day Years [...] on filedocumented in this encounter Care Teams Cotton Agent Relationship Specialty Start Date End Date Tim Gipson [address] [address] PCP - General Family Medicine 10/14/18 documented as of this encounter
--- OUTSIDE RECORDS SUMMARY | 2025-06-17 13:21 | XMS_ITS | Encounter Summary ---
Author Organization [facility] Address [address] [place] [address] Phone Care Team Providers Care Information Assoc Name Role Phone Jeromy Crowley MD Unavailable Yasmin Cardenas MD Unavailable [phone] Tim Gipson MD Primary Care Provider [phone] Encounter Details Date Type Department Care Team (Late st Contact Info) Description 12/20/2020 Procedure Pass [facility] Cardiovascular And Interventional Radiology [address] [place] [address] Social History Tobacco Use Types Packs/Day Years [...] (Late Contact Info) Description 11/11/2024 Procedure Pass [facility], Ct Scan - [facility] 30 [place] [address] 06/23/2025 10:30 AM EDT Office Visit [facility] Services [address] [place] [address] Yasmin Cardenas MD [address] [place] [address] Orthopedics Sports [facility] [place], [place] [phone] [email or web address], PT 10 [place] [address] 06/30/2025 11:15 AM EDT Office Visit [address] [phone] Yasmin Cardenas MD 4 [facility], [place], [place] [phone] [email or web address] Alexandria [email or web address], PT 10 [place] [address] 07/07/2025 10:30 AM EDT Office Visit [address] [phone] Yasmin Cardenas MD 4 [facility] Sports [facility], [place], [place] [phone] [email or web address] Alexandria Rivera, PT 10 [place], [place] [phone] 07/14/2025 11:15 AM EDT Office Visit [address] [phone] Yasmin Cardenas MD 4 [facility], [place], [place] [phone] [email or web address], PT 10 [place], [place] [phone] 10/13/2025 12:45 PM EST Appointment [facility], Ct Scan - [facility] [address] [place] [address] Gerardo Tan MD [address] [place] [address] 06/15/2026 1:00 PM EDT Office Visit [facility] Medicine [address] [place] [address] Tim Gipson MD 22 [facility], [address] [place] [address] documented as of this encounter Visit Diagnoses Not on filedocumented in this encounter Additional Health Concerns Assessment Noted Time PHQ-2 Depression Total Score: 2 05/16/20 20 9:36 AM EDT documented as of this encounter Care Teams Information Assoc Relationship Specialty Start Date End Date Tim Gipson MD [address] [place] [address], [address] [place] [address] PCP - General Internal Medicine 09/30/18 Jeromy Crowley MD [address] [place] [address] Historical LMR Provider 07/20/17 Yasmin Cardenas MD [address] [place] [address] [facility] [place] [address] Historical LMR Provider 07/20/17 documented as of this encounter Additional Source Comments The information contained in this document represents components of the legal health record. It is not the complete legal health record.[facility]
--- OUTSIDE RECORDS SUMMARY | 2025-06-17 13:21 | XMS_ITS | Clinical Summary ---
Author Organization [facility] Address [address] [place] [address] Care Team Providers Care Automotive Internet Sales Consultant Name Role Phone Tim Gipson MD Primary Care Provider [phone] Allergies Active Allergy Reactions Criticality Noted Date [...] 0 04/01/2024 Active ergocalciferol (VITAMIN D2) capsule 34292 units Take 1 capsule (50,000 Units total) [...] Tdap) 10/16/2023 10/16/2013 COVID-19 Vaccine (4 - 2024-2 6 season) [...] age to complete this topic Care Teams Automotive Internet Sales Consultant Relationship Specialty Start Date End Date Tim Gipson MD [address] [place] [address] PCP - General Welder Operator 05/29/21
--- OUTSIDE RECORDS SUMMARY | 2025-06-17 13:21 | XMS_ITS | Encounter Summary ---
Author Organization [facility] Address [address] [place] [address] Care Team Providers Care Hemodialysis Technician Name Role Phone Tim Gipson Primary Care Provider [phone] Encounter Details Date Type Department Care Team (Late st Contact Info) Description 10/10/2021 myChart Message [facility] [address] [place] [address] Lucrecia Thomas MD [address] [place] [address] Our daughter s health concern Social History Tobacco Use Types Packs/Day Years [...] on filedocumented in this encounter Care Teams Hemodialysis Technician Relationship Specialty Start Date End Date Tim Gipson [address] [address] PCP - General Family Medicine 10/14/18 documented as of this encounter
--- OUTSIDE RECORDS SUMMARY | 2025-06-17 13:21 | XMS_ITS | Encounter Summary ---
Author Organization [facility] Address [address] [place] [address] Phone Care Team Providers Care Die Maintenance Technician Name Role Phone Tim Gipson MD Primary Care Provider [phone] Encounter Details Date Type Department Care Team (Late st Contact Info) Description 12/29/2021 Procedure Pass [facility], [address] [address] Social History Tobacco Use Types Packs/Day Years [...] high school, GED, job training, learning the Algerian language, technical skills, or developing parenting skills)? [...] st Contact Info) Description 11/11/2024 Procedure Pass [facility], Ct Scan - [address] [address] 06/23/2025 10:30 AM EDT Office Visit [facility] Rehabilitation Services [address] [place] [address] Yasmin Cardenas MD 4 [facility], [place] [address] [email or web address], PT 10 [place] [address] 06/30/2025 11:15 AM EDT Office Visit [facility] [address] [place] [address] Yasmin Cardenas MD 4 [facility], [place] [address] [email or web address], PT 10 [place] [address] [email or web address] 07/07/2025 10:30 AM EDT Office Visit [address] [address] Yasmin Cardenas MD 4 [facility], [place], [place] [phone] [email or web address] Alexandria [email or web address], PT 10 [place] [address] 07/14/2025 11:15 AM EDT Office Visit [address] [address] Yasmin Cardenas MD 4 [facility], [place], [place] [id number] [email or web address] Alexandria Rivera, PT 10 [place] [address] 10/13/2025 12:45 PM EST Appointment [facility], Ct Scan - [address] [address] Gerardo Tan MD [address] [place] [address] 06/15/2026 1:00 PM EDT Office Visit [facility] [address] [place] [address] Tim Gipson MD 22 [facility], [address] [place], [place] [phone] documented as of this encounter Visit Diagnoses Not on filedocumented in this encounter Additional Health Concerns Assessment Noted Time PHQ-2 Depression Total Score: 1 05/16/20 21 8:45 AM EDT documented as of this encounter Care Teams Die Maintenance Technician Relationship Specialty Start Date End Date Tim Gipson MD 22 [facility], [address] [place] [address] [email or web address] PCP - General Internal Medicine 09/30/18 documented as of this encounter Additional Source Comments The information contained in this document represents components of the legal health record. It is not the complete legal health record.[facility]
--- OUTSIDE RECORDS SUMMARY | 2025-06-17 13:21 | XMS_ITS | Encounter Summary ---
Author Organization [facility] Address [address] [place] [address] Phone Care Team Providers Care Sculpture Conservator Name Role Phone Tim Gipson MD Primary Care Provider [phone] Encounter Details Date Type Department Care Team (Late st Contact Info) Description 12/29/2021 Procedure Pass [facility], [address] [address] Social History Tobacco Use Types Packs/Day Years [...] high school, GED, job training, learning the Afghan language, technical skills, or developing parenting skills)? [...] st Contact Info) Description 11/11/2024 Procedure Pass [facility], Ct Scan - [address] [address] 06/23/2025 10:30 AM EDT Office Visit [facility] Rehabilitation Services [address] [place] [address] Yasmin Cardenas MD 4 [facility], [place] [address] [email or web address], PT 10 [place] [address] 06/30/2025 11:15 AM EDT Office Visit [facility] [address] [place] [address] Yasmin Cardenas MD 4 [facility], [place] [address] [email or web address] Alexandria [email or web address], PT 10 [place] [address] 07/07/2025 10:30 AM EDT Office Visit [address] [address] Yasmin Cardenas MD 4 [facility], [place], [place] [phone] [email or web address], PT 10 [place] [address] 07/14/2025 11:15 AM EDT Office Visit [address] [address] Yasmin Cardenas MD 4 [facility], [place], [place] [phone] [email or web address] Alexandria Rivera, PT 10 [place] [address] 10/13/2025 12:45 PM EST Appointment [facility], Ct Scan - [address] [address] Gerardo Tan MD [address] [place] [address] 06/15/2026 1:00 PM EDT Office Visit [facility] [address] [place] [address] Tim Gipson MD 22 [facility], [address] [place], [place] [phone] documented as of this encounter Visit Diagnoses Not on filedocumented in this encounter Additional Health Concerns Assessment Noted Time PHQ-2 Depression Total Score: 1 05/16/20 21 8:45 AM EDT documented as of this encounter Care Teams Sculpture Conservator Relationship Specialty Start Date End Date Tim Gipson MD 22 [facility], [address] [place] [address] [email or web address] PCP - General Internal Medicine 09/30/18 documented as of this encounter Additional Source Comments The information contained in this document represents components of the legal health record. It is not the complete legal health record.[facility]
== END 2025-06-17 11:04 | disposition home or self-care (01) ==
LOC: HO.MRI 11:03
PROVIDERS: Visit Provider Internal Medicine
DX: R29.898 Other symptoms and signs involving the musculoskeletal system (principal); M96.1 Postlaminectomy syndrome, not elsewhere classified
CPT/HCPCS: 72158; A9585

== ENCOUNTER 2025-06-21 10:32 | Outpatient (AMB) | payer MEDICARE, SELFPAY ==
--- OUTSIDE RECORDS SUMMARY | 2025-06-16 11:15 | XMS_ITS | Encounter Summary ---
Author Organization [facility] Address [address] [place] [address] Phone Care Team Providers Care Credit Reporter Name Role Phone Tim Gipson MD Primary Care Provider [phone] Reason for Visit * Physical Therapy (Elective) - Authorized Specialty Diagnoses / Procedures Referred By Delaney james Referred To Contact Physical Therapy Diagnoses Right ankle pain Yasmin Cardenas MD 4 [facility] [place] [address] Phone: tel: fax: [email or web address] [address] [address] Phone: tel: fax: Referral ID Status Reason Start Date Expiration Date V isits Requested Visits Authorized [id number] Authorized 05/11/2025 05/11/2026 12 12 Encounter Details Date Type Department Care Team (Latest Contact Info) Description 06/16/2025 11:15 AM EDT Office Visit [address] [address] Yasmin Cardenas MD 4 [facility], [place] [address] [email or web address] Alexandria Gracia, PT [address] [place] [address] [email or web address] Bilateral ankle joint pain (Primary Dx); Gait instability Social History Tobacco Use Types Packs/Day Years Used Date Smoking Tobacco: Former Cigarettes 2008 Smokeless Tobacco: Current Alcohol Use Standard Drinks/Week Comments No 0 (1 standard drink = 0.6 oz pur e alcohol) Child or Family Care Answer Date Record ed Do you have problems with on e of the following making it difficult for you to work, study, or receive health care? No 03/17/2021 Education Answer Date Recorded Are you interested in more education? Not on nathan e 03/18/2023 Are you concerned about learning? Not on file 03/18/2023 No 03/18/2023 No 03/18/2023 Food Answer Date Recorded Within the past [...] your housing situation today? I have mariaelena sing 03/17/2021 How many times have you move [...] basis, and looking for work? No 03/17/2021 Digital Access Answer Date Recorded No 02/20/2023 No 02/20/2023 Reliable internet access at home? Not on file 02/20/2023 Device with a working camera? Not on file Intimate Partner Violence Answer Date R ecorded Denied Basic Needs Not on file 06/07/2025 In the past 12 months have y ou been in a relationship with a person who hurts, threatens, or tries to control you? No 06/07/2025 Worried food would run out Not on file 06/07 In the past 12 months have y ou been in a relationship with a person who hurts, threatens, or tries to control you? No 06/07/2025 Sex and Gender Information Value Date Recorded Sex Assigned at Male 11/16/2017 11:38 AM EST Legal Sex Male 7:15 PM EST Gender Identity Male 11/16/2017 11:38 AM EST Sexual Orientation Straight 11/16/2017 11 :38 AM EST documented as of this encounter Progress Notes * Amara rGaciaecca, PT - 06/16/2025 11:15 AM EDT Physical Therapy Subject Line: Treatment Note Visit: 4 Patient's Name: Junior Mathew Date of : 1955 Date of Evaluation: 06/16/2025 Medical Diagnosis: Bilateral ankle joint pain [M25.571, M25.572] Treatment Diagnosis: ICD-10-CM 1. Bilateral ankle joint pain M25.571 M25.572 2. Gait instability R26.81 Onset Date: SOC Date: 05/20/25 Primary Care Provider: Tim Gipson MD Referring Provider: Yasmin Cardenas MD Past Medical History and Co-morbidities: Past Medical History: Diagnosis Date Duodenal perforation 12/20/2020 Duodenal ulcer with perforation NSAID related, managed conservatively Hypertensive disorder Lumbar radiculopathy 02/13/2021 MS (multiple sclerosis) Perforated ulcer Restless leg syndrome Your Diagnosis Also Included:: MS (multiple sclerosis) [G35] HTN (hypertension) [I10] Current non-smoker [Z78.9] Pure hypercholesterolemia [E78.00] Family hx of colon cancer [Z80.0] Chronic pain [G89.29] Restless legs syndrome [G25.81] Perforated ulcer [K27.5] Neurogenic bladder [N31.9] Gait instability [R26.81] Cramps, muscle, general [R25.2] Chronic fatigue [R53.82] Scoliosis of thoracolumbar spine [M41.9] Chronic midline low back pain [M54.50, G89.29] Trochanteric bursitis of left hip [M70.62] Iliotibial band syndrome of left side [M76.32] Hip abductor tendonitis, left [M76.892] Impairment of balance [R26.89] Bilateral leg weakness [R29.898] Functional overlay [F54] Neurological dysfunction [R29.90] Lower leg edema [R60.0] Cervical spondylosis [M47.812] Shortness of breath [R06.02] Abnormal chest CT [R93.89] Solitary pulmonary nodule on lung CT [R91.1] Daytime somnolence [R40.0] History of duodenal ulcer [Z87.19] Depressed mood [R45.89] S/P insertion of spinal cord stimulator [Z96.89] Dependent edema [R60.9] Encounter for screening for lung cancer [Z12.2] Precautions/Safety: marked history lumbar stenosis with surgery, 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, MS (pt reports lesions have been stable), pain management spinal stimulator implant 2008 MS Dx, pt reports his foot/ankle pain is not MS related per MD Subjective: I have the compression shorts to try today, I found foot taping helpful too, removed that evening Wearing better shoes, they are helping History of Present Concern: pt reports new bilateral ankle/foot pain, weakness related to severe pain by end of day, mostly lateral>medial ankles L LE>>R some on R LE same on right but lesser extent; By end of day, can't walk using 4 wheeled walker at all times related back pain, chronic since pt feels spinal stimulator has LBP under control, but relief ends midshins, no help to ankle/feet Chronically falling, ankle pain is making frequency worse, falling 1x/wk always end of day, feels ankle gives out Not as much pain in am, but by end of every day is much more severe Home Environment: lives with , on 2 levels, do stairs every day 1-2x/wk to basement, gym in basement use cane and a chair back to move around Outcome measures: PROMs Activities-Specific Balance Confidence (ABC) Score (range: 0 - 100) 41.25 (Low level of physical functioning) Abnormal NATE 31% Scores range from 0% (most disability) to 100% (least disability). Pain Levels best/worst 0-10 : range [] 1 [] 2 [] 3 [] 4 [] 5 [] 6 [x] 7 [] 8 [] 9 [] 10 [x] Aggravating Factors: positional / continuous and worsens in weight bearing/standing/walking, ankle pain increases as day goes on, worst evenings Relieving Factors: sitting/laying down, mornings better Objective Measures: updated Pt wearing slip on [employer] boat sneaker style which has more cushioning and support than his previous shoe wear at evaluation with non-matching soft OTC insoles on top of the shoes insole I have narrow feet, it takes up the space better previous L AFO, very strong DF assist with rigid stop @ 90 deg and light silicone like ankle/foot sleeve to prevent pressure spots. Pt education: this brace is has more rigidity than required, and too heavy for him as his hip flexors / knee flexors have lost more strength and pt may due much betterwith a light carbon DF assist, but most importantly support closer to subtalar neutral to limit lateral ankle impingement and compression wear with straps facilitate hip abd/IR de-rotate excessive hip ER/add Gait: with FWW with mod use of BUE WB, slow yun, decreased step length, gait pattern is inconsistent varied crossing midline, varied toe out, fatigues and catches L foot, absent hip ext bilat bilat dynamic severe hip ER/toe out x5, femoral add (crosses midline > 50% of stance), knee hyperext, ankle/foot severe pronation, progresses foot flat over medial column/arch Grossly paresis through out bilat LE Palpation: ttp L LE lateral subtalar joint line, ATFL, anterior talocrural joint, to lesser degree medial subtalar joint line Strength: *denotes concordant pain nonconcordant pain Right Left Dorsiflexion L4 3/5 3/5 Plantarflexion S1 3-/5 3-/5 Inversion 3/5 3/5 Eversion 3/5 3/5 Extensor Hallicus Longus L5 3/5 3/5 Left A/P ROM MMT / 5 Right A/P ROM MMT /5 Hip Extension 10 Via bridge Bilat 3+/5 10 Hip Flexion L2 120 ER firm 3- wnl 3- Hip ABduction wfl 3- wnl 3- Hip ADDuction wfl 3- wnl 3- Hip Ext Rotation Wfl 45 3- Wfl 45 3- Hip Int Rotation 12 3- 20 3- Knee Extension L3 3 3 Knee Flexion S2 3- 3- Test Left Right Notes Windlass Intact NWB Poor WB Intact NWB Poor wB Toe sign: 5 5 Bilat severe ER at hips Progresses foot flat over medial column/arch Interventions / Parameters See encounter report for minutes associated with each intervention. Patient Education: PT will take multiple visits / trials to determine most effective amounts of stability assist via compression wear considerations and bracing / orthotic options trials MODALITIES: deferred MANUAL THERAPY: deferred this visit Bilateral foot taping, heel lock with arch facilitation improved alignment ankle/foot Hip abduction facilitation manually with ambulation with FWW THERAPEUTIC EXERCISE: deferred - Seated Toe Towel Scrunches - 2 x daily - 7 x weekly - 3 sets - 10 reps - Ankle Inversion Eversion Towel Slide - 2 x daily - 7 x weekly - 3 sets - 10 reps - Seated Great Toe Extension - 1 x daily - 7 x weekly - 3 sets - 10 reps - Seated Lesser Toes Extension - 1 x daily - 7 x weekly - 3 sets - 10 reps - Seated Toe Raise - 1 x daily - 7 x weekly - 1 sets - 10 reps - seated calf raise BOOK UNDER TOES - 1 x daily - 7 x weekly - 1 sets - 10 reps - Bridge - 1 x daily - 7 x weekly - 1 sets - 10 reps - B Active Straight Leg Raise with Quad Set - 1 x daily - 7 x weekly - 1 sets - 10 reps - Sidelying Lateral Leg Raise - 1 x daily - 7 x weekly - 1 sets - 10 reps - Seated Isometric Hip Adduction with Ball - 1 x daily - 7 x weekly - 1 sets - 10 reps - 5 hold - Seated Hip Abduction/External Rotation With Resistance at Thighs - 1 x daily - 7 x weekly - 1 sets - 10 reps - 5 hold HEP updated: Access Code: [email or web address] URL: [email or web address] Date: 06/16/2025 Prepared by: Alexandria ROJAS RE-ED: deferred THERAPEUTIC ACTIVITIES: Trials with FWW (not rollator) 20 ft x8 With bilat thigh compression short adjustable: pelvic belt with hip straps to facilitate hip abd and IR to neutral tension to produce a toe forward talocrural DF/PF gait (vs medial arch in extreme hip ER) each trial with his Concrete Grinder Operator slide ons 1 trial of 20 ftx2 with generic posterior leaf spring AFO All trials improved LE alignment during ambulation, correction of hip ER to neutral causing decreased hip flexion thus foot clearance, however this improved again with AFO trial Trials of sit to standing hip width x6 much improved with compression short ASSESSMENT: Pt reporting decreased ankle/foot pain with improved biomechanical alignment, he appears good candidate for dynamic compression wear influencing core/hip control and a 3/4 foot length, AFO with custom orthotic of ground reaction forces to support STN, rear and midfoot control allowing a toe off, control of medial ankle shelfing Pt provided information to arrange outreach educator / map mounter to come to PT session Plan: Taping pronation control with hip facilitate abd/IR Therapeutic Exercise 51598 Strength Stability pelvis/core/hip control knee hyperext and ankle medial shelfing Manual Therapy 77740 Taping methods facilitate pronation control trial, Soft tissue mobilization Joint mobilization - talocrural Neuromuscular re-education 92288 Therapeutic Activities 01059 [x ] Bed mobility [x ] Transfers Self-care /home management / ADLs 93421 Gait Training 82453 MHP / CP [non-billed] Orthotic evaluation 1st encounter Orthotic subsequent 09827 fit / training Alexandria Gracia, [place] [id number] documented in this encounter Plan of Treatment Upcoming Encounters Date Type Department Care Team (Late st Contact Info) Description 11/11/2024 Procedure Pass [facility], Ct Scan - [facility] [address] [place] [address] 06/23/2025 10:30 AM EDT Office Visit [facility] [address] [place] [address] Yasmin Cardenas MD 4 [facility] [place] [address] [email or web address] Alexandria Rivera, PT [address], [place] [phone] [email or web address] 06/30/2025 11:15 AM EDT Office Visit [address] [id number] Yasmin Cardenas MD 4 [facility], [place], [place] [id number] [email or web address] Alexandria Rivera, PT [address] [place] [address] 07/07/2025 10:30 AM EDT Office Visit [address] [phone] Yasmin Cardenas MD 4 [facility], [place], [place] [id number] [email or web address] Alexandria Rivera, PT [address], [place] [phone] [email or web address] 07/14/2025 11:15 AM EDT Office Visit [address] [phone] Yasmin Cardenas MD [address] [place] [address] [facility], [place], [place] [id number] [email or web address] Alexandria Rivera, PT [address], [place] [phone] 10/13/2025 12:45 PM EST Appointment [facility], Ct Scan - [address] [address] Gerardo Tan MD [address] [place] [address] [phone] 06/15/2026 1:00 PM EDT Office Visit [facility] [address] [address] Tim Gipson MD 22 [facility], [address] [place] [address] [email or web address] documented as of this encounter Visit Diagnoses Diagnosis Bilateral ankle joint pain- Primary Gait instability Abnormality of gait documented in this encounter Additional Health Concerns Assessment Noted Time PHQ-9 Depression Total Score: 5 06/07/20 25 11:24 AM EDT PHQ-2 Depression Total Score: 2 06/07/20 25 11:24 AM EDT documented as of this encounter Care Teams Credit Reporter Relationship Specialty Start Date End Date Tim Gipson MD [address] [place] [address], [address] [place] [address] [email or web address] PCP - General Internal Medicine 09/30/18 documented as of this encounter Additional Source Comments The information contained in this document represents components of the legal health record. It is not the complete legal health record.[facility]
--- NOTE | 2025-06-21 10:33 | MHC.OFFVIS ---
Intake Visit Reasons: Discuss MRI Results Allergies lisinopril Adverse Reaction (Severe, Verified 04/30/25 11:03) Anaphylaxis NSAIDS (Non-Steroidal Anti-Inflamma Adverse Reaction (Severe, Verified 04/30/25 11:03) perforated duodenal ulcer flu vaccine Adverse Reaction (Severe, Uncoded 08/03/24 11:30) temporary guillane barre symptoms HPI HPI Discuss MRI Results: Details: History of Present Illness The patient is a 69-year-old male presenting with bilateral ankle weakness and lumbar spinal issues. The ankle weakness is more pronounced on the left side and has been a significant concern. The patient has a history of lumbar spinal stenosis, scoliosis, and disc bulging at L3-4, which have been contributing to his symptoms. The lumbar spinal stenosis was noted to have worsened, particularly at L4-5, with moderate neural foraminal narrowing observed. The patient underwent spinal fusion in May 2021, and recent imaging suggests increased stenosis at L4-5. Despite these findings, the ankle weakness and pain are not fully explained by the spinal issues alone. The patient has been experiencing significant limitations in mobility due to the pain and weakness, impacting his daily activities. Previous interventions, including a spinal stimulator, have not provided adequate relief, and the patient continues to experience severe pain. The patient has been advised to undergo a nerve conduction study to further evaluate the cause of the ankle weakness. Pain Description - Pain is primarily located in the ankles, with the left side being more affected. - Pain is exacerbated by walking and limits mobility. - Previous spinal stimulator adjustments have not alleviated the pain. Physical Exam - Appears afebrile. - Alert and oriented. - Mood and affect appropriate. - Follows and participates in conversation appropriately. - Respiratory effort is unlabored. - Able to transition from sit to stand unassisted. Results - MRI: Lumbar spinal stenosis at L4-5, disc bulging at L3-4, moderate neural foraminal narrowing. Pain Management - Affect: Pain significantly limits mobility and daily activities. - Analgesia: Previous spinal stimulator adjustments have been ineffective. - Activities of Daily Living: Pain limits walking and mobility. [facility] Medical History (Updated 05/24/25 @ 11:17 by Bandar Azevedo MD) Spinal stenosis Multiple sclerosis Spinal stenosis GERD (gastroesophageal reflux disease) Dyslipidemia Chronic pain syndrome Neurogenic bladder History of progressive weakness Bilateral leg weakness Primary hypertension SOB (shortness of breath) Surgical History (Updated 06/23/24 @ 08:27 by Ivonne Sarah RN) Hx of colonoscopy History of lumbar surgery (10/02/23) History of surgery (02/19/24) Hx of lumbar discectomy Social History (Updated 06/23/24 @ 08:19 by Ivonne Sarah RN) Household Members: Spouse Housing: House Are you a primary career services manager to a significant other at home: No Do you presently have visiting nurse or other home services: No 75 years or older and lives alone: No Patient Tobacco Use Status: Former Tobacco user Tobacco use type: Cigarette Telehealth Telehealth Telehealth Platform: [employer] Location of provider rendering services: practice address Location of patient: address on file Patient Identification confirmed using: Name, : Yes Telehealth method: video Patient verbally consented to treatment: Yes Patient verbally consented to billing insurance company: Yes Patient informed of any privacy concerns related to visit: Yes Assessment & Plan Assessment & Plan (1) Post laminectomy syndrome: Comment: Status post [employer] SCS implant Code(s): M96.1 - Postlaminectomy syndrome, not elsewhere classified Category: Medical (2) Bilateral leg weakness: Code(s): R29.898 - Other symptoms and signs involving the musculoskeletal system Category: Medical Plan Plan Patient was informed and verbally consented to the use of an ambient scribe for clinic note documentation during this visit. 1. Bilateral Ankle Weakness - Plan to conduct a nerve conduction study to evaluate the cause of the weakness. - Consideration of a cortisone injection at L4-5 to address lumbar radicular symptoms. 2. Lumbar Spinal Stenosis - MRI findings indicate worsening stenosis at L4-5. - Plan for a cortisone injection at L4-5 to manage symptoms. 3. Scoliosis - Scoliosis noted to be pressing on nerves, contributing to symptoms. - No surgical intervention planned due to complexity and risk. 4. Disc Bulging At L3-4 - Disc bulging observed at L3-4, contributing to lumbar symptoms. - No immediate intervention planned unless nerve compression is evident. Discussion Notes I discussed with the patient the findings of the MRI, which showed lumbar spinal stenosis and disc bulging at L3-4. We talked about the potential benefits and limitations of a cortisone injection at L4-5 to manage symptoms. I also explained the plan to conduct a nerve conduction study to further evaluate the cause of the bilateral ankle weakness. The patient was informed about the lack of surgical options for scoliosis due to the complexity and risks involved. We agreed to have another surgeon review the case to see if any additional insights could be gained. Patient Instructions - Schedule and attend the nerve conduction study as planned. - Follow up with the pain management team after the cortisone injection. - Continue physical therapy as advised by your therapist. Orders: Orders NE electromyogram (EMG) 06/21/25 M96.1 - Postlaminectomy syndrome, not elsewhere classified, R29.898 - Other symptoms and signs involving the musculoskeletal system Coding Level of Care Code Procedure Only Diagnoses Post laminectomy syndrome M96.1 Bilateral leg weakness R29.898
--- OUTSIDE RECORDS SUMMARY | 2025-06-21 12:54 | XMS_ITS | Encounter Summary ---
Author Organization [facility] Address [address] [address] Phone Care Team Providers Care Burnisher And Bumper Name Role Phone Tim Gipson MD Primary Care Provider [phone] Encounter Details Date Type Department Care Team (Latest Contact Info) Description 10/18/2023 Transcribe Orders Virtual Department [address] [place] [address] Bandar Azevedo MD [address] [place] [address] Localized edema (Primary Dx) Social History Tobacco [...] st Contact Info) Description 11/11/2024 Procedure Pass [facility], Ct Scan - [address] [address] 06/23/2025 10:30 AM EDT Office Visit [facility] Rehabilitation Services [address] [place] [address] Yasmin Cardenas MD [address] [place] [address] [facility] [place] [address] [email or web address], PT 10 [place] [address] 06/30/2025 11:15 AM EDT Office Visit [facility] Services [address] [place] [address] Yasmin Cardenas MD 4 [facility] [place], [place] [phone] [email or web address], PT 10 [place] [address] 07/07/2025 10:30 AM EDT Office Visit [address] [address] Yasmin Cardenas MD 4 [facility] [place], [place] [phone] [email or web address], PT 10 [place] [address] 07/14/2025 11:15 AM EDT Office Visit [address] [address] Yasmin Cardenas MD [address] [place] [address] [facility] [place], [place] [phone] [email or web address], PT 10 [place] [address] 10/13/2025 12:45 PM EST Appointment [facility], Ct Scan - [address] [address] Gerardo Tan MD [address] [place] [address] 06/15/2026 1:00 PM EDT Office Visit [facility] Medical [address] [place] [address] Tim Gipson MD [address] [place] [address], [address] [place] [address] [email or web address] documented as of this encounter Visit Diagnoses Diagnosis Localized edema- Primary Edema documented in this encounter Additional Health Concerns Assessment Noted Time PHQ-9 Depression Total Score: 9 05/23/20 23 8:58 AM EDT PHQ-2 Depression Total Score: 4 05/23/20 23 8:58 AM EDT documented as of this encounter Care Teams Burnisher And Bumper Relationship Specialty Start Date End Date Tim Gipson MD [address] [place] [address], [address] [place] [address] [email or web address] PCP - General Internal Medicine 09/30/18 documented as of this encounter Additional Source Comments The information contained in this document represents components of the legal health record. It is not the complete legal health record.[facility]
--- OUTSIDE RECORDS SUMMARY | 2025-06-21 12:54 | XMS_ITS | Encounter Summary ---
Author Organization [facility] Address [facility]ly [facility] [address] [address] Phone Care Team Providers Care Career Development Coordinator/Teacher Name Role Phone Tim Gipson MD Primary Care Provider [phone] Reason for Referral * Outpatient Procedure - Closed Specialty Diagnoses / Procedures Referred By Contac t Referred To Contact Radiology Diagnoses Localized edema Procedures US Lower Extremity Veins Reflux Evaluation Duplex Complete (Bilateral) US Lower Extremity Veins Duplex Complete (Bilateral) Bandar Azevedo MD Phone: tel: Referral ID Status Reason Start Date Expiration Date Visits Re quested Visits Authorized [id number] Closed 10/18/2023 1 1 Encounter Details Date Type Department Care Team (Late st Contact Info) Description 10/22/2023 Ancillary Orders Virtual Department 30 [place] [address] Bandar Azevedo MD [address] [place] [address] Localized edema (Primary Dx) Social History Tobacco [...] st Contact Info) Description 11/11/2024 Procedure Pass [facility], Ct Scan - [address] [address] 06/23/2025 10:30 AM EDT Office Visit [facility] Services [address] [place] [address] Yasmin Cardenas MD [address] [place] [address] [facility] [place], [place] [id number] [email or web address], PT 10 [place], [place] [phone] 06/30/2025 11:15 AM EDT Office Visit [address] [phone] Yasmin Cardenas MD 4 [facility], [place], [place] [phone] [email or web address], PT 10 [place] [address] 07/07/2025 10:30 AM EDT Office Visit [address] [address] Yasmin Cardenas MD 4 [facility], [place], [place] [phone] [email or web address], PT [address] [place], [place] [phone] 07/14/2025 11:15 AM EDT Office Visit [address] [phone] Yasmin Cardenas MD 4 [facility], [place], [place] [phone] [email or web address], PT 10 [place], [place] [phone] 10/13/2025 12:45 PM EST Appointment [facility], Ct Scan - [facility] [address] [place] [address] Gerardo Tan MD [address] [place] [address] [email or web address] 06/15/2026 1:00 PM EDT Office Visit [facility] [address] [place] [address] Tim Gipson MD 22 [facility], [address] [place] [address] [email or web address] documented as of this encounter Results * [...] documented as of this encounter Care Teams Career Development Coordinator/Teacher Relationship Specialty Start Date End Date Tim Gipson MD [address] [place] [address], [address] [place] [address] [email or web address] PCP - General Internal Medicine 09/30/18 documented as of this encounter Additional Source Comments The information contained in this document represents components of the legal health record. It is not the complete legal health record.[facility]
--- OUTSIDE RECORDS SUMMARY | 2025-06-21 12:54 | XMS_ITS | Encounter Summary ---
Author Organization [facility] Address [address] [place] [address] [address] [place] [address] Phone Care Team Providers Care Leno Sewer Name Role Phone Tim Gipson MD Primary Care Provider Encounter Details Date Type Department Care Team (Late st Contact Info) Description 08/06/2023 Transcribe Orders Virtual Department 30 [place] [address] Tim Gipson MD 22 [facility], [address] [place] [address] [email or web address] Social History Tobacco Use Types Packs/Day Years [...] st Contact Info) Description 11/11/2024 Procedure Pass [facility], Ct Scan - [address] [address] 06/23/2025 10:30 AM EDT Office Visit [facility] Rehabilitation Services [address] [place] [address] Yasmin Cardenas MD [address] [place] [address] [facility] [place] [address] [email or web address] Alexandria [email or web address], PT 10 [place] [address] 06/30/2025 11:15 AM EDT Office Visit [facility] Services [address] [place] [address] Yasmin Cardenas MD 4 [facility] [place], [place] [phone] [email or web address], PT 10 [place] [address] 07/07/2025 10:30 AM EDT Office Visit [address] [address] Yasmin Cardenas MD 4 [facility] [place], [place] [phone] [email or web address], PT 10 [place] [address] 07/14/2025 11:15 AM EDT Office Visit [address] [address] Yasmin Cardenas MD 4 [facility], [place], [place] [phone] [email or web address] Alexandria Rivera, PT 10 [place] [address] 10/13/2025 12:45 PM EST Appointment [facility], Ct Scan - [address] [address] Gerardo Tan MD [address] [place] [address] 06/15/2026 1:00 PM EDT Office Visit [facility] [place] [address] [place] [address] Tim Gipson MD [address] [place] [address], [address] [place] [address] [email or web address] documented as of this encounter Visit Diagnoses Not on filedocumented in this encounter Additional Health Concerns Assessment Noted Time PHQ-9 Depression Total Score: 9 05/23/20 23 8:58 AM EDT PHQ-2 Depression Total Score: 4 05/23/20 23 8:58 AM EDT documented as of this encounter Care Teams Leno Sewer Relationship Specialty Start Date End Date Tim Gipson MD [address] [place] [address], [address] [place] [address] [email or web address] PCP - General Internal Medicine 09/30/18 documented as of this encounter Additional Source Comments The information contained in this document represents components of the legal health record. It is not the complete legal health record.[facility]
--- OUTSIDE RECORDS SUMMARY | 2025-06-21 12:54 | XMS_ITS | Clinical Summary ---
Author Organization [facility] Address [facility] [employer] [address] [address] Phone Care Team Providers Care Photographic Process Worker Name Role Phone Tim Gipson MD Primary Care Provider [phone] Allergies Active Allergy Reactions Criticality Noted Date Comments Influenza Virus Vaccine Ts 5600-1584 (5 Yr And Up) Other (See Comments) [...] of spinal cord stimulator 07/01/20 Overview (07/01/2024): [facility] [place] 05/2024 Assessment & Plan (07/01/2024 [...] History of ulcers, resolved off PPI. Last outpatient clerk consultation ~3 years ago. - Continue pantoprazole as per outpatient clerk's recommendation Assessment & Plan (04/16/2024 8:04 [...] Assessment & Plan (10/30/2023 9:37 AM EST): 00-[id number] smoker, stopping 15 years ago with a [...] obstruction on PFTs, likely related to his 27-[id number]-rqzy smoking history and mild COPD. I believe [...] second another opinion planned with neurology at [facility]-which I encouraged him to keep, [...] extremities. Junior is open to seeing Dr. De La Torre again from [place] functional [place]ic [place] [facility] He would also consider a second opinion at [facility] for further work-up. His concern is that his weakness is progressing and he has not responded to physical therapy. Assessment & Plan (05/22/2022 9:19 PM EDT): Progressive weakness in the lower extremities. 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 He has findings [...] as retention and erectile dysfunction. Work-up at [facility] [place] December showed an [...] last week and missed several PT sessions. [facility] neurology was called and recommended MRI C-spine and T-spine, recommending we consulting them post scans. PT and OT. [facility] did not recommend transfer [...] Patient has follow-up regarding his injection at [facility] for his back pain. If [...] but still at 4 pills during day. WELD LAY OUT WORKER reviewed. Recommended transitioning to MS Contin 50 [...] high-dose steroids in October,looking back at his [facility] chart, this has been [...] Description 06/16/2025 11:15 AM EDT Office Visit [facility] [address] [place] [phone] Yasmin Cardenas MD Robbins, Rebecca, PT Bilateral ankle joint pain (Primary Dx); Gait instability 06/09/2025 1:00 PM EDT Office Visit [address] [place] [address] Tim Gipson MD Medicare annual wellness visit, subsequent (Primary Dx); Primary hypertension; Gait instability; Chronic pain syndrome; Need for pneumococcal vaccination 06/09/2025 10:30 AM EDT Office Visit [address] [address] Yasmin Cardenas MD Robbins, Rebecca, PT Bilateral ankle joint pain (Primary Dx); Gait instability 06/02/2025 11:15 AM EDT Office Visit [address] [address] Yasmin Cardenas MD Robbins, Rebecca, PT Bilateral ankle joint pain (Primary Dx); Gait instability 06/02/2025 Plan of Care Documentation [address] [address] 05/20/2025 11:15 AM EDT Office Visit [address] [address] Yasmin Cardenas MD Robbins, Rebecca, PT Bilateral ankle joint pain (Primary Dx); Gait instability 05/20/2025 11:02 AM EDT - 05/20/2025 11:59 PM EDT Hospital Encounter [facility] [address] [place] [address] Joesph Garcia MD Discharge Disposition: Home or Self Care 05/20/2025 Transcribe Orders [facility] [address] [place] [address] Joesph Garcia MD Muscle weakness (generalized) (Primary Dx); Localized edema; Dyslipidemia; Dependent edema; Lower leg edema; Primary hypertension; Shortness of breath 04/26/2025 Orders Only [address] [place] [address] Provider, Historical, MD 03/31/2025 1:37 PM EDT - 03/31/2025 11:59 PM EDT Hospital Encounter [address] [address] Yasmin Cardenas MD Discharge Disposition: Home or Self Care 03/31/2025 1:37 PM EDT - 03/31/2025 11:59 PM EDT Hospital Encounter [address] [address] Yasmin Cardenas MD Discharge Disposition: Home or Self Care 03/31/2025 1:30 PM EDT Office Visit [facility] [address] [place] [address] Yasmin Cardenas MD Tibialis posterior tendinopathy (Primary [...] st Contact Info) Description 11/11/2024 Procedure Pass [facility], Ct Scan - [address] [place] [address] 06/23/2025 10:30 AM EDT Office Visit [facility] [address] [place] [address] Yasmin Cardenas MD 4 [facility] [place] [place] [address] [email or web address], PT [address] [place] [address] [email or web address] 06/30/2025 11:15 AM EDT Office Visit [address] [address] Yasmin Cardenas MD 4 [facility] [place] [address] [email or web address] Alexandria Rivera, PT [address] [place] [address] [email or web address] 07/07/2025 10:30 AM EDT Office Visit [address] [address] Yasmin Cardenas MD 4 [facility] [address] [email or web address] Rivera, PT [address] [place] [address] 07/14/2025 11:15 AM EDT Office Visit [facility] [address] [place] [address] Yasmin Cardenas MD 4 [facility] [place] [address] [email or web address] Alexandria Rivera, PT [address] [place] [address] 10/13/2025 12:45 PM EST Appointment [facility], Ct Scan - [address] [address] Gerardo Tan MD [address] [place] [address] 06/15/2026 1:00 PM EDT Office Visit [facility] Medicine [address] [place] [address] [place] [address] Tim Gipson MD [address] [place] [address], [address] [place] [address] Health Maintenance Due Date Last Done Comments [...] AM EDT) Lyme AB IgG Negative Negative [facility] Lyme AB IgM Negative Negative [facility] Blood 05/20/2025 11:1 0 AM EDT 05/20/2025 11:15 AM EDT us Joesph Garcia MD LAB BLO OD ORDERABLES Final Result [facility] [address] [place] [address] * Sedimentation rate (ESR) (05/20/2025 11:10 AM EDT) ESR 9 0 - 20 mm/h [facility] Blood 05/20/2025 11:1 0 AM EDT 05/20/2025 11:15 AM EDT Joesph Garcia MD LAB BLO OD ORDERABLES Final Result [facility] [address] [place] [address] * (ABNORMAL) CBC and differential (05/20/2025 11:10 AM EDT) WBC 6.22 4.00 - 11.00 K/uL [facility] RBC 5.68 4.50 - 5.90 M/uL [facility] HGB 16.4 13.5 - 17.5 g/dL [facility] HCT 50.3 41.0 - 53.0 % [facility] PLT 257 150 - 450 K/uL [facility] MCV 88.6 80.0 - 100.0 fL [facility] MCH 28.9 27.0 - 31.0 pg [facility] MCHC 32.6 32.0 - 36.0 g/dL [facility] RDW 13.7 11.5 - 14.5 % [facility] MPV 9.8 8.4 - 12.0 fL [facility] NRBC 0.00 0.00 /100 WBCs [facility] ABSOLUTE NRBC 0.00 0.00 K/uL [facility] DIFF METHOD Auto [facility] NEUTS 62.9 48.0 - 76.0 % [facility] LYMPHS 23.3 18.0 - 41.0 % [facility] MONOS 11.1(H) 4.0 - 11.0 % [facility] EOS 1.9 0.0 - 5.0 % [facility] BASOS 0.6 0.0 - 1.5 % [facility] Granulocytes, immature (%) 0.2 0.0 - 0.9 % [facility] ABSOLUTE NEUTS 3.91 1.92 - 7.60 K/uL [facility] ABSOLUTE LYMPHS 1.45 0.72 - 4.10 K/uL [facility] ABSOLUTE MONOS 0.69 0.16 - 1.10 K/uL [facility] ABSOLUTE EOS 0.12 0.00 - 0.50 K/uL [facility] ABSOLUTE BASOS 0.04 0.00 - 0.15 K/uL [facility] Granulocytes, immature 0.01 0.00 - 0.09 K/uL [facility] Blood 05/20/2025 11:1 0 AM EDT 05/20/2025 11:15 AM EDT Joesph Garcia MD LAB BLO OD ORDERABLES Final Result Performing Organization Address City/[facility]/ZIP Co de Phone Number [address] [address] * Uric acid (05/20/2025 11:10 AM EDT) URIC ACID 6.0 2.4 - 7.0 mg/dL [facility] Blood 05/20/2025 11:1 0 AM EDT 05/20/2025 11:15 AM EDT Joesph Garcia MD LAB BLO OD ORDERABLES Final Result Performing Organization Address [facility]/ZIP Co de Phone Number [address] [address] * Outside Imaging Report Only (04/23/2025 9:08 [...] EST) SODIUM 140 133 - 146 mmol/L [facility] POTASSIUM 4.7 3.3 - 5.1 mmol/L [facility] CHLORIDE 103 96 - 108 mmol/L [facility] CO2 27 21 - 35 mmol/L [facility] BUN 19 6 - 19 mg/dL [facility] CREATININE 1.10 0.5 - 1.5 mg/dL [facility] GLUCOSE 80 70 - 99 mg/dL [facility] ALBUMIN 3.9 3.9 - 4.8 g/dL [facility] TOTAL PROTEIN 7.0 6.5 - 8.0 g/dL [facility] CALCIUM 9.1 8.4 - 10.3 mg/dL [facility] ALKALINE PHOSPHATASE 95 39 - 117 U/L [facility] TOTAL BILIRUBIN 0.6 0.0 - 1.2 mg/dL [facility] AST 20 0 - 37 U/L [facility] ALT 12 0 - 40 U/L [facility] GLOBULIN 3.1 1 - 4.8 g/dL [facility] EGFR 73 >59 mL/min/1.7 3m2 [facility] Comment:Estimated glomerular filtration rate calculated using the CKD-EPI refit equation. ANION GAP 15 10 - 20 mmol/L [facility] Blood 11/23/2024 3:11 PM EST 11/23/2024 3:14 PM EST us Tim Gipson MD LAB BLOOD ORDERABLES Final Res ult [address] [address] * (ABNORMAL) Lipid panel (05/27/2023 4:03 PM EDT) HDL 47 mg/dL [facility] Comment: Interpretation <40 mg/dL: Low HDL cholesterol (major risk factor for CHD) Greater than or equal to 60 mg/dL: High HDL cholesterol ( negative risk factor for CHD) HDL - cholesterol is affected by a number of factors, e.g. smoking, excerise, hormones, sex and age. CHOLESTEROL 192 0 - 240 mg/dL [facility] TRIGLYCERIDES 202(H) 30 - 160 mg/dL [facility] LDL 105 50 - 129 mg/dL [facility] Comment: LDL levels in terms of risk for coronary heart disease: <100 mg/dL: Optimal 100-129 mg/dL: Near or above optimal 130-159 mg/dL: Borderline high 160-189 mg/dL: High >190 mg/dL: Very High CARDIAC RISK RATIO 4.1 3.4 - 5.0 C [facility] Blood 05/27/2023 4:03 PM EDT 05/27/2023 4:11 PM EDT us Tim Gipson MD LAB BLOOD ORDERABLES Final Res ult Performing Organization Address City/[facility]/ZIP Co de Phone Number [address] [address] * Hepatitis C antibody, qualitative (04/10/2021 12:11 PM EDT) HCV NON-REACTIV E NON-REACTI VE [facility] Blood 04/10/2021 12:1 1 PM EDT 04/10/2021 12:24 PM EDT us Tim Gipson MD LAB BLOOD ORDERABLES Final Res ult Performing Organization Address [facility]/ZIP Co de Phone Number [address] [address] * CT ABDOMEN/PELVIS WITH CONTRAST (2020 4:44 [...] [place] BLUE REPLACEMENT [facility] MEDICARE PPO BLUE REPLACEMENT [facility] MEDICARE PPO BLUE REPLACEMENT [facility] MEDICARE PPO BLUE REPLACEMENT [facility] MEDICARE PPO BLUE REPLACEMENT [facility] MEDICARE PPO [place] [address] [place] [address] MEDICARE PPO BLUE REPLACEMENT [place] MEDICARE P[place] BLUE REPLACEMENT Advance Directives For more information, please contact: [phone] (9AM - 5PM [facility], Saturday-Saturday) Documents on File Type Date Recorded Patient Vamp Strap Ironer Expl anation Power of Logging Engineer MOLST 12/30/2020 9:51 AM Healthcare Proxy 12/30/2020 [...] code, miguel ott abdominal surgery Care Teams Photographic Process Worker Relationship Specialty Start Date End Date Tim Gipson MD [address] [place] [address], [address] [place] [address] PCP - General Internal Medicine 09/30/18 Additional Source Comments The information contained in this document represents components of the legal health record. It is not the complete legal health record.[facility]
--- OUTSIDE RECORDS SUMMARY | 2025-06-21 12:54 | XMS_ITS | Encounter Summary ---
Author Organization [facility] Address [facility] [employer] [address] [address] Phone Care Team Providers Care Assistant Professor Of Communication Name Role Phone Tim Gipson MD Primary Care Provider [phone] Encounter Details Date Type Department Care Team (Late st Contact Info) Description 12/05/2021 Transcribe Orders [facility] [address] [place] [address] Shlomo Ferguson MD [address] [place] [address] Social History Tobacco Use Types Packs/Day [...] high school, GED, job training, learning the [place] language, technical skills, or developing parenting skills)? [...] Contact Info) Description 11/11/2024 Procedure Pass [facility], Ct Scan - [address] [address] 06/23/2025 10:30 AM EDT Office Visit [facility] [address] [place] [address] Yasmin Cardenas MD [address] [facility] [place] [address] [email or web address], PT 10 [place] [address] 06/30/2025 11:15 AM EDT Office Visit [facility] Services [address] [place] [address] Yasmin Cardenas MD [address] [facility], [place], [place] [id number] [email or web address] Alexandria Rivera, PT 10 [place], [place] [phone] 07/07/2025 10:30 AM EDT Office Visit [address] [address] Yasmin Cardenas MD [address] [facility] [place], [place] 1070888 [email or web address] Alexandria Rivera, PT 10 [place], [place] [phone] 07/14/2025 11:15 AM EDT Office Visit [address] [address] Yasmin Cardenas MD [address] [facility] [place], [place] [phone] [email or web address], PT [address] [place], [place] [id number] 10/13/2025 12:45 PM EST Appointment [facility], Ct Scan - [address] [address] Gerardo Tan MD [address] [place] [address] 06/15/2026 1:00 PM EDT Office Visit [facility] Medicine [address] [place] [address] [place] [address] Tim Gipson MD [address] [place] [address], [address] [place] [address] documented as of this encounter Visit Diagnoses Not on filedocumented in this encounter Additional Health Concerns Assessment Noted Time PHQ-2 Depression Total Score: 1 05/16/20 21 8:45 AM EDT documented as of this encounter Care Teams Assistant Professor Of Communication Relationship Specialty Start Date End Date Tim Gipson MD [address] [place] [address], [address] [place] [id number] PCP - General Internal Medicine 09/30/18 documented as of this encounter Additional Source Comments The information contained in this document represents components of the legal health record. It is not the complete legal health record.[facility]
--- OUTSIDE RECORDS SUMMARY | 2025-06-21 12:54 | XMS_ITS | Encounter Summary ---
Author Organization [facility] Address [address] [facility] [address] [place] [address] Phone Care Team Providers Care Light Equipment Operator Name Role Phone Jeromy Crowley MD Unavailable Yasmin Cardenas MD Unavailable [phone] Tim Gipson MD Primary Care Provider [phone] Encounter Details Date Type Department Care Team (Late st Contact Info) Description 05/15/2021 Procedure Pass [facility], [address] [address] Social History Tobacco Use Types Packs/Day Years [...] high school, GED, job training, learning the [place] language, technical skills, or developing parenting skills)? [...] Contact Info) Description 11/11/2024 Procedure Pass [facility], Ct Scan - [address] [address] 06/23/2025 10:30 AM EDT Office Visit [facility] Services [address] [place] [address] Yasmin Cardenas MD 4 [facility] [place] [address] [email or web address], PT 10 [place] [address] 06/30/2025 11:15 AM EDT Office Visit [facility] Services [address] [place] [address] Yasmin Cardenas MD 4 [facility] [place] [address] [email or web address] Alexandria Rivera, PT 10 [place], [place] [phone] [email or web address] 07/07/2025 10:30 AM EDT Office Visit [address] [phone] Yasmin Cardenas MD 4 [facility] Orthopedics & Sports [facility] [place], [place] [phone] [email or web address] Alexandria Rivera, PT 10 [place], [place] [phone] [email or web address] 07/14/2025 11:15 AM EDT Office Visit [address] [address] Yasmin Cardenas MD 4 [facility], [place], [place] 7370088 [email or web address] Alexandria Rivera, PT 10 [place], [place] [phone] [email or web address] 10/13/2025 12:45 PM EST Appointment [facility], Ct Scan - [address] [address] Gerardo Tan MD [address] [place] [address] 06/15/2026 1:00 PM EDT Office Visit [facility] Medicine [address] [place] [address] [place] [address] Tim Gipson MD [address] [place] [address], [address] [place] [address] documented as of this encounter Visit Diagnoses Not on filedocumented in this encounter Additional Health Concerns Assessment Noted Time PHQ-2 Depression Total Score: 1 05/16/20 21 8:45 AM EDT documented as of this encounter Care Teams Light Equipment Operator Relationship Specialty Start Date End Date Tim Gipson MD [address] [place] [address], [address] [place] [address] PCP - General Internal Medicine 09/30/18 Jeromy Crowley MD [address] [place] [address] Historical LMR Provider 07/20/17 Yasmin Cardenas MD [address] [place] [address] Orthopedics & Sports Medicine, [place] [address] Historical LMR Provider 07/20/17 documented as of this encounter Additional Source Comments The information contained in this document represents components of the legal health record. It is not the complete legal health record.[facility]
--- OUTSIDE RECORDS SUMMARY | 2025-06-21 12:54 | XMS_ITS | Clinical Summary ---
Author Organization [facility] Address [address] [place] [address] Care Team Providers Care Portal Architect Name Role Phone Tim Gipson Primary Care Provider [phone] Allergies Active Allergy Reactions Criticality Noted Date Comments Flu Vac 2020 [id number](Pf) Paralysis 03/05/2022 Flu Vacc Qs 2015- (18 Yr Up) Movement, abnormal High 08/06/2022 Influenza Virus Vaccine Ts 5748-4939 (5 Yr And Up) Other (see comments) [...] complete this topic Procedures * Due to [employer] law, this organization might not be sharing negative HIV tests. Procedure Name Priority Date/Time Associated Diagnosis Comments HEPATITIS PANEL, ACUTE Routine 04/10/2017 11:10 AM EDT from Last 3 Months or Most Recently Relevant to Health Maintenance Results * Due to [facility] law, this organization might not be sharing negative HIV tests. * Hepatitis Panel, Acute (04/10/2017 11:10 AM EDT) Hepatitis A IgM NON-REACTI VE NON-REACT [facility] Hepatitis B Surface Antigen NON-REACTI VE NON-REACT [facility] Hepatitis B Core Antibody NON-REACTI VE NON-REACT [facility] Hepatitis C Antibody NON-REACTI VE NON-REACT [facility] Signal To Cut-Off 0.01 <1.00 [facility] 04/10/2017 11:1 0 AM EDT 04/10/2017 12:20 PM EDT us Lucrecia Thomas MD LAB BLOOD ORDERABLES Final Re sult SHERLY MCCARTY [address] [facility] 3rd Floor, [place] [address], [place] [phone] from Last 3 Months or Most Recently Relevant to Health Maintenance Insurance [employer] MCR REPLACE PPO Care Teams Portal Architect Relationship Specialty Start Date End Date Tim Gipson [address] [facility] [address] [place], [place] [phone] PCP - General Family Medicine 10/14/18
--- OUTSIDE RECORDS SUMMARY | 2025-06-21 12:54 | XMS_ITS | Encounter Summary ---
Author Organization [facility] Address [address] [facility] [address] [place] [address] Phone Care Team Providers Care Software Computer Specialist Name Role Phone Tim Gipson MD Primary Care Provider Encounter Details Date Type Department Care Team ([facility] st Contact Info) Description 07/29/2023 Procedure Pass [facility], Ct Scan - [address] [address] Social History Tobacco Use Types Packs/Day Years [...] st Contact Info) Description 11/11/2024 Procedure Pass [facility], Ct Scan - [address] [address] 06/23/2025 10:30 AM EDT Office Visit [facility] Services [address] [place] [address] Yasmin Cardenas MD 4 [facility] [place] [address] [email or web address] Alexandria Rivera, PT [address] [place] [address] 06/30/2025 11:15 AM EDT Office Visit [facility] Services [address] [place] [address] Yasmin Cardenas MD 4 [facility] [place], [place] [address] [email or web address] Alexandria Rivera, PT [address] [place], [place] [phone] 07/07/2025 10:30 AM EDT Office Visit [address] [address] Yasmin Cardenas MD 4 [facility] Sports [facility], [place] [address] [email or web address] Alexandria Rivera, PT [address] [place] [address] 07/14/2025 11:15 AM EDT Office Visit [address] [address] Yasmin Cardenas MD 4 [facility] Orthopedics Sports [facility], [place] [address] [email or web address] Alexandria Rivera, PT 10 [place] [address] 10/13/2025 12:45 PM EST Appointment [facility], Ct Scan - [address] [address] Gerardo Tan MD [address] [place] [address] 06/15/2026 1:00 PM EDT Office Visit [facility] Medicine [address] [place] [address] Tim Gipson MD [address] [place] [address], [address] [place] [address] [email or web address] documented as of this encounter Visit Diagnoses Not on filedocumented in this encounter Additional Health Concerns Assessment Noted Time PHQ-9 Depression Total Score: 9 05/23/20 23 8:58 AM EDT PHQ-2 Depression Total Score: 4 05/23/20 23 8:58 AM EDT documented as of this encounter Care Teams Software Computer Specialist Relationship Specialty Start Date End Date Tim Gipson MD [address] [place] [address], [address] [place] [address] [email or web address] PCP - General Internal Medicine 09/30/18 documented as of this encounter Additional Source Comments The information contained in this document represents components of the legal health record. It is not the complete legal health record.[facility]
--- OUTSIDE RECORDS SUMMARY | 2025-06-21 12:54 | XMS_ITS | Encounter Summary ---
Author Organization [facility] Address [address] [place] [address] Phone Care Team Providers Care Motor Setter Name Role Phone Jeromy Crowley MD Unavailable [phone] Yasmin Cardenas MD Unavailable [phone] Tim Gipson MD Primary Care Provider [phone] Reason for Referral * MRI/CAT Scan - [...] Expiration Date Visits Re quested Visits Authorized [id number] Closed 09/01/2021 10/30/2021 1 1 Encounter Details Date Type Department Care Team (Latest Contact Info) Description 09/01/2021 Transcribe Orders Virtual Department 30 [place] [address] Danica Roman MD 175 [place] [address] Spinal stenosis of lumbar region, unspecified whether [...] high school, GED, job training, learning the Khmer language, technical skills, or developing parenting skills)? [...] st Contact Info) Description 11/11/2024 Procedure Pass [facility], Ct Scan - [address] [address] 06/23/2025 10:30 AM EDT Office Visit [address] [address] Yasmin Cardenas MD 4 [facility], [place], [place] [id number] [email or web address] Alexandria Rivera, PT 10 [place], [place] [id number] 06/30/2025 11:15 AM EDT Office Visit [address] [address] Yasmin Cardenas MD 4 [facility], [place], [place] [phone] [email or web address] Alexandria Rivera, PT 10 [place] [address] 07/07/2025 10:30 AM EDT Office Visit [address] [id number] Yasmin Cardenas MD 4 [facility], [place], [place] [phone] [email or web address] Alexandria Rivera, PT 10 [place], [place] [phone] 07/14/2025 11:15 AM EDT Office Visit [address] [phone] Yasmin Cardenas MD 4 [facility], [place], [place] 7757988 [email or web address] Alexandria [email or web address], PT 10 [place] [address] 10/13/2025 12:45 PM EST Appointment [facility], Ct Scan - [facility] [address] [place] [address] Gerardo Tan MD [address] [place] [address] [email or web address] 06/15/2026 1:00 PM EDT Office Visit [facility] 22 [place] [address] Tim Gipson MD 22 [facility], [address] [place] [address] [email or web address] documented as of this encounter Results * [...] source of the weakness identified. POS - [id number] Narrative 09/07/2021 4:23 PM EST HISTORY: Microdiscectomy [...] of clear concern are detected in the enhmw-jq-mryv. Procedure Note Ryan Gaines MD - 09/07/2021 [...] of clear concern are detected in the oglgp-oo-bqdi. 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 Intervalpost-operative changes at L3-4 with presumed post-operative enhancement.No new or progressive canal or foraminal stenosis or other source of theweakness identified. POS - [id number] us Danica Roman MD IMG MR XSPECIALTY [...] documented as of this encounter Care Teams Motor Setter Relationship Specialty Start Date End Date Tim Gipson MD [address] [place] [address], 201 [place] [address] PCP - General Internal Medicine 09/30/18 Jeromy Crowley MD 115 [place] [address] Historical LMR Provider 07/20/17 Yasmin Cardenas MD [address] [place] [address] Orthopedics & Sports Medicine, [facility] [place] [address] [email or web address] Historical LMR Provider 07/20/17 documented as of this encounter Additional Source Comments The information contained in this document represents components of the legal health record. It is not the complete legal health record.[facility]
--- OUTSIDE RECORDS SUMMARY | 2025-06-21 12:54 | XMS_ITS | Encounter Summary ---
Author Organization [facility] Address [address] [facility] [address] [place] [address] Phone Care Team Providers Care Laundry Worker Name Role Phone Jeromy Crowley MD Unavailable Yasmin Cardenas MD Unavailable [phone] Tim Gipson MD Primary Care Provider [phone] Encounter Details Date Type Department Care Team (Late st Contact Info) Description 09/01/2021 Procedure Pass [facility], [address] [address] Social History Tobacco Use Types Packs/Day Years [...] high school, GED, job training, learning the Maltese language, technical skills, or developing parenting skills)? [...] st Contact Info) Description 11/11/2024 Procedure Pass [facility], Ct Scan - [address] [address] 06/23/2025 10:30 AM EDT Office Visit [facility] [address] [place] [address] Yasmin Cardenas MD [address] [place] [address] [facility] [place] [address] [email or web address] Alexandria Rivera, PT 10 [place] [address] 06/30/2025 11:15 AM EDT Office Visit [address] [address] Yasmin Cardenas MD 4 [facility]ics [facility] Sports Medicine, [place], [place] [phone] [email or web address] Alexandria Rivera, PT 10 [place] [address] 07/07/2025 10:30 AM EDT Office Visit [address] [address] Yasmin Cardenas MD 4 [facility] Sports [facility], [place], [place] [phone] [email or web address] Alexandria Rivera, PT 10 [place] [address] 07/14/2025 11:15 AM EDT Office Visit [address] [address] Yasmin Cardenas MD [address] [place] [address] Orthopedics & Sports [facility], [place], [place] 7573488 [email or web address], PT 10 [place] [address] 10/13/2025 12:45 PM EST Appointment [facility], Ct Scan - [address] [address] Gerardo Tan MD [address] [place] [address] 06/15/2026 1:00 PM EDT Office Visit [facility] [address] [place] [address] Tim Gipson MD 22 [facility], [address] [place] [address] [email or web address] documented as of this encounter Visit Diagnoses Not on filedocumented in this encounter Additional Health Concerns Assessment Noted Time PHQ-2 Depression Total Score: 1 05/16/20 21 8:45 AM EDT documented as of this encounter Care Teams Laundry Worker Relationship Specialty Start Date End Date Tim Gipson MD [address] [place] [address], [address] [place] [address] [email or web address] PCP - General Internal Medicine 09/30/18 Jeromy Crowley MD [address] [place] [address] Historical LMR Provider 07/20/17 Yasmin Cardenas MD [address] [place] [address] [facility], [place] [address] [email or web address] Historical LMR Provider 07/20/17 documented as of this encounter Additional Source Comments The information contained in this document represents components of the legal health record. It is not the complete legal health record.[facility]
--- OUTSIDE RECORDS SUMMARY | 2025-06-21 12:54 | XMS_ITS | Encounter Summary ---
Author Organization [facility] Address [facility] [employer] [address] [address] Phone Care Team Providers Care Hand Tapper Name Role Phone Tim Gipson MD Primary Care Provider [phone] Encounter Details Date Type Department Care Team (Late st Contact Info) Description 12/05/2021 Transcribe Orders [facility] [address] [place] [address] Shlomo Ferguson MD [address] [place] [address] Social History Tobacco Use Types Packs/Day [...] high school, GED, job training, learning the Grenadian language, technical skills, or developing parenting skills)? [...] st Contact Info) Description 11/11/2024 Procedure Pass [facility], Ct Scan - [address] [address] 06/23/2025 10:30 AM EDT Office Visit [facility] [address] [place] [address] Yasmin Cardenas MD 4 [facility] [place] [address] [email or web address] Alexandria [email or web address], PT 10 [place] [address] 06/30/2025 11:15 AM EDT Office Visit [facility] [address] [place] [address] Yasmin Cardenas MD 4 [facility], [place] [phone] [email or web address] Alexandria Rivera, PT 10 [place], [place] [phone] 07/07/2025 10:30 AM EDT Office Visit [address] [address] Yasmin Cardenas MD 4 [facility] Orthopedics & Sports [facility] [place], [place] [phone] [email or web address] Alexandria Rivera, PT 10 [place], [place] [phone] 07/14/2025 11:15 AM EDT Office Visit [address] [address] Yasmin Cardenas MD 4 [facility] Orthopedics & Sports [facility] [place], [place] [phone] [email or web address] Alexandria [email or web address], PT 10 [place], [place] [phone] 10/13/2025 12:45 PM EST Appointment [facility], Ct Scan - [address] [address] Gerardo Tan MD [address] [place] [address] 06/15/2026 1:00 PM EDT Office Visit [facility] [address] [place] [address] [place] [address] Tim Gipson MD [address] [place] [address], [address] [place] [address] documented as of this encounter Visit Diagnoses Not on filedocumented in this encounter Additional Health Concerns Assessment Noted Time PHQ-2 Depression Total Score: 1 05/16/20 21 8:45 AM EDT documented as of this encounter Care Teams Hand Tapper Relationship Specialty Start Date End Date Tim Gipson MD [address] [place] [address], [address] [place] [id number] PCP - General Internal Medicine 09/30/18 documented as of this encounter Additional Source Comments The information contained in this document represents components of the legal health record. It is not the complete legal health record.[facility]
--- OUTSIDE RECORDS SUMMARY | 2025-06-21 12:54 | XMS_ITS | Encounter Summary ---
Author Organization [facility] Address [address] [place] [address] [address] [place] [address] Phone Care Team Providers Care Eap Consultant Name Role Phone Jeromy Crowley MD Unavailable [phone] Yasmin Cardenas MD Unavailable [phone] Tim Gipson MD Primary Care Provider Encounter Details Date Type Department Care Team (Late st Contact Info) Description 05/20/2021 Transcribe Orders [facility] 30 [place] [address] Tim Gipson MD 22 [facility], [address] [place] [address] [email or web address] Social History Tobacco Use Types Packs/Day Years [...] high school, GED, job training, learning the Yakut language, technical skills, or developing parenting skills)? [...] Pass [facility], Ct Scan - [address] [address] 06/23/2025 10:30 AM EDT Office Visit [facility] Services [address] [place] [address] Yasmin Cardenas MD [address] [place] [address] [facility] [place] [address] [email or web address] Alexandria [email or web address], PT 10 [place] [address] 06/30/2025 11:15 AM EDT Office Visit [facility] [address] [place] [address] Yasmin Cardenas MD 4 [facility], Inc. [place], [place] [phone] [email or web address] Alexandria Rivera, PT 10 [place] [address] 07/07/2025 10:30 AM EDT Office Visit [address] [address] Yasmin Cardenas MD 4 [facility] [place], [place] [phone] [email or web address] Alexandria Rivera, PT 10 [place] [address] 07/14/2025 11:15 AM EDT Office Visit [address] [address] Yasmin Cardenas MD 4 [facility] Orthopedics Sports Medicine, [place], [place] [phone] [email or web address] Alexandria Rivera, PT 10 [place] [address] 10/13/2025 12:45 PM EST Appointment [facility], Ct Scan - [address] [address] Gerardo Tan MD [address] [place] [address] 06/15/2026 1:00 PM EDT Office Visit [facility] Medicine [address] [place] [address] [place] [address] Tim Gipson MD 22 [facility], [address] [place] [address] [email or web address] documented as of this encounter Visit Diagnoses Not on filedocumented in this encounter Additional Health Concerns Assessment Noted Time PHQ-2 Depression Total Score: 1 05/16/20 21 8:45 AM EDT documented as of this encounter Care Teams Eap Consultant Relationship Specialty Start Date End Date Tim Gipson MD [address] [place] [address], [address] [place] [address] PCP - General Internal Medicine 09/30/18 Jeromy Crowley MD [address] [place] [address] Historical LMR Provider 07/20/17 Yasmin Cardenas MD [address] [place] [address] Orth[facility] Sports Medicine, [place] [address] Historical LMR Provider 07/20/17 documented as of this encounter Additional Source Comments The information contained in this document represents components of the legal health record. It is not the complete legal health record.[facility]
--- OUTSIDE RECORDS SUMMARY | 2025-06-21 12:55 | XMS_ITS | Encounter Summary ---
Author Organization [facility] Address [address] [employer] [facility] [address] [place] [address] Phone Care Team Providers Care Oyster Preparer Name Role Phone Tim Gipson MD Primary Care Provider [phone] Encounter Details Date Type Department Care Team (Late st Contact Info) Description 03/23/2022 Transcribe Orders Virtual Department 30 [place] [address] System, Provider Not In, [facility] [address] [address] Social History Tobacco Use Types Packs/Day Years [...] high school, GED, job training, learning the Bhutanese language, technical skills, or developing parenting skills)? [...] st Contact Info) Description 11/11/2024 Procedure Pass [facility], Ct Scan - [address] [address] 06/23/2025 10:30 AM EDT Office Visit [facility] [address] [place] [address] Yasmin Cardenas MD 4 [facility] [place] [address] [email or web address] Alexandria Rivera, PT 10 [place] [address] 06/30/2025 11:15 AM EDT Office Visit [address] [address] Yasmin Cardenas MD 4 [facility] [place] [address] [email or web address] Alexandria Rivera, PT 10 [place] [address] [email or web address] 07/07/2025 10:30 AM EDT Office Visit [address] [address] Yasmin Cardenas MD 4 [facility] Orthopedics & Sports [facility], Inc. [place], [place] [phone] [email or web address] Alexandria Rivera, PT 10 [place] [address] [email or web address] 07/14/2025 11:15 AM EDT Office Visit [address] [address] Yasmin Cardenas MD 4 [facility] Sports [facility], [place], [place] [phone] [email or web address] Alexandria Rivera, PT 10 [place] [address] [email or web address] 10/13/2025 12:45 PM EST Appointment [facility], Ct Scan - [address] [address] Gerardo Tan MD [address] [place] [address] 06/15/2026 1:00 PM EDT Office Visit [facility] [address] [place] [address] [place] [address] Tim Gipson MD [address] [place] [address], [address] [place] [address] documented as of this encounter Visit Diagnoses Not on filedocumented in this encounter Additional Health Concerns Assessment Noted Time PHQ-2 Depression Total Score: 1 05/16/20 21 8:45 AM EDT documented as of this encounter Care Teams Oyster Preparer Relationship Specialty Start Date End Date Tim Gipson MD [address] [place] [address], 201 [place] [id number] [email or web address] PCP - General Internal Medicine 09/30/18 documented as of this encounter Additional Source Comments The information contained in this document represents components of the legal health record. It is not the complete legal health record.[facility]
--- OUTSIDE RECORDS SUMMARY | 2025-06-21 12:55 | XMS_ITS | Encounter Summary ---
Author Organization [facility] Address [address] [place] [address] Phone Care Team Providers Care Mattress Packer Name Role Phone Jeormy Crowley MD Unavailable [phone] Yasmin Cardenas MD Unavailable [phone] Tim Gipson MD Primary Care Provider [phone] Reason for Referral * MRI/CAT Scan - Closed Specialty Diagnoses / Procedures Referred By Contac t Referred To Contact Radiology Diagnoses Back pain, unspecified back location, unspecified back pain laterality, unspecified chronicity Lumbar foraminal stenosis Procedures MRI Lumbar Spine CHG MRI, LUMBAR SPINE CHG MRI, LUMBAR SPINE CONTRAST CHG MRI, LUMBAR SPINE COMBO uJnior Sánchez MD [address] [place] [address] Dr PR[facility] [place] [address] Phone: tel: fax: Referral ID Status Reason Start Date Expiration Date Visits Re quested Visits Authorized [id number] Closed 05/03/2021 07/01/2021 1 1 Encounter Details Date Type Department Care Team (Latest Contact Info) Description 05/12/2021 Transcribe Orders Virtual Department 30 [place] [address] Junior Sánchez MD [address] [place] [address] Dr PRINCE_[facility]urological [place] [address] Back pain, unspecified back location, unspecified back [...] high school, GED, job training, learning the Bengali language, technical skills, or developing parenting skills)? [...] st Contact Info) Description 11/11/2024 Procedure Pass [facility], Ct Scan - [facility] [address] [place] [address] 06/23/2025 10:30 AM EDT Office Visit [address] [address] Yasmin Cardenas MD 4 [facility] Sports [place], [place], [place] [phone] [email or web address] Alexandria Rivera, PT 10 [place] [address] 06/30/2025 11:15 AM EDT Office Visit [address] [address] Yasmin Cardenas MD 4 [facility] [place], [place] [address] [email or web address], PT 10 [place], [place] 0675873 07/07/2025 10:30 AM EDT Office Visit [address] [address] Yasmin Cardenas MD 4 [facility] Sports Medicine, [place], [place] [phone] [email or web address] Alexandria Rivera, PT 10 [place], [place] [phone] 07/14/2025 11:15 AM EDT Office Visit [address] [address] Yasmin Cardenas MD 4 [facility] Sports [place], [place], [place] [id number] [email or web address] Alexandria Rivera, PT 10 [place] [address] 10/13/2025 12:45 PM EST Appointment [facility], Ct Scan - [facility] 30 [place] [address] Gerardo Tan MD [address] [place] [address] [email or web address] 06/15/2026 1:00 PM EDT Office Visit [address] [address] Tim Gipson MD 22 [facility], [address] [place], [place] [id number] [email or web address] documented as of this encounter Results * [...] the left side of the L3 and N8dkwdzmawg bodies which extends out into the left [...] documented as of this encounter Care Teams Mattress Packer Relationship Specialty Start Date End Date Tim Gipson MD [address] [place] [address], [address] [place], [place] [phone] PCP - General Internal Medicine 09/30/18 Jeromy Crowley MD [address] [place] [address] Historical LMR Provider 07/20/17 Yasmin Cardenas MD [address] [place] [address] Orthopedics & Sports Medicine, [place] [address] [email or web address] Historical LMR Provider 07/20/17 documented as of this encounter Additional Source Comments The information contained in this document represents components of the legal health record. It is not the complete legal health record.[facility]
--- OUTSIDE RECORDS SUMMARY | 2025-06-21 12:55 | XMS_ITS | Encounter Summary ---
Author Organization [facility] Address [address] [employer] [facility] [address] [place] [address] Phone Care Team Providers Care Medical Recruiter Name Role Phone Tim Gipson MD Primary Care Provider [phone] Encounter Details Date Type Department Care Team (Late st Contact Info) Description 04/05/2023 Procedure Pass [facility], [address] [place] [address] Social History Tobacco Use Types Packs/Day Years [...] [facility], Ct Scan - [address] [address] 06/23/2025 10:30 AM EDT Office Visit [facility] [address] [place] [address] Yasmin Cardenas MD 4 [facility] Orthoped[facility] Sports [facility] [address] [email or web address] Alexandria Rivera, PT 10 [place] [address] 06/30/2025 11:15 AM EDT Office Visit [facility] Services [address] [place] [address] Yasmin Cardenas MD 4 [facility] Orth[facility] & Sports [place], [place] [address] [email or web address] Alexandria Rivera, PT 10 [place], [place] [phone] 07/07/2025 10:30 AM EDT Office Visit [address] [address] Ysamin Cardenas MD 4 [facility] Orthopedics & Sports [facility] [place], [place] [phone] [email or web address] Alexandria Rivera, PT 10 [place], [place] [phone] 07/14/2025 11:15 AM EDT Office Visit [address] [address] Yasmin Cardenas MD 4 [facility] Orthopedics Sports [facility], [place], [place] [phone] [email or web address] Alexandria Rivera, PT 10 [place] [address] 10/13/2025 12:45 PM EST Appointment [facility], Ct Scan - [address] [address] Gerardo Tan MD [address] [place] [address] 06/15/2026 1:00 PM EDT Office Visit [facility] Medicine [address] [place] [address] Tim Gipson MD [address] [place] [address], [address] [place] [address] [email or web address] documented as of this encounter Visit Diagnoses Not on filedocumented in this encounter Additional Health Concerns Assessment Noted Time PHQ-9 Depression Total Score: 6 01/19/20 23 2:46 PM EDT PHQ-2 Depression Total Score: 2 01/19/20 23 2:46 PM EDT documented as of this encounter Care Teams Medical Recruiter Relationship Specialty Start Date End Date Tim Gipson MD [address] [place] [address], [address] [place] [address] [email or web address] PCP - General Internal Medicine 09/30/18 documented as of this encounter Additional Source Comments The information contained in this document represents components of the legal health record. It is not the complete legal health record.[facility]
--- OUTSIDE RECORDS SUMMARY | 2025-06-21 12:55 | XMS_ITS | Clinical Summary ---
Author Organization 175 [facility] Address 175 [place] [address] Phone Care Team Providers Care Consulting Manager Name Role Phone Tim Gipson MD Primary Care Provider [phone] Allergies Active Allergy Reactions Criticality Noted Date [...] mg tablet extended release 12 hrIndications:Mu ltiple sclerosis,Gait abnormality Take 10 mg by mouth 2 (two) times a day. 60 tablet 3 5 Active capsaicin (ZOSTRIX) 0.025 % cream Apply topically 2 (two) times a day. 60 g 5 05/12/20 26 Active Active Problems Problem Noted Date Diagnosed Date Multiple sclerosis 07/07/2014 Encounters Date Type Department Care Team Description 05/12/2025 1:30 PM EDT Office Visit [facility] [place] [address] [address] Joesph Garcia MD Multiple sclerosis ([facility] V24, [facility] V28) (Primary Dx); Gait abnormality; Pain in joint involving ankle and foot, unspecified laterality from Last 3 Months Immunizations Name Administration [...] Description 09/01/2025 1:00 PM EST Office Visit [facility] [address] [place] [id number] Claudia Nelson PA [address] [place] [address] Health Maintenance Due Date Last Done Comments [...] Procedure Name Priority Date/Time Associated Diagnosis Comments ANNUAL BMP BLOOD TEST Routine 04/03/2024 LIPID PANEL Routine 05/27/2023 HEPATITIS C SCREENING Routine 04/10/2021 from Last 3 Months or Most Recently Relevant to Health Maintenance Results * Annual BMP Blood Test (04/03/2024) [facility] Annual BMP Blood Test abstracted [facility] Provider [facility] Final Result * Lipid panel (05/27/2023) [facility] Triglycerides 0 mg/dL Comment:no interpretation, a bstracted Cholesterol 0 mg/dL Comment:no interpretation, a bstracted HDL 0 mg/dL Comment:no interpretation, a bstracted LDL Cholesterol 0 mg/dL Comment:no interpretation, a bstracted Blood Venous blood specimen / Unknown Result [facility] Historical Provider LAB BLOOD ORDERABLES Christa l Result * Hepatitis C Screening (04/10/2021) [facility] Hepatitis C Screening abstracted Historical Provider HEALTH MAINTENANCE Final Result from Last 3 Months or Most Recently Relevant to Health Maintenance Insurance BLUE CROSS - [place] MEDICARE ADVANTAGE Advance Directives Documents on File Type Date Recorded Patient Department Head Expl anation Health Care Decision (hx) 06/17/2021 [...] (hx) 06/15/2021 AD HANNAH DIRECTIVE Care Teams Consulting Manager Relationship Specialty Start Date End Date Tim Gipson MD [address] [place] [address] PCP - General Internal Medicine 07/16/22
--- OUTSIDE RECORDS SUMMARY | 2025-06-21 12:55 | XMS_ITS | Encounter Summary ---
Author Organization [facility] Address Formerly [facility] [employer] [address] [address] Phone Care Team Providers Care Title One Teacher Name Role Phone Jeromy Crowley MD Unavailable Yasmin Cardenas MD Unavailable [phone] Tim Gipson MD Primary Care Provider [phone] Encounter Details Date Type Department Care Team (Late st Contact Info) Description 2020 Procedure Pass [facility], Ct Scan - [address] [address] Social History Tobacco Use Types Packs/Day Years [...] 2020 12:40 PM Satnam Short CNP * [place] Suicide Severity Rating Scale (Screener/Recent Self-Report) Question [...] No 2020 12:40 PM EDT Martha Cheatham HOME SCHOOL TEACHER 4. Active Suicidal Ideation with Some Intent to Act, Without Specific Plan (Past 1 Month) No 2020 12:40 PM EDT Martha Cheatham HOME SCHOOL TEACHER 5. Active Suicidal Ideation with Specific Plan and Intent (Past 1 Month) No 2020 12:40 PM EDT Martha Cheatham CNP 6. Suicidal Behavior (Lifetime) No 2020 12:40 PM EDT Martha Cheatham CNP documented as of this encounter Plan of Treatment Upcoming Encounters Date Type Department Care Team (Late st Contact Info) Description 11/11/2024 Procedure Pass [facility], Ct Scan - [address] [address] 06/23/2025 10:30 AM EDT Office Visit [facility] [address] [place] [address] Yasmin Cardenas MD [address] [place] [address] [facility] [place] [address] [email or web address] Alexandria Rivera, PT 10 [place] [address] 06/30/2025 11:15 AM EDT Office Visit [address] [address] Yasmin Cardenas MD 4 [facility] [place] [address] [email or web address] Alexandria Rivera, PT 10 [place] [address] 07/07/2025 10:30 AM EDT Office Visit [address] [address] Yasmin Cardenas MD 4 [facility] Sports [facility], [place], [place] [phone] [email or web address], PT 10 [place], [place] [phone] 07/14/2025 11:15 AM EDT Office Visit [address] [address] Yasmin Cardenas MD 4 [facility], [place], [place] [id number] [email or web address], PT [address] [place], [place] [id number] 10/13/2025 12:45 PM EST Appointment [facility], Ct Scan - [address] [address] Gerardo Tan MD [address] [place] [address] 06/15/2026 1:00 PM EDT Office Visit [facility] [address] [place] [address] [place] [address] Tim Gipson MD [address] [place] [address], [address] [place] [address] documented as of this encounter Visit Diagnoses Not on filedocumented in this encounter Additional Health Concerns Assessment Noted Time PHQ-2 Depression Total Score: 2 05/16/20 20 9:36 AM EDT documented as of this encounter Care Teams Title One Teacher Relationship Specialty Start Date End Date Tim Gipson MD [address] [place] [address], [address] [place] [address] [email or web address] PCP - General Internal Medicine 09/30/18 Jeromy Crowley MD [address] [place] [address] Historical LMR Provider 07/20/17 Yasmin Cardenas MD [address] [place] [address] [facility], [place] [address] [email or web address] Historical LMR Provider 07/20/17 documented as of this encounter Additional Source Comments The information contained in this document represents components of the legal health record. It is not the complete legal health record.[facility]
--- OUTSIDE RECORDS SUMMARY | 2025-06-21 12:55 | XMS_ITS | Encounter Summary ---
Author Organization [facility] Address [address] [facility] [address] [place] [address] Phone Care Team Providers Care Supervisor Case Loading Name Role Phone Tim Gipson MD Primary Care Provider [phone] Encounter Details Date Type Department Care Team (Late st Contact Info) Description 05/28/2023 Transcribe Orders [facility] Specimen Processing 30 [place] [address] Tim Gipson MD 22 [facility], [address] [place] [address] Social History Tobacco Use Types Packs/Day Years [...] st Contact Info) Description 11/11/2024 Procedure Pass [facility], Ct Scan - [address] [address] 06/23/2025 10:30 AM EDT Office Visit [facility] [address] [place] [address] Yasmin Cardenas MD 4 [facility] [place] [address] [email or web address], PT 10 [place] [address] 06/30/2025 11:15 AM EDT Office Visit [facility] [address] [place] [address] Yasmin Cardenas MD 4 [facility] [place], [place] [phone] [email or web address] Alexandria [email or web address], PT 10 [place] [address] 07/07/2025 10:30 AM EDT Office Visit [address] [address] Yasmin Cardenas MD 4 [facility] [place], [place] [phone] [email or web address] Alexandria [email or web address], PT 10 [place] [address] 07/14/2025 11:15 AM EDT Office Visit [address] [address] Yasmin Cardenas MD 4 [facility] [place], [place] [phone] [email or web address] Alexandria Rivera, PT 10 [place], [place] [phone] 10/13/2025 12:45 PM EST Appointment [facility], Ct Scan - [address] [address] Gerardo Tan MD [address] [place] [address] 06/15/2026 1:00 PM EDT Office Visit [facility] Medical [address] [address] Tim Gipson MD [address] [place] [address], [address] [place] [address] [email or web address] documented as of this encounter Visit Diagnoses Not on filedocumented in this encounter Additional Health Concerns Assessment Noted Time PHQ-9 Depression Total Score: 9 05/23/20 23 8:58 AM EDT PHQ-2 Depression Total Score: 4 05/23/20 23 8:58 AM EDT documented as of this encounter Care Teams Supervisor Case Loading Relationship Specialty Start Date End Date Tim Gipson MD [address] [place] [address], [address] [place] [address] [email or web address] PCP - General Internal Medicine 09/30/18 documented as of this encounter Additional Source Comments The information contained in this document represents components of the legal health record. It is not the complete legal health record.[facility]
--- OUTSIDE RECORDS SUMMARY | 2025-06-21 12:55 | XMS_ITS | Encounter Summary ---
Author Organization [facility] Address Formerly [facility] [employer] [address] [address] Phone Care Team Providers Care Draw In Hand Name Role Phone Jeromy Crowley MD Unavailable Yasmin Cardenas MD Unavailable [phone] Tim Gipson MD Primary Care Provider [phone] Encounter Details Date Type Department Care Team (Late st Contact Info) Description 2020 Procedure Pass [place] Admitting Dept - Virtual Department 30 [place] [address] Social History Tobacco Use Types Packs/Day Years [...] 2020 12:40 PM Satnam Short CNP * [place] Suicide Severity Rating Scale (Screener/Recent Self-Report) Question Answer Date of Assessment Author 1. Wish to be (Past 1 Month) Yes 2020 12:40 PM Martha Short EAR NOSE AND THROAT SPECIALIST 2. Non-Specific Active Suicidal Thoughts (Past 1 Month) Yes 2020 12:40 PM EDT Martha Cheatham CNP 3. Active Suicidal Ideation with any Methods (Not Plan) Without Intent to Act (Past 1 Month) No 2020 12:40 PM EDT Martha Cheatham CNP 4. Active Suicidal Ideation with Some Intent to Act, Without Specific Plan (Past 1 Month) No 2020 12:40 PM EDT Martha Cheatham EAR NOSE AND THROAT SPECIALIST 5. Active Suicidal Ideation with Specific Plan and Intent (Past 1 Month) No 2020 12:40 PM EDT Martha Cheatham CNP 6. Suicidal Behavior (Lifetime) No 2020 12:40 PM EDT Martha Cheatham CNP documented as of this encounter Plan of Treatment Upcoming Encounters Date Type Department Care Team (Late st Contact Info) Description 11/11/2024 Procedure Pass [facility], Ct Scan - [address] [address] 06/23/2025 10:30 AM EDT Office Visit [facility] [address] [place] [address] Yasmin Cardenas MD [address] [place] [address] [facility] [place] [address] [email or web address] Alexandria Rivera, PT [address] [place] [address] 06/30/2025 11:15 AM EDT Office Visit [address] [address] Yasmin Cardenas MD [address] [place] [address] [facility] [place] [address] [email or web address] Alexandria Rivera, PT 10 [place] [address] 07/07/2025 10:30 AM EDT Office Visit [address] [address] Yasmin Cardenas MD 4 [facility] Sports [facility], [place], [place] [phone] [email or web address] Alexandria [email or web address], PT 10 [place] [address] 07/14/2025 11:15 AM EDT Office Visit [address] [address] Yasmin Cardenas MD 4 [facility] Sports [facility], [place] [address] [email or web address], PT 10 [place] [address] 10/13/2025 12:45 PM EST Appointment [facility], Ct Scan - [address] [address] Gerardo Tan MD [address] [place] [address] 06/15/2026 1:00 PM EDT Office Visit [facility] Medical [facility] [address] [place] [address] [place] [address] Tim Gipson MD [address] [place] [address], [address] [place] [address] documented as of this encounter Visit Diagnoses Not on filedocumented in this encounter Additional Health Concerns Assessment Noted Time PHQ-2 Depression Total Score: 2 05/16/20 20 9:36 AM EDT documented as of this encounter Care Teams Draw In Hand Relationship Specialty Start Date End Date Tim Gipson MD [address] [place] [address], [address] [place] [address] [email or web address] PCP - General Internal Medicine 09/30/18 Jeromy Crowley MD [address] [place] [address] Historical LMR Provider 07/20/17 Yasmin Cardenas MD [address] [place] [address] [facility], [place] [address] [email or web address] Historical LMR Provider 07/20/17 documented as of this encounter Additional Source Comments The information contained in this document represents components of the legal health record. It is not the complete legal health record.[facility]
--- OUTSIDE RECORDS SUMMARY | 2025-06-21 12:55 | XMS_ITS | Encounter Summary ---
Author Organization [facility] Address [address] [place] [address] Phone Care Team Providers Care Vocational Technical Education Director Name Role Phone Jeromy Crowley MD Unavailable Yasmin Cardenas MD Unavailable [phone] Tim Gipson MD Primary Care Provider [phone] Encounter Details Date Type Department Care Team (Late st Contact Info) Description 12/20/2020 Procedure Pass [facility] Cardiovascular And Interventional Radiology [address] [place] [address] Social History Tobacco Use Types Packs/Day Years [...] (Late Contact Info) Description 11/11/2024 Procedure Pass [facility], Ct Scan - [facility] 30 [place] [address] 06/23/2025 10:30 AM EDT Office Visit [facility] [address] [place] [address] Yasmin Cardenas MD [address] [place] [address] Orthopedics Sports [facility], [facility] [place], [place] [phone] [email or web address] Alexandria Rivera, PT 10 [place] [address] 06/30/2025 11:15 AM EDT Office Visit [address] [phone] Yasmin Cardenas MD 4 [facility], [place], [place] [phone] [email or web address] Alexandria [email or web address], PT 10 [place] [address] 07/07/2025 10:30 AM EDT Office Visit [address] [phone] Yasmin Cardenas MD 4 [facility], [place], [place] [phone] [email or web address] Alexandria Rivera, PT 10 [place], [place] 116[address] 07/14/2025 11:15 AM EDT Office Visit [address] [phone] Yasmin Cardenas MD 4 [facility], [place], [place] [address] [email or web address] Alexandria Rivera, PT 10 [place], [place] [phone] 10/13/2025 12:45 PM EST Appointment [facility], Ct Scan - [facility] [address] [place] [address] Gerardo Tan MD [address] [place] [address] 06/15/2026 1:00 PM EDT Office Visit [facility] Medicine [address] [place] [address] Tim Gipson MD 22 [facility], [address] [place] [address] documented as of this encounter Visit Diagnoses Not on filedocumented in this encounter Additional Health Concerns Assessment Noted Time PHQ-2 Depression Total Score: 2 05/16/20 20 9:36 AM EDT documented as of this encounter Care Teams Vocational Technical Education Director Relationship Specialty Start Date End Date Tim Gipson MD [address] [place] [address], [address] [place] [address] PCP - General Internal Medicine 09/30/18 Jeromy Crowley MD [address] [place] [address] Historical LMR Provider 07/20/17 Yasmin Cardenas MD [address] [place] [address] [facility] [place] [address] Historical LMR Provider 07/20/17 documented as of this encounter Additional Source Comments The information contained in this document represents components of the legal health record. It is not the complete legal health record.[facility]
--- OUTSIDE RECORDS SUMMARY | 2025-06-21 12:55 | XMS_ITS | Encounter Summary ---
Author Organization [facility] Address [address] [place] [address] Care Team Providers Care X Ray Control Equipment Repairer Name Role Phone Tim Gipson Primary Care Provider [phone] Encounter Details Date Type Department Care Team (Late st Contact Info) Description 10/10/2021 myChart Message [facility] 55 [place] [address] Lucrecia Thomas MD 55 [place] [address] Our daughter s health concern Social History [...] on filedocumented in this encounter Care Teams X Ray Control Equipment Repairer Relationship Specialty Start Date End Date Tim Gipson [address] [address] PCP - General Family Medicine 10/14/18 documented as of this encounter
--- OUTSIDE RECORDS SUMMARY | 2025-06-21 12:55 | XMS_ITS | Encounter Summary ---
Author Organization [facility] Address [facility] [address] [address] Phone Care Team Providers Care Kier Drier Name Role Phone Jeromy Crowley MD Unavailable Yasmin Cardenas MD Unavailable [phone] Tim Gipson MD Primary Care Provider [phone] Encounter Details Date Type Department Care Team (Late st Contact Info) Description 02/13/2021 Procedure Pass [address] [place] [address] Social History Tobacco Use Types Packs/Day Years [...] Pass [facility], Ct Scan - [facility] 30 [place] [address] 06/23/2025 10:30 AM EDT Office Visit [facility] Services [address] [place] [address] Yasmin Cardenas MD 4 [facility] Orthopedics Sports [facility] [place], [place] [phone] [email or web address], PT 10 [place] [address] 06/30/2025 11:15 AM EDT Office Visit [address] [phone] Yasmin Cardenas MD 4 [facility], [place], [place] [phone] [email or web address] Alexandria Rivera, PT 10 [place], [place] [phone] 07/07/2025 10:30 AM EDT Office Visit [address] [phone] Yasmin Cardenas MD 4 [facility], [place], [place] [phone] [email or web address] Alexandria [email or web address], PT 10 [place], [place] [address] 07/14/2025 11:15 AM EDT Office Visit [address] [phone] Yasmin Cardenas MD 4 [facility], [place], [place] [phone] [email or web address] Alexandria Rivera, PT 10 [place], [place] 2348273 10/13/2025 12:45 PM EST Appointment [facility], Ct Scan - [facility] 30 [place] [address] Gerardo Tan MD [address] [place] [address] 06/15/2026 1:00 PM EDT Office Visit [facility] Medicine [address] [place] [address] Tim Gipson MD [address] [place] [address], [address] [place] [address] documented as of this encounter Visit Diagnoses Not on filedocumented in this encounter Additional Health Concerns Assessment Noted Time PHQ-2 Depression Total Score: 2 05/16/20 20 9:36 AM EDT documented as of this encounter Care Teams Kier Drier Relationship Specialty Start Date End Date Tim Gipson MD [address] [place] [address], [address] [place] [address] PCP - General Internal Medicine 09/30/18 Jeromy Crowley MD [address] [place] [address] Historical LMR Provider 07/20/17 Yasmin Cardenas MD [address] [place] [address] [facility] [address] Historical LMR Provider 07/20/17 documented as of this encounter Additional Source Comments The information contained in this document represents components of the legal health record. It is not the complete legal health record.[facility]
--- OUTSIDE RECORDS SUMMARY | 2025-06-21 12:55 | XMS_ITS | Encounter Summary ---
Author Organization [facility] Address [address] [place] [address] [place] [address] Phone Care Team Providers Care Van Helper Name Role Phone Jeromy Crowley MD Unavailable [phone] Yasmin Cardenas MD Unavailable [phone] Tim Gipson MD Primary Care Provider [phone] Encounter Details Date Type Department Care Team (Late st Contact Info) Description 05/12/2021 Procedure Pass [facility], [address] [place] [address] Social History Tobacco Use Types Packs/Day Years [...] high school, GED, job training, learning the Ecuadorean language, technical skills, or developing parenting skills)? [...] st Contact Info) Description 11/11/2024 Procedure Pass [facility], Ct Scan - [address] [address] 06/23/2025 10:30 AM EDT Office Visit [facility] Rehabilitation Services [address] [place] [address] Yasmin Cardenas MD 4 [facility] [place] [address] [email or web address], PT 10 [place] [address] 06/30/2025 11:15 AM EDT Office Visit [facility] [address] [place] [address] Yasmin Cardenas MD 4 [facility] [place], [place] [phone] [email or web address], PT 10 [place], [place] [phone] [email or web address] 07/07/2025 10:30 AM EDT Office Visit [address] [address] Yasmin Cardenas MD 4 [facility] [place], [place] [phone] [email or web address] Alexandria Rivera, PT 10 [place], [place] 401[address]73 [email or web address] 07/14/2025 11:15 AM EDT Office Visit [address] [address] Yasmin Cardenas MD 4 [facility] [place], [place] 1985[address]88 [email or web address] Rivera, PT 10 [place], [place] 8077573 [email or web address] 10/13/2025 12:45 PM EST Appointment [facility], Ct Scan - [address] [address] Gerardo Tan MD [address] [place] [address] 06/15/2026 1:00 PM EDT Office Visit [facility] Medicine [address] [place] [address] [place] [address] Tim Gipson MD [address] [place] [address], [address] [place] [address] documented as of this encounter Visit Diagnoses Not on filedocumented in this encounter Additional Health Concerns Assessment Noted Time PHQ-2 Depression Total Score: 1 05/16/20 21 8:45 AM EDT documented as of this encounter Care Teams Van Helper Relationship Specialty Start Date End Date Tim Gipson MD [address] [place] [address], [address] [place] [address] PCP - General Internal Medicine 09/30/18 Jeromy Crowley MD [address] [place] [address] Historical LMR Provider 07/20/17 Yasmin Cardenas MD [address] [place] [address] [facility] Medicine, [place] [address] Historical LMR Provider 07/20/17 documented as of this encounter Additional Source Comments The information contained in this document represents components of the legal health record. It is not the complete legal health record.[facility]
--- OUTSIDE RECORDS SUMMARY | 2025-06-21 12:55 | XMS_ITS | Encounter Summary ---
Author Organization [facility] Address [address] [place] [address] Phone Care Team Providers Care Pollution Control Technician Name Role Phone Jeromy Crowley MD Unavailable Yasmin Cardenas MD Unavailable [phone] Tim Gipson MD Primary Care Provider [phone] Encounter Details Date Type Department Care Team (Late st Contact Info) Description 12/20/2020 Procedure Pass [facility] Cardiovascular And Interventional Radiology [address] [place] [address] Social History Tobacco Use Types Packs/Day Years [...] (Late Contact Info) Description 11/11/2024 Procedure Pass [facility], Ct Scan - [facility] 30 [place] [address] 06/23/2025 10:30 AM EDT Office Visit [facility] Rehabilitation Services [address] [place] [address] Yasmin Cardenas MD [address] [place] [address] Orthopedics Sports [facility], [facility] [place], [place] [id number] [email or web address], PT 10 [place] [address] 06/30/2025 11:15 AM EDT Office Visit [address] [id number] Yasmin Cardenas MD 4 [facility], [place], [place] [phone] [email or web address], PT 10 [place] [address] 07/07/2025 10:30 AM EDT Office Visit [address] [id number] Yasmin Cardneas MD 4 [facility] Sports [facility], [place], [place] [phone] [email or web address] Alexandria Rivera, PT 10 [place], [place] [phone] 07/14/2025 11:15 AM EDT Office Visit [address] [phone] Yasmin Cardenas MD 4 [facility], [place], [place] [id number] [email or web address] Alexandria Rivera, PT 10 [place], [place] 1924273 10/13/2025 12:45 PM EST Appointment [facility], Ct Scan - [facility] 30 [place] [address] Gerardo Tan MD [address] [place] [address] 06/15/2026 1:00 PM EDT Office Visit [facility] Medicine [address] [place] [address] Tim Gipson MD 22 [facility], [address] [place] [address] documented as of this encounter Visit Diagnoses Not on filedocumented in this encounter Additional Health Concerns Assessment Noted Time PHQ-2 Depression Total Score: 2 05/16/20 20 9:36 AM EDT documented as of this encounter Care Teams Pollution Control Technician Relationship Specialty Start Date End Date Tim Gipson MD [address] [place] [address], [address] [place] [address] PCP - General Internal Medicine 09/30/18 Jeromy Crowley MD [address] [place] [address] Historical LMR Provider 07/20/17 Yasmin Cardenas MD [address] [place] [address] [facility] [place] [address] Historical LMR Provider 07/20/17 documented as of this encounter Additional Source Comments The information contained in this document represents components of the legal health record. It is not the complete legal health record.[facility]
--- OUTSIDE RECORDS SUMMARY | 2025-06-21 12:55 | XMS_ITS | Encounter Summary ---
Author Organization [facility] Address [facility] [employer] [address] [address] Phone Care Team Providers Care Mobility Scooter Repairer Name Role Phone Jeromy Crowley MD Unavailable [phone] Yasmin Cardenas MD Unavailable [phone] Tim Gipson MD Primary Care Provider [phone] Encounter Details Date Type Department Care Team (Latest Contact Info) Description 05/08/2021 Transcribe Orders Virtual Department 30 [place] [address] Bowen Blake MD [address] [place] [address] [email or web address] Encounter for laboratory testing for COVID-19 virus [...] high school, GED, job training, learning the Central African language, technical skills, or developing parenting skills)? [...] st Contact Info) Description 11/11/2024 Procedure Pass [facility], Ct Scan - [address] [address] 06/23/2025 10:30 AM EDT Office Visit [facility] Rehabilitation Services [address] [place] [address] Yasmin Cardenas MD [address] [place] [address] [facility] [place] [address] [email or web address] Alexandria Rivera, PT 10 [place] [address] 06/30/2025 11:15 AM EDT Office Visit [facility] Services [address] [place] [address] Yasmin Cardenas MD 4 [facility] [place], [place] 1760888 [email or web address] Alexandria Rivera, PT 10 [place] [address] 07/07/2025 10:30 AM EDT Office Visit [address] [address] Yasmin Cardenas MD 4 [facility] Orth[facility] Sports [facility] [place], [place] [id number] [email or web address] Alexandria Rivera, PT 10 [place] [address] 07/14/2025 11:15 AM EDT Office Visit [address] [address] Yasmin Cardenas MD 4 [facility] Orth[facility] Sports [facility] [place], [place] [id number] [email or web address], PT 10 [place], [place] [id number] 10/13/2025 12:45 PM EST Appointment [facility], Ct Scan - [address] [address] Gerardo Tan MD [address] [place] [address] 06/15/2026 1:00 PM EDT Office Visit [facility] Medical [address] [address] Tim Gipson MD [address] [place] [address], [address] [place] [address] [email or web address] documented as of this encounter Visit Diagnoses Diagnosis Encounter for laboratory testing for COVID-19 virus- Primary documented in this encounter Additional Health Concerns Assessment Noted Time PHQ-2 Depression Total Score: 2 05/16/20 20 9:36 AM EDT documented as of this encounter Care Teams Mobility Scooter Repairer Relationship Specialty Start Date End Date Tim Gipson MD [address] [place] [address], [address] [place] [address] [email or web address] PCP - General Internal Medicine 09/30/18 Jeromy Crowley MD [address] [place] [address] Historical LMR Provider 07/20/17 Yasmin Cardenas MD [address] [place] [address] [facility], [place] [address] [email or web address] Historical LMR Provider 07/20/17 documented as of this encounter Additional Source Comments The information contained in this document represents components of the legal health record. It is not the complete legal health record.[facility]
--- OUTSIDE RECORDS SUMMARY | 2025-06-21 12:55 | XMS_ITS | Encounter Summary ---
Author Organization [facility] Address [address] [employer] [address] [place] [address] Phone Care Team Providers Care Network Operations Manager Name Role Phone Tim Gipson MD Primary Care Provider Encounter Details Date Type Department Care Team (Late st Contact Info) Description 04/06/2022 Procedure Pass [facility], [address] [address] Social History Tobacco Use Types Packs/Day Years [...] 10:28 AM EDT Annie Hauser, CHASE * [place] Suicide Severity Rating Scale (Screener/Recent Self-Report) Question [...] st Contact Info) Description 11/11/2024 Procedure Pass [facility], Ct Scan - [facility] 30 [place] [address] 06/23/2025 10:30 AM EDT Office Visit [facility] Rehabilitation Services [address] [place] [address] Yasmin Cardenas MD [address] [place] [address] [facility] [place] [address] [email or web address] Alexandria [email or web address], PT 10 [place], [place] [id number] 06/30/2025 11:15 AM EDT Office Visit [address] [address] Yasmin Cardenas MD 4 [facility] Orthopedics & Sports [facility], [place], [place] [phone] [email or web address] Alexandria Rivera, PT 10 [place], [place] [phone] 07/07/2025 10:30 AM EDT Office Visit [address] [address] Yamsin Cardenas MD 4 [facility] Orthopedics Sports [facility], [place], [place] [id number] [email or web address] Alexandria Rivera, PT 10 [place], [place] [id number] 07/14/2025 11:15 AM EDT Office Visit [address] [phone] Yasmin Cardenas MD 4 [facility] [place], [place] [phone] [email or web address] Alexandria [email or web address], PT 10 [place], [place] [phone] 10/13/2025 12:45 PM EST Appointment [facility], Ct Scan - [address] [address] Gerardo Tan MD [address] [place] [address] [email or web address] 06/15/2026 1:00 PM EDT Office Visit [facility] Medicine [address] [place] [address] [place] [address] Tim Gipson MD [address] [place] [address], [address] [place] [address] [email or web address] documented as of this encounter Visit Diagnoses Not on filedocumented in this encounter Additional Health Concerns Assessment Noted Time PHQ-2 Depression Total Score: 1 05/16/20 21 8:45 AM EDT documented as of this encounter Care Teams Network Operations Manager Relationship Specialty Start Date End Date Tim Gipson MD [address] [place] [address], [address] [place] [address] [email or web address] PCP - General Internal Medicine 09/30/18 documented as of this encounter Additional Source Comments The information contained in this document represents components of the legal health record. It is not the complete legal health record.[facility]
--- OUTSIDE RECORDS SUMMARY | 2025-06-21 12:55 | XMS_ITS | Encounter Summary ---
Author Organization [facility] Address [facility] [employer] [address] [address] Phone Care Team Providers Care Pet Care Worker Name Role Phone Jeromy Crowley MD Unavailable [phone] Yasmin Cardenas MD Unavailable [phone] Tim Gipson MD Primary Care Provider [phone] Encounter Details Date Type Department Care Team (Latest Contact Info) Description 05/16/2021 Transcribe Orders Virtual Department 30 [place] [address] Bowen Blake MD [address] [place] [address] [email or web address] Encounter for laboratory testing for COVID-19 virus [...] high school, GED, job training, learning the Serbian language, technical skills, or developing parenting skills)? [...] st Contact Info) Description 11/11/2024 Procedure Pass [facility], Ct Scan - [address] [address] 06/23/2025 10:30 AM EDT Office Visit [facility] Rehabilitation Services [address] [place] [address] Yasmin Cardenas MD [address] [place] [address] [facility] [place] [address] [email or web address] Alexandria [email or web address], PT 10 [place] [address] 06/30/2025 11:15 AM EDT Office Visit [facility] Services [address] [place] [address] Yasmin Cardenas MD 4 [facility] [place], [place] [phone] [email or web address] Alexandria Rivera, PT 10 [place] [address] 07/07/2025 10:30 AM EDT Office Visit [address] [address] Yasmin Cardenas MD 4 [facility]oped[facility] [place], [place] [id number] [email or web address] Alexandria Rivera, PT 10 [place] [address] 07/14/2025 11:15 AM EDT Office Visit [address] [address] Yasmin Cardenas MD 4 [facility]opedics [facility] [place], [place] [phone] [email or web address] Alexandria [email or web address], PT 10 [place], [place] 1794373 10/13/2025 12:45 PM EST Appointment [facility], Ct Scan - [address] [address] Gerardo Tan MD [address] [place] [address] 06/15/2026 1:00 PM EDT Office Visit [facility] Medical [address] [address] Tim Gipson MD 22 [facility], [address] [place] [address] [email or web address] documented as of this encounter Results * COVID-19 PCR Order (05/16/2021 5:21 PM EDT) COVID-19 Comment [id number] [facility] COVID Testing Status Sent to [facility] Other 05/16/2021 5:21 PM EDT 05/16/2021 5:26 PM EDT us Bowen Blake MD BODY FLUIDS AND STOOLS ORDER JEAN-PAUL Edited Result - Final [facility] 30 [place] [address] documented in this encounter Visit Diagnoses Diagnosis Encounter for laboratory testing for COVID-19 virus- Primary documented in this encounter Additional Health Concerns Assessment Noted Time PHQ-2 Depression Total Score: 1 05/16/20 21 8:45 AM EDT documented as of this encounter Care Teams Pet Care Worker Relationship Specialty Start Date End Date Tim Gipson MD [address] [place] [address], [address] [place] [address] [email or web address] PCP - General Internal Medicine 09/30/18 Jeromy Crowley MD [address] [place] [address] Historical LMR Provider 07/20/17 Yasmin Cardenas MD [address] [place] [address] [facility], [facility] [place] [address] [email or web address] Historical LMR Provider 07/20/17 documented as of this encounter Additional Source Comments The information contained in this document represents components of the legal health record. It is not the complete legal health record.[facility]
--- OUTSIDE RECORDS SUMMARY | 2025-06-21 12:56 | XMS_ITS | Encounter Summary ---
Author Organization [facility] Address [address] [place] [address] Care Team Providers Care Library Paraprofessional Name Role Phone Tim Gipson Primary Care Provider [phone] Encounter Details Date Type Department Care Team (Late st Contact Info) Description 03/21/2022 [employer] Message [facility] [address] [address] Mychart, Generic Provider [address] [place] [address] new medication Social History Tobacco Use Types [...] on filedocumented in this encounter Care Teams Library Paraprofessional Relationship Specialty Start Date End Date Tim Gipson 22 [facility] 201 [place] [address] PCP - General Family Medicine 10/14/18 documented as of this encounter
--- OUTSIDE RECORDS SUMMARY | 2025-06-21 12:56 | XMS_ITS | Encounter Summary ---
Author Organization [facility] Address [address] [facility] [address] [place] [address] Phone Care Team Providers Care Lap Grinder Name Role Phone Tim Gipson MD Primary Care Provider [phone] Encounter Details Date Type Department Care Team ([facility] st Contact Info) Description 01/24/2022 Procedure Pass [facility], [place] [address] [facility], 2nd [place] [address] Social History Tobacco Use Types Packs/Day Years [...] high school, GED, job training, learning the Arabic language, technical skills, or developing parenting skills)? [...] Procedure Pass [facility], Ct Scan - [address] [address] 06/23/2025 10:30 AM EDT Office Visit [facility] Rehabilitation Services [address] [place] [address] Yasmin Cardenas MD 4 [facility]ics [facility] Sports Medicine, [place] [address] [email or web address] Alexandria Rivera, PT [address] [place] [address] 06/30/2025 11:15 AM EDT Office Visit [facility] Services [address] [place] [address] Yasmin Cardenas MD 4 [facility] [place], [place] [address] [email or web address] Alexandria Rivera, PT 10 [place] [address] 07/07/2025 10:30 AM EDT Office Visit [address] [address] Yasmin Cardenas MD 4 [facility] Orthopedics & Sports [facility], [place], [place] [phone] [email or web address] Alexandria Rivera, PT [address] [place] [address] 07/14/2025 11:15 AM EDT Office Visit [address] [address] Yasmin Cardenas MD 4 [facility] Orthopedics [facility], [place], [place] 1368588 [email or web address], PT [address] [place] [address] 10/13/2025 12:45 PM EST Appointment [facility], Ct Scan - [address] [address] Gerardo Tan MD [address] [place] [address] 06/15/2026 1:00 PM EDT Office Visit [facility] [address] [place] [address] Tim Gipson MD 22 [facility], [address] [place], [place] 6819760 documented as of this encounter Visit Diagnoses Not on filedocumented in this encounter Additional Health Concerns Assessment Noted Time PHQ-2 Depression Total Score: 1 05/16/20 21 8:45 AM EDT documented as of this encounter Care Teams Lap Grinder Relationship Specialty Start Date End Date Tim Gipson MD 22 [facility], [address] [place] [address] [email or web address] PCP - General Internal Medicine 09/30/18 documented as of this encounter Additional Source Comments The information contained in this document represents components of the legal health record. It is not the complete legal health record.[facility]
--- OUTSIDE RECORDS SUMMARY | 2025-06-21 12:56 | XMS_ITS | Encounter Summary ---
Author Organization [facility] Address [address] [place] [address] Care Team Providers Care Wharf Builder Name Role Phone HeshamTim tao Primary Care Provider [phone] Encounter Details Date Type Department Care Team (Late st Contact Info) Description 03/09/2022 Orders Only [facility] [address] [place] [address] Shlomo Ferguson MD PhD [address] [place] [address] Social History Tobacco Use Types Packs/Day Years [...] of this encounter Procedures * Due to [place] [employer] law, this organization might not be sharing negative HIV tests. Procedure Name Priority Date/Time Associated Diagnosis Comments AMB EXTERNAL MRI BRAIN, OUTS LAW RESULT Routine 02/23/2022 AMB EXTERNAL MRI C-SPINE, OU TSIDE RESULT Routine 02/23/2022 documented in this encounter Results * Due to [place] [employer] law, this organization might not be sharing [...] on filedocumented in this encounter Care Teams Wharf Builder Relationship Specialty Start Date End Date Tim Gipson [address] [address] PCP - General Family Medicine 10/14/18 documented as of this encounter
--- OUTSIDE RECORDS SUMMARY | 2025-06-21 12:56 | XMS_ITS | Encounter Summary ---
Author Organization [facility] Address [address] [facility] [address] [place] [address] Phone Care Team Providers Care Mixing Plant Dumper Name Role Phone Tim Gipson MD Primary Care Provider [phone] Encounter Details Date Type Department Care Team (Late st Contact Info) Description 03/20/2022 Transcribe Orders Virtual Department 30 [place] [address] System, Provider Not In, [facility] [employer] [address] [address] Social History Tobacco Use Types Packs/Day Years [...] Contact Info) Description 11/11/2024 Procedure Pass [facility], Ct Scan - [address] [address] 06/23/2025 10:30 AM EDT Office Visit [facility] Services [address] [place] [address] Yasmin Cardenas MD 4 [facility] [place], [place] [address] [email or web address], PT 10 [place] [address] 06/30/2025 11:15 AM EDT Office Visit [address] [place] [address] [address] Yasmin Cardenas MD 4 [facility] [place], [place] [address] [email or web address], PT 10 [place] [address] [email or web address] 07/07/2025 10:30 AM EDT Office Visit [address] [address] Yasmin Cardenas MD 4 [facility] Orthopedics & Sports [facility] Inc[facility] [place], [place] [phone] [email or web address], PT 10 [place] [address] [email or web address] 07/14/2025 11:15 AM EDT Office Visit [address] [address] Yasmin Cardenas MD 4 [facility] Orthopedics Sports [facility], [place] [phone] [email or web address] Alexandria Rivera, PT 10 [place] [address] [email or web address] 10/13/2025 12:45 PM EST Appointment [facility], Ct Scan - [address] [address] Gerardo Tan MD [address] [place] [address] 06/15/2026 1:00 PM EDT Office Visit [facility] Medicine [address] [place] [address] [place] [address] Tim Gipson MD [address] [place] [address], [address] [place] [address] documented as of this encounter Visit Diagnoses Not on filedocumented in this encounter Additional Health Concerns Assessment Noted Time PHQ-2 Depression Total Score: 1 05/16/20 21 8:45 AM EDT documented as of this encounter Care Teams Mixing Plant Dumper Relationship Specialty Start Date End Date Tim Gipson MD [address] [place] [address], [address] [place] [id number] [email or web address] PCP - General Internal Medicine 09/30/18 documented as of this encounter Additional Source Comments The information contained in this document represents components of the legal health record. It is not the complete legal health record.[facility]
--- OUTSIDE RECORDS SUMMARY | 2025-06-21 12:56 | XMS_ITS | Encounter Summary ---
Author Organization [facility] Address [email or web address] [facility] [address] [place] [phone] Phone Care Team Providers Care Cutter Machine Tender Name Role Phone Tim Gipson MD Primary Care Provider [phone] Encounter Details Date Type Department Care Team (Late st Contact Info) Description 09/21/2024 Procedure Pass [facility], Ct Scan - [address] [address] Social History Tobacco Use Types Packs/Day Years [...] st Contact Info) Description 11/11/2024 Procedure Pass [facility], Ct Scan - [address] [address] 06/23/2025 10:30 AM EDT Office Visit [facility] [address] [place] [address] Yasmin Cardenas MD [address] [place] [address] [facility] [place] [address] [email or web address] Rivera, PT [address] [place] [address] 06/30/2025 11:15 AM EDT Office Visit [address] [address] Yasmin Cardenas MD 4 [facility], [place], [place] [id number] [email or web address] Alexandria Rivera, PT [address] [place] [address] 07/07/2025 10:30 AM EDT Office Visit [address] [address] Yasmin Cardenas MD 4 [facility], [place], [place] [phone] [email or web address] Alexandria Rivera, PT [address] [place] [address] 07/14/2025 11:15 AM EDT Office Visit [address] [address] Yasmin Cardenas MD 4 [facility], [place], [place] [phone] [email or web address] Alexandria Rivera, PT [address] [place], [place] 1935[address] 10/13/2025 12:45 PM EST Appointment [facility], Ct Scan - [address] [address] Gerardo Tan MD [address] [place] [address] [id number] [email or web address] 06/15/2026 1:00 PM EDT Office Visit [facility] [address] [place] [address] Tim Gipson MD [address] [place] [address], [address] [place] [address] [email or web address] documented as of this encounter Visit Diagnoses Not on filedocumented in this encounter Additional Health Concerns Assessment Noted Time PHQ-9 Depression Total Score: 18 024 10:50 AM EDT PHQ-2 Depression Total Score: 3 05/28/20 24 10:50 AM EDT documented as of this encounter Care Teams Cutter Machine Tender Relationship Specialty Start Date End Date Tim Gipson MD [address] [place] [address], [address] [place] [address] [email or web address] PCP - General Internal Medicine 09/30/18 documented as of this encounter Additional Source Comments The information contained in this document represents components of the legal health record. It is not the complete legal health record.[facility]
--- OUTSIDE RECORDS SUMMARY | 2025-06-21 12:56 | XMS_ITS | Encounter Summary ---
Author Organization [facility] Address [address] [place] [address] Care Team Providers Care Fruit Buyer Name Role Phone Tim Gipson Primary Care Provider [phone] Encounter Details Date Type Department Care Team (Late st Contact Info) Description 05/31/2022 Orders Only [facility] [address] [place] [address] Provider, MD [place] [address] [place] [address] Social History Tobacco Use Types Packs/Day [...] of this encounter Procedures * Due to [place] law, this organization might not be sharing negative HIV tests. Procedure Name Priority Date/Time Associated Diagnosis Comments AMB EXTERNAL MRI BRAIN, OUTS LAW RESULT Routine 05/31/2022 AMB EXTERNAL MRI C-SPINE, OU TSIDE RESULT Routine 05/31/2022 AMB EXTERNAL MRI L-SPINE, OU TSIDE RESULT Routine 05/31/2022 NEURODIAGNOSTIC - SCANNED Routine 05/31/2022 documented in this encounter Results * Due to [place] law, this organization might not be sharing [...] on filedocumented in this encounter Care Teams Fruit Buyer Relationship Specialty Start Date End Date Tim Gipson [address] [address] PCP - General Family Medicine 10/14/18 documented as of this encounter
--- OUTSIDE RECORDS SUMMARY | 2025-06-21 12:56 | XMS_ITS | Encounter Summary ---
Author Organization [facility] Address [address] [place] [address] Care Team Providers Care Crew Director Name Role Phone Tim Gipson Primary Care Provider [phone] Reason for Visit * Reason Onset Date Comments PAC General Info_Emily 10/05/2022 Encounter Details Date Type Department Care Team (Late st Contact Info) Description 10/05/2022 Telephone [facility] [address] [place] [address] Telephone Intake, Staff PAC General Info_Emily Social [...] Miscellaneous Notes * Telephone Encounter - Lakeshia Salidvar - 10/08/2022 12:41 PM EST Appt converted [...] on filedocumented in this encounter Care Teams Crew Director Relationship Specialty Start Date End Date Tim Gipson [address] [address] PCP - General Family Medicine 10/14/18 documented as of this encounter
--- OUTSIDE RECORDS SUMMARY | 2025-06-21 12:56 | XMS_ITS | Encounter Summary ---
Author Organization [facility] Address [address] [facility] [address] [place] [address] Phone Care Team Providers Care Digital Advertising Analyst Name Role Phone Tim Gipson MD Primary Care Provider [phone] Encounter Details Date Type Department Care Team (Late st Contact Info) Description 12/29/2021 Procedure Pass [facility], [address] [address] Social History Tobacco Use Types Packs/Day Years [...] high school, GED, job training, learning the Egyptian language, technical skills, or developing parenting skills)? [...] st Contact Info) Description 11/11/2024 Procedure Pass [facility], Ct Scan - [address] [address] 06/23/2025 10:30 AM EDT Office Visit [facility] [address] [place] [address] Yasmin Cardenas MD 4 [facility] Medicine, [place] [address] [email or web address] Alexandria Rivera, PT [address] [place] [address] 06/30/2025 11:15 AM EDT Office Visit [facility] [address] [place] [address] Yasmin Cardenas MD 4 [facility] Medicine, [place] [address] [email or web address] Alexandria Rivera, PT [address] [place] [address] 07/07/2025 10:30 AM EDT Office Visit [address] [address] Yasmin Cardenas MD 4 [facility], [place], [place] [phone] [email or web address] Alexandria Rivera, PT [address] [place] [address] 07/14/2025 11:15 AM EDT Office Visit [address] [address] Yasmin Cardenas MD 4 [facility], [place], [place] [phone] [email or web address] Alexandria Rivera, PT [address] [place] [address] 10/13/2025 12:45 PM EST Appointment [facility], Ct Scan - [address] [address] Gerardo Tan MD [address] [place] [address] 06/15/2026 1:00 PM EDT Office Visit [facility] [address] [place] [address] Tim Gipson MD 22 [facility], [address] [place], [place] [phone] documented as of this encounter Visit Diagnoses Not on filedocumented in this encounter Additional Health Concerns Assessment Noted Time PHQ-2 Depression Total Score: 1 05/16/20 21 8:45 AM EDT documented as of this encounter Care Teams Digital Advertising Analyst Relationship Specialty Start Date End Date Tim Gipson MD 22 [facility], [address] [place] [address] [email or web address] PCP - General Internal Medicine 09/30/18 documented as of this encounter Additional Source Comments The information contained in this document represents components of the legal health record. It is not the complete legal health record.[facility]
--- OUTSIDE RECORDS SUMMARY | 2025-06-21 12:56 | XMS_ITS | Encounter Summary ---
Author Organization [facility] Address [address] [place] [address] Care Team Providers Care Cook Pressure Name Role Phone Tim Gipson Primary Care Provider [phone] Encounter Details Date Type Department Care Team (Late st Contact Info) Description 12/11/2021 Telematik Message [facility] [address] [place], [place] [phone] Lucrecia Thomas MD [address] [place] [address] Copy of message sent to Dr. Ferguson [...] on filedocumented in this encounter Care Teams Cook Pressure Relationship Specialty Start Date End Date Tim Gipson [address] [address] PCP - General Family Medicine 10/14/18 documented as of this encounter
--- OUTSIDE RECORDS SUMMARY | 2025-06-21 12:56 | XMS_ITS | Encounter Summary ---
Author Organization [facility] Address [address] [place] [address] Care Team Providers Care Family Dentist Name Role Phone Tim Gipson Primary Care Provider [phone] Encounter Details Date Type Department Care Team (Late st Contact Info) Description 06/26/2021 Orders Only [facility] [address] [place] [address] Lucrecia Thomas MD [address] [place] [address] Social History Tobacco Use Types Packs/Day Years [...] on filedocumented in this encounter Care Teams Family Dentist Relationship Specialty Start Date End Date Tim Gipson [address] [address] PCP - General Family Medicine 10/14/18 documented as of this encounter
--- OUTSIDE RECORDS SUMMARY | 2025-06-21 12:56 | XMS_ITS | Clinical Summary ---
Author Organization [facility] Address [address] [place] [address] Care Team Providers Care Club Manager Name Role Phone Tim Gipson MD Primary Care Provider [phone] Allergies Active Allergy Reactions Criticality Noted Date [...] 0 04/01/2024 Active ergocalciferol (VITAMIN D2) capsule 18504 units Take 1 capsule (50,000 Units total) [...] age to complete this topic Care Teams Club Manager Relationship Specialty Start Date End Date Tim Gipson MD [address] [place] [address] PCP - General Quality Assurance Supervisor 05/29/21
--- OUTSIDE RECORDS SUMMARY | 2025-06-21 12:56 | XMS_ITS | Encounter Summary ---
Author Organization [facility] Address [address] [place] [address] Phone Care Team Providers Care Manufacturing Test Engineer Name Role Phone Tim Gipson MD Primary Care Provider [phone] Encounter Details Date Type Department Care Team (Late st Contact Info) Description 12/29/2021 Procedure Pass [facility], [address] [address] Social History Tobacco Use Types Packs/Day Years [...] high school, GED, job training, learning the Greek language, technical skills, or developing parenting skills)? [...] st Contact Info) Description 11/11/2024 Procedure Pass [facility], Ct Scan - [address] [address] 06/23/2025 10:30 AM EDT Office Visit [facility] [address] [place] [address] Yasmin Cardenas MD 4 [facility] Medicine, [place] [address] [email or web address] Alexandria Rivera, PT [address] [place] [address] 06/30/2025 11:15 AM EDT Office Visit [facility] [address] [place] [address] Yasmin Cardenas MD 4 [facility] Medicine, [place] [address] [email or web address] Alexandria Rivera, PT [address] [place] [address] 07/07/2025 10:30 AM EDT Office Visit [address] [address] Yasmin Cardenas MD 4 [facility], [place], [place] [phone] [email or web address] Alexandria Rivera, PT [address] [place] [address] 07/14/2025 11:15 AM EDT Office Visit [address] [address] Yasmin Cardenas MD 4 [facility], [place], [place] [phone] [email or web address] Alexandria Rivera, PT [address] [place] [address] 10/13/2025 12:45 PM EST Appointment [facility], Ct Scan - [address] [address] Gerardo Tan MD [address] [place] [address] 06/15/2026 1:00 PM EDT Office Visit [facility] [address] [place] [address] Tim Gipson MD 22 [facility], [address] [place], [place] [phone] documented as of this encounter Visit Diagnoses Not on filedocumented in this encounter Additional Health Concerns Assessment Noted Time PHQ-2 Depression Total Score: 1 05/16/20 21 8:45 AM EDT documented as of this encounter Care Teams Manufacturing Test Engineer Relationship Specialty Start Date End Date Tim Gipson MD 22 [facility] [place], [address] [place] [address] [email or web address] PCP - General Internal Medicine 09/30/18 documented as of this encounter Additional Source Comments The information contained in this document represents components of the legal health record. It is not the complete legal health record.[facility]
== END 2025-06-21 10:33 | disposition home or self-care (01) ==
LOC: HO.PMC 10:32
PROVIDERS: Visit Provider Internal Medicine
DX: M96.1 Postlaminectomy syndrome, not elsewhere classified (principal); R29.898 Other symptoms and signs involving the musculoskeletal system
CPT/HCPCS: 99213

== ENCOUNTER 2025-09-02 13:13 | Outpatient (REF) | payer MEDICARE, SELFPAY ==
--- NOTE | 2025-09-02 13:16 | EMG_ITS ---
Chief complaint: Chronic back pain, chronic but worsening weakness in both legs, left worse than right. Left leg weakness present even prior to surgery. Right-sided weakness started after surgery. History of L3-4 fusion 2020. Also has a history of multiple sclerosis, but told to not have any new lesions since last seen at [facility] last year. Reason for referral: Evaluate for lumbar radiculopathy versus neuropathy Referred by: Dr. Azevedo Procedure done: Bilateral lower extremity NCS/EMG Precautions and/or limitations: None The limb temperature was monitored continuously and remained between 32-36 degrees C during the performance of the NCS. Nerve Conduction Studies Anti Sensory Summary Table ?Stim Site NR Onset (ms) Norm Onset (ms) Peak (ms) Norm Peak (ms) O-P Amp (?V) Norm O-P Amp Site1 Site2 Delta-0 (ms) Dist (cm) Sandor (m/s) Norm Sandor (m/s) Left Sural Anti Sensory (Lat Mall) Calf ? 1.8 2.5 <4.0 17.3 >5.0 Calf Lat Mall 1.8 14.0 78 ? 3.1 4.0 15.4 Right Sural Anti Sensory (Lat Mall) Calf ? 2.3 3.0 <4.0 31.5 >5.0 Calf Lat Mall 2.3 14.0 61 Motor Summary Table ?Stim Site NR Onset (ms) Norm Onset (ms) O-P Amp (mV) Norm O-P Amp iAmp (mV) Amp (1st) (%) Site1 Site2 Delta-0 (ms) Dist (cm) Sandor (m/s) Norm Sandor (m/s) Left Peroneal Motor (Ext Dig Brev) Ankle ? 4.5 <4.0 2.5 >2.5 3.2 100.0 Ankle Ext Dig Brev 4.5 0.0 B Fib ? 12.7 2.4 3.0 96.0 B Fib Ankle 8.2 34.0 41 >40 Poplt ? 14.1 2.5 3.2 100.0 Poplt B Fib 1.4 7.0 50 >40 Right Peroneal Motor (Ext Dig Brev) Ankle ? 5.4 <4.0 1.9 >2.5 2.2 100.0 Ankle Ext Dig Brev 5.4 0.0 B Fib ? 13.4 1.4 2.0 73.7 B Fib Ankle 8.0 33.5 42 >40 Poplt ? 14.7 1.5 1.9 78.9 Poplt B Fib 1.3 6.0 46 >40 Left Tibial Motor (Abd Wilkinson Brev) Ankle ? 4.8 <5 4.8 >2.5 6.5 100.0 Ankle Abd Wilkinson Brev 4.8 0.0 Knee ? 13.3 1.4 2.3 29.2 Knee Ankle 8.5 43.0 51 >40 Right Tibial Motor (Abd Wilkinson Brev) Ankle ? 4.9 <5 5.0 >2.5 7.8 100.0 Ankle Abd Wilkinson Brev 4.9 0.0 Knee ? 14.5 4.1 6.3 82.0 Knee Ankle 9.6 43.0 45 >40 ?? EMG ?Side Muscle Nerve Root Ins Act Fibs Psw Amp Dur Poly Recrt Int Pat Comment Right AbdHallucis MedPlantar S1-2 Nml Nml Nml Nml Nml 0 Nml Complete Right AntTibialis Dp Br Peron L4-5 Nml Nml Nml Nml Nml 0 Nml Complete Right PostTibialis Tibial L5, S1 Nml Nml Nml Nml Nml 0 Nml Complete Right MedGastroc Tibial S1-2 Incr 2+ 2+ Nml Nml 0 Nml Complete CRD Right VastusMed Femoral L2-4 Nml Nml Nml Nml Nml 0 Nml Complete Left AbdHallucis MedPlantar S1-2 Incr 1+ 1+ Nml Nml 0 Nml Complete Left AntTibialis Dp Br Peron L4-5 Nml Nml Nml Nml Nml 0 Nml Complete Left PostTibialis Tibial L5, S1 Nml Nml Nml Nml Nml 0 Nml Complete Left MedGastroc Tibial S1-2 Nml Nml Nml Nml Nml 0 Nml Complete Left VastusMed Femoral L2-4 Nml Nml Nml Nml Nml 0 Nml Complete FINDINGS: Right peroneal nerve showed prolonged distal latency, normal amplitude and normal conduction velocity. No conduction block across fibular neck. Left peroneal nerve showed prolonged distal latency, small amplitude and normal conduction velocity. Again no conduction block across fibular neck. All other nerves tested were within normal. Concentric needle EMG was performed in selected muscles of the bilateral lower extremity. Study revealed signs of electric abnormalities as shown in the table above. Right medial gastrocnemius showed increased insertional activity and CRDs. Left AH showed increased insertional activity, PSWs and fibrillations. IMPRESSION: 1. This is an abnormal study. 2. There is electrodiagnostic findings suggestive of bilateral L5/S1 radiculopathies, right side appearing more chronic than left. 3. There is no electrodiagnostic evidence for any focal peroneal neuropath at the fibula, tibial neuropathy, lumbosacral plexopathy, or peripheral neuropathy. CLINICAL COMMENT: His last EMG was 3 years ago. They will try to send me the results so I can make a comparison. Thank you for your kind referral. Citlaly Quan MD, KIARRA Board Certified, [place] [employer] and Rehabilitation (ABPMR) Board Certified, [place] Board [employer] Electrodiagnostic Medicine (ABEM) CODIN 15425 x 2 extremity MTDD
== END 2025-09-02 13:14 | disposition home or self-care (01) ==
LOC: HO.NEURO 13:13
PROVIDERS: Visit Provider Internal Medicine
DX: R29.898 Other symptoms and signs involving the musculoskeletal system (principal); M96.1 Postlaminectomy syndrome, not elsewhere classified; G89.29 Other chronic pain; M54.9 Dorsalgia, unspecified
CPT/HCPCS: 95886; 95909

== ENCOUNTER → 2025-09-02 13:16 | Outpatient (BNV) | payer MEDICARE, SELFPAY | PROVIDERS: Visit Provider Physical Medicine & Rehabilitation | DX: M96.1 Postlaminectomy syndrome, not elsewhere classified (principal); R29.898 Other symptoms and signs involving the musculoskeletal system | CPT/HCPCS: 95886; 95909 ==